=== PATIENT | male | born 1965 | race Hispanic/Latino ===

== ENCOUNTER 2020-07-17 12:21 | Inpatient (IN) | payer BC ==
[2020-07-17] MEDS ORDERED: SODIUM CHLORIDE 0.9% 1000 ML 1,000 ML IV ONE (12:28)
[2020-07-17] MEDS ORDERED: ONDANSETRON 4 MG/2 ML INJ IV ONE (12:28)
[2020-07-17] MEDS ORDERED: SODIUM CHLORIDE 0.9% 1000 ML IV SOLN IV ONE (12:33)
--- NOTE | 2020-07-17 12:33 | Event Note ---
ED Screening Note ED Screening Note: Patient is a 54-year-old male who presents emergency room complaints of nausea vomiting diarrhea and generalized weakness that began 07/12/2020 On 07/10/2020 he had a vascular stent placed in the right leg by Dr. Blankenship He denies any abdominal pain, hematochezia, hematemesis, melena, cough, chest pain, shortness of breath History of diabetes and states that his sugars have been running high at home Allergy to shellfish Patient is tachycardic with low normal blood pressure This initial assessment/diagnostic orders/clinical plan/treatment(s) is/are subject to change based on patients health status, clinical progression and re- assessment by fellow clinical providers in the ED. Further treatment and workup at subsequent clinical providers discretion. Patient/guardian urged not to elope from the ED as their condition may be serious if not clinically assessed and managed. Initial orders include: Labs, urine, EKG, chest x-ray, meds
--- NOTE | 2020-07-17 12:44 | Emergency Department Report ---
ED General Adult HPI - General Chief complaint: Nausea/Vomiting/Diarrhea Stated complaint: VOMITING/DEHYDRATED Time Seen by Provider: 07/17/20 12:28 Source: patient Mode of arrival: Wheelchair Limitations: No Limitations - History of Present Illness Initial comments: Patient is a 54-year-old male who had unknown vascular procedure probably to his right femoral artery on the second of this month, has had 4 to 5 days of nausea vomiting and diarrhea since. Patient denies fever, complains of mild dysuria, denies cough or shortness of breath. Patient denies calf pain or swelling. Patient presents meeting septic criteria, consequently requiring my immediate attention. - Related Data Previous Rx's Medication Instructions Recorded Last Taken Type Insulin NPH/Regular [NovoLIN 70/30] 34 unit SUB-Q QDDIAB #30 ml 05/20/14 08/10/14 Rx Docusate Sodium [Colace] 100 mg PO BID PRN #14 capsule 08/11/14 Unknown Rx Allergies Allergy/AdvReac Type Severity Reaction Status Date / Time shellfish derived Allergy Hives Verified 08/11/14 11:29 ED Review of Systems ROS: Stated complaint: VOMITING/DEHYDRATED Other details as noted in HPI Comment: All other systems reviewed and negative ED Past Medical Hx - Past Medical History Previous Medical History?: Yes Hx Hypertension: No Hx Diabetes: Yes (9 YRS) Hx GERD: Yes - Surgical History Past Surgical History?: Yes Hx Appendectomy: Yes - Social History Smoking Status: Never Smoker Substance Use Type: None - Medications Home Medications: Home Medications Medication Instructions Recorded Confirmed Last Taken Type Insulin NPH/Regular [NovoLIN 70/30] 34 unit SUB-Q QDDIAB #30 ml 05/20/14 08/11/14 08/10/14 Rx Docusate Sodium [Colace] 100 mg PO BID PRN #14 capsule 08/11/14 Unknown Rx ED Physical Exam - General Limitations: No Limitations General appearance: alert, in distress - Head Head exam: Present: atraumatic, normocephalic - Eye Eye exam: Present: normal appearance - ENT ENT exam: Present: mucous membranes moist - Neck Neck exam: Present: normal inspection - Respiratory Respiratory exam: Present: normal lung sounds bilaterally. Absent: respiratory distress - Cardiovascular Cardiovascular Exam: Present: normal rhythm, tachycardia. Absent: systolic murmur, diastolic murmur, rubs, gallop - GI/Abdominal GI/Abdominal exam: Present: soft, tenderness (Mild diffuse) - Rectal Rectal exam: Present: deferred - Extremities Exam Extremities exam: Present: normal inspection - Back Exam Back exam: Present: normal inspection - Neurological Exam Neurological exam: Present: alert, oriented X3 - Psychiatric Psychiatric exam: Present: normal affect, normal mood - Skin Skin exam: Present: warm, dry, intact, normal color. Absent: rash ED Course Vital Signs 07/17/20 07/17/20 07/17/20 12:25 13:14 13:15 Temperature 97.6 F Pulse Rate 109 H 106 H 106 H Respiratory 18 29 H 26 H Rate Blood Pressure Blood Pressure 100/59 [Right] O2 Sat by Pulse 96 93 94 Oximetry 07/17/20 07/17/20 07/17/20 13:31 13:45 14:01 Temperature Pulse Rate 108 H 108 H 107 H Respiratory 23 22 20 Rate Blood Pressure 121/73 121/73 121/73 Blood Pressure [Right] O2 Sat by Pulse 84 90 88 Oximetry 07/17/20 07/17/20 07/17/20 14:19 14:31 14:45 Temperature Pulse Rate 105 H 103 H 100 H Respiratory 20 13 23 Rate Blood Pressure 146/74 Blood Pressure [Right] O2 Sat by Pulse 91 95 94 Oximetry 07/17/20 07/17/20 07/17/20 15:01 15:16 15:31 Temperature Pulse Rate 101 H 109 H 100 H Respiratory 20 20 17 Rate Blood Pressure 146/74 121/73 146/74 Blood Pressure [Right] O2 Sat by Pulse 94 82 L 91 Oximetry 07/17/20 07/17/20 07/17/20 15:45 16:01 16:31 Temperature Pulse Rate 103 H 103 H 99 H Respiratory 24 14 22 Rate Blood Pressure 136/79 136/79 129/82 Blood Pressure [Right] O2 Sat by Pulse 88 93 89 Oximetry 07/17/20 07/17/20 07/17/20 17:01 17:31 18:01 Temperature Pulse Rate 99 H 100 H 99 H Respiratory 12 24 24 Rate Blood Pressure 129/72 139/68 147/78 Blood Pressure [Right] O2 Sat by Pulse 91 93 93 Oximetry 07/17/20 07/17/20 07/17/20 18:31 19:01 19:21 Temperature Pulse Rate 99 H 100 H 101 H Respiratory 25 H 23 23 Rate Blood Pressure 161/85 167/93 170/89 Blood Pressure [Right] O2 Sat by Pulse 94 91 93 Oximetry 07/17/20 07/17/20 07/17/20 19:31 19:40 19:41 Temperature 99.1 F Pulse Rate 101 H 98 H 100 H Respiratory 23 22 24 Rate Blood Pressure 170/89 170/89 Blood Pressure 168/83 [Right] O2 Sat by Pulse 93 96 92 Oximetry 07/17/20 19:51 Temperature Pulse Rate 101 H Respiratory 27 H Rate Blood Pressure 168/83 Blood Pressure [Right] O2 Sat by Pulse 95 Oximetry - Reevaluation(s) Reevaluation #1: 07/17/20 13:03 Patient initially treated with weight-based 30 mg/kg IV NS, Zofran 4 mg IV x1. Reevaluation #2: 07/17/20 16:15 Covering nurse practitioner for Dr. Blankenship of preferred vascular surgery group contacted, case discussed, states patient had right arteriography with runoff followed by aspiration arthrectomy of right superficial femoral artery followed by balloon angioplasty and stent placement. Patient treated with Rocephin 1 g IV x1 for presumed sepsis with possible urinary source pending urinalysis re romina. 07/18/20 06:04 ED Medical Decision Making - Lab Data Result diagrams: 07/17/20 13:05 07/17/20 13:05 Lab Results 07/17/20 07/17/20 07/17/20 Range/Units 12:29 13:05 13:05 WBC 19.1 H (4.5-11.0) K/mm3 RBC 3.90 (3.65-5.03) M/mm3 Hgb 11.5 L (11.8-15.2) gm/dl Hct 33.2 L (35.5-45.6) % MCV 85 (84-94) fl MCH 30 (28-32) pg MCHC 35 H (32-34) % RDW 13.7 (13.2-15.2) % Plt Count 281 (140-440) K/mm3 Add Manual Diff Complete Total Counted 100 Seg Neutrophils % Extended Insurance Clerk Seg Neuts % (Manual) 95.0 H (40.0-70.0) % Lymphocytes % (Manual) 3.0 L (13.4-35.0) % Monocytes % (Manual) 2.0 (0.0-7.3) % Nucleated RBC % Not Reportable Seg Neutrophils # Man 18.1 H (1.8-7.7) K/mm3 Band Neutrophils # 0.0 K/mm3 Lymphocytes # (Manual) 0.6 L (1.2-5.4) K/mm3 Abs React Lymphs (Man) 0.0 K/mm3 Monocytes # (Manual) 0.4 (0.0-0.8) K/mm3 Eosinophils # (Manual) 0.0 (0.0-0.4) K/mm3 Basophils # (Manual) 0.0 (0.0-0.1) K/mm3 Metamyelocytes # 0.0 K/mm3 Myelocytes # 0.0 K/mm3 Promyelocytes # 0.0 K/mm3 Blast Cells # 0.0 K/mm3 WBC Morphology Not Reportable Hypersegmented Neuts Not Reportable Hyposegmented Neuts Not Reportable Hypogranular Neuts Not Reportable Smudge Cells Not Reportable Toxic Granulation Not Reportable Toxic Vacuolation Not Reportable Dohle Bodies Not Reportable Pelger-Huet Anomaly Not Reportable Christa Rods Not Reportable Platelet Estimate Consistent w auto Clumped Platelets Not Reportable Plt Clumps, EDTA Not Reportable Large Platelets Not Reportable Giant Platelets Not Reportable Platelet Satelliting Not Reportable Plt Morphology Comment Not Reportable RBC Morphology Normal Dimorphic RBCs Not Reportable Polychromasia Not Reportable Hypochromasia Not Reportable Poikilocytosis Not Reportable Anisocytosis Not Reportable Microcytosis Not Reportable Macrocytosis Not Reportable Spherocytes Not Reportable Pappenheimer Bodies Not Reportable Sickle Cells Not Reportable Target Cells Not Reportable Tear Drop Cells Not Reportable Ovalocytes Not Reportable Helmet Cells Not Reportable [place] Bodies Not Reportable [place] Rings Not Reportable Dariana Cells Not Reportable Bite Cells Not Reportable Crenated Cell Not Reportable Elliptocytes Not Reportable Acanthocytes (Spur) Not Reportable Rouleaux Not Reportable Hemoglobin C Crystals Not Reportable Schistocytes Not Reportable Malaria parasites Not Reportable Jamil Bodies Not Reportable Hem Pathologist Commnt No PT 15.4 H (12.2-14.9) Sec. INR 1.24 H (0.87-1.13) APTT 35.0 (24.2-36.6) Sec. Sodium (137-145) mmol/L Potassium (3.6-5.0) mmol/L Chloride (98-107) mmol/L Carbon Dioxide (22-30) mmol/L Anion Gap mmol/L BUN (9-20) mg/dL Creatinine (0.8-1.3) mg/dL Estimated GFR ml/min BUN/Creatinine Ratio % Glucose (75-100) mg/dL POC Glucose 228 H (70-105) mg/dL Lactic Acid (0.7-2.0) mmol/L Calcium (8.4-10.2) mg/dL Magnesium (1.7-2.3) mg/dL Total Bilirubin (0.1-1.2) mg/dL AST (5-40) units/L ALT (7-56) units/L Alkaline Phosphatase (35-129) units/L Total Creatine Kinase (55-170) units/L Total Protein (6.3-8.2) g/dL Albumin (3.9-5) g/dL Albumin/Globulin Ratio % 07/17/20 07/17/20 07/17/20 Range/Units 13:05 13:05 16:14 WBC (4.5-11.0) K/mm3 RBC (3.65-5.03) M/mm3 Hgb (11.8-15.2) gm/dl Hct (35.5-45.6) % MCV (84-94) fl MCH (28-32) pg MCHC (32-34) % RDW (13.2-15.2) % Plt Count (140-440) K/mm3 Add Manual Diff Total Counted Seg Neutrophils % Seg Neuts % (Manual) (40.0-70.0) % Lymphocytes % (Manual) (13.4-35.0) % Monocytes % (Manual) (0.0-7.3) % Nucleated RBC % Seg Neutrophils # Man (1.8-7.7) K/mm3 Band Neutrophils # K/mm3 Lymphocytes # (Manual) (1.2-5.4) K/mm3 Abs React Lymphs (Man) K/mm3 Monocytes # (Manual) (0.0-0.8) K/mm3 Eosinophils # (Manual) (0.0-0.4) K/mm3 Basophils # (Manual) (0.0-0.1) K/mm3 Metamyelocytes # K/mm3 Myelocytes # K/mm3 Promyelocytes # K/mm3 Blast Cells # K/mm3 WBC Morphology Hypersegmented Neuts Hyposegmented Neuts Hypogranular Neuts Smudge Cells Toxic Granulation Toxic Vacuolation Dohle Bodies Pelger-Huet Anomaly Christa Rods Platelet Estimate Clumped Platelets Plt Clumps, EDTA Large Platelets Giant Platelets Platelet Satelliting Plt Morphology Comment RBC Morphology Dimorphic RBCs Polychromasia Hypochromasia Poikilocytosis Anisocytosis Microcytosis Macrocytosis Spherocytes Pappenheimer Bodies Sickle Cells Target Cells Tear Drop Cells Ovalocytes Helmet Cells [place] Bodies [place] Rings Dariana Cells Bite Cells Crenated Cell Elliptocytes Acanthocytes (Spur) Rouleaux Hemoglobin C Crystals Schistocytes Malaria parasites Jamil Bodies Hem Pathologist Commnt PT (12.2-14.9) Sec. INR (0.87-1.13) APTT (24.2-36.6) Sec. Sodium 124 L (137-145) mmol/L Potassium 4.9 (3.6-5.0) mmol/L Chloride 85.6 L (98-107) mmol/L Carbon Dioxide 20 L (22-30) mmol/L Anion Gap 23 mmol/L BUN 51 H (9-20) mg/dL Creatinine 1.9 H (0.8-1.3) mg/dL Estimated GFR 37 ml/min BUN/Creatinine Ratio 27 % Glucose 238 H (75-100) mg/dL POC Glucose (70-105) mg/dL Lactic Acid 2.40 H* 1.30 (0.7-2.0) mmol/L Calcium 9.5 (8.4-10.2) mg/dL Magnesium 2.00 (1.7-2.3) mg/dL Total Bilirubin 0.80 (0.1-1.2) mg/dL AST 42 H (5-40) units/L ALT 47 (7-56) units/L Alkaline Phosphatase 118 (35-129) units/L Total Creatine Kinase 131 (55-170) units/L Total Protein 6.9 (6.3-8.2) g/dL Albumin 2.7 L (3.9-5) g/dL Albumin/Globulin Ratio 0.6 % Vital Signs 07/17/20 07/17/20 07/17/20 12:25 13:14 13:15 Temperature 97.6 F Pulse Rate 109 H 106 H 106 H Respiratory 18 29 H 26 H Rate Blood Pressure Blood Pressure 100/59 [Right] O2 Sat by Pulse 96 93 94 Oximetry 07/17/20 07/17/20 07/17/20 13:31 13:45 14:01 Temperature Pulse Rate 108 H 108 H 107 H Respiratory 23 22 20 Rate Blood Pressure 121/73 121/73 121/73 Blood Pressure [Right] O2 Sat by Pulse 84 90 88 Oximetry 07/17/20 07/17/20 07/17/20 14:19 14:31 14:45 Temperature Pulse Rate 105 H 103 H 100 H Respiratory 20 13 23 Rate Blood Pressure 146/74 Blood Pressure [Right] O2 Sat by Pulse 91 95 94 Oximetry 07/17/20 07/17/20 07/17/20 15:01 15:16 15:31 Temperature Pulse Rate 101 H 109 H 100 H Respiratory 20 20 17 Rate Blood Pressure 146/74 121/73 146/74 Blood Pressure [Right] O2 Sat by Pulse 94 82 L 91 Oximetry 07/17/20 07/17/20 07/17/20 15:45 16:01 16:31 Temperature Pulse Rate 103 H 103 H 99 H Respiratory 24 14 22 Rate Blood Pressure 136/79 136/79 129/82 Blood Pressure [Right] O2 Sat by Pulse 88 93 89 Oximetry 07/17/20 07/17/20 07/17/20 17:01 17:31 18:01 Temperature Pulse Rate 99 H 100 H 99 H Respiratory 12 24 24 Rate Blood Pressure 129/72 139/68 147/78 Blood Pressure [Right] O2 Sat by Pulse 91 93 93 Oximetry 07/17/20 07/17/20 07/17/20 18:31 19:01 19:21 Temperature Pulse Rate 99 H 100 H 101 H Respiratory 25 H 23 23 Rate Blood Pressure 161/85 167/93 170/89 Blood Pressure [Right] O2 Sat by Pulse 94 91 93 Oximetry 07/17/20 07/17/20 07/17/20 19:31 19:40 19:41 Temperature 99.1 F Pulse Rate 101 H 98 H 100 H Respiratory 23 22 24 Rate Blood Pressure 170/89 170/89 Blood Pressure 168/83 [Right] O2 Sat by Pulse 93 96 92 Oximetry 07/17/20 19:51 Temperature Pulse Rate 101 H Respiratory 27 H Rate Blood Pressure 168/83 Blood Pressure [Right] O2 Sat by Pulse 95 Oximetry - EKG Data -: EKG Interpreted by Me (Sinus tachycardia 111, no ST-T changes, normal QRS 12:44) - Radiology Data Radiology results: report reviewed Chest x-ray: Negative per radiology [facility] [address] [place] [address] Cat Scan Report Signed Patient: ROSA M LILLY MR#: [id number] : 1965 Acct:[id number] Age/Sex: 54 / M ADM Date: 07/17/20 Loc: ED Attending Dr: Ordering Physician: CARRIE TABOR MD Date of Service: 07/17/20 Procedure(s): CT abdomen pelvis wo con Accession Number(s): [id number] cc: CARRIE TABOR MD CT ABDOMEN AND PELVIS WITHOUT CONTRAST HISTORY: Abdominal pain, nausea, vomiting, diarrhea COMPARISON: None. TECHNIQUE: Axial CT images were obtained through the abdomen and pelvis without IV contrast. Sagittal and coronal reformatted images. All CT scans at this location are performed using CT dose reduction for ALARA by means of automated exposure control. FINDINGS: CT ABDOMEN: Lung Bases: Clear. Liver: No significant abnormality. Biliary: A few tiny gallstones are noted in the fundus of the gallbladder. Spleen: No significant abnormality. Unenlarged. Pancreas: No significant abnormality. Adrenals: No significant abnormality. Kidneys: A few punctate calyceal stones are identified bilaterally. There is mild perinephric stranding. No focal renal lesion or hydronephrosis. No obvious ureteral stones. Lymphatics: No lymphadenopathy. Vasculature: No significant abnormality. Bowel/Peritoneum: There is moderate fecal matter in the distal colon and rectum. No evidence for bowel obstruction or focal bowel wall thickening. No free fluid or free air. The appendix is not confidently identified. CT PELVIS: : No significant abnormality. Osseous Structures: No significant abnormality. Additional Findings: None IMPRESSION: No acute process is identified in the abdomen or pelvis. Cholelithiasis. Punctate bilateral renal stones. No hydronephrosis. Moderate fecal retention in the distal colon and rectum. Signer Name: Eduard Drew Jr, MD Signed: 07/17/2020 3:37 PM Workstation Name: [id number] Transcribed By: TTR Dictated By: EDUARD DREW JR, MD Electronically Authenticated By: EDUARD DREW JR, MD Signed Date/Time: 07/17/20 153 DD/ 32 TD/TT: >Save Report [facility] [address] [place] [address] Cat Scan Report Signed Patient: ROSA M LILLY MR#: [id number] : 1965 Acct:[id number] Age/Sex: 54 / M ADM Date: 07/17/20 Loc: ED Attending Dr: Ordering Physician: CARRIE TABOR MD Date of Service: 07/17/20 Procedure(s): CT abdomen pelvis wo con Accession Number(s): [id number] cc: CARRIE TABOR MD CT ABDOMEN AND PELVIS WITHOUT CONTRAST HISTORY: Abdominal pain, nausea, vomiting, diarrhea COMPARISON: None. TECHNIQUE: Axial CT images were obtained through the abdomen and pelvis without IV contrast. Sagittal and coronal reformatted images. All CT scans at this location are performed using CT dose reduction for ALARA by means of automated exposure control. FINDINGS: CT ABDOMEN: Lung Bases: Clear. Liver: No significant abnormality. Biliary: A few tiny gallstones are noted in the fundus of the gallbladder. Spleen: No significant abnormality. Unenlarged. Pancreas: No significant abnormality. Adrenals: No significant abnormality. Kidneys: A few punctate calyceal stones are identified bilaterally. There is mild perinephric stranding. No focal renal lesion or hydronephrosis. No obvious ureteral stones. Lymphatics: No lymphadenopathy. Vasculature: No significant abnormality. Bowel/Peritoneum: There is moderate fecal matter in the distal colon and rectum. No evidence for bowel obstruction or focal bowel wall thickening. No free fluid or free air. The appendix is not confidently identified. CT PELVIS: : No significant abnormality. Osseous Structures: No significant abnormality. Additional Findings: None IMPRESSION: No acute process is identified in the abdomen or pelvis. Cholelithiasis. Punctate bilateral renal stones. No hydronephrosis. Moderate fecal retention in the distal colon and rectum. Signer Name: Eduard Drew Jr, MD Signed: 07/17/2020 3:37 PM Workstation Name: [id number] Transcribed By: TTR Dictated By: EDUARD DREW JR, MD Electronically Authenticated By: EDUARD DREW JR, MD Signed Date/Time: 07/17/20 153 DD/ 32 TD/TT: Critical Care Time: Yes Critical care time in (mins) excluding proc time.: 35 Critical care attestation.: If time is entered above; I have spent that time in minutes in the direct care of this critically ill patient, excluding procedure time. ED Disposition Clinical Impression: Sepsis, unspecified organism, Nausea vomiting and diarrhea Disposition: OP ADMIT IP TO THIS HOSP Is pt being admited?: Yes Condition: Stable
--- NOTE | 2020-07-17 13:33 | XRay Report ---
CHEST 1 VIEW 07/17/2020 12:26 PM INDICATION / CLINICAL INFORMATION: weakness. Abdominal pain. COMPARISON: 05/04/14 FINDINGS: SUPPORT DEVICES: None. HEART / MEDIASTINUM: No significant abnormality. LUNGS / PLEURA: No significant pulmonary or pleural abnormality. No pneumothorax. ADDITIONAL FINDINGS: No significant additional findings. IMPRESSION: 1. No acute findings. Signer Name: Bel Rangel MD Signed: 07/17/2020 1:29 PM Workstation Name: [id number]
[2020-07-17 13:55] LABS: INR 1.24 (0.87-1.13)
[2020-07-17 13:57] LABS: Albumin 2.7 g/dL (3.9-5); Calcium 9.5 mg/dL (8.4-10.2)
[2020-07-17 13:59] LABS: Hematocrit 33.2 % (35.5-45.6); Hemoglobin 11.5 gm/dl (11.8-15.2); Mean Corpuscular HGB Conc 35 % (32-34); Mean Corpuscular Volume 85 fl (84-94); Platelet Count 281 K/mm3 (140-440); Red Cell Distribution Width 13.7 % (13.2-15.2)
[2020-07-17] MEDS ORDERED: PIPERACIL/TAZOBACTA 4.5/NS 100 4.5 GM/100 ML VIAL IV ONE (15:20)
[2020-07-17 15:29] LABS: Total Cells Counted 100
[2020-07-17 15:30] LABS: Platelet Estimate Consistent w Auto; RBC Morphology Normal
--- NOTE | 2020-07-17 15:41 | Cat Scan Report ---
CT ABDOMEN AND PELVIS WITHOUT CONTRAST HISTORY: Abdominal pain, nausea, vomiting, diarrhea COMPARISON: None. TECHNIQUE: Axial CT images were obtained through the abdomen and pelvis without IV contrast. Sagittal and coronal reformatted images. All CT scans at this location are performed using CT dose reduction for ALARA by means of automated exposure control. FINDINGS: CT ABDOMEN: Lung Bases: Clear. Liver: No significant abnormality. Biliary: A few tiny gallstones are noted in the fundus of the gallbladder. Spleen: No significant abnormality. Unenlarged. Pancreas: No significant abnormality. Adrenals: No significant abnormality. Kidneys: A few punctate calyceal stones are identified bilaterally. There is mild perinephric strandi ng. No focal renal lesion or hydronephrosis. No obvious ureteral stones. Lymphatics: No lymphadenopathy. Vasculature: No significant abnormality. Bowel/Peritoneum: There is moderate fecal matter in the distal colon and rectum. No evidence for birgit l obstruction or focal bowel wall thickening. No free fluid or free air. The appendix is not confiden tly identified. CT PELVIS: : No significant abnormality. Osseous Structures: No significant abnormality. Additional Findings: None IMPRESSION: No acute process is identified in the abdomen or pelvis. Cholelithiasis. Punctate bilateral renal stones. No hydronephrosis. Moderate fecal retention in the distal colon and rectum. Signer Name: Eduard Drew Jr, MD Signed: 07/17/2020 3:37 PM Workstation Name: [id number]
[2020-07-17] MEDS ORDERED: cefTRIAXone/NS 1 GM/50 ML 1 GM/50 ML BAG IV ONE (16:01)
[2020-07-17] MEDS ORDERED: ALBUTEROL 2.5 MG/3 ML NEBU IH PRN (16:24)
[2020-07-17] MEDS ORDERED: ACETAMINOPHEN 325 MG TAB PO PRN ×2 (16:24)
[2020-07-17] MEDS: CEFEPIME/NS 2 GM/100 ML 2 GM/100 ML BAG IV SCH (17:15)
--- NOTE | 2020-07-17 18:09 | History and Physical Report ---
History of Present Illness Date of admission: 07/17/20 16:24 Chief complaint: I feel terrible History of present illness: 54 YO Male with PVD S/P Stent Placement, DM, GERD, Obesity Hypoventilation Syndrome presents to ED for evaluation. Patient reports "I do not feel well". Patient states that he has experienced generalized weakness, nausea, multiple episodes of vomiting, 3 loose stools over the past 5 days with persistently worsening symptoms over the same timeframe. Patient transported to [facility] via private vehicle for further care and evaluation of the aforementioned symptoms. The patient was seen and evaluated in the emergency department. All lab and imaging studies reviewed. Patient found to have sepsis, suspected secondary urinary tract infection, acute kidney injury with acute tubular necrosis, metabolic acidosis, as well as hyponatremia. Patient admitted to medical floor and initiated on sepsis protocol. Patient treated with IV antibiotic therapy and IV fluid resuscitation therapy with mild improvement in symptoms. Patient denies fever, chills, chest pain, palpitations, productive cough, skin rash, recent ill contacts, or known exposure to COVID-19. Prior admission on 05/05/2014 reviewed. All medication listed at time of admission has been reconciled. Past History Past Medical History: diabetes, GERD, PVD Past Surgical History: appendectomy, Other (Vascular stent placement) Social history: . denies: smoking, alcohol abuse, prescription drug abuse Family history: diabetes, hypertension Medications and Allergies Allergies Allergy/AdvReac Type Severity Reaction Status Date / Time shellfish derived Allergy Hives Verified 08/11/14 11:29 Home Medications Medication Instructions Recorded Confirmed Last Taken Type Insulin NPH/Regular [NovoLIN 70/30] 34 unit SUB-Q QDDIAB #30 ml 05/20/14 08/11/14 08/10/14 Rx Docusate Sodium [Colace] 100 mg PO BID PRN #14 capsule 08/11/14 Unknown Rx Active Meds: Active Medications Acetaminophen (Acetaminophen 325 Mg Tab) 650 mg PO Q4H PRN PRN Reason: Pain MILD(1-3)/Fever >100.5/CARIAS Albuterol (Albuterol 2.5 Mg/3 Ml Nebu) 2.5 mg IH Q4HRT PRN PRN Reason: Shortness Of Breath Hydromorphone HCl (Hydromorphone 1 Mg/1 Ml Inj) 0.25 mg IV Q4H PRN PRN Reason: Pain, Moderate (4-6) Cefepime HCl (Cefepime/Ns 2 Gm/100 Ml) 2 gm in 100 mls @ 200 mls/hr IV Q12H [facility]; Protocol Last Admin: 07/17/20 17:15 Dose: 200 mls/hr Documented by: Ondansetron HCl (Ondansetron 4 Mg/2 Ml Inj) 4 mg IV Q8H PRN PRN Reason: Nausea And Vomiting Sodium Chloride (Sodium Chloride 0.9% 10 Ml Flush Syringe) 10 ml IV BID LACHELLE Sodium Chloride (Sodium Chloride 0.9% 10 Ml Flush Syringe) 10 ml IV PRN PRN PRN Reason: LINE FLUSH Review of Systems Constitutional: weakness, malaise, no weight gain, no fever, no chills Ears, nose, mouth and throat: no ear pain, no ear discharge, no tinnitis, no nose pain, no nasal congestion Cardiovascular: no chest pain, no orthopnea, no palpitations, no rapid/irregular heart beat, no edema, no syncope Respiratory: no cough, no cough with sputum Gastrointestinal: nausea, vomiting, diarrhea, constipation, no melena, no loss of appetite, no early satiety, no indigestion Genitourinary Male: no testicular lump, no polyuria, no kidney stones Rectal: no pain, no incontinence, no bleeding Musculoskeletal: no neck stiffness, no neck pain, no shooting arm pain, no low back pain Integumentary: no rash, no pruritis, no redness, no sores, no wounds Neurological: no head injury, no parathesias, no numbness, no seizures, no syncope Psychiatric: no anxiety, no change in sleep habits, no sleep disturbances, no hypersomnia, no change in libido, no suicidal ideation Endocrine: no cold intolerance, no heat intolerance, no excessive thirst, no polydipsia, no nocturia Hematologic/Lymphatic: no easy bruising, no easy bleeding, no lymphadenopathy, no lymphedema Allergic/Immunologic: no urticaria, no allergic rhinitis, no angioedema Exam - Constitutional Vitals: Temp Pulse Resp BP Pulse Ox 97.6 F 103 H 14 136/79 93 07/17/20 12:25 07/17/20 16:01 07/17/20 16:01 07/17/20 16:01 03/08/21 16:01 General appearance: Present: mild distress - EENT Eyes: Present: PERRL ENT: hearing intact, clear oral mucosa - Neck Neck: Present: supple, normal ROM - Respiratory Respiratory effort: normal Respiratory: bilateral: CTA - Cardiovascular Rhythm: other (Tachycardia) Heart Sounds: Present: S1 & S2. Absent: rub, click - Extremities Extremities: pulses symmetrical, No edema Peripheral Pulses: abnormal (Capillary refill greater than 3.5 seconds) - Abdominal General gastrointestinal: Present: soft, non-tender, non-distended, normal bowel sounds Male genitourinary: Present: normal - Integumentary Integumentary: Present: dry, clammy, decreased turgor - Musculoskeletal Musculoskeletal: generalized weakness - Psychiatric Psychiatric: appropriate mood/affect, intact judgment & insight - Neurologic Neurologic: CNII-XII intact, moves all extremities Results - Labs CBC & Chem 7: 07/17/20 13:05 07/17/20 13:05 Labs: Abnormal lab results 07/17/20 07/17/20 07/17/20 Range/Units 12:29 13:05 13:05 WBC 19.1 H (4.5-11.0) K/mm3 Hgb 11.5 L (11.8-15.2) gm/dl Hct 33.2 L (35.5-45.6) % MCHC 35 H (32-34) % Seg Neuts % (Manual) 95.0 H (40.0-70.0) % Lymphocytes % (Manual) 3.0 L (13.4-35.0) % Seg Neutrophils # Man 18.1 H (1.8-7.7) K/mm3 Lymphocytes # (Manual) 0.6 L (1.2-5.4) K/mm3 PT 15.4 H (12.2-14.9) Sec. INR 1.24 H (0.87-1.13) Sodium (137-145) mmol/L Chloride (98-107) mmol/L Carbon Dioxide (22-30) mmol/L BUN (9-20) mg/dL Creatinine (0.8-1.3) mg/dL Glucose (75-100) mg/dL POC Glucose 228 H (70-105) mg/dL Lactic Acid (0.7-2.0) mmol/L AST (5-40) units/L Albumin (3.9-5) g/dL 07/17/20 07/17/20 Range/Units 13:05 13:05 WBC (4.5-11.0) K/mm3 Hgb (11.8-15.2) gm/dl Hct (35.5-45.6) % MCHC (32-34) % Seg Neuts % (Manual) (40.0-70.0) % Lymphocytes % (Manual) (13.4-35.0) % Seg Neutrophils # Man (1.8-7.7) K/mm3 Lymphocytes # (Manual) (1.2-5.4) K/mm3 PT (12.2-14.9) Sec. INR (0.87-1.13) Sodium 124 L (137-145) mmol/L Chloride 85.6 L (98-107) mmol/L Carbon Dioxide 20 L (22-30) mmol/L BUN 51 H (9-20) mg/dL Creatinine 1.9 H (0.8-1.3) mg/dL Glucose 238 H (75-100) mg/dL POC Glucose (70-105) mg/dL Lactic Acid 2.40 H* (0.7-2.0) mmol/L AST 42 H (5-40) units/L Albumin 2.7 L (3.9-5) g/dL Assessment and Plan - Patient Problems (1) Sepsis Current Visit: Yes Status: Acute Plan to address problem: Sepsis protocol: Chest x-ray, CBC, CMP, urinalysis, IV antibiotic therapy, IV fluid resuscitation therapy, blood culture., Serial lactic acid level, monitor fluid balance, maintain mean arterial pressure greater than or equal to 65. (2) UTI (urinary tract infection) Current Visit: Yes Status: Acute Qualifiers: Encounter type: initial encounter Plan to address problem: IV antibiotic therapy, supportive care. Urinalysis. (3) Acute kidney injury (DAQUAN) with acute tubular necrosis (ATN) Current Visit: Yes Status: Acute Plan to address problem: IV fluid resuscitation therapy, monitor urine output every shift, repeat BMP in a.m. to monitor GFR as well as serum creatinine. (4) Metabolic acidosis Current Visit: Yes Status: Acute Plan to address problem: IV fluid resuscitation therapy, treat sepsis, supportive care. Repeat BMP in a.m., serial lactic acid level. (5) Diabetes mellitus Current Visit: Yes Status: Acute Plan to address problem: Consistent carbohydrate diet, sliding scale insulin therapy, Accu-Chek, hypoglycemia protocol, (6) Hyponatremia Current Visit: Yes Status: Acute Plan to address problem: IV fluid resuscitation therapy, BMP, repeat BMP in a.m. (7) Obesity hypoventilation syndrome Current Visit: Yes Status: Acute Plan to address problem: Balanced diet, increase physical activity at discharge, outpatient pulmonary follow-up for sleep study. (8) DVT prophylaxis Current Visit: Yes Status: Acute Plan to address problem: SCD to bilateral lower extremities while in bed,
[2020-07-17] MEDS: INSULIN REGULAR, HUMAN 100 UNITS/1 ML SUB-Q SCH (22:51)
[2020-07-18] MEDS ORDERED: VANCOMYCIN PHARMACY TO DOSE IV SCH (04:00)
[2020-07-18] MEDS ORDERED: VANCOMYCIN 2,000 MG in SODIUM CHLORIDE 0.9% 500 ML 500 ML IV ONE (04:45)
[2020-07-18] MEDS: CEFEPIME/NS 2 GM/100 ML 2 GM/100 ML BAG IV SCH ×2 (04:49→17:35)
[2020-07-18 07:04] LABS: Bilirubin,Urine NEG (Negative); Blood,Urine SM (Negative); Color,Urine Yellow (Yellow); Mucus,Urine FEW /HPF; Urobilinogen,Urine < 2.0 mg/dL (<2.0)
[2020-07-18 07:05] LABS: Protein,Urine >500 mg/dL (Negative)
[2020-07-18] MEDS: INSULIN REGULAR, HUMAN 100 UNITS/1 ML SUB-Q SCH ×4 (09:44→23:21)
--- NOTE | 2020-07-18 10:55 | Progress Note ---
Assessment and Plan Assessment and plan: -- Sepsis/diabetic foot ulcer Current Visit: Yes Status: Acute Plan to address problem: Elevate the limb, vascular study venous Doppler arterial Doppler IV antibiotics, follow cultures, ID consult Wound care consult if needed --Peripheral vascular disease; Current Visit: Yes Status: Acute Plan to address problem: Vascular following Venous and arterial Dopplers of lower extremity IR/vascular following --UTI (urinary tract infection) Current Visit: Yes Status: Acute Plan to address problem: Empiric IV antibiotic therapy, supportive care. Follow urine cultures --Acute kidney injury / acute tubular necrosis (ATN) Current Visit: Yes Status: Acute Plan to address problem: Gentle hydration, monitor renal function, avoid nephrotoxin Nephrology consult if needed, plenty of oral fluids --Acute metabolic acidosis Current Visit: Yes Status: Acute Plan to address problem: IV hydration monitor acidosis --Type II diabetes mellitus Current Visit: Yes Status: Acute Plan to address problem: Accu-Chek sliding scale coverage ADA diet Insulin as needed --Hyponatremia Current Visit: Yes Status: Acute Plan to address problem: Monitor electrolytes --Morbid obesity BMI 39.1 Current Visit: Yes Status: Acute Plan to address problem: Patient needs weight reduction When medically stable, dietary modification Exercise as tolerated and weight reduction -- DVT prophylaxis Current Visit: Yes Status: Acute Plan to address problem: SCD, Lovenox renal dose We will closely monitor the patient and adjust the management as needed Plan of care reviewed with the patient and his nurse History Interval history: I have seen and examined the patient at the bedside this morning Patient's chart and medications reviewed Patient is sleeping easily awakens No new complaints Vital signs noted Hospitalist Physical - Constitutional Vitals: Temp Pulse Resp BP Pulse Ox 98.9 F 105 H 20 124/63 87 07/18/20 04:31 07/18/20 04:31 07/18/20 04:31 07/18/20 04:31 07/18/20 04:31 General appearance: Present: mild distress, well-nourished, obese - EENT Eyes: Present: PERRL, EOM intact - Neck Neck: Present: supple, normal ROM - Respiratory Respiratory effort: normal Respiratory: bilateral: diminished, negative: rales, rhonchi, other - Cardiovascular Rhythm: regular Heart Sounds: Present: S1 & S2 - Extremities Extremities: no ischemia, abnormal (Right lower extremity swelling erythema) Extremity abnormal: edema, erythema - Abdominal General gastrointestinal: soft, non-tender, non-distended, normal bowel sounds - Integumentary Integumentary: Present: clear, warm - Psychiatric Psychiatric: other (Sleeping) - Neurologic Neurologic: moves all extremities, other Results - Labs CBC & Chem 7: 07/17/20 13:05 07/18/20 10:19 Labs: Laboratory Last Values WBC 19.1 K/mm3 (4.5-11.0) H 07/17/20 13:05 RBC 3.90 M/mm3 (3.65-5.03) 07/17/20 13:05 Hgb 11.5 gm/dl (11.8-15.2) L 07/17/20 13:05 Hct 33.2 % (35.5-45.6) L 07/17/20 13:05 MCV 85 fl (84-94) 07/17/20 13:05 MCH 30 pg (28-32) 07/17/20 13:05 MCHC 35 % (32-34) H 07/17/20 13:05 RDW 13.7 % (13.2-15.2) 07/17/20 13:05 Plt Count 281 K/mm3 (140-440) 07/17/20 13:05 Add Manual Diff Complete 07/17/20 13:05 Total Counted 100 07/17/20 13:05 Seg Neutrophils % [place] [employer] 07/17/20 13:05 Seg Neuts % (Manual) 95.0 % (40.0-70.0) H 07/17/20 13:05 Lymphocytes % (Manual) 3.0 % (13.4-35.0) L 07/17/20 13:05 Monocytes % (Manual) 2.0 % (0.0-7.3) 07/17/20 13:05 Nucleated RBC % Not Reportable 07/17/20 13:05 Seg Neutrophils # Man 18.1 K/mm3 (1.8-7.7) H 07/17/20 13:05 Band Neutrophils # 0.0 K/mm3 07/17/20 13:05 Lymphocytes # (Manual) 0.6 K/mm3 (1.2-5.4) L 07/17/20 13:05 Abs React Lymphs (Man) 0.0 K/mm3 07/17/20 13:05 Monocytes # (Manual) 0.4 K/mm3 (0.0-0.8) 07/17/20 13:05 Eosinophils # (Manual) 0.0 K/mm3 (0.0-0.4) 07/17/20 13:05 Basophils # (Manual) 0.0 K/mm3 (0.0-0.1) 07/17/20 13:05 Metamyelocytes # 0.0 K/mm3 07/17/20 13:05 Myelocytes # 0.0 K/mm3 07/17/20 13:05 Promyelocytes # 0.0 K/mm3 07/17/20 13:05 Blast Cells # 0.0 K/mm3 07/17/20 13:05 WBC Morphology Not Reportable 07/17/20 13:05 Hypersegmented Neuts Not Reportable 07/17/20 13:05 Hyposegmented Neuts Not Reportable 07/17/20 13:05 Hypogranular Neuts Not Reportable 07/17/20 13:05 Smudge Cells Not Reportable 07/17/20 13:05 Toxic Granulation Not Reportable 07/17/20 13:05 Toxic Vacuolation Not Reportable 07/17/20 13:05 Dohle Bodies Not Reportable 07/17/20 13:05 Pelger-Huet Anomaly Not Reportable 07/17/20 13:05 Christa Rods Not Reportable 07/17/20 13:05 Platelet Estimate Consistent w auto 07/17/20 13:05 Clumped Platelets Not Reportable 07/17/20 13:05 Plt Clumps, EDTA Not Reportable 07/17/20 13:05 Large Platelets Not Reportable 07/17/20 13:05 Giant Platelets Not Reportable 07/17/20 13:05 Platelet Satelliting Not Reportable 07/17/20 13:05 Plt Morphology Comment Not Reportable 07/17/20 13:05 RBC Morphology Normal 07/17/20 13:05 Dimorphic RBCs Not Reportable 07/17/20 13:05 Polychromasia Not Reportable 07/17/20 13:05 Hypochromasia Not Reportable 07/17/20 13:05 Poikilocytosis Not Reportable 07/17/20 13:05 Anisocytosis Not Reportable 07/17/20 13:05 Microcytosis Not Reportable 07/17/20 13:05 Macrocytosis Not Reportable 07/17/20 13:05 Spherocytes Not Reportable 07/17/20 13:05 Pappenheimer Bodies Not Reportable 07/17/20 13:05 Sickle Cells Not Reportable 07/17/20 13:05 Target Cells Not Reportable 07/17/20 13:05 Tear Drop Cells Not Reportable 07/17/20 13:05 Ovalocytes Not Reportable 07/17/20 13:05 Helmet Cells Not Reportable 07/17/20 13:05 Allen-Gunter Bodies Not Reportable 07/17/20 13:05 [place] Rings Not Reportable 07/17/20 13:05 Dariana Cells Not Reportable 07/17/20 13:05 Bite Cells Not Reportable 07/17/20 13:05 Crenated Cell Not Reportable 07/17/20 13:05 Elliptocytes Not Reportable 07/17/20 13:05 Acanthocytes (Spur) Not Reportable 07/17/20 13:05 Rouleaux Not Reportable 07/17/20 13:05 Hemoglobin C Crystals Not Reportable 07/17/20 13:05 Schistocytes Not Reportable 07/17/20 13:05 Malaria parasites Not Reportable 07/17/20 13:05 Jamil Bodies Not Reportable 07/17/20 13:05 Hem Pathologist Commnt No 07/17/20 13:05 PT 15.4 Sec. (12.2-14.9) H 07/17/20 13:05 INR 1.24 (0.87-1.13) H 07/17/20 13:05 APTT 35.0 Sec. (24.2-36.6) 07/17/20 13:05 Sodium 124 mmol/L (137-145) L 07/17/20 13:05 Potassium 4.9 mmol/L (3.6-5.0) 07/17/20 13:05 Chloride 85.6 mmol/L (98-107) L 07/17/20 13:05 Carbon Dioxide 20 mmol/L (22-30) L 07/17/20 13:05 Anion Gap 23 mmol/L 07/17/20 13:05 BUN 51 mg/dL (9-20) H 07/17/20 13:05 Creatinine 1.9 mg/dL (0.8-1.3) H 07/17/20 13:05 Estimated GFR 37 ml/min 07/17/20 13:05 BUN/Creatinine Ratio 27 % 07/17/20 13:05 Glucose 238 mg/dL (75-100) H 07/17/20 13:05 POC Glucose 190 mg/dL (70-105) H 07/18/20 08:28 Lactic Acid 1.80 mmol/L (0.7-2.0) 07/17/20 23:17 Calcium 9.5 mg/dL (8.4-10.2) 07/17/20 13:05 Magnesium 2.00 mg/dL (1.7-2.3) 07/17/20 13:05 Total Bilirubin 0.80 mg/dL (0.1-1.2) 07/17/20 13:05 AST 42 units/L (5-40) H 07/17/20 13:05 ALT 47 units/L (7-56) 07/17/20 13:05 Alkaline Phosphatase 118 units/L (35-129) 07/17/20 13:05 Total Creatine Kinase 131 units/L (55-170) 07/17/20 13:05 Total Protein 6.9 g/dL (6.3-8.2) 07/17/20 13:05 Albumin 2.7 g/dL (3.9-5) L 07/17/20 13:05 Albumin/Globulin Ratio 0.6 % 07/17/20 13:05 Urine Color Yellow (Yellow) 07/18/20 06:30 Urine Turbidity Hazy (Clear) 07/18/20 06:30 Urine pH 5.0 (5.0-7.0) 07/18/20 06:30 Ur Specific [place] 1.017 (1.003-1.030) 07/18/20 06:30 Urine Protein >500 mg/dL (Negative) 07/18/20 06:30 Urine Glucose (UA) 50 mg/dL (Negative) 07/18/20 06:30 Urine Ketones Neg mg/dL (Negative) 07/18/20 06:30 Urine Blood Sm (Negative) 07/18/20 06:30 Urine Nitrite Neg (Negative) 07/18/20 06:30 Urine Bilirubin Neg (Negative) 07/18/20 06:30 Urine Urobilinogen < 2.0 mg/dL (<2.0) 07/18/20 06:30 Ur Leukocyte Esterase Neg (Negative) 07/18/20 06:30 Urine WBC (Auto) 5.0 /HPF (0.0-6.0) 07/18/20 06:30 Urine RBC (Auto) 12.0 /HPF (0.0-6.0) 07/18/20 06:30 U Epithel Cells (Auto) < 1.0 /HPF (0-13.0) 07/18/20 06:30 Urine Mucus Few /HPF 07/18/20 06:30 Blood Type A POSITIVE 07/17/20 17:12 Antibody Screen Negative 07/17/20 17:12 Microbiology: Microbiology 07/17/20 13:05 Peripheral/Venous Blood Culture - Preliminary 07/17/20 13:05 Peripheral/Venous Blood Culture - Preliminary Campos/IV: Voiding Method Urinal Active Medications - Current Medications Current Medications: Generic Name Dose Route Start Last Admin Trade Name Freq PRN Reason Stop Dose Admin Acetaminophen 650 mg 07/17/20 16:24 Acetaminophen 325 Mg Tab PO Q4H PRN Pain MILD(1-3)/Fever >100.5/CARIAS Albuterol 2.5 mg 07/17/20 16:24 Albuterol 2.5 Mg/3 Ml Nebu IH Q4HRT PRN Shortness Of Breath Hydromorphone HCl 0.25 mg 07/17/20 16:24 Hydromorphone 1 Mg/1 Ml Inj IV Q4H PRN Pain, Moderate (4-6) Cefepime HCl 2 gm in 100 mls @ 200 mls/hr 07/17/20 17:00 07/18/20 04:49 Cefepime/Ns 2 Gm/100 Ml IV 200 mls/hr Q12H LACHELLE Administration Protocol Insulin Human Regular 0 units 07/17/20 22:00 07/18/20 09:44 Insulin Regular, Human 100 Units/1 Ml SUB-Q 1 units ACHS LACHELLE Administration Protocol Ondansetron HCl 4 mg 07/17/20 16:24 Ondansetron 4 Mg/2 Ml Inj IV Q8H PRN Nausea And Vomiting Sodium Chloride 10 ml 07/17/20 22:00 07/18/20 09:44 Sodium Chloride 0.9% 10 Ml Flush Syringe IV 10 ml BID LACHELLE Administration Sodium Chloride 10 ml 07/17/20 16:24 Sodium Chloride 0.9% 10 Ml Flush Syringe IV PRN PRN LINE FLUSH
[2020-07-18 11:10] LABS: Calcium 8.2 mg/dL (8.4-10.2)
--- NOTE | 2020-07-18 16:43 | Vascular Lab Report ---
DUPLEX DOPPLER LOWER EXTREMITY VEINS, BILATERAL INDICATION / CLINICAL INFORMATION: Swelling and pain/evaluate for DVT. TECHNIQUE: Duplex doppler imaging was performed through the veins of both lower extremities using venous daisy brady and other maneuvers. COMPARISON: None available. FINDINGS: RIGHT COMMON FEMORAL VEIN: Negative. RIGHT FEMORAL VEIN: Negative. RIGHT POPLITEAL VEIN: Negative. RIGHT CALF VEINS: Negative. LEFT COMMON FEMORAL VEIN: Negative. LEFT FEMORAL VEIN: Negative. LEFT POPLITEAL VEIN: Negative. LEFT CALF VEINS: Negative. ADDITIONAL FINDINGS: None. IMPRESSION: 1. No sonographic evidence for DVT in either lower extremity. Signer Name: Jarret Mantilla MD Signed: 07/18/2020 4:38 PM Workstation Name: [id number]
--- NOTE | 2020-07-18 17:18 | Vascular Lab Report ---
DUPLEX DOPPLER LOWER EXTREMITY ARTERIAL, BILATERAL INDICATION / CLINICAL INFORMATION: ulceration with PVD. TECHNIQUE: Arterial duplex examination of both lower extremities performed using B-mode, color flow a nd spectral Doppler assessment. FINDINGS: RIGHT: Common Femoral Artery: PSV 117 cm/sec. Triphasic waveform. Proximal SFA: PSV 159 cm/sec. Triphasic waveform. Mid SFA: PSV 202 cm/sec. Biphasic waveform. Distal SFA: PSV 123 cm/sec. Monophasic waveform. Popliteal artery: PSV 108 cm/sec. Monophasic waveform. Posterior tibial artery: PSV 102 cm/sec. Monophasic waveform. Dorsalis Pedis Artery: PSV 24 cm/sec. Monophasic waveform. LEFT: Common Femoral Artery: PSV 129 cm/sec. Triphasic waveform. Proximal SFA: PSV 143 cm/sec. Triphasic waveform. Mid SFA: PSV 108 cm/sec. Triphasic waveform. Distal SFA: PSV 82 cm/sec. Triphasic waveform. Popliteal artery: PSV 77 cm/sec. Biphasic waveform. Posterior tibial artery: PSV 32 cm/sec. Triphasic waveform. Dorsalis Pedis Artery: PSV 30 cm/sec. Biphasic waveform. Right FARZANEH: 0.8 Left FARZANEH: 0.9 IMPRESSION: 1. Bilateral peripheral arterial disease which is greatest at the right lower extremity extending fro m the mid SFA where there is likely approximately 50% stenosis in the region of the mid SFA/distal SF A. Likely no hemodynamically significant stenosis present in the left lower extremity. 2. Normal ABIs. Ankle-Brachial Index (FARZANEH): - Calcified arteries > 1.4 - Normal = 0.9-1.4 - Mild PAD = 0.7-0.89 - Moderate PAD = 0.51-0.69 - Severe PAD < 0.5 Doppler Waveform: - Triphasic is normal. - Biphasic is abnormal if clear transition from triphasic signal along vascular tree. - Monophasic is abnormal. Signer Name: Jarret Mantilla MD Signed: 07/18/2020 5:14 PM Workstation Name: [id number]
--- NOTE | 2020-07-18 18:21 | Consultation ---
History of Present Illness - Reason for Consult Consult date: 07/18/20 History of PVD with Right Foot Ulceration Requesting physician: KEILA HERNANDEZ - History of Present Illness The patient is a 54-year-old male with a history of diabetes and diabetic neuropathy who states he developed a wound in March that he believes began after he stepped on some glass. He presented to [facility] and was admitted to the intensive care unit for 8 days with sepsis and required debridement of his right foot and wound VAC placement. The wound was slow to heal over the next several months so he was referred to Dr. Blankenship for intervention. He initially attempted right lower extremity endovascular intervention in June however that was unsuccessful so he reintervened on July 10. The patient underwent revascularization of his right SFA and popliteal artery and was told that he had thrombus in the artery and required anticoagulation to maintain patency of the vessel. He states that the day after the procedure he began having severe nausea with vomiting as well as uncontrolled diarrhea. He was also having severe right thigh pain. He was able to walk initially however over the past several days he became too weak to walk and began having weakness of his right lower extremity. He has also been having significant swelling of the right lower extremity. He presented to Dr. Blankenship's office and was told to come to the emergency department. He has no additional complaints at this time. Past History Past Medical History: diabetes, GERD, hypertension, PVD Past Surgical History: appendectomy, Other (Vascular stent placement) Social history: . denies: smoking, alcohol abuse, prescription drug abuse Family history: diabetes, hypertension Medications and Allergies Allergies Allergy/AdvReac Type Severity Reaction Status Date / Time shellfish derived Allergy Hives Verified 08/11/14 11:29 Home Medications Medication Instructions Recorded Confirmed Last Taken Type Insulin NPH/Regular [NovoLIN 70/30] 34 unit SUB-Q QDDIAB #30 ml 05/20/14 08/11/14 08/10/14 Rx Docusate Sodium [Colace] 100 mg PO BID PRN #14 capsule 08/11/14 Unknown Rx Active Meds: Active Medications Acetaminophen (Acetaminophen 325 Mg Tab) 650 mg PO Q4H PRN PRN Reason: Pain MILD(1-3)/Fever >100.5/CARIAS Albuterol (Albuterol 2.5 Mg/3 Ml Nebu) 2.5 mg IH Q4HRT PRN PRN Reason: Shortness Of Breath Enoxaparin Sodium (Enoxaparin 40 Mg/0.4 Ml Inj) 40 mg SUB-Q QDAY@1000 LACHELLE Hydromorphone HCl (Hydromorphone 1 Mg/1 Ml Inj) 0.25 mg IV Q4H PRN PRN Reason: Pain, Moderate (4-6) Cefepime HCl (Cefepime/Ns 2 Gm/100 Ml) 2 gm in 100 mls @ 200 mls/hr IV Q12H [facility]; Protocol Last Admin: 07/18/20 17:35 Dose: 200 mls/hr Documented by: Vancomycin HCl 2,000 mg/ (Sodium Chloride) 540 mls @ 250 mls/hr IV Q24H [facility] Insulin Human Regular (Insulin Regular, Human 100 Units/1 Ml) 0 units SUB-Q ACHS [facility]; Protocol Last Admin: 07/18/20 17:31 Dose: 2 units Documented by: Ondansetron HCl (Ondansetron 4 Mg/2 Ml Inj) 4 mg IV Q8H PRN PRN Reason: Nausea And Vomiting Sodium Chloride (Sodium Chloride 0.9% 10 Ml Flush Syringe) 10 ml IV BID [facility] Last Admin: 07/18/20 09:44 Dose: 10 ml Documented by: Sodium Chloride (Sodium Chloride 0.9% 10 Ml Flush Syringe) 10 ml IV PRN PRN PRN Reason: LINE FLUSH Review of Systems All systems: negative Exam - Constitutional Vitals: Temp Pulse Resp BP Pulse Ox 98.9 F 105 H 20 124/63 87 07/18/20 04:31 07/18/20 04:31 07/18/20 04:31 07/18/20 04:31 07/18/20 04:31 General appearance: Present: no acute distress, obese - Respiratory Respiratory effort: normal - Cardiovascular Rhythm: regular - Extremities Extremities: pulses intact (Palpable dorsalis pedis left, palpable posterior tibial right) Extremity abnormal: edema (Right lower extremity), cyanosis (Of the right toes), ulceration (Lateral plantar surface of the right foot) - Abdominal General gastrointestinal: Present: soft, non-distended Male genitourinary: Present: deferred - Rectal Rectal Exam: deferred - Integumentary Integumentary: Present: erythema (Right foot), pale (Left foot) - Musculoskeletal Musculoskeletal: right sided weakness (Right foot weakness. The patient is able to move his toes and ankle however it is weak compared to the left.) Results - Labs CBC & Chem 7: 07/17/20 13:05 07/18/20 10:19 Labs: Abnormal lab results 07/17/20 07/18/20 07/18/20 Range/Units 21:10 08:28 10:19 Sodium 128 L (137-145) mmol/L Chloride 94.3 L (98-107) mmol/L BUN 46 H (9-20) mg/dL Creatinine 1.4 H (0.8-1.3) mg/dL Glucose 266 H (75-100) mg/dL POC Glucose 184 H 190 H (70-105) mg/dL Calcium 8.2 L (8.4-10.2) mg/dL 07/18/20 07/18/20 Range/Units 11:39 16:37 Sodium (137-145) mmol/L Chloride (98-107) mmol/L BUN (9-20) mg/dL Creatinine (0.8-1.3) mg/dL Glucose (75-100) mg/dL POC Glucose 233 H 235 H (70-105) mg/dL Calcium (8.4-10.2) mg/dL - Imaging and Cardiology CT scan - abdomen: image reviewed (Patient with significant amount of fecal material in the sigmoid colon and rectum) Venous US: image reviewed (No evidence of DVT), other (Arterial duplex films reviewed) Assessment and Plan The patient is a 54-year-old male with a history of diabetes and a right foot ulceration that required debridement and VAC placement. He underwent an endovascular procedure of the right SFA popliteal artery to improve his flow to assist with wound healing. He was told that there was thrombus within the artery and he should be on anticoagulation for minimum of 6 months. Given that I will start a heparin drip. His arterial duplex has multiphasic waveforms at the proximal segment with monophasic waveforms in the distal segment and flattened toe waveforms. He does have elevated renal function at this time so I will start him on IV fluids and make him n.p.o. after midnight. If his labs improve I will plan to perform a diagnostic angiogram with possible intervention. The patient has been complaining of uncontrolled diarrhea however there is a significant amount of stool within the sigmoid colon and rectum. Would recommend an enema to assist with relieving his impaction. I discussed the plan with the patient who is expressed understanding and agrees.
[2020-07-18] MEDS ORDERED: HEPARIN 10,000 UNITS/10 ML VIAL IV ONE (19:00)
[2020-07-18 19:52] LABS: Hematocrit 28.5 % (35.5-45.6); Hemoglobin 9.9 gm/dl (11.8-15.2)
[2020-07-18 20:03] LABS: INR 1.15 (0.87-1.13)
[2020-07-18 20:04] LABS: Partial Thromboplastin Time 30.8 Sec. (24.2-36.6)
[2020-07-18] MEDS: HEPARIN/ 0.45% NACL DRIP 25,000 UNIT/500 ML BAG IV SCH (20:59)
[2020-07-18] MEDS: SODIUM CHLORIDE 0.9% 1000 ML 1,000 ML IV SCH (21:05)
[2020-07-19] MEDS ORDERED: HEPARIN 10,000 UNITS/10 ML VIAL IV PRN ×2 (01:00→10:00)
[2020-07-19] MEDS: CEFEPIME/NS 2 GM/100 ML 2 GM/100 ML BAG IV SCH ×2 (04:24→17:26)
[2020-07-19 05:46] LABS: BUN/Creatinine Ratio 32; Blood Urea Nitrogen 38 mg/dL (9-20); Calcium 8.5 mg/dL (8.4-10.2); Hemolysis Index 1
[2020-07-19] MEDS: HYDROmorphone 1 MG/1 ML INJ IV PRN ×3 (05:58→22:09)
[2020-07-19] MEDS ORDERED: VANCOMYCIN 2,000 MG in SODIUM CHLORIDE 0.9% 500 ML 500 ML IV SCH (06:00)
[2020-07-19] MEDS: INSULIN REGULAR, HUMAN 100 UNITS/1 ML SUB-Q SCH ×5 (07:30→22:01)
[2020-07-19] MEDS ORDERED: ENOXAPARIN 40 MG/0.4 ML INJ SUB-Q SCH (10:00)
[2020-07-19] MEDS ORDERED: ENOXAPARIN 30 MG/0.3 ML INJ SUB-Q SCH (10:00)
--- NOTE | 2020-07-19 10:11 | Event Note ---
Date: 07/19/20 Patient with hiccups this morning and feeling bloated. Continues to have liquid bowel movements but no formed bowel movements that he is unable to control. He states he has suffered from constipation for years. Patient's right foot is viable and needs angiogram however this is not emergent. With recent history of uncontrolled stooling and vomiting, will delay procedure until he has adequate workup and possibly bowel regimen to clear distal impaction. May require GI consult and ultimately General Surgery depending on the cause of his chronic constipation.
[2020-07-19] MEDS ORDERED: MAGNESIUM HYDROXIDE (MOM) ORAL LIQD UDC PO NR (12:00)
--- NOTE | 2020-07-19 13:47 | Progress Note ---
Assessment and Plan Assessment and plan: --Constipation; Current Visit: Yes Status: Acute , Plan to address problem: intermittent watery diarrhea CT abdomen shows stool in the colon MOM/enema as needed Supportive care --Staph aureus bacteremia: Current Visit: Yes Status: Acute , Plan to address problem: Patient is already on Vanco and cefepime, follow culture sensitivities and adjust antibiotics as needed -- Sepsis/diabetic foot ulcer Current Visit: Yes Status: Acute , Plan to address problem: Elevate the limb, vascular study venous Doppler arterial Doppler IV antibiotics, follow cultures, ID consult Wound care consult if needed --Peripheral vascular disease; Current Visit: Yes Status: Acute Plan to address problem: Vascular following Venous and arterial Dopplers of lower extremity IR/vascular following --UTI (urinary tract infection) Current Visit: Yes Status: Acute Plan to address problem: Empiric IV antibiotic therapy, supportive care. Follow urine cultures --Acute kidney injury / acute tubular necrosis (ATN) Current Visit: Yes Status: Acute Plan to address problem: Gentle hydration, monitor renal function, avoid nephrotoxin Nephrology consult if needed, plenty of oral fluids --Acute metabolic acidosis Current Visit: Yes Status: Acute Plan to address problem: IV hydration monitor acidosis --Type II diabetes mellitus Current Visit: Yes Status: Acute Plan to address problem: Accu-Chek sliding scale coverage ADA diet Insulin as needed --Hyponatremia Current Visit: Yes Status: Acute Plan to address problem: Monitor electrolytes --Morbid obesity BMI 39.1 Current Visit: Yes Status: Acute Plan to address problem: Patient needs weight reduction When medically stable, dietary modification Exercise as tolerated and weight reduction -- DVT prophylaxis Current Visit: Yes Status: Acute Plan to address problem: SCD, Lovenox renal dose We will closely monitor the patient and adjust the management as needed Plan of care reviewed with the patient and his nurse I discussed with vascular, vascular procedure reschedule patient has chronic constipation And some intermittent diarrhea History Interval history: I have seen and examined the patient Patient's chart and medications reviewed Patient complains of severe constipation And some watery diarrhea Complains of generalized weakness Vital signs reviewed Hospitalist Physical - Constitutional Vitals: Temp Pulse Resp BP Pulse Ox 97.6 F 90 20 148/82 90 07/19/20 11:38 07/19/20 11:38 07/19/20 11:38 07/19/20 11:38 07/19/20 11:38 General appearance: Present: mild distress, well-nourished, obese - EENT Eyes: Present: PERRL, EOM intact - Neck Neck: Present: supple, normal ROM - Respiratory Respiratory effort: normal Respiratory: bilateral: diminished, negative: rales, rhonchi, wheezing - Cardiovascular Rhythm: regular Heart Sounds: Present: S1 & S2 - Extremities Extremity abnormal: edema, erythema (Right lower extremity), other (Peripheral vascular disease) - Abdominal General gastrointestinal: soft, non-tender, non-distended, normal bowel sounds - Integumentary Integumentary: Present: clear, warm - Psychiatric Psychiatric: appropriate mood/affect, cooperative - Neurologic Neurologic: CNII-XII intact, moves all extremities Results - Labs CBC & Chem 7: 07/18/20 19:05 07/19/20 04:40 Labs: Laboratory Last Values WBC 19.1 K/mm3 (4.5-11.0) H 07/17/20 13:05 RBC 3.90 M/mm3 (3.65-5.03) 07/17/20 13:05 Hgb 9.9 gm/dl (11.8-15.2) L 07/18/20 19:05 Hct 28.5 % (35.5-45.6) L 07/18/20 19:05 MCV 85 fl (84-94) 07/17/20 13:05 MCH 30 pg (28-32) 07/17/20 13:05 MCHC 35 % (32-34) H 07/17/20 13:05 RDW 13.7 % (13.2-15.2) 07/17/20 13:05 Plt Count 250 K/mm3 (140-440) 07/18/20 19:05 Add Manual Diff Complete 07/17/20 13:05 Total Counted 100 07/17/20 13:05 Seg Neutrophils % Ch[place] Tender 07/17/20 13:05 Seg Neuts % (Manual) 95.0 % (40.0-70.0) H 07/17/20 13:05 Lymphocytes % (Manual) 3.0 % (13.4-35.0) L 07/17/20 13:05 Monocytes % (Manual) 2.0 % (0.0-7.3) 07/17/20 13:05 Nucleated RBC % Not Reportable 07/17/20 13:05 Seg Neutrophils # Man 18.1 K/mm3 (1.8-7.7) H 07/17/20 13:05 Band Neutrophils # 0.0 K/mm3 07/17/20 13:05 Lymphocytes # (Manual) 0.6 K/mm3 (1.2-5.4) L 07/17/20 13:05 Abs React Lymphs (Man) 0.0 K/mm3 07/17/20 13:05 Monocytes # (Manual) 0.4 K/mm3 (0.0-0.8) 07/17/20 13:05 Eosinophils # (Manual) 0.0 K/mm3 (0.0-0.4) 07/17/20 13:05 Basophils # (Manual) 0.0 K/mm3 (0.0-0.1) 07/17/20 13:05 Metamyelocytes # 0.0 K/mm3 07/17/20 13:05 Myelocytes # 0.0 K/mm3 07/17/20 13:05 Promyelocytes # 0.0 K/mm3 07/17/20 13:05 Blast Cells # 0.0 K/mm3 07/17/20 13:05 WBC Morphology Not Reportable 07/17/20 13:05 Hypersegmented Neuts Not Reportable 07/17/20 13:05 Hyposegmented Neuts Not Reportable 07/17/20 13:05 Hypogranular Neuts Not Reportable 07/17/20 13:05 Smudge Cells Not Reportable 07/17/20 13:05 Toxic Granulation Not Reportable 07/17/20 13:05 Toxic Vacuolation Not Reportable 07/17/20 13:05 Dohle Bodies Not Reportable 07/17/20 13:05 Pelger-Huet Anomaly Not Reportable 07/17/20 13:05 Christa Rods Not Reportable 07/17/20 13:05 Platelet Estimate Consistent w auto 07/17/20 13:05 Clumped Platelets Not Reportable 07/17/20 13:05 Plt Clumps, EDTA Not Reportable 07/17/20 13:05 Large Platelets Not Reportable 07/17/20 13:05 Giant Platelets Not Reportable 07/17/20 13:05 Platelet Satelliting Not Reportable 07/17/20 13:05 Plt Morphology Comment Not Reportable 07/17/20 13:05 RBC Morphology Normal 07/17/20 13:05 Dimorphic RBCs Not Reportable 07/17/20 13:05 Polychromasia Not Reportable 07/17/20 13:05 Hypochromasia Not Reportable 07/17/20 13:05 Poikilocytosis Not Reportable 07/17/20 13:05 Anisocytosis Not Reportable 07/17/20 13:05 Microcytosis Not Reportable 07/17/20 13:05 Macrocytosis Not Reportable 07/17/20 13:05 Spherocytes Not Reportable 07/17/20 13:05 Pappenheimer Bodies Not Reportable 07/17/20 13:05 Sickle Cells Not Reportable 07/17/20 13:05 Target Cells Not Reportable 07/17/20 13:05 Tear Drop Cells Not Reportable 07/17/20 13:05 Ovalocytes Not Reportable 07/17/20 13:05 Helmet Cells Not Reportable 07/17/20 13:05 [place] Bodies Not Reportable 07/17/20 13:05 [place] Rings Not Reportable 07/17/20 13:05 Dariana Cells Not Reportable 07/17/20 13:05 Bite Cells Not Reportable 07/17/20 13:05 Crenated Cell Not Reportable 07/17/20 13:05 Elliptocytes Not Reportable 07/17/20 13:05 Acanthocytes (Spur) Not Reportable 07/17/20 13:05 Rouleaux Not Reportable 07/17/20 13:05 Hemoglobin C Crystals Not Reportable 07/17/20 13:05 Schistocytes Not Reportable 07/17/20 13:05 Malaria parasites Not Reportable 07/17/20 13:05 Jamil Bodies Not Reportable 07/17/20 13:05 Hem Pathologist Commnt No 07/17/20 13:05 PT 14.5 Sec. (12.2-14.9) 07/18/20 19:05 INR 1.15 (0.87-1.13) H 07/18/20 19:05 APTT 30.8 Sec. (24.2-36.6) 07/18/20 19:05 Heparin Anti-Xa Level 0.34 U.I./ml (0.3-0.7) 07/19/20 04:40 Sodium 131 mmol/L (137-145) L 07/19/20 04:40 Potassium 4.3 mmol/L (3.6-5.0) 07/19/20 04:40 Chloride 97.3 mmol/L (98-107) L 07/19/20 04:40 Carbon Dioxide 25 mmol/L (22-30) 07/19/20 04:40 Anion Gap 13 mmol/L 07/19/20 04:40 BUN 38 mg/dL (9-20) H 07/19/20 04:40 Creatinine 1.2 mg/dL (0.8-1.3) 07/19/20 04:40 Estimated GFR > 60 ml/min 07/19/20 04:40 BUN/Creatinine Ratio 32 % 07/19/20 04:40 Glucose 247 mg/dL (75-100) H 07/19/20 04:40 POC Glucose 199 mg/dL (70-105) H 07/19/20 11:22 Lactic Acid 1.80 mmol/L (0.7-2.0) 07/17/20 23:17 Calcium 8.5 mg/dL (8.4-10.2) 07/19/20 04:40 Magnesium 2.00 mg/dL (1.7-2.3) 07/17/20 13:05 Total Bilirubin 0.80 mg/dL (0.1-1.2) 07/17/20 13:05 AST 42 units/L (5-40) H 07/17/20 13:05 ALT 47 units/L (7-56) 07/17/20 13:05 Alkaline Phosphatase 118 units/L (35-129) 07/17/20 13:05 Total Creatine Kinase 131 units/L (55-170) 07/17/20 13:05 Total Protein 6.9 g/dL (6.3-8.2) 07/17/20 13:05 Albumin 2.7 g/dL (3.9-5) L 07/17/20 13:05 Albumin/Globulin Ratio 0.6 % 07/17/20 13:05 Urine Color Yellow (Yellow) 07/18/20 06:30 Urine Turbidity Hazy (Clear) 07/18/20 06:30 Urine pH 5.0 (5.0-7.0) 07/18/20 06:30 Ur Specific Leslie 1.017 (1.003-1.030) 07/18/20 06:30 Urine Protein >500 mg/dL (Negative) 07/18/20 06:30 Urine Glucose (UA) 50 mg/dL (Negative) 07/18/20 06:30 Urine Ketones Neg mg/dL (Negative) 07/18/20 06:30 Urine Blood Sm (Negative) 07/18/20 06:30 Urine Nitrite Neg (Negative) 07/18/20 06:30 Urine Bilirubin Neg (Negative) 07/18/20 06:30 Urine Urobilinogen < 2.0 mg/dL (<2.0) 07/18/20 06:30 Ur Leukocyte Esterase Neg (Negative) 07/18/20 06:30 Urine WBC (Auto) 5.0 /HPF (0.0-6.0) 07/18/20 06:30 Urine RBC (Auto) 12.0 /HPF (0.0-6.0) 07/18/20 06:30 U Epithel Cells (Auto) < 1.0 /HPF (0-13.0) 07/18/20 06:30 Urine Mucus Few /HPF 07/18/20 06:30 Blood Type A POSITIVE 07/17/20 17:12 Antibody Screen Negative 07/17/20 17:12 Microbiology: Microbiology 07/17/20 13:05 Peripheral/Venous Blood Culture - Preliminary Staphylococcus Aureus 07/17/20 13:05 Peripheral/Venous Blood Culture - Preliminary Staphylococcus Aureus Campos/IV: Voiding Method Urinal Active Medications - Current Medications Current Medications: Generic Name Dose Route Start Last Admin Trade Name Freq PRN Reason Stop Dose Admin Acetaminophen 650 mg 07/17/20 16:24 Acetaminophen 325 Mg Tab PO Q4H PRN Pain MILD(1-3)/Fever >100.5/CARIAS Albuterol 2.5 mg 07/17/20 16:24 Albuterol 2.5 Mg/3 Ml Nebu IH Q4HRT PRN Shortness Of Breath Heparin Sodium (Porcine) 5,000 unit 07/19/20 10:00 Heparin 10,000 Units/10 Ml Vial IV Q6H PRN Anti-Xa Assay < 0.1 units/ml Hydromorphone HCl 0.25 mg 07/17/20 16:24 07/19/20 05:58 Hydromorphone 1 Mg/1 Ml Inj IV 0.25 mg Q4H PRN Administration Pain, Moderate (4-6) Cefepime HCl 2 gm in 100 mls @ 200 mls/hr 07/17/20 17:00 07/19/20 04:24 Cefepime/Ns 2 Gm/100 Ml IV 200 mls/hr Q12H LACHELLE Administration Protocol Heparin Sodium/Sodium Chloride 25,000 unit in 500 mls @ 30 mls/hr 07/18/20 19:00 07/19/20 05:00 Heparin/ 0.45% Nacl-25,000 Unit/500 Ml IV 1,500 units/hr TITR LACHELLE 30 mls/hr Titration Protocol 1,500 UNITS/HR Sodium Chloride 1,000 mls @ 75 mls/hr 07/18/20 19:00 07/18/20 21:05 Nacl 0.9% 1000 Ml IV 75 mls/hr DIRECT LACHELLE Administration Vancomycin HCl 1,500 mg/ 530 mls @ 333.333 mls/hr 07/19/20 22:00 Sodium Chloride IV Q12HR LACHELLE Insulin Human Regular 0 units 07/17/20 22:00 07/19/20 12:53 Insulin Regular, Human 100 Units/1 Ml SUB-Q 2 units ACHS LACHELLE Administration Protocol Magnesium Hydroxide 30 ml 07/19/20 12:00 07/19/20 12:53 Magnesium Hydroxide (Mom) Oral Liqd Udc PO 07/19/20 15:00 30 ml ONCE@1200 NR Administration Magnesium Hydroxide 30 ml 07/19/20 18:00 Magnesium Hydroxide (Mom) Oral Liqd Udc PO QDAY PRN Constipation Ondansetron HCl 4 mg 07/17/20 16:24 Ondansetron 4 Mg/2 Ml Inj IV Q8H PRN Nausea And Vomiting Sodium Chloride 10 ml 07/17/20 22:00 07/19/20 09:03 Sodium Chloride 0.9% 10 Ml Flush Syringe IV 10 ml BID LACHELLE Administration Sodium Chloride 10 ml 07/17/20 16:24 Sodium Chloride 0.9% 10 Ml Flush Syringe IV PRN PRN LINE FLUSH
[2020-07-19] MEDS: ONDANSETRON 4 MG/2 ML INJ IV PRN (14:50)
[2020-07-19] MEDS ORDERED: MAGNESIUM HYDROXIDE (MOM) ORAL LIQD UDC PO PRN (18:00)
[2020-07-19] MEDS: VANCOMYCIN 1,500 MG in SODIUM CHLORIDE 0.9% 500 ML 500 ML IV SCH (22:01)
[2020-07-20] MEDS: CEFEPIME/NS 2 GM/100 ML 2 GM/100 ML BAG IV SCH (05:12)
[2020-07-20] MEDS: SODIUM CHLORIDE 0.9% 1000 ML 1,000 ML IV SCH (05:12)
[2020-07-20] MEDS: HYDROmorphone 1 MG/1 ML INJ IV PRN (05:12)
[2020-07-20] MEDS: HEPARIN/ 0.45% NACL DRIP 25,000 UNIT/500 ML BAG IV SCH (05:13)
[2020-07-20 06:20] LABS: Hematocrit 27.9 % (35.5-45.6); Hemoglobin 9.5 gm/dl (11.8-15.2); Mean Corpuscular HGB Conc 34 % (32-34); Mean Corpuscular Volume 86 fl (84-94); Platelet Count 316 K/mm3 (140-440); Red Blood Count 3.22 M/mm3 (3.65-5.03)
[2020-07-20 06:24] LABS: BUN/Creatinine Ratio 28; Blood Urea Nitrogen 28 mg/dL (9-20); Calcium 8.2 mg/dL (8.4-10.2); Hemolysis Index 0
[2020-07-20] MEDS: INSULIN REGULAR, HUMAN 100 UNITS/1 ML SUB-Q SCH ×4 (08:55→23:46)
[2020-07-20] MEDS ORDERED: INSULIN NPH/REGULAR 70/30 INJ SUB-Q ONE (11:00)
[2020-07-20] MEDS: VANCOMYCIN 1,500 MG in SODIUM CHLORIDE 0.9% 500 ML 500 ML IV SCH ×2 (11:03→22:40)
--- NOTE | 2020-07-20 12:37 | Progress Note ---
Assessment and Plan Assessment and plan: --Type II diabetes mellitus/uncontrolled Current Visit: Yes Status: Acute Plan to address problem: Accu-Chek sliding scale coverage ADA diet Add long-acting insulin Novolin 70/30 10 units twice a day 6 units 1 dose this morning --Constipation; Current Visit: Yes Status: Acute , Plan to address problem: intermittent watery diarrhea CT abdomen shows stool in the colon MOM/enema as needed Supportive care --Staph aureus bacteremia: Current Visit: Yes Status: Acute , Plan to address problem: Patient is already on Vanco and cefepime, follow culture sensitivities and adjust antibiotics as needed -- Sepsis/diabetic foot ulcer Current Visit: Yes Status: Acute , Plan to address problem: Elevate the limb, vascular study venous Doppler arterial Doppler IV antibiotics, follow cultures, ID consult Wound care consult if needed --Peripheral vascular disease; Current Visit: Yes Status: Acute Plan to address problem: Vascular following Venous and arterial Dopplers of lower extremity IR/vascular following --UTI (urinary tract infection) Current Visit: Yes Status: Acute Plan to address problem: Empiric IV antibiotic therapy, supportive care. Follow urine cultures --Acute kidney injury / acute tubular necrosis (ATN) Current Visit: Yes Status: Acute Plan to address problem: Gentle hydration, monitor renal function, avoid nephrotoxin Nephrology consult if needed, plenty of oral fluids --Acute metabolic acidosis Current Visit: Yes Status: Acute Plan to address problem: IV hydration monitor acidosis --Hyponatremia Current Visit: Yes Status: Acute Plan to address problem: Monitor electrolytes --Morbid obesity BMI 39.1 Current Visit: Yes Status: Acute Plan to address problem: Patient needs weight reduction When medically stable, dietary modification Exercise as tolerated and weight reduction -- DVT prophylaxis Current Visit: Yes Status: Acute Plan to address problem: SCD, Lovenox renal dose We will closely monitor the patient and adjust the management as needed Plan of care reviewed with the patient and his nurse I discussed with vascular, vascular procedure reschedule patient has chronic constipation And some intermittent diarrhea History Interval history: I have seen and examined the patient at the bedside Patient's chart and medications reviewed Patient has severe sepsis with staph aureus bacteremia Diabetic foot and right lower extremity cellulitis On antibiotics Patient complains of tiredness Afebrile, vital signs noted Hospitalist Physical - Constitutional Vitals: Temp Pulse Resp BP Pulse Ox 98.1 F 89 20 147/67 94 07/20/20 04:19 07/20/20 04:19 07/20/20 04:19 07/20/20 04:19 07/20/20 08:40 General appearance: Present: mild distress, well-nourished, obese - EENT Eyes: Present: PERRL, EOM intact - Neck Neck: Present: supple, normal ROM - Respiratory Respiratory effort: normal Respiratory: bilateral: diminished, negative: rales, rhonchi, wheezing - Cardiovascular Rhythm: regular Heart Sounds: Present: S1 & S2 - Extremities Extremities: abnormal (Right lower extremity cellulitis, erythema, diabetic foot) Extremity abnormal: edema - Abdominal General gastrointestinal: soft, non-tender, non-distended, normal bowel sounds - Integumentary Integumentary: Present: clear, warm - Psychiatric Psychiatric: appropriate mood/affect, cooperative - Neurologic Neurologic: CNII-XII intact, moves all extremities Results - Labs CBC & Chem 7: 07/20/20 05:53 07/20/20 05:53 Labs: Laboratory Last Values WBC 12.1 K/mm3 (4.5-11.0) H 07/20/20 05:53 RBC 3.22 M/mm3 (3.65-5.03) L 07/20/20 05:53 Hgb 9.5 gm/dl (11.8-15.2) L 07/20/20 05:53 Hct 27.9 % (35.5-45.6) L 07/20/20 05:53 MCV 86 fl (84-94) 07/20/20 05:53 MCH 30 pg (28-32) 07/20/20 05:53 MCHC 34 % (32-34) 07/20/20 05:53 RDW 14.0 % (13.2-15.2) 07/20/20 05:53 Plt Count 316 K/mm3 (140-440) 07/20/20 05:53 Add Manual Diff Complete 07/17/20 13:05 Total Counted 100 07/17/20 13:05 Seg Neutrophils % [place] 07/17/20 13:05 Seg Neuts % (Manual) 95.0 % (40.0-70.0) H 07/17/20 13:05 Lymphocytes % (Manual) 3.0 % (13.4-35.0) L 07/17/20 13:05 Monocytes % (Manual) 2.0 % (0.0-7.3) 07/17/20 13:05 Nucleated RBC % Not Reportable 07/17/20 13:05 Seg Neutrophils # Man 18.1 K/mm3 (1.8-7.7) H 07/17/20 13:05 Band Neutrophils # 0.0 K/mm3 07/17/20 13:05 Lymphocytes # (Manual) 0.6 K/mm3 (1.2-5.4) L 07/17/20 13:05 Abs React Lymphs (Man) 0.0 K/mm3 07/17/20 13:05 Monocytes # (Manual) 0.4 K/mm3 (0.0-0.8) 07/17/20 13:05 Eosinophils # (Manual) 0.0 K/mm3 (0.0-0.4) 07/17/20 13:05 Basophils # (Manual) 0.0 K/mm3 (0.0-0.1) 07/17/20 13:05 Metamyelocytes # 0.0 K/mm3 07/17/20 13:05 Myelocytes # 0.0 K/mm3 07/17/20 13:05 Promyelocytes # 0.0 K/mm3 07/17/20 13:05 Blast Cells # 0.0 K/mm3 07/17/20 13:05 WBC Morphology Not Reportable 07/17/20 13:05 Hypersegmented Neuts Not Reportable 07/17/20 13:05 Hyposegmented Neuts Not Reportable 07/17/20 13:05 Hypogranular Neuts Not Reportable 07/17/20 13:05 Smudge Cells Not Reportable 07/17/20 13:05 Toxic Granulation Not Reportable 07/17/20 13:05 Toxic Vacuolation Not Reportable 07/17/20 13:05 Dohle Bodies Not Reportable 07/17/20 13:05 Pelger-Huet Anomaly Not Reportable 07/17/20 13:05 Christa Rods Not Reportable 07/17/20 13:05 Platelet Estimate Consistent w auto 07/17/20 13:05 Clumped Platelets Not Reportable 07/17/20 13:05 Plt Clumps, EDTA Not Reportable 07/17/20 13:05 Large Platelets Not Reportable 07/17/20 13:05 Giant Platelets Not Reportable 07/17/20 13:05 Platelet Satelliting Not Reportable 07/17/20 13:05 Plt Morphology Comment Not Reportable 07/17/20 13:05 RBC Morphology Normal 07/17/20 13:05 Dimorphic RBCs Not Reportable 07/17/20 13:05 Polychromasia Not Reportable 07/17/20 13:05 Hypochromasia Not Reportable 07/17/20 13:05 Poikilocytosis Not Reportable 07/17/20 13:05 Anisocytosis Not Reportable 07/17/20 13:05 Microcytosis Not Reportable 07/17/20 13:05 Macrocytosis Not Reportable 07/17/20 13:05 Spherocytes Not Reportable 07/17/20 13:05 Pappenheimer Bodies Not Reportable 07/17/20 13:05 Sickle Cells Not Reportable 07/17/20 13:05 Target Cells Not Reportable 07/17/20 13:05 Tear Drop Cells Not Reportable 07/17/20 13:05 Ovalocytes Not Reportable 07/17/20 13:05 Helmet Cells Not Reportable 07/17/20 13:05 [place] Bodies Not Reportable 07/17/20 13:05 [place] Rings Not Reportable 07/17/20 13:05 Dariana Cells Not Reportable 07/17/20 13:05 Bite Cells Not Reportable 07/17/20 13:05 Crenated Cell Not Reportable 07/17/20 13:05 Elliptocytes Not Reportable 07/17/20 13:05 Acanthocytes (Spur) Not Reportable 07/17/20 13:05 Rouleaux Not Reportable 07/17/20 13:05 Hemoglobin C Crystals Not Reportable 07/17/20 13:05 Schistocytes Not Reportable 07/17/20 13:05 Malaria parasites Not Reportable 07/17/20 13:05 Jamil Bodies Not Reportable 07/17/20 13:05 Hem Pathologist Commnt No 07/17/20 13:05 PT 14.5 Sec. (12.2-14.9) 07/18/20 19:05 INR 1.15 (0.87-1.13) H 07/18/20 19:05 APTT 30.8 Sec. (24.2-36.6) 07/18/20 19:05 Heparin Anti-Xa Level 0.14 U.I./ml (0.3-0.7) L 07/20/20 05:53 Sodium 130 mmol/L (137-145) L 07/20/20 05:53 Potassium 4.2 mmol/L (3.6-5.0) 07/20/20 05:53 Chloride 98.2 mmol/L (98-107) 07/20/20 05:53 Carbon Dioxide 24 mmol/L (22-30) 07/20/20 05:53 Anion Gap 12 mmol/L 07/20/20 05:53 BUN 28 mg/dL (9-20) H 07/20/20 05:53 Creatinine 1.0 mg/dL (0.8-1.3) 07/20/20 05:53 Estimated GFR > 60 ml/min 07/20/20 05:53 BUN/Creatinine Ratio 28 % 07/20/20 05:53 Glucose 232 mg/dL (75-100) H 07/20/20 05:53 POC Glucose 238 mg/dL (70-105) H 07/20/20 11:41 Lactic Acid 1.80 mmol/L (0.7-2.0) 07/17/20 23:17 Calcium 8.2 mg/dL (8.4-10.2) L 07/20/20 05:53 Magnesium 2.00 mg/dL (1.7-2.3) 07/17/20 13:05 Total Bilirubin 0.80 mg/dL (0.1-1.2) 07/17/20 13:05 AST 42 units/L (5-40) H 07/17/20 13:05 ALT 47 units/L (7-56) 07/17/20 13:05 Alkaline Phosphatase 118 units/L (35-129) 07/17/20 13:05 Total Creatine Kinase 131 units/L (55-170) 07/17/20 13:05 Total Protein 6.9 g/dL (6.3-8.2) 07/17/20 13:05 Albumin 2.7 g/dL (3.9-5) L 07/17/20 13:05 Albumin/Globulin Ratio 0.6 % 07/17/20 13:05 Urine Color Yellow (Yellow) 07/18/20 06:30 Urine Turbidity Hazy (Clear) 07/18/20 06:30 Urine pH 5.0 (5.0-7.0) 07/18/20 06:30 Ur Specific Kulm 1.017 (1.003-1.030) 07/18/20 06:30 Urine Protein >500 mg/dL (Negative) 07/18/20 06:30 Urine Glucose (UA) 50 mg/dL (Negative) 07/18/20 06:30 Urine Ketones Neg mg/dL (Negative) 07/18/20 06:30 Urine Blood Sm (Negative) 07/18/20 06:30 Urine Nitrite Neg (Negative) 07/18/20 06:30 Urine Bilirubin Neg (Negative) 07/18/20 06:30 Urine Urobilinogen < 2.0 mg/dL (<2.0) 07/18/20 06:30 Ur Leukocyte Esterase Neg (Negative) 07/18/20 06:30 Urine WBC (Auto) 5.0 /HPF (0.0-6.0) 07/18/20 06:30 Urine RBC (Auto) 12.0 /HPF (0.0-6.0) 07/18/20 06:30 U Epithel Cells (Auto) < 1.0 /HPF (0-13.0) 07/18/20 06:30 Urine Mucus Few /HPF 07/18/20 06:30 Blood Type A POSITIVE 07/17/20 17:12 Antibody Screen Negative 07/17/20 17:12 Microbiology: Microbiology 07/17/20 13:05 Peripheral/Venous Blood Culture - Preliminary Staphylococcus Aureus 07/17/20 13:05 Peripheral/Venous Blood Culture - Preliminary Staphylococcus Aureus Campos/IV: Voiding Method Urinal Active Medications - Current Medications Current Medications: Generic Name Dose Route Start Last Admin Trade Name Freq PRN Reason Stop Dose Admin Acetaminophen 650 mg 07/17/20 16:24 Acetaminophen 325 Mg Tab PO Q4H PRN Pain MILD(1-3)/Fever >100.5/CARIAS Albuterol 2.5 mg 07/17/20 16:24 Albuterol 2.5 Mg/3 Ml Nebu IH Q4HRT PRN Shortness Of Breath Heparin Sodium (Porcine) 5,000 unit 07/19/20 10:00 Heparin 10,000 Units/10 Ml Vial IV Q6H PRN Anti-Xa Assay < 0.1 units/ml Hydromorphone HCl 0.25 mg 07/17/20 16:24 07/20/20 05:12 Hydromorphone 1 Mg/1 Ml Inj IV 0.25 mg Q4H PRN Administration Pain, Moderate (4-6) Cefepime HCl 2 gm in 100 mls @ 200 mls/hr 07/17/20 17:00 07/20/20 05:12 Cefepime/Ns 2 Gm/100 Ml IV 200 mls/hr Q12H LACHELLE Administration Protocol Heparin Sodium/Sodium Chloride 25,000 unit in 500 mls @ 30 mls/hr 07/18/20 19:00 07/20/20 06:47 Heparin/ 0.45% Nacl-25,000 Unit/500 Ml IV 1,600 units/hr TITR LACHELLE 32 mls/hr Titration Protocol 1,500 UNITS/HR Sodium Chloride 1,000 mls @ 75 mls/hr 07/18/20 19:00 07/20/20 05:12 Nacl 0.9% 1000 Ml IV 75 mls/hr DIRECT LACHELLE Administration Vancomycin HCl 1,500 mg/ 530 mls @ 333.333 mls/hr 07/19/20 22:00 07/20/20 11:03 Sodium Chloride IV 333.333 mls/hr Q12HR LACHELLE Administration Insulin Human Isoph/Insulin Regular 10 unit 07/20/20 17:00 Insulin Nph/Regular 70/30 Inj SUB-Q BIDDIAB LACHELLE Insulin Human Regular 0 units 07/17/20 22:00 07/20/20 08:55 Insulin Regular, Human 100 Units/1 Ml SUB-Q 1 units ACHS LACHELLE Administration Protocol Magnesium Hydroxide 30 ml 07/19/20 18:00 Magnesium Hydroxide (Mom) Oral Liqd Udc PO QDAY PRN Constipation Ondansetron HCl 4 mg 07/17/20 16:24 07/19/20 14:50 Ondansetron 4 Mg/2 Ml Inj IV 4 mg Q8H PRN Administration Nausea And Vomiting Sodium Chloride 10 ml 07/17/20 22:00 07/20/20 11:04 Sodium Chloride 0.9% 10 Ml Flush Syringe IV 10 ml BID LACHELLE Administration Sodium Chloride 10 ml 07/17/20 16:24 07/20/20 05:13 Sodium Chloride 0.9% 10 Ml Flush Syringe IV 10 ml PRN PRN Administration LINE FLUSH
--- NOTE | 2020-07-20 13:32 | Progress Note ---
Assessment and Plan Patient will need revascularization procedure however, he first needs to be disimpacted. If conservative therapy is not successful, would consider consulting surgery or GI. Subjective Date of service: 07/20/20 Principal diagnosis: Right lower extremity arterial disease Interval history: Patient with a history of peripheral vascular disease. Additionally, the patient has significant fecal impaction with fecal incontinence. He is not complaining of any leg issues at time of examination. He feels bloated and full. Objective - Constitutional Vitals: Vital Signs - 12hr 07/20/20 07/20/20 04:19 08:40 Temperature 98.1 F Pulse Rate 89 Respiratory 20 Rate Blood Pressure 147/67 O2 Sat by Pulse 94 94 Oximetry General appearance: Present: no acute distress - EENT Eyes: EOM intact ENT: hearing intact - Neck Neck: supple, normal ROM - Respiratory Respiratory effort: normal - Gastrointestinal General gastrointestinal: Present: deferred Rectal Exam: deferred - Genitourinary Male genitourinary: deferred - Psychiatric Psychiatric: cooperative - Labs CBC & Chem 7: 07/20/20 05:53 07/20/20 05:53 Labs: Abnormal lab results 07/19/20 07/19/20 07/20/20 Range/Units 16:05 21:18 05:53 WBC 12.1 H (4.5-11.0) K/mm3 RBC 3.22 L (3.65-5.03) M/mm3 Hgb 9.5 L (11.8-15.2) gm/dl Hct 27.9 L (35.5-45.6) % Heparin Anti-Xa Level (0.3-0.7) U.I./ml Sodium (137-145) mmol/L BUN (9-20) mg/dL Glucose (75-100) mg/dL POC Glucose 248 H 190 H (70-105) mg/dL Calcium (8.4-10.2) mg/dL 07/20/20 07/20/20 07/20/20 Range/Units 05:53 05:53 07:35 WBC (4.5-11.0) K/mm3 RBC (3.65-5.03) M/mm3 Hgb (11.8-15.2) gm/dl Hct (35.5-45.6) % Heparin Anti-Xa Level 0.14 L (0.3-0.7) U.I./ml Sodium 130 L (137-145) mmol/L BUN 28 H (9-20) mg/dL Glucose 232 H (75-100) mg/dL POC Glucose 196 H (70-105) mg/dL Calcium 8.2 L (8.4-10.2) mg/dL 07/20/20 Range/Units 11:41 WBC (4.5-11.0) K/mm3 RBC (3.65-5.03) M/mm3 Hgb (11.8-15.2) gm/dl Hct (35.5-45.6) % Heparin Anti-Xa Level (0.3-0.7) U.I./ml Sodium (137-145) mmol/L BUN (9-20) mg/dL Glucose (75-100) mg/dL POC Glucose 238 H (70-105) mg/dL Calcium (8.4-10.2) mg/dL Medications & Allergies - Medications Allergies/Adverse Reactions: Allergies shellfish derived Allergy (Verified 08/11/14 11:29) Hives Home Medications: Home Medications Medication Instructions Recorded Confirmed Last Taken Type Insulin NPH/Regular [NovoLIN 70/30] 34 unit SUB-Q QDDIAB #30 ml 05/20/14 08/11/14 08/10/14 Rx Docusate Sodium [Colace] 100 mg PO BID PRN #14 capsule 08/11/14 Unknown Rx Active Medications: Generic Name Dose Route Start Last Admin Trade Name Freq PRN Reason Stop Dose Admin Acetaminophen 650 mg 07/17/20 16:24 Acetaminophen 325 Mg Tab PO Q4H PRN Pain MILD(1-3)/Fever >100.5/CARIAS Albuterol 2.5 mg 07/17/20 16:24 Albuterol 2.5 Mg/3 Ml Nebu IH Q4HRT PRN Shortness Of Breath Heparin Sodium (Porcine) 5,000 unit 07/19/20 10:00 Heparin 10,000 Units/10 Ml Vial IV Q6H PRN Anti-Xa Assay < 0.1 units/ml Hydromorphone HCl 0.25 mg 07/17/20 16:24 07/20/20 05:12 Hydromorphone 1 Mg/1 Ml Inj IV 0.25 mg Q4H PRN Administration Pain, Moderate (4-6) Cefepime HCl 2 gm in 100 mls @ 200 mls/hr 07/17/20 17:00 07/20/20 05:12 Cefepime/Ns 2 Gm/100 Ml IV 200 mls/hr Q12H LACHELLE Administration Protocol Heparin Sodium/Sodium Chloride 25,000 unit in 500 mls @ 30 mls/hr 07/18/20 19:00 07/20/20 06:47 Heparin/ 0.45% Nacl-25,000 Unit/500 Ml IV 1,600 units/hr TITR LACHELLE 32 mls/hr Titration Protocol 1,500 UNITS/HR Sodium Chloride 1,000 mls @ 75 mls/hr 07/18/20 19:00 07/20/20 05:12 Nacl 0.9% 1000 Ml IV 75 mls/hr DIRECT LACHELLE Administration Vancomycin HCl 1,500 mg/ 530 mls @ 333.333 mls/hr 07/19/20 22:00 07/20/20 11:03 Sodium Chloride IV 333.333 mls/hr Q12HR LACHELLE Administration Insulin Human Isoph/Insulin Regular 10 unit 07/20/20 17:00 Insulin Nph/Regular 70/30 Inj SUB-Q BIDDIAB LACHELLE Insulin Human Regular 0 units 07/17/20 22:00 07/20/20 11:30 Insulin Regular, Human 100 Units/1 Ml SUB-Q 3 units ACHS LACHELLE Administration Protocol Magnesium Hydroxide 30 ml 07/19/20 18:00 Magnesium Hydroxide (Mom) Oral Liqd Udc PO QDAY PRN Constipation Ondansetron HCl 4 mg 07/17/20 16:24 07/19/20 14:50 Ondansetron 4 Mg/2 Ml Inj IV 4 mg Q8H PRN Administration Nausea And Vomiting Sodium Chloride 10 ml 07/17/20 22:00 07/20/20 11:04 Sodium Chloride 0.9% 10 Ml Flush Syringe IV 10 ml BID LACHELLE Administration Sodium Chloride 10 ml 07/17/20 16:24 07/20/20 05:13 Sodium Chloride 0.9% 10 Ml Flush Syringe IV 10 ml PRN PRN Administration LINE FLUSH
--- NOTE | 2020-07-20 15:03 | Consultation ---
History of Present Illness - Reason for Consult Consult date: 07/20/20 cellulitis, bacteremia Requesting physician: KEILA HERNANDEZ - History of Present Illness The patient is a 54-year-old male with diabetes, gastroesophageal reflux disease, obesity, peripheral vascular disease, recent revascularization on 07/10/2020, previous diabetic foot ulceration for which he was following up at [facility] wound care clinic came to the emergency room on 07/17/2020 due to feeling of sickness. He was having nausea, vomiting as well as loose stools. He was also having fever. Had low-grade fevers here, labs revealed leukocytosis, blood cultures turn positive for Staph aureus, hence infectious diseases was consulted. Denies any other complaints. He is on Cefepime and Vancomycin. Review of Systems: General: Low-grade fever HEENT: no new visual disturbance Respiratory: No cough, sputum, hemoptysis or shortness of breath Cardiovascular: No chest pain, syncope Gastrointestinal: Positive for nausea, vomiting and diarrhea Genitourinary: No dysuria or hematuria Musculoskeletal: No new or worsening neck pain or back pain Neurologic: No headaches, seizures Hematologic: No easy bruising or bleeding Endocrine: No night sweats or acute weight loss Skin: negative for rash, jaundice Psychiatric: No suicidal or homicidal ideation Past History Past Medical History: diabetes, GERD, hypertension, PVD Past Surgical History: appendectomy, Other (Vascular stent placement) Social history: . denies: smoking, alcohol abuse, prescription drug abuse Family history: diabetes, hypertension Medications and Allergies Allergies Allergy/AdvReac Type Severity Reaction Status Date / Time shellfish derived Allergy Hives Verified 08/11/14 11:29 Home Medications Medication Instructions Recorded Confirmed Last Taken Type Insulin NPH/Regular [NovoLIN 70/30] 34 unit SUB-Q QDDIAB #30 ml 05/20/14 08/11/14 08/10/14 Rx Docusate Sodium [Colace] 100 mg PO BID PRN #14 capsule 08/11/14 Unknown Rx Active Meds: Active Medications Acetaminophen (Acetaminophen 325 Mg Tab) 650 mg PO Q4H PRN PRN Reason: Pain MILD(1-3)/Fever >100.5/CARIAS Albuterol (Albuterol 2.5 Mg/3 Ml Nebu) 2.5 mg IH Q4HRT PRN PRN Reason: Shortness Of Breath Heparin Sodium (Porcine) (Heparin 10,000 Units/10 Ml Vial) 5,000 unit IV Q6H GA N PRN Reason: Anti-Xa Assay < 0.1 units/ml Hydromorphone HCl (Hydromorphone 1 Mg/1 Ml Inj) 0.25 mg IV Q4H PRN PRN Reason: Pain, Moderate (4-6) Last Admin: 07/20/20 05:12 Dose: 0.25 mg Documented by: Heparin Sodium/Sodium Chloride (Heparin/ 0.45% Nacl-25,000 Unit/500 Ml) 25,000 unit in 500 mls @ 30 mls/hr IV TITR LACHELLE; Protocol Last Titration: 07/20/20 06:47 Dose: 1,600 units/hr, 32 mls/hr Documented by: Sodium Chloride (Nacl 0.9% 1000 Ml) 1,000 mls @ 75 mls/hr IV DIRECT LACHELLE Last Admin: 07/20/20 05:12 Dose: 75 mls/hr Documented by: Vancomycin HCl 1,500 mg/ (Sodium Chloride) 530 mls @ 333.333 mls/hr IV Q12HR LACHELLE Last Admin: 07/20/20 11:03 Dose: 333.333 mls/hr Documented by: Insulin Human Isoph/Insulin Regular (Insulin Nph/Regular 70/30 Inj) 10 unit SUB-Q BIDDIAB LACHELLE Insulin Human Regular (Insulin Regular, Human 100 Units/1 Ml) 0 units SUB-Q ACHS LACHELLE; Protocol Last Admin: 07/20/20 11:30 Dose: 3 units Documented by: Magnesium Hydroxide (Magnesium Hydroxide (Mom) Oral Liqd Udc) 30 ml PO QDAY PRN PRN Reason: Constipation Ondansetron HCl (Ondansetron 4 Mg/2 Ml Inj) 4 mg IV Q8H PRN PRN Reason: Nausea And Vomiting Last Admin: 07/19/20 14:50 Dose: 4 mg Documented by: Sodium Chloride (Sodium Chloride 0.9% 10 Ml Flush Syringe) 10 ml IV BID LACHELLE Last Admin: 07/20/20 11:04 Dose: 10 ml Documented by: Sodium Chloride (Sodium Chloride 0.9% 10 Ml Flush Syringe) 10 ml IV PRN PRN PRN Reason: LINE FLUSH Last Admin: 07/20/20 05:13 Dose: 10 ml Documented by: Physical Examination - Physical Exam Narrative exam: Physical Exam: Constitutional: Alert, cooperative. No acute distress Head, Ears, Nose: Normocephalic, atraumatic. External ears, nose normal Eyes: Conjunctivae/corneas clear. No icterus. No ptosis. Neck: Supple, no meningeal signs Cardiovascular: S1, S2 normal. Respiratory: Good air entry, clear to auscultation bilaterally GI: Soft, non-tender; bowel sounds normal. No peritoneal signs Musculoskeletal: Right leg with edema, right foot with swelling, old ulceration that appears to be healed, no drainage Skin: No rash or abscess Hem/Lymphatic: No palpable cervical or supraclavicular nodes. No lymphangitis Psych: Mood ok. Affect normal Neurological: Awake, alert, oriented. No gross abnormality - Constitutional Vitals: Vital Signs Temp Pulse Resp BP Pulse Ox 99.0 F 86 22 165/85 93 07/20/20 11:42 07/20/20 11:42 07/20/20 11:42 07/20/20 11:42 07/20/20 11:42 Temperature -Last 24 Hours Temperature 99.0 F Temperature 98.1 F Temperature 98.0 F Temperature 97.7 F Results - Labs CBC & Chem 7: 07/20/20 05:53 07/20/20 05:53 Labs: Abnormal lab results 07/19/20 07/19/20 07/20/20 Range/Units 16:05 21:18 05:53 WBC 12.1 H (4.5-11.0) K/mm3 RBC 3.22 L (3.65-5.03) M/mm3 Hgb 9.5 L (11.8-15.2) gm/dl Hct 27.9 L (35.5-45.6) % Heparin Anti-Xa Level (0.3-0.7) U.I./ml Sodium (137-145) mmol/L BUN (9-20) mg/dL Glucose (75-100) mg/dL POC Glucose 248 H 190 H (70-105) mg/dL Calcium (8.4-10.2) mg/dL 07/20/20 07/20/20 07/20/20 Range/Units 05:53 05:53 07:35 WBC (4.5-11.0) K/mm3 RBC (3.65-5.03) M/mm3 Hgb (11.8-15.2) gm/dl Hct (35.5-45.6) % Heparin Anti-Xa Level 0.14 L (0.3-0.7) U.I./ml Sodium 130 L (137-145) mmol/L BUN 28 H (9-20) mg/dL Glucose 232 H (75-100) mg/dL POC Glucose 196 H (70-105) mg/dL Calcium 8.2 L (8.4-10.2) mg/dL 07/20/20 Range/Units 11:41 WBC (4.5-11.0) K/mm3 RBC (3.65-5.03) M/mm3 Hgb (11.8-15.2) gm/dl Hct (35.5-45.6) % Heparin Anti-Xa Level (0.3-0.7) U.I./ml Sodium (137-145) mmol/L BUN (9-20) mg/dL Glucose (75-100) mg/dL POC Glucose 238 H (70-105) mg/dL Calcium (8.4-10.2) mg/dL - Imaging and Cardiology Chest x-ray: report reviewed, image reviewed (no pneumonia) Assessment and Plan Cultures: 07/17/2020 blood culture: Staph aureus A/P: 54-year-old male with diabetes, gastroesophageal reflux disease, obesity, peripheral vascular disease, recent revascularization on 07/10/2020, previous diabetic foot ulceration: #Sepsis, secondary to Staph aureus bacteremia #Staph aureus bacteremia: Source is unclear but suspect right foot cellulitis and possibly underlying deeper infection. Recent revascularization in the right lower extremity with stent placement on 07/10/2020, denies any other prosthetic material. #Diabetes mellitus type 2, uncontrolled #Peripheral vascular disease: Recent revascularization with stent placement on 07/10/2020. Vascular following. #DAQUAN: Creatinine improving. Recs: -Cefepime discontinued -IV vancomycin, target trough between 10 to 20 mcg/mL -Transthoracic echocardiogram ordered -Right leg MRI ordered, rule out deep infection including abscess -repeat blood cultures ordered Warren Blankenship MD, FACP [facility] O: [phone] F: [phone]
[2020-07-20] MEDS: INSULIN NPH/REGULAR 70/30 INJ SUB-Q SCH (16:30)
--- NOTE | 2020-07-20 17:57 | Magnetic Resonance Report ---
MRI RIGHT FOOT (MIDFOOT) WITHOUT AND WITH CONTRAST INDICATION / CLINICAL INFORMATION: R foot abscess, sepsis. 54-year-old male TECHNIQUE: Multiplanar, multisequence MR images were obtained. Pre and postcontrast imaging obtained. COMPARISON: None available. FINDINGS: BONES: Moderate, patchy, midfoot osseous edema, greatest at the third and fourth tarsometatarsal join ts. Increased signal at the little toe phalanges likely represents incomplete fat sat. No fracture. N o osseous lesion. JOINTS: Moderate midfoot degenerative arthrosis. No significant subluxation at this time. Mild diffus e midfoot synovitis. Small tibiotalar effusion. SOFT TISSUES: Extensive dorsal foot and lateral ankle edema without focal drainable fluid collection. No definite cutaneous ulceration is visualized. MUSCLES: Mild diffuse edema and enhancement. FLEXOR TENDONS: No significant abnormality. EXTENSOR TENDONS: Mild tibialis anterior anterior tenosynovitis. LIGAMENTS: No significant abnormality. ADDITIONAL FINDINGS: None. IMPRESSION: 1. Extensive dorsal foot and lateral ankle edema without focal drainable fluid collection to suggest abscess. Findings suggestive of cellulitis. 2. Age advanced midfoot degenerative change. Findings could represent neuropathic degeneration, howev er no significant subluxation is present at this time. 3. Mild diffuse edema and enhancement throughout the forefoot musculature suggesting myopathy. 4. Mild tibialis anterior tenosynovitis. Report dictated by: Jarret Mantilla MD Report dictated on: 07/20/2020 4:43 PM I have reviewed the images, agree with this report, and edited this report as needed. Signer Name: Micheal Son MD Signed: 07/20/2020 5:53 PM Workstation Name: [employer]
[2020-07-21] MEDS: SODIUM CHLORIDE 0.9% 1000 ML 1,000 ML IV SCH ×2 (01:00→12:37)
[2020-07-21] MEDS: HEPARIN/ 0.45% NACL DRIP 25,000 UNIT/500 ML BAG IV SCH ×2 (01:02→14:49)
[2020-07-21] MEDS: INSULIN NPH/REGULAR 70/30 INJ SUB-Q SCH ×3 (09:51→21:21)
[2020-07-21] MEDS: INSULIN REGULAR, HUMAN 100 UNITS/1 ML SUB-Q SCH ×4 (09:53→21:56)
[2020-07-21] MEDS: VANCOMYCIN 1,500 MG in SODIUM CHLORIDE 0.9% 500 ML 500 ML IV SCH ×2 (12:37→21:19)
--- NOTE | 2020-07-21 12:49 | Progress Note ---
Assessment and Plan Cultures: 07/17/2020 blood culture: Staph aureus 07/20/2020 blood culture: In process A/P: 54-year-old male with diabetes, gastroesophageal reflux disease, obesity, peripheral vascular disease, recent revascularization on 07/10/2020, previous diabetic foot ulceration: #Sepsis, secondary to Staph aureus bacteremia #Staph aureus bacteremia: Source is unclear but suspect right foot cellulitis. Recent revascularization in the right lower extremity with stent placement on 07/10/2020, denies any other prosthetic material. MRI showed extensive dorsal and lateral ankle edema without evidence of abscess. There is evidence of Charcot foot as well as diffuse edema in the muscle suggesting myopathy versus myositis. TTE did not reveal any valvular vegetations. #Diabetes mellitus type 2, uncontrolled #Peripheral vascular disease: Recent revascularization with stent placement on 07/10/2020. Vascular following. #DAQUAN: renally adjust abx based on creatinine. Recs: -IV vancomycin, target trough between 10 to 20 mcg/mL -f/u repeat blood cultures, once clear, will need 4-6 weeks of abx -if MSSA, can switch to Brandi Blankenship MD, FACP [facility] ([facility] O: [phone] F: [phone] Subjective Date of service: 07/21/20 Principal diagnosis: Right lower extremity arterial disease Interval history: Feels well. No complaints. Objective - Exam Narrative Exam: Physical Exam: Constitutional: Alert, cooperative. No acute distress Head, Ears, Nose: Normocephalic, atraumatic. External ears, nose normal Eyes: Conjunctivae/corneas clear. No icterus. No ptosis. Neck: Supple, no meningeal signs Cardiovascular: S1, S2 normal. Respiratory: Good air entry, clear to auscultation bilaterally GI: Soft, non-tender; bowel sounds normal. No peritoneal signs Musculoskeletal: Right leg with edema, right foot with swelling, old ulceration that appears to be healed, no drainage Skin: No rash or abscess Hem/Lymphatic: No palpable cervical or supraclavicular nodes. No lymphangitis Psych: Mood ok. Affect normal Neurological: Awake, alert, oriented. No gross abnormality - Constitutional Vitals: Vital Signs Temp Pulse Resp BP Pulse Ox 98.7 F 90 20 166/81 93 07/21/20 04:58 03/12/21 04:58 07/21/20 04:58 07/21/20 04:58 07/21/20 10:30 Temperature -Last 24 Hours Temperature 98.7 F Temperature 98.3 F Temperature 98.1 F - Labs CBC & Chem 7: 07/20/20 05:53 07/20/20 05:53 Labs: Abnormal lab results 07/20/20 07/20/20 07/20/20 Range/Units 13:49 17:34 22:01 Heparin Anti-Xa Level 0.18 L (0.3-0.7) U.I./ml POC Glucose 203 H 202 H (70-105) mg/dL 07/21/20 07/21/20 07/21/20 Range/Units 01:32 07:59 10:03 Heparin Anti-Xa Level 0.17 L 0.10 L (0.3-0.7) U.I./ml POC Glucose 229 H (70-105) mg/dL 07/21/20 Range/Units 11:20 Heparin Anti-Xa Level (0.3-0.7) U.I./ml POC Glucose 244 H (70-105) mg/dL
--- NOTE | 2020-07-21 12:52 | Progress Note ---
Assessment and Plan Assessment and plan: --Staph aureus bacteremia: Current Visit: Yes Status: Acute , Plan to address problem: Continue Vanco follow repeat cultures ,ID following -- Sepsis/diabetic foot ulcer Current Visit: Yes Status: Acute , Plan to address problem: Elevate the limb, vascular study venous and arterial Doppler Venous Doppler negative for DVT IV antibiotics, follow cultures, ID following Wound care as needed --Peripheral vascular disease; Current Visit: Yes Status: Acute Plan to address problem: Vascular plans evaluation after patient sepsis is completely treated --Type II diabetes mellitus/uncontrolled Current Visit: Yes Status: Acute Plan to address problem: Accu-Chek sliding scale coverage ADA diet Add long-acting insulin Novolin 70/30 adjust management as needed --Constipation; Current Visit: Yes Status: Acute , Plan to address problem: Resolved, stool softeners as needed --Acute kidney injury / acute tubular necrosis (ATN) Current Visit: Yes Status: Acute Plan to address problem: continue gentle hydration, monitor renal function, avoid nephrotoxin, Resolved , --Acute metabolic acidosis Current Visit: Yes Status: Acute Plan to address problem: IV hydration monitor acidosis --Hyponatremia Current Visit: Yes Status: Acute Plan to address problem: Significant improvement Closely monitor electrolytes --Morbid obesity BMI 39.1 Current Visit: Yes Status: Acute Plan to address problem: Patient needs weight reduction When medically stable, dietary modification Exercise as tolerated and weight reduction -- DVT prophylaxis Current Visit: Yes Status: Acute Plan to address problem: SCD, patient is on heparin drip per vascular We will closely monitor the patient and adjust the management as needed Plan of care reviewed with the patient and his nurse Consults and recommendations noted and appreciated History Interval history: I have seen and examined the patient at the bedside Patient's chart and medications reviewed MRI lower extremity noted No new complaints vital signs reviewed Hospitalist Physical - Constitutional Vitals: Temp Pulse Resp BP Pulse Ox 98.7 F 90 20 166/81 93 07/21/20 04:58 07/21/20 04:58 07/21/20 04:58 07/21/20 04:58 07/21/20 10:30 General appearance: Present: mild distress, well-nourished, obese - EENT Eyes: Present: PERRL, EOM intact - Neck Neck: Present: supple, normal ROM - Respiratory Respiratory effort: normal Respiratory: bilateral: diminished, negative: rales, rhonchi, wheezing - Cardiovascular Rhythm: regular Heart Sounds: Present: S1 & S2 - Extremities Extremities: abnormal (Right lower extremity swelling erythema tenderne ss/cellulitis) Extremity abnormal: edema, erythema, other (Cellulitis) - Abdominal General gastrointestinal: soft, non-tender, non-distended, normal bowel sounds - Integumentary Integumentary: Present: clear, warm - Psychiatric Psychiatric: appropriate mood/affect, cooperative - Neurologic Neurologic: CNII-XII intact, moves all extremities Results - Labs CBC & Chem 7: 07/20/20 05:53 07/20/20 05:53 Labs: Laboratory Last Values WBC 12.1 K/mm3 (4.5-11.0) H 07/20/20 05:53 RBC 3.22 M/mm3 (3.65-5.03) L 07/20/20 05:53 Hgb 9.5 gm/dl (11.8-15.2) L 07/20/20 05:53 Hct 27.9 % (35.5-45.6) L 07/20/20 05:53 MCV 86 fl (84-94) 07/20/20 05:53 MCH 30 pg (28-32) 07/20/20 05:53 MCHC 34 % (32-34) 07/20/20 05:53 RDW 14.0 % (13.2-15.2) 07/20/20 05:53 Plt Count 316 K/mm3 (140-440) 07/20/20 05:53 Add Manual Diff Complete 07/17/20 13:05 Total Counted 100 07/17/20 13:05 Seg Neutrophils % Adjunct English Instructor 07/17/20 13:05 Seg Neuts % (Manual) 95.0 % (40.0-70.0) H 07/17/20 13:05 Lymphocytes % (Manual) 3.0 % (13.4-35.0) L 07/17/20 13:05 Monocytes % (Manual) 2.0 % (0.0-7.3) 07/17/20 13:05 Nucleated RBC % Not Reportable 07/17/20 13:05 Seg Neutrophils # Man 18.1 K/mm3 (1.8-7.7) H 07/17/20 13:05 Band Neutrophils # 0.0 K/mm3 07/17/20 13:05 Lymphocytes # (Manual) 0.6 K/mm3 (1.2-5.4) L 07/17/20 13:05 Abs React Lymphs (Man) 0.0 K/mm3 07/17/20 13:05 Monocytes # (Manual) 0.4 K/mm3 (0.0-0.8) 07/17/20 13:05 Eosinophils # (Manual) 0.0 K/mm3 (0.0-0.4) 07/17/20 13:05 Basophils # (Manual) 0.0 K/mm3 (0.0-0.1) 07/17/20 13:05 Metamyelocytes # 0.0 K/mm3 07/17/20 13:05 Myelocytes # 0.0 K/mm3 07/17/20 13:05 Promyelocytes # 0.0 K/mm3 07/17/20 13:05 Blast Cells # 0.0 K/mm3 07/17/20 13:05 WBC Morphology Not Reportable 07/17/20 13:05 Hypersegmented Neuts Not Reportable 07/17/20 13:05 Hyposegmented Neuts Not Reportable 07/17/20 13:05 Hypogranular Neuts Not Reportable 07/17/20 13:05 Smudge Cells Not Reportable 07/17/20 13:05 Toxic Granulation Not Reportable 07/17/20 13:05 Toxic Vacuolation Not Reportable 07/17/20 13:05 Dohle Bodies Not Reportable 07/17/20 13:05 Pelger-Huet Anomaly Not Reportable 07/17/20 13:05 Christa Rods Not Reportable 07/17/20 13:05 Platelet Estimate Consistent w auto 07/17/20 13:05 Clumped Platelets Not Reportable 07/17/20 13:05 Plt Clumps, EDTA Not Reportable 07/17/20 13:05 Large Platelets Not Reportable 07/17/20 13:05 Giant Platelets Not Reportable 07/17/20 13:05 Platelet Satelliting Not Reportable 07/17/20 13:05 Plt Morphology Comment Not Reportable 07/17/20 13:05 RBC Morphology Normal 07/17/20 13:05 Dimorphic RBCs Not Reportable 07/17/20 13:05 Polychromasia Not Reportable 07/17/20 13:05 Hypochromasia Not Reportable 07/17/20 13:05 Poikilocytosis Not Reportable 07/17/20 13:05 Anisocytosis Not Reportable 07/17/20 13:05 Microcytosis Not Reportable 07/17/20 13:05 Macrocytosis Not Reportable 07/17/20 13:05 Spherocytes Not Reportable 07/17/20 13:05 Pappenheimer Bodies Not Reportable 07/17/20 13:05 Sickle Cells Not Reportable 07/17/20 13:05 Target Cells Not Reportable 07/17/20 13:05 Tear Drop Cells Not Reportable 07/17/20 13:05 Ovalocytes Not Reportable 07/17/20 13:05 Helmet Cells Not Reportable 07/17/20 13:05 [place] Bodies Not Reportable 07/17/20 13:05 [place] Rings Not Reportable 07/17/20 13:05 Dariana Cells Not Reportable 07/17/20 13:05 Bite Cells Not Reportable 07/17/20 13:05 Crenated Cell Not Reportable 07/17/20 13:05 Elliptocytes Not Reportable 07/17/20 13:05 Acanthocytes (Spur) Not Reportable 07/17/20 13:05 Rouleaux Not Reportable 07/17/20 13:05 Hemoglobin C Crystals Not Reportable 07/17/20 13:05 Schistocytes Not Reportable 07/17/20 13:05 Malaria parasites Not Reportable 07/17/20 13:05 Jamil Bodies Not Reportable 07/17/20 13:05 Hem Pathologist Commnt No 07/17/20 13:05 PT 14.5 Sec. (12.2-14.9) 07/18/20 19:05 INR 1.15 (0.87-1.13) H 07/18/20 19:05 APTT 30.8 Sec. (24.2-36.6) 07/18/20 19:05 Heparin Anti-Xa Level 0.10 U.I./ml (0.3-0.7) L 07/21/20 10:03 Sodium 130 mmol/L (137-145) L 07/20/20 05:53 Potassium 4.2 mmol/L (3.6-5.0) 07/20/20 05:53 Chloride 98.2 mmol/L (98-107) 07/20/20 05:53 Carbon Dioxide 24 mmol/L (22-30) 07/20/20 05:53 Anion Gap 12 mmol/L 07/20/20 05:53 BUN 28 mg/dL (9-20) H 07/20/20 05:53 Creatinine 1.0 mg/dL (0.8-1.3) 07/20/20 05:53 Estimated GFR > 60 ml/min 07/20/20 05:53 BUN/Creatinine Ratio 28 % 07/20/20 05:53 Glucose 232 mg/dL (75-100) H 07/20/20 05:53 POC Glucose 244 mg/dL (70-105) H 07/21/20 11:20 Lactic Acid 1.80 mmol/L (0.7-2.0) 07/17/20 23:17 Calcium 8.2 mg/dL (8.4-10.2) L 07/20/20 05:53 Magnesium 2.00 mg/dL (1.7-2.3) 07/17/20 13:05 Total Bilirubin 0.80 mg/dL (0.1-1.2) 07/17/20 13:05 AST 42 units/L (5-40) H 07/17/20 13:05 ALT 47 units/L (7-56) 07/17/20 13:05 Alkaline Phosphatase 118 units/L (35-129) 07/17/20 13:05 Total Creatine Kinase 131 units/L (55-170) 07/17/20 13:05 Total Protein 6.9 g/dL (6.3-8.2) 07/17/20 13:05 Albumin 2.7 g/dL (3.9-5) L 07/17/20 13:05 Albumin/Globulin Ratio 0.6 % 07/17/20 13:05 Urine Color Yellow (Yellow) 07/18/20 06:30 Urine Turbidity Hazy (Clear) 07/18/20 06:30 Urine pH 5.0 (5.0-7.0) 07/18/20 06:30 Ur Specific [place] 1.017 (1.003-1.030) 07/18/20 06:30 Urine Protein >500 mg/dL (Negative) 07/18/20 06:30 Urine Glucose (UA) 50 mg/dL (Negative) 07/18/20 06:30 Urine Ketones Neg mg/dL (Negative) 07/18/20 06:30 Urine Blood Sm (Negative) 07/18/20 06:30 Urine Nitrite Neg (Negative) 07/18/20 06:30 Urine Bilirubin Neg (Negative) 07/18/20 06:30 Urine Urobilinogen < 2.0 mg/dL (<2.0) 07/18/20 06:30 Ur Leukocyte Esterase Neg (Negative) 07/18/20 06:30 Urine WBC (Auto) 5.0 /HPF (0.0-6.0) 07/18/20 06:30 Urine RBC (Auto) 12.0 /HPF (0.0-6.0) 07/18/20 06:30 U Epithel Cells (Auto) < 1.0 /HPF (0-13.0) 07/18/20 06:30 Urine Mucus Few /HPF 07/18/20 06:30 Vancomycin Trough 18.8 ug/mL (5.0-20.0) 07/21/20 10:03 Blood Type A POSITIVE 07/17/20 17:12 Antibody Screen Negative 07/17/20 17:12 Microbiology: Microbiology 07/20/20 19:30 Peripheral/Venous Blood Culture - Preliminary Culture in Progress 07/20/20 19:30 Peripheral/Venous Blood Culture - Preliminary Culture in Progress Campos/IV: Voiding Method Urinal Active Medications - Current Medications Current Medications: Generic Name Dose Route Start Last Admin Trade Name Freq PRN Reason Stop Dose Admin Acetaminophen 650 mg 07/17/20 16:24 Acetaminophen 325 Mg Tab PO Q4H PRN Pain MILD(1-3)/Fever >100.5/CARIAS Albuterol 2.5 mg 07/17/20 16:24 Albuterol 2.5 Mg/3 Ml Nebu IH Q4HRT PRN Shortness Of Breath Heparin Sodium (Porcine) 5,000 unit 07/19/20 10:00 Heparin 10,000 Units/10 Ml Vial IV Q6H PRN Anti-Xa Assay < 0.1 units/ml Hydromorphone HCl 0.25 mg 07/17/20 16:24 07/20/20 05:12 Hydromorphone 1 Mg/1 Ml Inj IV 0.25 mg Q4H PRN Administration Pain, Moderate (4-6) Heparin Sodium/Sodium Chloride 25,000 unit in 500 mls @ 30 mls/hr 07/18/20 19:00 07/21/20 11:53 Heparin/ 0.45% Nacl-25,000 Unit/500 Ml IV 2,050 units/hr TITR LACHELLE 41 mls/hr Titration Protocol 1,500 UNITS/HR Sodium Chloride 1,000 mls @ 75 mls/hr 07/18/20 19:00 07/21/20 12:37 Nacl 0.9% 1000 Ml IV 75 mls/hr DIRECT LACHELLE Administration Vancomycin HCl 1,500 mg/ 530 mls @ 333.333 mls/hr 07/19/20 22:00 07/21/20 12:37 Sodium Chloride IV 333.333 mls/hr Q12HR LACHELLE Administration Insulin Human Isoph/Insulin Regular 10 unit 07/20/20 17:00 07/21/20 09:51 Insulin Nph/Regular 70/30 Inj SUB-Q 10 unit BIDDIAB LACHELLE Administration Insulin Human Regular 0 units 07/17/20 22:00 07/21/20 12:48 Insulin Regular, Human 100 Units/1 Ml SUB-Q 2 units ACHS LACHELLE Administration Protocol Magnesium Hydroxide 30 ml 07/19/20 18:00 Magnesium Hydroxide (Mom) Oral Liqd Udc PO QDAY PRN Constipation Ondansetron HCl 4 mg 07/17/20 16:24 07/19/20 14:50 Ondansetron 4 Mg/2 Ml Inj IV 4 mg Q8H PRN Administration Nausea And Vomiting Sodium Chloride 10 ml 07/17/20 22:00 07/21/20 09:57 Sodium Chloride 0.9% 10 Ml Flush Syringe IV Not Given BID LACHELLE Sodium Chloride 10 ml 07/17/20 16:24 07/20/20 05:13 Sodium Chloride 0.9% 10 Ml Flush Syringe IV 10 ml PRN PRN Administration LINE FLUSH
--- NOTE | 2020-07-21 17:28 | Event Note ---
Date: 07/21/20 Patient with Staph Aureus Bactermia. Will delay arteriogram until patient is adequately treated.
[2020-07-22] MEDS: HEPARIN/ 0.45% NACL DRIP 25,000 UNIT/500 ML BAG IV SCH ×2 (02:52→13:42)
[2020-07-22] MEDS: SODIUM CHLORIDE 0.9% 1000 ML 1,000 ML IV SCH ×2 (02:54→21:49)
[2020-07-22 03:23] LABS: Hematocrit 28.8 % (35.5-45.6); Hemoglobin 9.8 gm/dl (11.8-15.2)
[2020-07-22] MEDS ORDERED: hydrALAZINE 20 MG/1 ML INJ IV ONE (06:37)
--- NOTE | 2020-07-22 08:12 | Progress Note ---
Assessment and Plan Assessment and plan: --Staph aureus bacteremia: Current Visit: Yes Status: Acute , Plan to address problem: Continue Vanco follow repeat cultures ,ID following -- Sepsis/diabetic foot ulcer Current Visit: Yes Status: Acute , Plan to address problem: Elevate the limb, vascular study venous and arterial Doppler Venous Doppler negative for DVT IV antibiotics, follow cultures, ID following Wound care as needed --Peripheral vascular disease; Current Visit: Yes Status: Acute Plan to address problem: Vascular plans evaluation after patient sepsis is completely treated --Type II diabetes mellitus/uncontrolled Current Visit: Yes Status: Acute Plan to address problem: Accu-Chek sliding scale coverage ADA diet Add long-acting insulin Novolin 70/30 adjust management as needed --Constipation; Current Visit: Yes Status: Acute , Plan to address problem: Resolved, stool softeners as needed --Acute kidney injury / acute tubular necrosis (ATN) Current Visit: Yes Status: Acute Plan to address problem: continue gentle hydration, monitor renal function, avoid nephrotoxin, Resolved , --Acute metabolic acidosis Current Visit: Yes Status: Acute Plan to address problem: IV hydration monitor acidosis --Hyponatremia Current Visit: Yes Status: Acute Plan to address problem: Significant improvement Closely monitor electrolytes --Morbid obesity BMI 39.1 Current Visit: Yes Status: Acute Plan to address problem: Patient needs weight reduction When medically stable, dietary modification Exercise as tolerated and weight reduction -- DVT prophylaxis Current Visit: Yes Status: Acute Plan to address problem: SCD, patient is on heparin drip per vascular We will closely monitor the patient and adjust the management as needed Plan of care reviewed with the patient and his nurse Consults and recommendations noted and appreciated 07/21/2020; patient with MRSA bacteremia, on IV antibiotics ID following, peripheral vascular disease, vascular following 07/22/2020; patient's blood sugars are uncontrolled, will increase 7030 dose Hemoglobin A1c 12.5, will advise diabetic education, diabetic diet education History Interval history: I have seen and examined the patient at the bedside this morning Patient's chart and medications reviewed Patient is septic, staph bacteremia, diabetic foot , cellulitis On IV antibiotics, Vital signs reviewed Patient feels better anxious to go home Hospitalist Physical - Constitutional Vitals: Temp Pulse Resp BP Pulse Ox 98.3 F 91 H 20 182/93 94 07/22/20 05:30 07/22/20 06:42 07/22/20 05:30 07/22/20 06:42 07/22/20 05:30 General appearance: Present: mild distress, well-nourished, obese - EENT Eyes: Present: PERRL, EOM intact - Neck Neck: Present: supple, normal ROM - Respiratory Respiratory effort: normal Respiratory: bilateral: diminished, negative: rales, rhonchi, wheezing - Cardiovascular Rhythm: regular Heart Sounds: Present: S1 & S2 - Extremities Extremities: no ischemia, No edema, abnormal (Cellulitis swelling erythema right lower extremity) - Abdominal General gastrointestinal: soft, non-tender, non-distended, normal bowel sounds - Integumentary Integumentary: Present: clear, warm - Psychiatric Psychiatric: appropriate mood/affect, cooperative - Neurologic Neurologic: CNII-XII intact, moves all extremities Results - Labs CBC & Chem 7: 07/22/20 02:40 07/20/20 05:53 Labs: Laboratory Last Values WBC 12.1 K/mm3 (4.5-11.0) H 07/20/20 05:53 RBC 3.22 M/mm3 (3.65-5.03) L 07/20/20 05:53 Hgb 9.8 gm/dl (11.8-15.2) L 07/22/20 02:40 Hct 28.8 % (35.5-45.6) L 07/22/20 02:40 MCV 86 fl (84-94) 07/20/20 05:53 MCH 30 pg (28-32) 07/20/20 05:53 MCHC 34 % (32-34) 07/20/20 05:53 RDW 14.0 % (13.2-15.2) 07/20/20 05:53 Plt Count 404 K/mm3 (140-440) 07/22/20 02:40 Add Manual Diff Complete 07/17/20 13:05 Total Counted 100 07/17/20 13:05 Seg 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 % [employer]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 07/17/20 13:05 Seg Neuts % (Manual) 95.0 % (40.0-70.0) H 07/17/20 13:05 Lymphocytes % (Manual) 3.0 % (13.4-35.0) L 07/17/20 13:05 Monocytes % (Manual) 2.0 % (0.0-7.3) 07/17/20 13:05 Nucleated RBC % Not Reportable 07/17/20 13:05 Seg Neutrophils # Man 18.1 K/mm3 (1.8-7.7) H 07/17/20 13:05 Band Neutrophils # 0.0 K/mm3 07/17/20 13:05 Lymphocytes # (Manual) 0.6 K/mm3 (1.2-5.4) L 07/17/20 13:05 Abs React Lymphs (Man) 0.0 K/mm3 07/17/20 13:05 Monocytes # (Manual) 0.4 K/mm3 (0.0-0.8) 07/17/20 13:05 Eosinophils # (Manual) 0.0 K/mm3 (0.0-0.4) 07/17/20 13:05 Basophils # (Manual) 0.0 K/mm3 (0.0-0.1) 07/17/20 13:05 Metamyelocytes # 0.0 K/mm3 07/17/20 13:05 Myelocytes # 0.0 K/mm3 07/17/20 13:05 Promyelocytes # 0.0 K/mm3 07/17/20 13:05 Blast Cells # 0.0 K/mm3 07/17/20 13:05 WBC Morphology Not Reportable 07/17/20 13:05 Hypersegmented Neuts Not Reportable 07/17/20 13:05 Hyposegmented Neuts Not Reportable 07/17/20 13:05 Hypogranular Neuts Not Reportable 07/17/20 13:05 Smudge Cells Not Reportable 07/17/20 13:05 Toxic Granulation Not Reportable 07/17/20 13:05 Toxic Vacuolation Not Reportable 07/17/20 13:05 Dohle Bodies Not Reportable 07/17/20 13:05 Pelger-Huet Anomaly Not Reportable 07/17/20 13:05 Christa Rods Not Reportable 07/17/20 13:05 Platelet Estimate Consistent w auto 07/17/20 13:05 Clumped Platelets Not Reportable 07/17/20 13:05 Plt Clumps, EDTA Not Reportable 07/17/20 13:05 Large Platelets Not Reportable 07/17/20 13:05 Giant Platelets Not Reportable 07/17/20 13:05 Platelet Satelliting Not Reportable 07/17/20 13:05 Plt Morphology Comment Not Reportable 07/17/20 13:05 RBC Morphology Normal 07/17/20 13:05 Dimorphic RBCs Not Reportable 07/17/20 13:05 Polychromasia Not Reportable 07/17/20 13:05 Hypochromasia Not Reportable 07/17/20 13:05 Poikilocytosis Not Reportable 07/17/20 13:05 Anisocytosis Not Reportable 07/17/20 13:05 Microcytosis Not Reportable 07/17/20 13:05 Macrocytosis Not Reportable 07/17/20 13:05 Spherocytes Not Reportable 07/17/20 13:05 Pappenheimer Bodies Not Reportable 07/17/20 13:05 Sickle Cells Not Reportable 07/17/20 13:05 Target Cells Not Reportable 07/17/20 13:05 Tear Drop Cells Not Reportable 07/17/20 13:05 Ovalocytes Not Reportable 07/17/20 13:05 Helmet Cells Not Reportable 07/17/20 13:05 Allen-Millbra[place] Bodies Not Reportable 07/17/20 13:05 [place] Rings Not Reportable 07/17/20 13:05 Dariana Cells Not Reportable 07/17/20 13:05 Bite Cells Not Reportable 07/17/20 13:05 Crenated Cell Not Reportable 07/17/20 13:05 Elliptocytes Not Reportable 07/17/20 13:05 Acanthocytes (Spur) Not Reportable 07/17/20 13:05 Rouleaux Not Reportable 07/17/20 13:05 Hemoglobin C Crystals Not Reportable 07/17/20 13:05 Schistocytes Not Reportable 07/17/20 13:05 Malaria parasites Not Reportable 07/17/20 13:05 Jamil Bodies Not Reportable 07/17/20 13:05 Hem Pathologist Commnt No 07/17/20 13:05 PT 14.5 Sec. (12.2-14.9) 07/18/20 19:05 INR 1.15 (0.87-1.13) H 07/18/20 19:05 APTT 30.8 Sec. (24.2-36.6) 07/18/20 19:05 Heparin Anti-Xa Level 0.20 U.I./ml (0.3-0.7) L 07/22/20 01:18 Sodium 130 mmol/L (137-145) L 07/20/20 05:53 Potassium 4.2 mmol/L (3.6-5.0) 07/20/20 05:53 Chloride 98.2 mmol/L (98-107) 07/20/20 05:53 Carbon Dioxide 24 mmol/L (22-30) 07/20/20 05:53 Anion Gap 12 mmol/L 07/20/20 05:53 BUN 28 mg/dL (9-20) H 07/20/20 05:53 Creatinine 1.0 mg/dL (0.8-1.3) 07/20/20 05:53 Estimated GFR > 60 ml/min 07/20/20 05:53 BUN/Creatinine Ratio 28 % 07/20/20 05:53 Glucose 232 mg/dL (75-100) H 07/20/20 05:53 POC Glucose 261 mg/dL (70-105) H 07/21/20 21:11 Lactic Acid 1.80 mmol/L (0.7-2.0) 07/17/20 23:17 Calcium 8.2 mg/dL (8.4-10.2) L 07/20/20 05:53 Magnesium 2.00 mg/dL (1.7-2.3) 07/17/20 13:05 Total Bilirubin 0.80 mg/dL (0.1-1.2) 07/17/20 13:05 AST 42 units/L (5-40) H 07/17/20 13:05 ALT 47 units/L (7-56) 07/17/20 13:05 Alkaline Phosphatase 118 units/L (35-129) 07/17/20 13:05 Total Creatine Kinase 131 units/L (55-170) 07/17/20 13:05 Total Protein 6.9 g/dL (6.3-8.2) 07/17/20 13:05 Albumin 2.7 g/dL (3.9-5) L 07/17/20 13:05 Albumin/Globulin Ratio 0.6 % 07/17/20 13:05 Urine Color Yellow (Yellow) 07/18/20 06:30 Urine Turbidity Hazy (Clear) 07/18/20 06:30 Urine pH 5.0 (5.0-7.0) 07/18/20 06:30 Ur Specific Upperco 1.017 (1.003-1.030) 07/18/20 06:30 Urine Protein >500 mg/dL (Negative) 07/18/20 06:30 Urine Glucose (UA) 50 mg/dL (Negative) 07/18/20 06:30 Urine Ketones Neg mg/dL (Negative) 07/18/20 06:30 Urine Blood Sm (Negative) 07/18/20 06:30 Urine Nitrite Neg (Negative) 07/18/20 06:30 Urine Bilirubin Neg (Negative) 07/18/20 06:30 Urine Urobilinogen < 2.0 mg/dL (<2.0) 07/18/20 06:30 Ur Leukocyte Esterase Neg (Negative) 07/18/20 06:30 Urine WBC (Auto) 5.0 /HPF (0.0-6.0) 07/18/20 06:30 Urine RBC (Auto) 12.0 /HPF (0.0-6.0) 07/18/20 06:30 U Epithel Cells (Auto) < 1.0 /HPF (0-13.0) 07/18/20 06:30 Urine Mucus Few /HPF 07/18/20 06:30 Vancomycin Trough 18.8 ug/mL (5.0-20.0) 07/21/20 10:03 Blood Type A POSITIVE 07/17/20 17:12 Antibody Screen Negative 07/17/20 17:12 Microbiology: Microbiology 07/20/20 19:30 Peripheral/Venous Blood Culture - Preliminary NO GROWTH AFTER 24 HOURS 07/20/20 19:30 Peripheral/Venous Blood Culture - Preliminary NO GROWTH AFTER 24 HOURS 07/17/20 13:05 Peripheral/Venous Blood Culture - Preliminary Staphylococcus Aureus Campos/IV: Voiding Method Urinal Active Medications - Current Medications Current Medications: Generic Name Dose Route Start Last Admin Trade Name Freq PRN Reason Stop Dose Admin Acetaminophen 650 mg 07/17/20 16:24 Acetaminophen 325 Mg Tab PO Q4H PRN Pain MILD(1-3)/Fever >100.5/CARIAS Albuterol 2.5 mg 07/17/20 16:24 Albuterol 2.5 Mg/3 Ml Nebu IH Q4HRT PRN Shortness Of Breath Heparin Sodium (Porcine) 5,000 unit 07/19/20 10:00 Heparin 10,000 Units/10 Ml Vial IV Q6H PRN Anti-Xa Assay < 0.1 units/ml Hydrochlorothiazide 12.5 mg 07/22/20 10:00 Hydrochlorothiazide 12.5 Mg Cap PO QDAY LACHELLE Hydromorphone HCl 0.25 mg 07/17/20 16:24 07/20/20 05:12 Hydromorphone 1 Mg/1 Ml Inj IV 0.25 mg Q4H PRN Administration Pain, Moderate (4-6) Heparin Sodium/Sodium Chloride 25,000 unit in 500 mls @ 30 mls/hr 07/18/20 19:00 07/22/20 02:52 Heparin/ 0.45% Nacl-25,000 Unit/500 Ml IV 2,250 units/hr TITR LACHELLE 45 mls/hr Administration Protocol 1,500 UNITS/HR Sodium Chloride 1,000 mls @ 75 mls/hr 07/18/20 19:00 07/22/20 02:54 Nacl 0.9% 1000 Ml IV 75 mls/hr DIRECT LACHELLE Administration Vancomycin HCl 1,500 mg/ 530 mls @ 333.333 mls/hr 07/19/20 22:00 07/21/20 21:19 Sodium Chloride IV 333.333 mls/hr Q12HR LACHELLE Administration Insulin Human Isoph/Insulin Regular 18 unit 07/21/20 20:00 07/21/20 21:20 Insulin Nph/Regular 70/30 Inj SUB-Q 18 unit BIDDIAB LACHELLE Administration Insulin Human Regular 0 units 07/17/20 22:00 07/21/20 21:56 Insulin Regular, Human 100 Units/1 Ml SUB-Q 3 units ACHS LACHELLE Administration Protocol Magnesium Hydroxide 30 ml 07/19/20 18:00 Magnesium Hydroxide (Mom) Oral Liqd Udc PO QDAY PRN Constipation Ondansetron HCl 4 mg 07/17/20 16:24 07/19/20 14:50 Ondansetron 4 Mg/2 Ml Inj IV 4 mg Q8H PRN Administration Nausea And Vomiting Sodium Chloride 10 ml 07/17/20 22:00 07/21/20 21:19 Sodium Chloride 0.9% 10 Ml Flush Syringe IV 10 ml BID LACHELLE Administration Sodium Chloride 10 ml 07/17/20 16:24 07/20/20 05:13 Sodium Chloride 0.9% 10 Ml Flush Syringe IV 10 ml PRN PRN Administration LINE FLUSH
[2020-07-22] MEDS: INSULIN REGULAR, HUMAN 100 UNITS/1 ML SUB-Q SCH ×4 (09:18→21:47)
[2020-07-22] MEDS: INSULIN NPH/REGULAR 70/30 INJ SUB-Q SCH ×2 (09:19→18:22)
[2020-07-22] MEDS: hydroCHLOROthiazide 12.5 MG CAP PO SCH (09:25)
[2020-07-22] MEDS: VANCOMYCIN 1,500 MG in SODIUM CHLORIDE 0.9% 500 ML 500 ML IV SCH (09:46)
--- NOTE | 2020-07-22 12:31 | Progress Note ---
Assessment and Plan Cultures: 07/17/2020 blood culture: MSSA 07/20/2020 blood culture: no growth in 24 hrs A/P: 54-year-old male with diabetes, gastroesophageal reflux disease, obesity, peripheral vascular disease, recent revascularization on 07/10/2020, previous diabetic foot ulceration: #Sepsis, secondary to Staph aureus (MSSA) bacteremia #Staph aureus bacteremia: Source is unclear but suspect right foot cellulitis. Recent revascularization in the right lower extremity with stent placement on 07/10/2020, denies any other prosthetic material. MRI showed extensive dorsal and lateral ankle edema without evidence of abscess. There is evidence of Charcot foot as well as diffuse edema in the muscle suggesting myopathy versus myositis. TTE did not reveal any valvular vegetations. #Diabetes mellitus type 2, uncontrolled #Peripheral vascular disease: Recent revascularization with stent placement on 07/10/2020. Vascular following. #DAQUAN: renally adjust abx based on creatinine. Improved. Recs: -Vancomycin stopped -since MSSA, switched to Ancef IV 2 gm q6 hrs (high dose due to obesity) -f/u repeat blood cultures, once negative at 48 hours, can get a PICC line and will need 4-6 weeks of abx depending on whether bacteremia is difficult to clear Warren Blankenship MD, FACP [facility] ([facility] O: [phone] F: [phone] Subjective Date of service: 07/22/20 Principal diagnosis: Right lower extremity arterial disease Interval history: Feels well. No complaints. Tolerating abx. No nausea, vomiting or diarrhea. No pain in leg. Objective - Exam Narrative Exam: Physical Exam: Constitutional: Alert, cooperative. No acute distress Head, Ears, Nose: Normocephalic, atraumatic. External ears, nose normal Eyes: Conjunctivae/corneas clear. No icterus. No ptosis. Neck: Supple, no meningeal signs Cardiovascular: S1, S2 normal. Respiratory: Good air entry, clear to auscultation bilaterally GI: Soft, non-tender; bowel sounds normal. No peritoneal signs Musculoskeletal: Right leg with edema, right foot with swelling, old ulceration that appears to be healed, no drainage Skin: No rash or abscess Hem/Lymphatic: No palpable cervical or supraclavicular nodes. No lymphangitis Psych: Mood ok. Affect normal Neurological: Awake, alert, oriented. No gross abnormality - Constitutional Vitals: Vital Signs Temp Pulse Resp BP Pulse Ox 98.4 F 92 H 20 159/70 96 07/22/20 09:24 07/22/20 09:24 07/22/20 09:24 07/22/20 09:24 07/22/20 09:24 Temperature -Last 24 Hours Temperature 98.4 F Temperature 98.3 F Temperature 98.0 F - Labs CBC & Chem 7: 07/22/20 02:40 07/20/20 05:53 Labs: Abnormal lab results 07/21/20 07/21/20 07/21/20 Range/Units 16:28 18:20 21:11 Hgb (11.8-15.2) gm/dl Hct (35.5-45.6) % Heparin Anti-Xa Level 0.19 L (0.3-0.7) U.I./ml POC Glucose 245 H 261 H (70-105) mg/dL 07/22/20 07/22/20 07/22/20 Range/Units 01:18 02:40 07:30 Hgb 9.8 L (11.8-15.2) gm/dl Hct 28.8 L (35.5-45.6) % Heparin Anti-Xa Level 0.20 L (0.3-0.7) U.I./ml POC Glucose 233 H (70-105) mg/dL 07/22/20 07/22/20 Range/Units 08:35 11:58 Hgb (11.8-15.2) gm/dl Hct (35.5-45.6) % Heparin Anti-Xa Level 0.26 L (0.3-0.7) U.I./ml POC Glucose 246 H (70-105) mg/dL
[2020-07-22] MEDS: hydrALAZINE 25 MG TAB PO SCH ×2 (14:06→21:48)
--- NOTE | 2020-07-22 14:20 | Progress Note ---
Assessment and Plan 54-year-old male with multiple medical issues including right lower extremity peripheral vascular disease complicated by weakness, pain, and other complaints which occurred after his revascularization procedure. Unclear if distal embolization occurred. Will ultimately need angiogram and further evaluation/revascularization. GI status improved after large bowel movement. No longer having persistent diarrhea. At this time, patient is having persistent bacteremia from unclear origin/source. Very poor dentition noted. ID following. Once medically cleared, can evaluate patient for revascularization. Subjective Date of service: 07/22/20 Principal diagnosis: Right lower extremity arterial disease Interval history: Palpable left dorsalis pedis pulse. Nonpalpable right pedal pulses, possibly secondary to edema. Both feet are warm. Reviewed MRI, no fluid collections or osteomyelitis of the right foot. Patient has very poor dental hygiene with lots of eroded teeth in his mouth. Objective - Constitutional Vitals: Vital Signs - 12hr 07/22/20 07/22/20 07/22/20 05:30 06:42 09:24 Temperature 98.3 F 98.4 F Pulse Rate 91 H 91 H 92 H Respiratory 20 20 Rate Blood Pressure 182/93 182/93 159/70 O2 Sat by Pulse 94 96 Oximetry 07/22/20 14:06 Temperature Pulse Rate Respiratory Rate Blood Pressure 147/75 O2 Sat by Pulse Oximetry General appearance: Present: no acute distress - EENT ENT: poor dentition (Multiple missing teeth and eroded teeth in his mouth.) - Respiratory Respiratory effort: normal Extremities: normal temperature, normal color, abnormal (see subjective) - Psychiatric Psychiatric: appropriate mood/affect, cooperative - Labs CBC & Chem 7: 07/22/20 02:40 07/20/20 05:53 Labs: Abnormal lab results 07/21/20 07/21/20 07/21/20 Range/Units 16:28 18:20 21:11 Hgb (11.8-15.2) gm/dl Hct (35.5-45.6) % Heparin Anti-Xa Level 0.19 L (0.3-0.7) U.I./ml POC Glucose 245 H 261 H (70-105) mg/dL 07/22/20 07/22/20 07/22/20 Range/Units 01:18 02:40 07:30 Hgb 9.8 L (11.8-15.2) gm/dl Hct 28.8 L (35.5-45.6) % Heparin Anti-Xa Level 0.20 L (0.3-0.7) U.I./ml POC Glucose 233 H (70-105) mg/dL 07/22/20 07/22/20 Range/Units 08:35 11:58 Hgb (11.8-15.2) gm/dl Hct (35.5-45.6) % Heparin Anti-Xa Level 0.26 L (0.3-0.7) U.I./ml POC Glucose 246 H (70-105) mg/dL Medications & Allergies - Medications Allergies/Adverse Reactions: Allergies shellfish derived Allergy (Verified 08/11/14 11:29) Hives Home Medications: Home Medications Medication Instructions Recorded Confirmed Last Taken Type Insulin NPH/Regular [NovoLIN ] 34 unit SUB-Q QDDIAB #30 ml 05/20/14 0 08/11/14 08/10/14 Rx Docusate Sodium [Colace] 100 mg PO BID PRN #14 capsule 08/11/14 Unknown Rx Active Medications: Generic Name Dose Route Start Last Admin Trade Name Freq PRN Reason Stop Dose Admin Acetaminophen 650 mg 07/17/20 16:24 Acetaminophen 325 Mg Tab PO Q4H PRN Pain MILD(1-3)/Fever >100.5/CARIAS Albuterol 2.5 mg 07/17/20 16:24 Albuterol 2.5 Mg/3 Ml Nebu IH Q4HRT PRN Shortness Of Breath Heparin Sodium (Porcine) 5,000 unit 07/19/20 10:00 Heparin 10,000 Units/10 Ml Vial IV Q6H PRN Anti-Xa Assay < 0.1 units/ml Hydralazine HCl 50 mg 07/22/20 14:00 07/22/20 14:06 Hydralazine 25 Mg Tab PO 50 mg Q8HR LACHELLE Administration Hydralazine HCl 10 mg 07/22/20 08:10 Hydralazine 20 Mg/1 Ml Inj IV Q4HR PRN Hypertension Hydrochlorothiazide 12.5 mg 07/22/20 10:00 07/22/20 09:25 Hydrochlorothiazide 12.5 Mg Cap PO 12.5 mg QDAY LACHELLE Administration Hydromorphone HCl 0.25 mg 07/17/20 16:24 07/20/20 05:12 Hydromorphone 1 Mg/1 Ml Inj IV 0.25 mg Q4H PRN Administration Pain, Moderate (4-6) Heparin Sodium/Sodium Chloride 25,000 unit in 500 mls @ 30 mls/hr 07/18/20 19:00 07/22/20 13:42 Heparin/ 0.45% Nacl-25,000 Unit/500 Ml IV 2,250 units/hr TITR LACHELLE 45 mls/hr Administration Protocol 1,500 UNITS/HR Sodium Chloride 1,000 mls @ 75 mls/hr 07/18/20 19:00 07/22/20 02:54 Nacl 0.9% 1000 Ml IV 75 mls/hr DIRECT LACHELLE Administration Cefazolin Sodium 2 gm/ Sodium 100 mls @ 200 mls/hr 07/22/20 12:30 07/22/20 13:56 Chloride IV 200 mls/hr Q6H LACHELLE Administration Protocol Insulin Human Isoph/Insulin Regular 18 unit 07/21/20 20:00 07/22/20 09:19 Insulin Nph/Regular 70/30 Inj SUB-Q 18 unit BIDDIAB LACHELLE Administration Insulin Human Regular 0 units 07/17/20 22:00 07/22/20 13:41 Insulin Regular, Human 100 Units/1 Ml SUB-Q 2 units ACHS LACHELLE Administration Protocol Magnesium Hydroxide 30 ml 07/19/20 18:00 Magnesium Hydroxide (Mom) Oral Liqd Udc PO QDAY PRN Constipation Ondansetron HCl 4 mg 07/17/20 16:24 07/19/20 14:50 Ondansetron 4 Mg/2 Ml Inj IV 4 mg Q8H PRN Administration Nausea And Vomiting Sodium Chloride 10 ml 07/17/20 22:00 07/22/20 09:49 Sodium Chloride 0.9% 10 Ml Flush Syringe IV Not Given BID LACHELLE Sodium Chloride 10 ml 07/17/20 16:24 07/20/20 05:13 Sodium Chloride 0.9% 10 Ml Flush Syringe IV 10 ml PRN PRN Administration LINE FLUSH
[2020-07-23] MEDS: HEPARIN/ 0.45% NACL DRIP 25,000 UNIT/500 ML BAG IV SCH ×3 (00:20→23:10)
[2020-07-23] MEDS: hydrALAZINE 25 MG TAB PO SCH ×3 (06:03→21:52)
[2020-07-23 06:13] LABS: BUN/Creatinine Ratio 11; Blood Urea Nitrogen 10 mg/dL (9-20); Calcium 8.3 mg/dL (8.4-10.2); Hemolysis Index 0
[2020-07-23] MEDS: INSULIN REGULAR, HUMAN 100 UNITS/1 ML SUB-Q SCH ×4 (09:20→21:51)
[2020-07-23] MEDS: INSULIN NPH/REGULAR 70/30 INJ SUB-Q SCH ×2 (09:20→18:08)
[2020-07-23] MEDS: hydroCHLOROthiazide 12.5 MG CAP PO SCH (09:25)
--- NOTE | 2020-07-23 12:56 | Progress Note ---
Assessment and Plan Assessment and plan: --Staph aureus bacteremia: Current Visit: Yes Status: Acute , Plan to address problem: Continue Vanco follow repeat cultures ,ID following -- Sepsis/diabetic foot ulcer Current Visit: Yes Status: Acute , Plan to address problem: Elevate the limb, vascular study venous and arterial Doppler Venous Doppler negative for DVT IV antibiotics, follow cultures, ID following Wound care as needed --Peripheral vascular disease; Current Visit: Yes Status: Acute Plan to address problem: Vascular plans evaluation after patient sepsis is completely treated --Type II diabetes mellitus/uncontrolled Current Visit: Yes Status: Acute Plan to address problem: Accu-Chek sliding scale coverage ADA diet Add long-acting insulin Novolin 70/30 adjust management as needed --Constipation; Current Visit: Yes Status: Acute , Plan to address problem: Resolved, stool softeners as needed --Acute kidney injury / acute tubular necrosis (ATN) Current Visit: Yes Status: Acute Plan to address problem: continue gentle hydration, monitor renal function, avoid nephrotoxin, Resolved , --Acute metabolic acidosis Current Visit: Yes Status: Acute Plan to address problem: IV hydration monitor acidosis --Hyponatremia Current Visit: Yes Status: Acute Plan to address problem: Significant improvement Closely monitor electrolytes --Morbid obesity BMI 39.1 Current Visit: Yes Status: Acute Plan to address problem: Patient needs weight reduction When medically stable, dietary modification Exercise as tolerated and weight reduction -- DVT prophylaxis Current Visit: Yes Status: Acute Plan to address problem: SCD, patient is on heparin drip per vascular We will closely monitor the patient and adjust the management as needed Plan of care reviewed with the patient and his nurse Consults and recommendations noted and appreciated 07/21/2020; patient with MSSA bacteremia, on IV antibiotics ID following, peripheral vascular disease, vascular following 07/22/2020; patient's blood sugars are uncontrolled, will increase 7030 dose Hemoglobin A1c 12.5, will advise diabetic education, diabetic diet education 07/23/2020 patient is receiving antibiotics, vascular plan to do the work-up Once he is more stable, blood sugars moderate control increase 70/30 insulin to 22 units twice a day History Interval history: I have seen and examined the patient at the bedside Patient's chart and medications reviewed Patient feels better no new complaints Anxious to go home Vital signs noted Hospitalist Physical - Constitutional Vitals: Temp Pulse Resp BP Pulse Ox 97.6 F 88 20 154/75 92 07/23/20 09:24 07/23/20 09:24 07/23/20 09:24 07/23/20 09:24 07/23/20 09:24 General appearance: Present: mild distress, well-nourished, obese - EENT Eyes: Present: PERRL, EOM intact - Neck Neck: Present: supple, normal ROM - Respiratory Respiratory effort: normal Respiratory: bilateral: diminished, negative: rales, rhonchi, wheezing - Cardiovascular Rhythm: regular Heart Sounds: Present: S1 & S2 - Extremities Extremities: no ischemia, abnormal (Right lower extremity edema erythema slightly improved) Extremity abnormal: edema - Abdominal General gastrointestinal: soft, non-tender, non-distended, normal bowel sounds - Integumentary Integumentary: Present: clear, warm - Psychiatric Psychiatric: appropriate mood/affect, cooperative - Neurologic Neurologic: CNII-XII intact, moves all extremities Results - Labs CBC & Chem 7: 07/22/20 02:40 07/23/20 05:32 Labs: Laboratory Last Values WBC 12.1 K/mm3 (4.5-11.0) H 07/20/20 05:53 RBC 3.22 M/mm3 (3.65-5.03) L 07/20/20 05:53 Hgb 9.8 gm/dl (11.8-15.2) L 07/22/20 02:40 Hct 28.8 % (35.5-45.6) L 07/22/20 02:40 MCV 86 fl (84-94) 07/20/20 05:53 MCH 30 pg (28-32) 07/20/20 05:53 MCHC 34 % (32-34) 07/20/20 05:53 RDW 14.0 % (13.2-15.2) 07/20/20 05:53 Plt Count 404 K/mm3 (140-440) 07/22/20 02:40 Add Manual Diff Complete 07/17/20 13:05 Total Counted 100 07/17/20 13:05 Seg Neutrophils % Education Reviewer 07/17/20 13:05 Seg Neuts % (Manual) 95.0 % (40.0-70.0) H 07/17/20 13:05 Lymphocytes % (Manual) 3.0 % (13.4-35.0) L 07/17/20 13:05 Monocytes % (Manual) 2.0 % (0.0-7.3) 07/17/20 13:05 Nucleated RBC % Not Reportable 07/17/20 13:05 Seg Neutrophils # Man 18.1 K/mm3 (1.8-7.7) H 07/17/20 13:05 Band Neutrophils # 0.0 K/mm3 07/17/20 13:05 Lymphocytes # (Manual) 0.6 K/mm3 (1.2-5.4) L 07/17/20 13:05 Abs React Lymphs (Man) 0.0 K/mm3 07/17/20 13:05 Monocytes # (Manual) 0.4 K/mm3 (0.0-0.8) 07/17/20 13:05 Eosinophils # (Manual) 0.0 K/mm3 (0.0-0.4) 07/17/20 13:05 Basophils # (Manual) 0.0 K/mm3 (0.0-0.1) 07/17/20 13:05 Metamyelocytes # 0.0 K/mm3 07/17/20 13:05 Myelocytes # 0.0 K/mm3 07/17/20 13:05 Promyelocytes # 0.0 K/mm3 07/17/20 13:05 Blast Cells # 0.0 K/mm3 07/17/20 13:05 WBC Morphology Not Reportable 07/17/20 13:05 Hypersegmented Neuts Not Reportable 07/17/20 13:05 Hyposegmented Neuts Not Reportable 07/17/20 13:05 Hypogranular Neuts Not Reportable 07/17/20 13:05 Smudge Cells Not Reportable 07/17/20 13:05 Toxic Granulation Not Reportable 07/17/20 13:05 Toxic Vacuolation Not Reportable 07/17/20 13:05 Dohle Bodies Not Reportable 07/17/20 13:05 Pelger-Huet Anomaly Not Reportable 07/17/20 13:05 Christa Rods Not Reportable 07/17/20 13:05 Platelet Estimate Consistent w auto 07/17/20 13:05 Clumped Platelets Not Reportable 07/17/20 13:05 Plt Clumps, EDTA Not Reportable 07/17/20 13:05 Large Platelets Not Reportable 07/17/20 13:05 Giant Platelets Not Reportable 07/17/20 13:05 Platelet Satelliting Not Reportable 07/17/20 13:05 Plt Morphology Comment Not Reportable 07/17/20 13:05 RBC Morphology Normal 07/17/20 13:05 Dimorphic RBCs Not Reportable 07/17/20 13:05 Polychromasia Not Reportable 07/17/20 13:05 Hypochromasia Not Reportable 07/17/20 13:05 Poikilocytosis Not Reportable 07/17/20 13:05 Anisocytosis Not Reportable 07/17/20 13:05 Microcytosis Not Reportable 07/17/20 13:05 Macrocytosis Not Reportable 07/17/20 13:05 Spherocytes Not Reportable 07/17/20 13:05 Pappenheimer Bodies Not Reportable 07/17/20 13:05 Sickle Cells Not Reportable 07/17/20 13:05 Target Cells Not Reportable 07/17/20 13:05 Tear Drop Cells Not Reportable 07/17/20 13:05 Ovalocytes Not Reportable 07/17/20 13:05 Helmet Cells Not Reportable 07/17/20 13:05 [place] Bodies Not Reportable 07/17/20 13:05 [place] Rings Not Reportable 07/17/20 13:05 Dariana Cells Not Reportable 07/17/20 13:05 Bite Cells Not Reportable 07/17/20 13:05 Crenated Cell Not Reportable 07/17/20 13:05 Elliptocytes Not Reportable 07/17/20 13:05 Acanthocytes (Spur) Not Reportable 07/17/20 13:05 Rouleaux Not Reportable 07/17/20 13:05 Hemoglobin C Crystals Not Reportable 07/17/20 13:05 Schistocytes Not Reportable 07/17/20 13:05 Malaria parasites Not Reportable 07/17/20 13:05 Jamil Bodies Not Reportable 07/17/20 13:05 Hem Pathologist Commnt No 07/17/20 13:05 PT 14.5 Sec. (12.2-14.9) 07/18/20 19:05 INR 1.15 (0.87-1.13) H 07/18/20 19:05 APTT 30.8 Sec. (24.2-36.6) 07/18/20 19:05 Heparin Anti-Xa Level 0.41 U.I./ml (0.3-0.7) 07/23/20 05:32 Sodium 135 mmol/L (137-145) L 07/23/20 05:32 Potassium 3.4 mmol/L (3.6-5.0) L 07/23/20 05:32 Chloride 101.3 mmol/L (98-107) 07/23/20 05:32 Carbon Dioxide 27 mmol/L (22-30) 07/23/20 05:32 Anion Gap 10 mmol/L 07/23/20 05:32 BUN 10 mg/dL (9-20) 07/23/20 05:32 Creatinine 0.9 mg/dL (0.8-1.3) 07/23/20 05:32 Estimated GFR > 60 ml/min 07/23/20 05:32 BUN/Creatinine Ratio 11 % 07/23/20 05:32 Glucose 205 mg/dL (75-100) H 07/23/20 05:32 POC Glucose 218 mg/dL (70-105) H 07/23/20 11:17 Lactic Acid 1.80 mmol/L (0.7-2.0) 07/17/20 23:17 Calcium 8.3 mg/dL (8.4-10.2) L 07/23/20 05:32 Magnesium 2.00 mg/dL (1.7-2.3) 07/17/20 13:05 Total Bilirubin 0.80 mg/dL (0.1-1.2) 07/17/20 13:05 AST 42 units/L (5-40) H 07/17/20 13:05 ALT 47 units/L (7-56) 07/17/20 13:05 Alkaline Phosphatase 118 units/L (35-129) 07/17/20 13:05 Total Creatine Kinase 131 units/L (55-170) 07/17/20 13:05 Total Protein 6.9 g/dL (6.3-8.2) 07/17/20 13:05 Albumin 2.7 g/dL (3.9-5) L 07/17/20 13:05 Albumin/Globulin Ratio 0.6 % 07/17/20 13:05 Urine Color Yellow (Yellow) 07/18/20 06:30 Urine Turbidity Hazy (Clear) 07/18/20 06:30 Urine pH 5.0 (5.0-7.0) 07/18/20 06:30 Ur Specific [place] 1.017 (1.003-1.030) 07/18/20 06:30 Urine Protein >500 mg/dL (Negative) 07/18/20 06:30 Urine Glucose (UA) 50 mg/dL (Negative) 07/18/20 06:30 Urine Ketones Neg mg/dL (Negative) 07/18/20 06:30 Urine Blood Sm (Negative) 07/18/20 06:30 Urine Nitrite Neg (Negative) 07/18/20 06:30 Urine Bilirubin Neg (Negative) 07/18/20 06:30 Urine Urobilinogen < 2.0 mg/dL (<2.0) 07/18/20 06:30 Ur Leukocyte Esterase Neg (Negative) 07/18/20 06:30 Urine WBC (Auto) 5.0 /HPF (0.0-6.0) 07/18/20 06:30 Urine RBC (Auto) 12.0 /HPF (0.0-6.0) 07/18/20 06:30 U Epithel Cells (Auto) < 1.0 /HPF (0-13.0) 07/18/20 06:30 Urine Mucus Few /HPF 07/18/20 06:30 Vancomycin Trough 18.8 ug/mL (5.0-20.0) 07/21/20 10:03 Blood Type A POSITIVE 07/17/20 17:12 Antibody Screen Negative 07/17/20 17:12 Microbiology: Microbiology 07/20/20 19:30 Peripheral/Venous Blood Culture - Preliminary Staphylococcus Aureus 07/20/20 19:30 Peripheral/Venous Blood Culture - Preliminary Staphylococcus Aureus 07/17/20 13:05 Peripheral/Venous Blood Culture - Final Staphylococcus Aureus 07/17/20 13:05 Peripheral/Venous Blood Culture - Final Staphylococcus Aureus Campos/IV: Voiding Method Urinal Active Medications - Current Medications Current Medications: Generic Name Dose Route Start Last Admin Trade Name Freq PRN Reason Stop Dose Admin Acetaminophen 650 mg 07/17/20 16:24 Acetaminophen 325 Mg Tab PO Q4H PRN Pain MILD(1-3)/Fever >100.5/CARIAS Albuterol 2.5 mg 07/17/20 16:24 Albuterol 2.5 Mg/3 Ml Nebu IH Q4HRT PRN Shortness Of Breath Heparin Sodium (Porcine) 5,000 unit 07/19/20 10:00 Heparin 10,000 Units/10 Ml Vial IV Q6H PRN Anti-Xa Assay < 0.1 units/ml Hydralazine HCl 50 mg 07/22/20 14:00 07/23/20 06:03 Hydralazine 25 Mg Tab PO 50 mg Q8HR LACHELLE Administration Hydralazine HCl 10 mg 07/22/20 08:10 Hydralazine 20 Mg/1 Ml Inj IV Q4HR PRN Hypertension Hydrochlorothiazide 12.5 mg 07/22/20 10:00 07/23/20 09:25 Hydrochlorothiazide 12.5 Mg Cap PO 12.5 mg QDAY LACHELLE Administration Hydromorphone HCl 0.25 mg 07/17/20 16:24 07/20/20 05:12 Hydromorphone 1 Mg/1 Ml Inj IV 0.25 mg Q4H PRN Administration Pain, Moderate (4-6) Heparin Sodium/Sodium Chloride 25,000 unit in 500 mls @ 30 mls/hr 07/18/20 19:00 07/23/20 11:42 Heparin/ 0.45% Nacl-25,000 Unit/500 Ml IV 2,400 units/hr TITR LACHELLE 48 mls/hr Administration Protocol 1,500 UNITS/HR Sodium Chloride 1,000 mls @ 75 mls/hr 07/18/20 19:00 07/22/20 21:49 Nacl 0.9% 1000 Ml IV 75 mls/hr DIRECT LACHELLE Administration Cefazolin Sodium 2 gm/ Sodium 100 mls @ 200 mls/hr 07/22/20 12:30 07/23/20 11:44 Chloride IV 200 mls/hr Q6H LACHELLE Administration Protocol Insulin Human Isoph/Insulin Regular 18 unit 07/21/20 20:00 07/23/20 09:20 Insulin Nph/Regular 70/30 Inj SUB-Q 18 unit BIDDIAB LACHELLE Administration Insulin Human Regular 0 units 07/17/20 22:00 07/23/20 09:20 Insulin Regular, Human 100 Units/1 Ml SUB-Q 1 units ACHS LACHELLE Administration Protocol Magnesium Hydroxide 30 ml 07/19/20 18:00 Magnesium Hydroxide (Mom) Oral Liqd Udc PO QDAY PRN Constipation Ondansetron HCl 4 mg 07/17/20 16:24 07/19/20 14:50 Ondansetron 4 Mg/2 Ml Inj IV 4 mg Q8H PRN Administration Nausea And Vomiting Sodium Chloride 10 ml 07/17/20 22:00 07/23/20 09:25 Sodium Chloride 0.9% 10 Ml Flush Syringe IV Not Given BID LACHELLE Sodium Chloride 10 ml 07/17/20 16:24 07/20/20 05:13 Sodium Chloride 0.9% 10 Ml Flush Syringe IV 10 ml PRN PRN Administration LINE FLUSH
[2020-07-23] MEDS ORDERED: POTASSIUM CHLORIDE ER 10 MEQ TAB PO NR (13:00)
[2020-07-24] MEDS: hydrALAZINE 25 MG TAB PO SCH ×3 (06:17→22:52)
[2020-07-24] MEDS: INSULIN NPH/REGULAR 70/30 INJ SUB-Q SCH ×3 (09:29→18:52)
[2020-07-24] MEDS: INSULIN REGULAR, HUMAN 100 UNITS/1 ML SUB-Q SCH ×4 (09:29→22:56)
[2020-07-24] MEDS: hydroCHLOROthiazide 12.5 MG CAP PO SCH (09:29)
[2020-07-24] MEDS: HEPARIN/ 0.45% NACL DRIP 25,000 UNIT/500 ML BAG IV SCH ×2 (09:40→21:11)
[2020-07-24 09:51] LABS: Basophils # (Auto) 0.1 K/mm3 (0.0-0.1); Basophils % (Auto) 0.9 % (0.0-1.8); Eosinophils # (Auto) 0.1 K/mm3 (0.0-0.4); Eosinophils % (Auto) 1.1 % (0.0-4.3); Hematocrit 27.6 % (35.5-45.6); Hemoglobin 9.5 gm/dl (11.8-15.2); Lymphocytes # (Auto) 0.9 K/mm3 (1.2-5.4); Lymphocytes % (Auto) 7.5 % (13.4-35.0); Mean Corpuscular HGB Conc 34 % (32-34); Mean Corpuscular Volume 85 fl (84-94); Monocytes # (Auto) 0.5 K/mm3 (0.0-0.8); Monocytes % (Auto) 4.3 % (0.0-7.3); Platelet Count 397 K/mm3 (140-440); Red Blood Count 3.25 M/mm3 (3.65-5.03)
[2020-07-24 10:10] LABS: BUN/Creatinine Ratio 10; Blood Urea Nitrogen 8 mg/dL (9-20); Calcium 8.3 mg/dL (8.4-10.2); Hemolysis Index 0
--- NOTE | 2020-07-24 13:30 | Progress Note ---
Assessment and Plan Cultures: 07/17/2020 blood culture: MSSA 07/20/2020 blood culture: MSSA A/P: 54-year-old male with diabetes, gastroesophageal reflux disease, obesity, peripheral vascular disease, recent revascularization on 07/10/2020, previous diabetic foot ulceration: #Sepsis, secondary to Staph aureus (MSSA) bacteremia #Staph aureus bacteremia: Source is unclear but suspect right foot cellulitis. Recent revascularization in the right lower extremity with stent placement on 07/10/2020, denies any other prosthetic material. MRI showed extensive dorsal and lateral ankle edema without evidence of abscess. There is evidence of Charcot foot as well as diffuse edema in the muscle suggesting myopathy versus myositis. TTE did not reveal any valvular vegetations. #Diabetes mellitus type 2, uncontrolled #Peripheral vascular disease: Recent revascularization with stent placement on 07/10/2020. Vascular following. #DAQUAN: renally adjust abx based on creatinine. Improved. Recs: -since MSSA, switched to Ancef IV 2 gm q6 hrs (high dose due to obesity) -f/u repeat blood cultures, once negative at 48 hours, can get a PICC line and will need 4-6 weeks of abx depending on whether bacteremia is difficult to clear -Most recent cultures positive, will obtain repeat. Colette Block MD [facility] O: [phone] F: [phone] Subjective Date of service: 07/24/20 Principal diagnosis: Right lower extremity arterial disease Interval history: Afebrile, white count elevated at 19.7. This is increased from previous. Cultures remain negative so far. Afebrile, white count 11.7. This is improved from previous. Cultures remain positive with MSSA. Objective - Exam Narrative Exam: Physical Exam: Constitutional: Alert, cooperative. No acute distress Head, Ears, Nose: Normocephalic, atraumatic. External ears, nose normal Eyes: Conjunctivae/corneas clear. No icterus. No ptosis. Neck: Supple, no meningeal signs Cardiovascular: S1, S2 normal. Respiratory: Good air entry, clear to auscultation bilaterally GI: Soft, non-tender; bowel sounds normal. No peritoneal signs Musculoskeletal: Right leg with edema, right foot with swelling, old ulceration that appears to be healed, no drainage Skin: No rash or abscess Hem/Lymphatic: No palpable cervical or supraclavicular nodes. No lymphangitis Psych: Mood ok. Affect normal Neurological: Awake, alert, oriented. No gross abnormality - Constitutional Vitals: Vital Signs Temp Pulse Resp BP Pulse Ox 97.9 F 88 17 159/85 93 07/24/20 11:36 07/24/20 11:36 07/24/20 11:36 07/24/20 11:36 07/24/20 11:36 Temperature -Last 24 Hours Temperature 97.9 F Temperature 98.8 F Temperature 98.7 F Temperature 97.9 F - Labs CBC & Chem 7: 07/24/20 09:26 07/24/20 09:26 Labs: Abnormal lab results 07/23/20 07/23/20 07/24/20 Range/Units 16:34 21:50 07:44 WBC (4.5-11.0) K/mm3 RBC (3.65-5.03) M/mm3 Hgb (11.8-15.2) gm/dl Hct (35.5-45.6) % Lymph % (Auto) (13.4-35.0) % Lymph # (Auto) (1.2-5.4) K/mm3 Seg Neutrophils % (40.0-70.0) % Seg Neutrophils # (1.8-7.7) K/mm3 Sodium (137-145) mmol/L BUN (9-20) mg/dL Glucose (75-100) mg/dL POC Glucose 186 H 185 H 175 H (70-105) mg/dL Calcium (8.4-10.2) mg/dL Magnesium (1.7-2.3) mg/dL 07/24/20 07/24/20 07/24/20 Range/Units 09:26 09:26 11:36 WBC 11.7 H (4.5-11.0) K/mm3 RBC 3.25 L (3.65-5.03) M/mm3 Hgb 9.5 L (11.8-15.2) gm/dl Hct 27.6 L (35.5-45.6) % Lymph % (Auto) 7.5 L (13.4-35.0) % Lymph # (Auto) 0.9 L (1.2-5.4) K/mm3 Seg Neutrophils % 86.2 H (40.0-70.0) % Seg Neutrophils # 10.1 H (1.8-7.7) K/mm3 Sodium 133 L (137-145) mmol/L BUN 8 L (9-20) mg/dL Glucose 263 H (75-100) mg/dL POC Glucose 224 H (70-105) mg/dL Calcium 8.3 L (8.4-10.2) mg/dL Magnesium 1.60 L (1.7-2.3) mg/dL
--- NOTE | 2020-07-24 18:30 | Progress Note ---
Assessment and Plan Assessment and plan: -- Sepsis/diabetic foot ulcer Current Visit: Yes Status: Acute , Plan to address problem: Elevate the limb, vascular study venous and arterial Doppler Venous Doppler negative for DVT IV antibiotics, follow cultures, ID following Wound care as needed --Peripheral vascular disease; Current Visit: Yes Status: Acute Plan to address problem: Vascular plans evaluation after patient sepsis is completely treated --Staph aureus bacteremia: Current Visit: Yes Status: Acute , Plan to address problem: Continue Vanco follow repeat cultures ,ID following --Type II diabetes mellitus/uncontrolled Current Visit: Yes Status: Acute Plan to address problem: Accu-Chek sliding scale coverage ADA diet Add long-acting insulin Novolin 70/30 adjust management as needed --Constipation; Current Visit: Yes Status: Acute , Plan to address problem: Resolved, stool softeners as needed --Acute kidney injury / acute tubular necrosis (ATN) Current Visit: Yes Status: Acute Plan to address problem: continue gentle hydration, monitor renal function, avoid nephrotoxin, Resolved , --Acute metabolic acidosis Current Visit: Yes Status: Acute Plan to address problem: IV hydration monitor acidosis --Hyponatremia Current Visit: Yes Status: Acute Plan to address problem: Significant improvement Closely monitor electrolytes --Morbid obesity BMI 39.1 Current Visit: Yes Status: Acute Plan to address problem: Patient needs weight reduction When medically stable, dietary modification Exercise as tolerated and weight reduction -- DVT prophylaxis Current Visit: Yes Status: Acute Plan to address problem: SCD, patient is on heparin drip per vascular We will closely monitor the patient and adjust the management as needed Plan of care reviewed with the patient and his nurse Consults and recommendations noted and appreciated 07/21/2020; patient with MSSA bacteremia, on IV antibiotics ID following, peripheral vascular disease, vascular following 07/22/2020; patient's blood sugars are uncontrolled, will increase 7030 dose Hemoglobin A1c 12.5, will advise diabetic education, diabetic diet education 07/23/2020 patient is receiving antibiotics, vascular plan to do the work-up Once he is more stable, blood sugars moderate control increase 70/30 insulin to 22 units twice a day 07/24/2020; patient feels slightly better History Interval history: I have seen and examined the patient at the bedside Patient's chart and medications reviewed Patient feels better no new complaints Anxious to go home Vital signs noted Hospitalist Physical - Constitutional Vitals: Temp Pulse Resp BP Pulse Ox 98.0 F 94 H 18 162/89 100 07/24/20 16:34 07/24/20 16:34 07/24/20 16:34 07/24/20 16:34 07/24/20 16:34 General appearance: Present: mild distress, well-nourished, obese - EENT Eyes: Present: PERRL, EOM intact - Neck Neck: Present: supple, normal ROM - Respiratory Respiratory effort: normal Respiratory: bilateral: diminished, negative: rales, rhonchi, wheezing - Cardiovascular Rhythm: regular Heart Sounds: Present: S1 & S2 - Extremities Extremities: abnormal (Right lower extremity cellulitis and erythema slightly improved) Extremity abnormal: edema - Abdominal General gastrointestinal: soft, non-tender, non-distended, normal bowel sounds - Integumentary Integumentary: Present: clear, warm - Psychiatric Psychiatric: appropriate mood/affect, cooperative - Neurologic Neurologic: CNII-XII intact, focal deficits Results - Labs CBC & Chem 7: 07/24/20 09:26 07/24/20 09:26 Labs: Laboratory Last Values WBC 11.7 K/mm3 (4.5-11.0) H 07/24/20 09:26 RBC 3.25 M/mm3 (3.65-5.03) L 07/24/20 09:26 Hgb 9.5 gm/dl (11.8-15.2) L 07/24/20 09:26 Hct 27.6 % (35.5-45.6) L 07/24/20 09:26 MCV 85 fl (84-94) 07/24/20 09:26 MCH 29 pg (28-32) 07/24/20 09:26 MCHC 34 % (32-34) 07/24/20 09:26 RDW 14.0 % (13.2-15.2) 07/24/20 09:26 Plt Count 397 K/mm3 (140-440) 07/24/20 09:26 Lymph % (Auto) 7.5 % (13.4-35.0) L 07/24/20 09:26 [place] % (Auto) 4.3 % (0.0-7.3) 07/24/20 09:26 Eos % (Auto) 1.1 % (0.0-4.3) 07/24/20 09:26 Baso % (Auto) 0.9 % (0.0-1.8) 07/24/20 09: Lymph # (Auto) 0.9 K/mm3 (1.2-5.4) L 07/24/20 09:26 [place] # (Auto) 0.5 K/mm3 (0.0-0.8) 07/24/20 09: Eos # (Auto) 0.1 K/mm3 (0.0-0.4) 07/24/20 09: Baso # (Auto) 0.1 K/mm3 (0.0-0.1) 07/24/20 09:26 Add Manual Diff Complete 07/17/20 13:05 Total Counted 100 07/17/20 13:05 Seg Neutrophils % 86.2 % (40.0-70.0) H 07/24/20 09: Seg Neuts % (Manual) 95.0 % (40.0-70.0) H 07/17/20 13:05 Lymphocytes % (Manual) 3.0 % (13.4-35.0) L 07/17/20 13:05 Monocytes % (Manual) 2.0 % (0.0-7.3) 07/17/20 13:05 Nucleated RBC % Not Reportable 07/17/20 13:05 Seg Neutrophils # 10.1 K/mm3 (1.8-7.7) H 07/24/20 09:26 Seg Neutrophils # Man 18.1 K/mm3 (1.8-7.7) H 07/17/20 13:05 Band Neutrophils # 0.0 K/mm3 07/17/20 13:05 Lymphocytes # (Manual) 0.6 K/mm3 (1.2-5.4) L 07/17/20 13:05 Abs React Lymphs (Man) 0.0 K/mm3 07/17/20 13:05 Monocytes # (Manual) 0.4 K/mm3 (0.0-0.8) 07/17/20 13:05 Eosinophils # (Manual) 0.0 K/mm3 (0.0-0.4) 07/17/20 13:05 Basophils # (Manual) 0.0 K/mm3 (0.0-0.1) 07/17/20 13:05 Metamyelocytes # 0.0 K/mm3 07/17/20 13:05 Myelocytes # 0.0 K/mm3 07/17/20 13:05 Promyelocytes # 0.0 K/mm3 07/17/20 13:05 Blast Cells # 0.0 K/mm3 07/17/20 13:05 WBC Morphology Not Reportable 07/17/20 13:05 Hypersegmented Neuts Not Reportable 07/17/20 13:05 Hyposegmented Neuts Not Reportable 07/17/20 13:05 Hypogranular Neuts Not Reportable 07/17/20 13:05 Smudge Cells Not Reportable 07/17/20 13:05 Toxic Granulation Not Reportable 07/17/20 13:05 Toxic Vacuolation Not Reportable 07/17/20 13:05 Dohle Bodies Not Reportable 07/17/20 13:05 Pelger-Huet Anomaly Not Reportable 07/17/20 13:05 Christa Rods Not Reportable 07/17/20 13:05 Platelet Estimate Consistent w auto 07/17/20 13:05 Clumped Platelets Not Reportable 07/17/20 13:05 Plt Clumps, EDTA Not Reportable 07/17/20 13:05 Large Platelets Not Reportable 07/17/20 13:05 Giant Platelets Not Reportable 07/17/20 13:05 Platelet Satelliting Not Reportable 07/17/20 13:05 Plt Morphology Comment Not Reportable 07/17/20 13:05 RBC Morphology Normal 07/17/20 13:05 Dimorphic RBCs Not Reportable 07/17/20 13:05 Polychromasia Not Reportable 07/17/20 13:05 Hypochromasia Not Reportable 07/17/20 13:05 Poikilocytosis Not Reportable 07/17/20 13:05 Anisocytosis Not Reportable 07/17/20 13:05 Microcytosis Not Reportable 07/17/20 13:05 Macrocytosis Not Reportable 07/17/20 13:05 Spherocytes Not Reportable 07/17/20 13:05 Pappenheimer Bodies Not Reportable 07/17/20 13:05 Sickle Cells Not Reportable 07/17/20 13:05 Target Cells Not Reportable 07/17/20 13:05 Tear Drop Cells Not Reportable 07/17/20 13:05 Ovalocytes Not Reportable 07/17/20 13:05 Helmet Cells Not Reportable 07/17/20 13:05 [place] Bodies Not Reportable 07/17/20 13:05 [place] Rings Not Reportable 07/17/20 13:05 Dariana Cells Not Reportable 07/17/20 13:05 Bite Cells Not Reportable 07/17/20 13:05 Crenated Cell Not Reportable 07/17/20 13:05 Elliptocytes Not Reportable 07/17/20 13:05 Acanthocytes (Spur) Not Reportable 07/17/20 13:05 Rouleaux Not Reportable 07/17/20 13:05 Hemoglobin C Crystals Not Reportable 07/17/20 13:05 Schistocytes Not Reportable 07/17/20 13:05 Malaria parasites Not Reportable 07/17/20 13:05 Jamil Bodies Not Reportable 07/17/20 13:05 Hem Pathologist Commnt No 07/17/20 13:05 PT 14.5 Sec. (12.2-14.9) 07/18/20 19:05 INR 1.15 (0.87-1.13) H 07/18/20 19:05 APTT 30.8 Sec. (24.2-36.6) 07/18/20 19:05 Heparin Anti-Xa Level 0.38 U.I./ml (0.3-0.7) 07/24/20 09:26 Sodium 133 mmol/L (137-145) L 07/24/20 09:26 Potassium 3.8 mmol/L (3.6-5.0) 07/24/20 09:26 Chloride 99.1 mmol/L (98-107) 07/24/20 09:26 Carbon Dioxide 28 mmol/L (22-30) 07/24/20 09:26 Anion Gap 10 mmol/L 07/24/20 09:26 BUN 8 mg/dL (9-20) L 07/24/20 09:26 Creatinine 0.8 mg/dL (0.8-1.3) 07/24/20 09:26 Estimated GFR > 60 ml/min 07/24/20 09:26 BUN/Creatinine Ratio 10 % 07/24/20 09:26 Glucose 263 mg/dL (75-100) H 07/24/20 09:26 POC Glucose 214 mg/dL (70-105) H 07/24/20 15:35 Lactic Acid 1.80 mmol/L (0.7-2.0) 07/17/20 23:17 Calcium 8.3 mg/dL (8.4-10.2) L 07/24/20 09:26 Magnesium 1.60 mg/dL (1.7-2.3) L 07/24/20 09:26 Total Bilirubin 0.80 mg/dL (0.1-1.2) 07/17/20 13:05 AST 42 units/L (5-40) H 07/17/20 13:05 ALT 47 units/L (7-56) 07/17/20 13:05 Alkaline Phosphatase 118 units/L (35-129) 07/17/20 13:05 Total Creatine Kinase 131 units/L (55-170) 07/17/20 13:05 Total Protein 6.9 g/dL (6.3-8.2) 07/17/20 13:05 Albumin 2.7 g/dL (3.9-5) L 07/17/20 13:05 Albumin/Globulin Ratio 0.6 % 07/17/20 13:05 Urine Color Yellow (Yellow) 07/18/20 06:30 Urine Turbidity Hazy (Clear) 07/18/20 06:30 Urine pH 5.0 (5.0-7.0) 07/18/20 06:30 Ur Specific [place] 1.017 (1.003-1.030) 07/18/20 06:30 Urine Protein >500 mg/dL (Negative) 07/18/20 06:30 Urine Glucose (UA) 50 mg/dL (Negative) 07/18/20 06:30 Urine Ketones Neg mg/dL (Negative) 07/18/20 06:30 Urine Blood Sm (Negative) 07/18/20 06:30 Urine Nitrite Neg (Negative) 07/18/20 06:30 Urine Bilirubin Neg (Negative) 07/18/20 06:30 Urine Urobilinogen < 2.0 mg/dL (<2.0) 07/18/20 06:30 Ur Leukocyte Esterase Neg (Negative) 07/18/20 06:30 Urine WBC (Auto) 5.0 /HPF (0.0-6.0) 07/18/20 06:30 Urine RBC (Auto) 12.0 /HPF (0.0-6.0) 07/18/20 06:30 U Epithel Cells (Auto) < 1.0 /HPF (0-13.0) 07/18/20 06:30 Urine Mucus Few /HPF 07/18/20 06:30 Vancomycin Trough 18.8 ug/mL (5.0-20.0) 07/21/20 10:03 Blood Type A POSITIVE 07/17/20 17:12 Antibody Screen Negative 07/17/20 17:12 Microbiology: Microbiology 07/24/20 14:10 Peripheral/Venous Blood Culture - Preliminary Culture in Progress 07/24/20 14:10 Peripheral/Venous Blood Culture - Preliminary Culture in Progress Campos/IV: Voiding Method Urinal Active Medications - Current Medications Current Medications: Generic Name Dose Route Start Last Admin Trade Name Freq PRN Reason Stop Dose Admin Acetaminophen 650 mg 07/17/20 16:24 Acetaminophen 325 Mg Tab PO Q4H PRN Pain MILD(1-3)/Fever >100.5/CARIAS Albuterol 2.5 mg 07/17/20 16:24 Albuterol 2.5 Mg/3 Ml Nebu IH Q4HRT PRN Shortness Of Breath Heparin Sodium (Porcine) 5,000 unit 07/19/20 10:00 Heparin 10,000 Units/10 Ml Vial IV Q6H PRN Anti-Xa Assay < 0.1 units/ml Hydralazine HCl 50 mg 07/22/20 14:00 07/24/20 13:16 Hydralazine 25 Mg Tab PO 50 mg Q8HR LACHELLE Administration Hydralazine HCl 10 mg 07/22/20 08:10 Hydralazine 20 Mg/1 Ml Inj IV Q4HR PRN Hypertension Hydrochlorothiazide 12.5 mg 07/22/20 10:00 07/24/20 09:29 Hydrochlorothiazide 12.5 Mg Cap PO 12.5 mg QDAY LACHELLE Administration Hydromorphone HCl 0.25 mg 07/17/20 16:24 07/20/20 05:12 Hydromorphone 1 Mg/1 Ml Inj IV 0.25 mg Q4H PRN Administration Pain, Moderate (4-6) Heparin Sodium/Sodium Chloride 25,000 unit in 500 mls @ 30 mls/hr 07/18/20 19:00 07/24/20 10:52 Heparin/ 0.45% Nacl-25,000 Unit/500 Ml IV 2,400 units/hr TITR LACHELLE 48 mls/hr Titration Protocol 1,500 UNITS/HR Cefazolin Sodium 2 gm/ Sodium 100 mls @ 200 mls/hr 07/22/20 12:30 07/24/20 17:34 Chloride IV 200 mls/hr Q6H LACHELLE Administration Protocol Insulin Human Isoph/Insulin Regular 22 unit 07/23/20 14:10 07/24/20 17:34 Insulin Nph/Regular 70/30 Inj SUB-Q 22 unit BIDDIAB LACHELLE Administration Insulin Human Regular 0 units 07/17/20 22:00 07/24/20 17:34 Insulin Regular, Human 100 Units/1 Ml SUB-Q 2 units ACHS LACHELLE Administration Protocol Magnesium Hydroxide 30 ml 07/19/20 18:00 Magnesium Hydroxide (Mom) Oral Liqd Udc PO QDAY PRN Constipation Ondansetron HCl 4 mg 07/17/20 16:24 07/19/20 14:50 Ondansetron 4 Mg/2 Ml Inj IV 4 mg Q8H PRN Administration Nausea And Vomiting Sodium Chloride 10 ml 07/17/20 22:00 07/24/20 09:28 Sodium Chloride 0.9% 10 Ml Flush Syringe IV 10 ml BID LACHELLE Administration Sodium Chloride 10 ml 07/17/20 16:24 07/20/20 05:13 Sodium Chloride 0.9% 10 Ml Flush Syringe IV 10 ml PRN PRN Administration LINE FLUSH Nutrition/Malnutrition Assess - Dietary Evaluation Nutrition/Malnutrition Findings: Nutrition Notes Start: 07/24/20 15:35 Freq: Status: Active Protocol: Document 07/24/20 15:35 CW (Rec: 07/24/20 15:44 CW [email or web address]) Nutrition Notes Need for Assessment generated from: LOS Initial or Follow up Assessment Current Diagnosis Acute Kidney Injury,Diabetes Other Pertinent Diagnosis Metabolic Acidosis, UTI Current Diet Consistent Carbohydrate Diet Labs/Tests Na 133 BG 263 Pertinent Medications Humulin Height 5 ft 11 in Weight 128.5 kg [place] Body Weight (kg) 78.18 BMI 39.4 Intake Prior to Admission Excellent Weight change and time frame weight cahnge noted Weight Status Obese Subjective/Other Information Screen for LOS. Pt has maintained a good appetite. Pt denies N/V/D/C. Abdoulaye score of 20. No nutritional concerns at this time. Percent of energy/protein needs met: 99%/98% Burn Absent Trauma Absent GI Symptoms None Food Allergy Yes Current % PO Good (75-100%) Minimum of two criteria No Fluid Accumulation Mild (non-severe) #1 Nutrition Diagnosis No nutrition diagnosis at this time Is patient on ventilator? No Is Patient Ambulatory and/or Out of Bed Yes REE-([place]-ambulatory/OOB) [ 2784.769 [id number]] Kcal/Kg value to use for calculation 16 Approximate Energy Requirements Using 2055 kcal/Kg Calculation Used for Recommendations Kcal/kg Additional Notes protien needs 82 - 103g(0.8 - 1 g/kgAdjBW 103.34) fluid needs: 1 ml/kcal Nutrition Intervention Change Diet Order: Continue Consistent Carbohydrate diet Anticipated Discharge Needs: Consistent Carbohydrate Diet Revisit per MD consult or patient Sign Off request: Additional Comments S/O for good PO intakes
[2020-07-24] MEDS: hydrALAZINE 20 MG/1 ML INJ IV PRN (23:54)
[2020-07-25] MEDS: hydrALAZINE 20 MG/1 ML INJ IV PRN (05:32)
[2020-07-25] MEDS: hydrALAZINE 25 MG TAB PO SCH ×3 (06:26→21:43)
[2020-07-25] MEDS: HEPARIN/ 0.45% NACL DRIP 25,000 UNIT/500 ML BAG IV SCH ×2 (08:39→17:35)
[2020-07-25] MEDS: INSULIN NPH/REGULAR 70/30 INJ SUB-Q SCH ×2 (09:18→17:33)
[2020-07-25] MEDS: INSULIN REGULAR, HUMAN 100 UNITS/1 ML SUB-Q SCH ×4 (09:18→21:48)
[2020-07-25] MEDS: hydroCHLOROthiazide 12.5 MG CAP PO SCH (09:20)
--- NOTE | 2020-07-25 10:05 | Progress Note ---
Assessment and Plan Assessment and plan: -- Sepsis/diabetic foot ulcer Current Visit: Yes Status: Acute , Plan to address problem: Elevate the limb, IV antibiotic cefazolin ID following , considering long-term antibiotics Follow repeat cultures --Peripheral vascular disease; Current Visit: Yes Status: Acute Plan to address problem: Vascular plans evaluation after patient sepsis is controlled --MSSA sepsis Current Visit: Yes Status: Acute , Plan to address problem: On cefazolin, ID considering long-term antibiotics If repeat cultures are negative 48 hours, will get PICC line And 4 to 6 weeks, antibiotics per ID --Type II diabetes mellitus/uncontrolled Current Visit: Yes Status: Acute Plan to address problem: Accu-Chek sliding scale coverage ADA diet Add long-acting insulin Novolin 70/30 adjust management as needed --Constipation; Current Visit: Yes Status: Acute , Plan to address problem: Resolved, stool softeners as needed --Acute kidney injury / acute tubular necrosis (ATN) Current Visit: Yes Status: Acute Plan to address problem: continue gentle hydration, monitor renal function, avoid nephrotoxin, Resolved , --Acute metabolic acidosis Current Visit: Yes Status: Acute Plan to address problem: IV hydration monitor acidosis --Hyponatremia Current Visit: Yes Status: Acute Plan to address problem: Significant improvement Closely monitor electrolytes --Morbid obesity BMI 39.1 Current Visit: Yes Status: Acute Plan to address problem: Patient needs weight reduction When medically stable, dietary modification Exercise as tolerated and weight reduction -- DVT prophylaxis Current Visit: Yes Status: Acute Plan to address problem: SCD, patient is on heparin drip per vascular We will closely monitor the patient and adjust the management as needed Plan of care reviewed with the patient and his nurse Consults and recommendations noted and appreciated 07/21/2020; patient with MSSA bacteremia, on IV antibiotics ID following, peripheral vascular disease, vascular following 07/22/2020; patient's blood sugars are uncontrolled, will increase 7030 dose Hemoglobin A1c 12.5, will advise diabetic education, diabetic diet education 07/23/2020 patient is receiving antibiotics, vascular plan to do the work-up Once he is more stable, blood sugars moderate control increase 70/30 insulin to 22 units twice a day 07/24/2020; patient feels slightly better 07/25/2020; MSSA sepsis on cefazolin, follow repeat cultures if negative 48 hours ID considering long-term antibiotics 4 to 6 weeks History Interval history: I have seen and examined the patient at the bedside this morning Patient's chart and medications reviewed Patient has no new complaints Anxious to go home Vital signs Hospitalist Physical - Constitutional Vitals: Temp Pulse Resp BP Pulse Ox 97.9 F 99 H 20 136/70 93 07/25/20 09:11 07/25/20 09:11 07/25/20 09:11 07/25/20 09:11 07/25/20 09:11 General appearance: Present: no acute distress, well-nourished, obese - EENT Eyes: Present: PERRL, EOM intact - Neck Neck: Present: supple, normal ROM - Respiratory Respiratory effort: normal Respiratory: bilateral: diminished, negative: rales, rhonchi, wheezing - Cardiovascular Rhythm: regular Heart Sounds: Present: S1 & S2 - Extremities Extremities: no ischemia, abnormal (Right lower extremity swelling erythema slightly improved) Extremity abnormal: edema - Abdominal General gastrointestinal: soft, non-tender, non-distended, normal bowel sounds - Integumentary Integumentary: Present: clear, warm - Psychiatric Psychiatric: appropriate mood/affect, cooperative - Neurologic Neurologic: moves all extremities Results - Labs CBC & Chem 7: 07/24/20 09:26 07/24/20 09:26 Labs: Laboratory Last Values WBC 11.7 K/mm3 (4.5-11.0) H 07/24/20 09:26 RBC 3.25 M/mm3 (3.65-5.03) L 07/24/20 09:26 Hgb 9.5 gm/dl (11.8-15.2) L 07/24/20 09:26 Hct 27.6 % (35.5-45.6) L 07/24/20 09:26 MCV 85 fl (84-94) 07/24/20 09:26 MCH 29 pg (28-32) 07/24/20 09:26 MCHC 34 % (32-34) 07/24/20 09:26 RDW 14.0 % (13.2-15.2) 07/24/20 09:26 Plt Count 397 K/mm3 (140-440) 07/24/20 09:26 Lymph % (Auto) 7.5 % (13.4-35.0) L 07/24/20 09:26 [place] % (Auto) 4.3 % (0.0-7.3) 07/24/20 09: Eos % (Auto) 1.1 % (0.0-4.3) 07/24/20 09: Baso % (Auto) 0.9 % (0.0-1.8) 07/24/20 09: Lymph # (Auto) 0.9 K/mm3 (1.2-5.4) L 07/24/20 09: [place] # (Auto) 0.5 K/mm3 (0.0-0.8) 07/24/20 09: Eos # (Auto) 0.1 K/mm3 (0.0-0.4) 07/24/20 09: Baso # (Auto) 0.1 K/mm3 (0.0-0.1) 07/24/20 09: Add Manual Diff Complete 07/17/20 13:05 Total Counted 100 07/17/20 13:05 Seg Neutrophils % 86.2 % (40.0-70.0) H 07/24/20 09: Seg Neuts % (Manual) 95.0 % (40.0-70.0) H 07/17/20 13:05 Lymphocytes % (Manual) 3.0 % (13.4-35.0) L 07/17/20 13:05 Monocytes % (Manual) 2.0 % (0.0-7.3) 07/17/20 13:05 Nucleated RBC % Not Reportable 07/17/20 13:05 Seg Neutrophils # 10.1 K/mm3 (1.8-7.7) H 07/24/20 09:26 Seg Neutrophils # Man 18.1 K/mm3 (1.8-7.7) H 07/17/20 13:05 Band Neutrophils # 0.0 K/mm3 07/17/20 13:05 Lymphocytes # (Manual) 0.6 K/mm3 (1.2-5.4) L 07/17/20 13:05 Abs React Lymphs (Man) 0.0 K/mm3 07/17/20 13:05 Monocytes # (Manual) 0.4 K/mm3 (0.0-0.8) 07/17/20 13:05 Eosinophils # (Manual) 0.0 K/mm3 (0.0-0.4) 07/17/20 13:05 Basophils # (Manual) 0.0 K/mm3 (0.0-0.1) 07/17/20 13:05 Metamyelocytes # 0.0 K/mm3 07/17/20 13:05 Myelocytes # 0.0 K/mm3 07/17/20 13:05 Promyelocytes # 0.0 K/mm3 07/17/20 13:05 Blast Cells # 0.0 K/mm3 07/17/20 13:05 WBC Morphology Not Reportable 07/17/20 13:05 Hypersegmented Neuts Not Reportable 07/17/20 13:05 Hyposegmented Neuts Not Reportable 07/17/20 13:05 Hypogranular Neuts Not Reportable 07/17/20 13:05 Smudge Cells Not Reportable 07/17/20 13:05 Toxic Granulation Not Reportable 07/17/20 13:05 Toxic Vacuolation Not Reportable 07/17/20 13:05 Dohle Bodies Not Reportable 07/17/20 13:05 Pelger-Huet Anomaly Not Reportable 07/17/20 13:05 Christa Rods Not Reportable 07/17/20 13:05 Platelet Estimate Consistent w auto 07/17/20 13:05 Clumped Platelets Not Reportable 07/17/20 13:05 Plt Clumps, EDTA Not Reportable 07/17/20 13:05 Large Platelets Not Reportable 07/17/20 13:05 Giant Platelets Not Reportable 07/17/20 13:05 Platelet Satelliting Not Reportable 07/17/20 13:05 Plt Morphology Comment Not Reportable 07/17/20 13:05 RBC Morphology Normal 07/17/20 13:05 Dimorphic RBCs Not Reportable 07/17/20 13:05 Polychromasia Not Reportable 07/17/20 13:05 Hypochromasia Not Reportable 07/17/20 13:05 Poikilocytosis Not Reportable 07/17/20 13:05 Anisocytosis Not Reportable 07/17/20 13:05 Microcytosis Not Reportable 07/17/20 13:05 Macrocytosis Not Reportable 07/17/20 13:05 Spherocytes Not Reportable 07/17/20 13:05 Pappenheimer Bodies Not Reportable 07/17/20 13:05 Sickle Cells Not Reportable 07/17/20 13:05 Target Cells Not Reportable 07/17/20 13:05 Tear Drop Cells Not Reportable 07/17/20 13:05 Ovalocytes Not Reportable 07/17/20 13:05 Helmet Cells Not Reportable 07/17/20 13:05 Allen-Hornitos Bodies Not Reportable 07/17/20 13:05 Powers Rings Not Reportable 07/17/20 13:05 Dariana Cells Not Reportable 07/17/20 13:05 Bite Cells Not Reportable 07/17/20 13:05 Crenated Cell Not Reportable 07/17/20 13:05 Elliptocytes Not Reportable 07/17/20 13:05 Acanthocytes (Spur) Not Reportable 07/17/20 13:05 Rouleaux Not Reportable 07/17/20 13:05 Hemoglobin C Crystals Not Reportable 07/17/20 13:05 Schistocytes Not Reportable 07/17/20 13:05 Malaria parasites Not Reportable 07/17/20 13:05 Jamil Bodies Not Reportable 07/17/20 13:05 Hem Pathologist Commnt No 07/17/20 13:05 PT 14.5 Sec. (12.2-14.9) 07/18/20 19:05 INR 1.15 (0.87-1.13) H 07/18/20 19:05 APTT 30.8 Sec. (24.2-36.6) 07/18/20 19:05 Heparin Anti-Xa Level 0.38 U.I./ml (0.3-0.7) 07/24/20 09:26 Sodium 133 mmol/L (137-145) L 07/24/20 09:26 Potassium 3.8 mmol/L (3.6-5.0) 07/24/20 09:26 Chloride 99.1 mmol/L (98-107) 07/24/20 09:26 Carbon Dioxide 28 mmol/L (22-30) 07/24/20 09:26 Anion Gap 10 mmol/L 07/24/20 09:26 BUN 8 mg/dL (9-20) L 07/24/20 09:26 Creatinine 0.8 mg/dL (0.8-1.3) 07/24/20 09:26 Estimated GFR > 60 ml/min 07/24/20 09:26 BUN/Creatinine Ratio 10 % 07/24/20 09:26 Glucose 263 mg/dL (75-100) H 07/24/20 09:26 POC Glucose 191 mg/dL (70-105) H 07/24/20 21:37 Lactic Acid 1.80 mmol/L (0.7-2.0) 07/17/20 23:17 Calcium 8.3 mg/dL (8.4-10.2) L 07/24/20 09:26 Magnesium 1.60 mg/dL (1.7-2.3) L 07/24/20 09:26 Total Bilirubin 0.80 mg/dL (0.1-1.2) 07/17/20 13:05 AST 42 units/L (5-40) H 07/17/20 13:05 ALT 47 units/L (7-56) 07/17/20 13:05 Alkaline Phosphatase 118 units/L (35-129) 07/17/20 13:05 Total Creatine Kinase 131 units/L (55-170) 07/17/20 13:05 Total Protein 6.9 g/dL (6.3-8.2) 07/17/20 13:05 Albumin 2.7 g/dL (3.9-5) L 07/17/20 13:05 Albumin/Globulin Ratio 0.6 % 07/17/20 13:05 Urine Color Yellow (Yellow) 07/18/20 06:30 Urine Turbidity Hazy (Clear) 07/18/20 06:30 Urine pH 5.0 (5.0-7.0) 07/18/20 06:30 Ur Specific Fabens 1.017 (1.003-1.030) 07/18/20 06:30 Urine Protein >500 mg/dL (Negative) 07/18/20 06:30 Urine Glucose (UA) 50 mg/dL (Negative) 07/18/20 06:30 Urine Ketones Neg mg/dL (Negative) 07/18/20 06:30 Urine Blood Sm (Negative) 07/18/20 06:30 Urine Nitrite Neg (Negative) 07/18/20 06:30 Urine Bilirubin Neg (Negative) 07/18/20 06:30 Urine Urobilinogen < 2.0 mg/dL (<2.0) 07/18/20 06:30 Ur Leukocyte Esterase Neg (Negative) 07/18/20 06:30 Urine WBC (Auto) 5.0 /HPF (0.0-6.0) 07/18/20 06:30 Urine RBC (Auto) 12.0 /HPF (0.0-6.0) 07/18/20 06:30 U Epithel Cells (Auto) < 1.0 /HPF (0-13.0) 07/18/20 06:30 Urine Mucus Few /HPF 07/18/20 06:30 Vancomycin Trough 18.8 ug/mL (5.0-20.0) 07/21/20 10:03 Blood Type A POSITIVE 07/17/20 17:12 Antibody Screen Negative 07/17/20 17:12 Microbiology: Microbiology 07/24/20 14:10 Peripheral/Venous Blood Culture - Preliminary Culture in Progress 07/24/20 14:10 Peripheral/Venous Blood Culture - Preliminary Culture in Progress Campos/IV: Voiding Method Urinal Active Medications - Current Medications Current Medications: Generic Name Dose Route Start Last Admin Trade Name Freq PRN Reason Stop Dose Admin Acetaminophen 650 mg 07/17/20 16:24 Acetaminophen 325 Mg Tab PO Q4H PRN Pain MILD(1-3)/Fever >100.5/CARIAS Albuterol 2.5 mg 07/17/20 16:24 Albuterol 2.5 Mg/3 Ml Nebu IH Q4HRT PRN Shortness Of Breath Heparin Sodium (Porcine) 5,000 unit 07/19/20 10:00 Heparin 10,000 Units/10 Ml Vial IV Q6H PRN Anti-Xa Assay < 0.1 units/ml Hydralazine HCl 50 mg 07/22/20 14:00 07/25/20 06:26 Hydralazine 25 Mg Tab PO 50 mg Q8HR LACHELLE Administration Hydralazine HCl 10 mg 07/22/20 08:10 07/25/20 05:32 Hydralazine 20 Mg/1 Ml Inj IV 10 mg Q4HR PRN Administration Hypertension Hydrochlorothiazide 12.5 mg 07/22/20 10:00 07/25/20 09:20 Hydrochlorothiazide 12.5 Mg Cap PO 12.5 mg QDAY LACHELLE Administration Hydromorphone HCl 0.25 mg 07/17/20 16:24 07/20/20 05:12 Hydromorphone 1 Mg/1 Ml Inj IV 0.25 mg Q4H PRN Administration Pain, Moderate (4-6) Heparin Sodium/Sodium Chloride 25,000 unit in 500 mls @ 30 mls/hr 07/18/20 19:00 07/25/20 08:39 Heparin/ 0.45% Nacl-25,000 Unit/500 Ml IV 2,400 units/hr TITR LACHELLE 48 mls/hr Administration Protocol 1,500 UNITS/HR Cefazolin Sodium 2 gm/ Sodium 100 mls @ 200 mls/hr 07/22/20 12:30 07/25/20 05:33 Chloride IV 200 mls/hr Q6H LACHELLE Administration Protocol Insulin Human Isoph/Insulin Regular 28 unit 07/24/20 19:00 07/25/20 09:18 Insulin Nph/Regular 70/30 Inj SUB-Q 28 unit BIDDIAB LACHELLE Administration Insulin Human Regular 0 units 07/17/20 22:00 07/25/20 09:18 Insulin Regular, Human 100 Units/1 Ml SUB-Q 2 units ACHS LACHELLE Administration Protocol Magnesium Hydroxide 30 ml 07/19/20 18:00 Magnesium Hydroxide (Mom) Oral Liqd Udc PO QDAY PRN Constipation Ondansetron HCl 4 mg 07/17/20 16:24 07/19/20 14:50 Ondansetron 4 Mg/2 Ml Inj IV 4 mg Q8H PRN Administration Nausea And Vomiting Sodium Chloride 10 ml 07/17/20 22:00 07/25/20 09:20 Sodium Chloride 0.9% 10 Ml Flush Syringe IV 10 ml BID LACHELLE Administration Sodium Chloride 10 ml 07/17/20 16:24 07/20/20 05:13 Sodium Chloride 0.9% 10 Ml Flush Syringe IV 10 ml PRN PRN Administration LINE FLUSH Nutrition/Malnutrition Assess - Dietary Evaluation Nutrition/Malnutrition Findings: Nutrition Notes Start: 07/24/20 15:35 Freq: Status: Active Protocol: Document 07/24/20 15:35 CW (Rec: 07/24/20 15:44 CW [email or web address]) Nutrition Notes Need for Assessment generated from: LOS Initial or Follow up Assessment Current Diagnosis Acute Kidney Injury,Diabetes Other Pertinent Diagnosis Metabolic Acidosis, UTI Current Diet Consistent Carbohydrate Diet Labs/Tests Na 133 BG 263 Pertinent Medications Humulin Height 5 ft 11 in Weight 128.5 kg [place] Body Weight (kg) 78.18 BMI 39.4 Intake Prior to Admission Excellent Weight change and time frame weight cahnge noted Weight Status Obese Subjective/Other Information Screen for LOS. Pt has maintained a good appetite. Pt denies N/V/D/C. Abdoulaye score of 20. No nutritional concerns at this time. Percent of energy/protein needs met: 99%/98% Burn Absent Trauma Absent GI Symptoms None Food Allergy Yes Current % PO Good (75-100%) Minimum of two criteria No Fluid Accumulation Mild (non-severe) #1 Nutrition Diagnosis No nutrition diagnosis at this time Is patient on ventilator? No Is Patient Ambulatory and/or Out of Bed Yes REE-([place]-St. Jeor-ambulatory/OOB) [ 2784.769 [id number]] Kcal/Kg value to use for calculation 16 Approximate Energy Requirements Using 2055 kcal/Kg Calculation Used for Recommendations Kcal/kg Additional Notes protien needs 82 - 103g(0.8 - 1 g/kgAdjBW 103.34) fluid needs: 1 ml/kcal Nutrition Intervention Change Diet Order: Continue Consistent Carbohydrate diet Anticipated Discharge Needs: Consistent Carbohydrate Diet Revisit per MD consult or patient Sign Off request: Additional Comments S/O for good PO intakes
--- NOTE | 2020-07-25 12:33 | Progress Note ---
Assessment and Plan Cultures: 07/17/2020 blood culture: MSSA 07/20/2020 blood culture: MSSA 07/24/2020 blood culture: MSSA A/P: 54-year-old male with diabetes, gastroesophageal reflux disease, obesity, peripheral vascular disease, recent revascularization on 07/10/2020, previous diabetic foot ulceration: #Sepsis, secondary to Staph aureus (MSSA) bacteremia #Staph aureus bacteremia: Source is unclear but suspect right foot cellulitis. Recent revascularization in the right lower extremity with stent placement on 07/10/2020, denies any other prosthetic material. MRI showed extensive dorsal and lateral ankle edema without evidence of abscess. There is evidence of Charcot foot as well as diffuse edema in the muscle suggesting myopathy versus myositis. TTE did not reveal any valvular vegetations. #Diabetes mellitus type 2, uncontrolled #Peripheral vascular disease: Recent revascularization with stent placement on 07/10/2020. Vascular following. #DAQUAN: renally adjust abx based on creatinine. Improved. Recs: -since MSSA, switched to Ancef IV 2 gm q6 hrs (high dose due to obesity) -f/u repeat blood cultures, once negative at 48 hours, can get a PICC line and will need 4-6 weeks of abx depending on whether bacteremia is difficult to clear -Most recent cultures positive, will obtain repeat. Colette Block MD [facility] ([facility]) O: [phone] F: [phone] Subjective Date of service: 07/25/20 Principal diagnosis: Right lower extremity arterial disease Interval history: Afebrile, not acute issues. Objective - Exam Narrative Exam: Physical Exam: Constitutional: Alert, cooperative. No acute distress Head, Ears, Nose: Normocephalic, atraumatic. External ears, nose normal Eyes: Conjunctivae/corneas clear. No icterus. No ptosis. Neck: Supple, no meningeal signs Cardiovascular: S1, S2 normal. Respiratory: Good air entry, clear to auscultation bilaterally GI: Soft, non-tender; bowel sounds normal. No peritoneal signs Musculoskeletal: Right leg with edema, right foot with swelling, old ulceration that appears to be healed, no drainage Skin: No rash or abscess Hem/Lymphatic: No palpable cervical or supraclavicular nodes. No lymphangitis Psych: Mood ok. Affect normal Neurological: Awake, alert, oriented. No gross abnormality - Constitutional Vitals: Vital Signs Temp Pulse Resp BP Pulse Ox 97.9 F 99 H 20 136/70 93 07/25/20 09:11 07/25/20 09:11 07/25/20 09:11 07/25/20 09:11 07/25/20 09:11 Temperature -Last 24 Hours Temperature 97.9 F Temperature 97.9 F Temperature 98.6 F Temperature 99.3 F Temperature 98.0 F - Labs CBC & Chem 7: 07/24/20 09:26 07/24/20 09:26 Labs: Abnormal lab results 07/24/20 07/24/20 Range/Units 15:35 21:37 POC Glucose 214 H 191 H (70-105) mg/dL
[2020-07-25] MEDS: HYDROmorphone 1 MG/1 ML INJ IV PRN (18:09)
[2020-07-26] MEDS: HEPARIN/ 0.45% NACL DRIP 25,000 UNIT/500 ML BAG IV SCH ×3 (04:06→23:49)
[2020-07-26] MEDS: hydrALAZINE 25 MG TAB PO SCH ×3 (06:04→21:25)
[2020-07-26] MEDS: INSULIN REGULAR, HUMAN 100 UNITS/1 ML SUB-Q SCH ×4 (07:30→22:46)
[2020-07-26] MEDS: INSULIN NPH/REGULAR 70/30 INJ SUB-Q SCH ×2 (08:00→17:00)
[2020-07-26 08:04] LABS: Basophils # (Auto) 0.1 K/mm3 (0.0-0.1); Basophils % (Auto) 0.8 % (0.0-1.8); Eosinophils # (Auto) 0.1 K/mm3 (0.0-0.4); Eosinophils % (Auto) 0.8 % (0.0-4.3); Hematocrit 28.9 % (35.5-45.6); Hemoglobin 9.9 gm/dl (11.8-15.2); Lymphocytes % (Auto) 8.6 % (13.4-35.0); Mean Corpuscular HGB Conc 34 % (32-34); Mean Corpuscular Volume 85 fl (84-94); Monocytes # (Auto) 0.5 K/mm3 (0.0-0.8); Monocytes % (Auto) 3.9 % (0.0-7.3); Platelet Count 383 K/mm3 (140-440); Red Blood Count 3.38 M/mm3 (3.65-5.03); Red Cell Distribution Width 14.6 % (13.2-15.2)
[2020-07-26 08:21] LABS: BUN/Creatinine Ratio 11; Blood Urea Nitrogen 9 mg/dL (9-20); Calcium 8.7 mg/dL (8.4-10.2); Hemolysis Index 0
[2020-07-26] MEDS: hydroCHLOROthiazide 12.5 MG CAP PO SCH (09:51)
--- NOTE | 2020-07-26 10:58 | Progress Note ---
Assessment and Plan Assessment and plan: -- Sepsis/diabetic foot ulcer Current Visit: Yes Status: Acute , Plan to address problem: Elevate the limb, IV antibiotic cefazolin ID following , considering long-term antibiotics Follow repeat cultures --Peripheral vascular disease; Current Visit: Yes Status: Acute Plan to address problem: Vascular plans evaluation after patient sepsis is controlled --MSSA sepsis Current Visit: Yes Status: Acute , Plan to address problem: On cefazolin, ID considering long-term antibiotics If repeat cultures are negative 48 hours, will get PICC line And 4 to 6 weeks, antibiotics per ID --Type II diabetes mellitus/uncontrolled Current Visit: Yes Status: Acute Plan to address problem: Accu-Chek sliding scale coverage ADA diet Add long-acting insulin Novolin 70/30 adjust management as needed --Constipation; Current Visit: Yes Status: Acute , Plan to address problem: Resolved, stool softeners as needed --Acute kidney injury / acute tubular necrosis (ATN) Current Visit: Yes Status: Acute Plan to address problem: continue gentle hydration, monitor renal function, avoid nephrotoxin, Resolved , --Acute metabolic acidosis Current Visit: Yes Status: Acute Plan to address problem: IV hydration monitor acidosis --Hyponatremia Current Visit: Yes Status: Acute Plan to address problem: Significant improvement Closely monitor electrolytes --Morbid obesity BMI 39.1 Current Visit: Yes Status: Acute Plan to address problem: Patient needs weight reduction When medically stable, dietary modification Exercise as tolerated and weight reduction -- DVT prophylaxis Current Visit: Yes Status: Acute Plan to address problem: SCD, patient is on heparin drip per vascular We will closely monitor the patient and adjust the management as needed Plan of care reviewed with the patient and his nurse Consults and recommendations noted and appreciated 07/21/2020; patient with MSSA bacteremia, on IV antibiotics ID following, peripheral vascular disease, vascular following 07/22/2020; patient's blood sugars are uncontrolled, will increase 7030 dose Hemoglobin A1c 12.5, will advise diabetic education, diabetic diet education 07/23/2020 patient is receiving antibiotics, vascular plan to do the work-up Once he is more stable, blood sugars moderate control increase 70/30 insulin to 22 units twice a day 07/24/2020; patient feels slightly better 07/25/2020; MSSA sepsis on cefazolin, follow repeat cultures if negative 48 hours ID considering long-term antibiotics 4 to 6 weeks 07/26/2020; cultures negative to date, if negative he will this evening Patient may have long-term antibiotics 4 to 6 weeks, will get PICC line Case management will assist History Interval history: I have seen and examined the patient at the bedside Patient's chart and medications reviewed Patient feels better, anxious to go home Vital signs noted Hospitalist Physical - Constitutional Vitals: Temp Pulse Resp BP Pulse Ox 99.4 F 90 20 181/89 92 07/26/20 05:21 07/26/20 05:21 07/26/20 05:21 07/26/20 06:04 07/26/20 05:21 General appearance: Present: no acute distress, well-nourished, obese - EENT Eyes: Present: PERRL, EOM intact - Neck Neck: Present: supple, normal ROM - Respiratory Respiratory effort: normal Respiratory: bilateral: diminished, negative: rales, rhonchi, wheezing - Cardiovascular Rhythm: regular Heart Sounds: Present: S1 & S2 - Extremities Extremities: no ischemia, No edema Extremity abnormal: erythema - Abdominal General gastrointestinal: soft, non-tender, non-distended, normal bowel sounds - Integumentary Integumentary: Present: clear, warm - Psychiatric Psychiatric: appropriate mood/affect, cooperative - Neurologic Neurologic: CNII-XII intact, moves all extremities Results - Labs CBC & Chem 7: 07/26/20 07:30 07/26/20 07:30 Labs: Laboratory Last Values WBC 11.7 K/mm3 (4.5-11.0) H 07/26/20 07:30 RBC 3.38 M/mm3 (3.65-5.03) L 07/26/20 07:30 Hgb 9.9 gm/dl (11.8-15.2) L 07/26/20 07:30 Hct 28.9 % (35.5-45.6) L 07/26/20 07:30 MCV 85 fl (84-94) 07/26/20 07:30 MCH 29 pg (28-32) 07/26/20 07:30 MCHC 34 % (32-34) 07/26/20 07:30 RDW 14.6 % (13.2-15.2) 07/26/20 07:30 Plt Count 383 K/mm3 (140-440) 07/26/20 07:30 Lymph % (Auto) 8.6 % (13.4-35.0) L 07/26/20 07:30 [place] % (Auto) 3.9 % (0.0-7.3) 07/26/20 07:30 Eos % (Auto) 0.8 % (0.0-4.3) 07/26/20 07:30 Baso % (Auto) 0.8 % (0.0-1.8) 07/26/20 07:30 Lymph # (Auto) 1.0 K/mm3 (1.2-5.4) L 07/26/20 07:30 [place] # (Auto) 0.5 K/mm3 (0.0-0.8) 07/26/20 07:30 Eos # (Auto) 0.1 K/mm3 (0.0-0.4) 07/26/20 07:30 Baso # (Auto) 0.1 K/mm3 (0.0-0.1) 07/26/20 07:30 Add Manual Diff Complete 07/17/20 13:05 Total Counted 100 07/17/20 13:05 Seg Neutrophils % 85.9 % (40.0-70.0) H 07/26/20 07:30 Seg Neuts % (Manual) 95.0 % (40.0-70.0) H 07/17/20 13:05 Lymphocytes % (Manual) 3.0 % (13.4-35.0) L 07/17/20 13:05 Monocytes % (Manual) 2.0 % (0.0-7.3) 07/17/20 13:05 Nucleated RBC % Not Reportable 07/17/20 13:05 Seg Neutrophils # 10.1 K/mm3 (1.8-7.7) H 07/26/20 07:30 Seg Neutrophils # Man 18.1 K/mm3 (1.8-7.7) H 07/17/20 13:05 Band Neutrophils # 0.0 K/mm3 07/17/20 13:05 Lymphocytes # (Manual) 0.6 K/mm3 (1.2-5.4) L 07/17/20 13:05 Abs React Lymphs (Man) 0.0 K/mm3 07/17/20 13:05 Monocytes # (Manual) 0.4 K/mm3 (0.0-0.8) 07/17/20 13:05 Eosinophils # (Manual) 0.0 K/mm3 (0.0-0.4) 07/17/20 13:05 Basophils # (Manual) 0.0 K/mm3 (0.0-0.1) 07/17/20 13:05 Metamyelocytes # 0.0 K/mm3 07/17/20 13:05 Myelocytes # 0.0 K/mm3 07/17/20 13:05 Promyelocytes # 0.0 K/mm3 07/17/20 13:05 Blast Cells # 0.0 K/mm3 07/17/20 13:05 WBC Morphology Not Reportable 07/17/20 13:05 Hypersegmented Neuts Not Reportable 07/17/20 13:05 Hyposegmented Neuts Not Reportable 07/17/20 13:05 Hypogranular Neuts Not Reportable 07/17/20 13:05 Smudge Cells Not Reportable 07/17/20 13:05 Toxic Granulation Not Reportable 07/17/20 13:05 Toxic Vacuolation Not Reportable 07/17/20 13:05 Dohle Bodies Not Reportable 07/17/20 13:05 Pelger-Huet Anomaly Not Reportable 07/17/20 13:05 Christa Rods Not Reportable 07/17/20 13:05 Platelet Estimate Consistent w auto 07/17/20 13:05 Clumped Platelets Not Reportable 07/17/20 13:05 Plt Clumps, EDTA Not Reportable 07/17/20 13:05 Large Platelets Not Reportable 07/17/20 13:05 Giant Platelets Not Reportable 07/17/20 13:05 Platelet Satelliting Not Reportable 07/17/20 13:05 Plt Morphology Comment Not Reportable 07/17/20 13:05 RBC Morphology Normal 07/17/20 13:05 Dimorphic RBCs Not Reportable 07/17/20 13:05 Polychromasia Not Reportable 07/17/20 13:05 Hypochromasia Not Reportable 07/17/20 13:05 Poikilocytosis Not Reportable 07/17/20 13:05 Anisocytosis Not Reportable 07/17/20 13:05 Microcytosis Not Reportable 07/17/20 13:05 Macrocytosis Not Reportable 07/17/20 13:05 Spherocytes Not Reportable 07/17/20 13:05 Pappenheimer Bodies Not Reportable 07/17/20 13:05 Sickle Cells Not Reportable 07/17/20 13:05 Target Cells Not Reportable 07/17/20 13:05 Tear Drop Cells Not Reportable 07/17/20 13:05 Ovalocytes Not Reportable 07/17/20 13:05 Helmet Cells Not Reportable 07/17/20 13:05 [place] Bodies Not Reportable 07/17/20 13:05 Vader Rings Not Reportable 07/17/20 13:05 [place] Cells Not Reportable 07/17/20 13:05 Bite Cells Not Reportable 07/17/20 13:05 Crenated Cell Not Reportable 07/17/20 13:05 Elliptocytes Not Reportable 07/17/20 13:05 Acanthocytes (Spur) Not Reportable 07/17/20 13:05 Rouleaux Not Reportable 07/17/20 13:05 Hemoglobin C Crystals Not Reportable 07/17/20 13:05 Schistocytes Not Reportable 07/17/20 13:05 Malaria parasites Not Reportable 07/17/20 13:05 Jamil Bodies Not Reportable 07/17/20 13:05 Hem Pathologist Commnt No 07/17/20 13:05 PT 14.5 Sec. (12.2-14.9) 07/18/20 19:05 INR 1.15 (0.87-1.13) H 07/18/20 19:05 APTT 30.8 Sec. (24.2-36.6) 07/18/20 19:05 Heparin Anti-Xa Level 0.38 U.I./ml (0.3-0.7) 07/25/20 11:12 Sodium 135 mmol/L (137-145) L 07/26/20 07:30 Potassium 3.7 mmol/L (3.6-5.0) 07/26/20 07:30 Chloride 97.4 mmol/L (98-107) L 07/26/20 07:30 Carbon Dioxide 29 mmol/L (22-30) 07/26/20 07:30 Anion Gap 12 mmol/L 07/26/20 07:30 BUN 9 mg/dL (9-20) 07/26/20 07:30 Creatinine 0.8 mg/dL (0.8-1.3) 07/26/20 07:30 Estimated GFR > 60 ml/min 07/26/20 07:30 BUN/Creatinine Ratio 11 % 07/26/20 07:30 Glucose 181 mg/dL (75-100) H 07/26/20 07:30 POC Glucose 166 mg/dL (70-105) H 07/26/20 08:20 Lactic Acid 1.80 mmol/L (0.7-2.0) 07/17/20 23:17 Calcium 8.7 mg/dL (8.4-10.2) 07/26/20 07:30 Magnesium 1.60 mg/dL (1.7-2.3) L 07/24/20 09:26 Total Bilirubin 0.80 mg/dL (0.1-1.2) 07/17/20 13:05 AST 42 units/L (5-40) H 07/17/20 13:05 ALT 47 units/L (7-56) 07/17/20 13:05 Alkaline Phosphatase 118 units/L (35-129) 07/17/20 13:05 Total Creatine Kinase 131 units/L (55-170) 07/17/20 13:05 Total Protein 6.9 g/dL (6.3-8.2) 07/17/20 13:05 Albumin 2.7 g/dL (3.9-5) L 07/17/20 13:05 Albumin/Globulin Ratio 0.6 % 07/17/20 13:05 Urine Color Yellow (Yellow) 07/18/20 06:30 Urine Turbidity Hazy (Clear) 07/18/20 06:30 Urine pH 5.0 (5.0-7.0) 07/18/20 06:30 Ur Specific [place] 1.017 (1.003-1.030) 07/18/20 06:30 Urine Protein >500 mg/dL (Negative) 07/18/20 06:30 Urine Glucose (UA) 50 mg/dL (Negative) 07/18/20 06:30 Urine Ketones Neg mg/dL (Negative) 07/18/20 06:30 Urine Blood Sm (Negative) 07/18/20 06:30 Urine Nitrite Neg (Negative) 07/18/20 06:30 Urine Bilirubin Neg (Negative) 07/18/20 06:30 Urine Urobilinogen < 2.0 mg/dL (<2.0) 07/18/20 06:30 Ur Leukocyte Esterase Neg (Negative) 07/18/20 06:30 Urine WBC (Auto) 5.0 /HPF (0.0-6.0) 07/18/20 06:30 Urine RBC (Auto) 12.0 /HPF (0.0-6.0) 07/18/20 06:30 U Epithel Cells (Auto) < 1.0 /HPF (0-13.0) 07/18/20 06:30 Urine Mucus Few /HPF 07/18/20 06:30 Vancomycin Trough 18.8 ug/mL (5.0-20.0) 07/21/20 10:03 Blood Type A POSITIVE 07/17/20 17:12 Antibody Screen Negative 07/17/20 17:12 Microbiology: Microbiology 07/24/20 14:10 Peripheral/Venous Blood Culture - Preliminary NO GROWTH AFTER 24 HOURS 07/24/20 14:10 Peripheral/Venous Blood Culture - Preliminary NO GROWTH AFTER 24 HOURS Campos/IV: Voiding Method Urinal Active Medications - Current Medications Current Medications: Generic Name Dose Route Start Last Admin Trade Name Freq PRN Reason Stop Dose Admin Acetaminophen 650 mg 07/17/20 16:24 Acetaminophen 325 Mg Tab PO Q4H PRN Pain MILD(1-3)/Fever >100.5/CARIAS Albuterol 2.5 mg 07/17/20 16:24 Albuterol 2.5 Mg/3 Ml Nebu IH Q4HRT PRN Shortness Of Breath Heparin Sodium (Porcine) 5,000 unit 07/19/20 10:00 Heparin 10,000 Units/10 Ml Vial IV Q6H PRN Anti-Xa Assay < 0.1 units/ml Hydralazine HCl 50 mg 07/22/20 14:00 07/26/20 06:04 Hydralazine 25 Mg Tab PO 50 mg Q8HR LACHELLE Administration Hydralazine HCl 10 mg 07/22/20 08:10 07/25/20 05:32 Hydralazine 20 Mg/1 Ml Inj IV 10 mg Q4HR PRN Administration Hypertension Hydrochlorothiazide 12.5 mg 07/22/20 10:00 07/26/20 09:51 Hydrochlorothiazide 12.5 Mg Cap PO 12.5 mg QDAY LACHELLE Administration Hydromorphone HCl 0.25 mg 07/17/20 16:24 07/25/20 18:09 Hydromorphone 1 Mg/1 Ml Inj IV 0.25 mg Q4H PRN Administration Pain, Moderate (4-6) Heparin Sodium/Sodium Chloride 25,000 unit in 500 mls @ 30 mls/hr 07/18/20 19:00 07/26/20 04:06 Heparin/ 0.45% Nacl-25,000 Unit/500 Ml IV 2,400 units/hr TITR LACHELLE 48 mls/hr Administration Protocol 1,500 UNITS/HR Cefazolin Sodium 2 gm/ Sodium 100 mls @ 200 mls/hr 07/22/20 12:30 07/26/20 06:03 Chloride IV 200 mls/hr Q6H LACHELLE Administration Protocol Insulin Human Isoph/Insulin Regular 28 unit 07/24/20 19:00 07/26/20 08:00 Insulin Nph/Regular 70/30 Inj SUB-Q 28 unit BIDDIAB LACHELLE Administration Insulin Human Regular 0 units 07/17/20 22:00 07/26/20 07:30 Insulin Regular, Human 100 Units/1 Ml SUB-Q Not Given ACHS [facility] Protocol Magnesium Hydroxide 30 ml 07/19/20 18:00 Magnesium Hydroxide (Mom) Oral Liqd Udc PO QDAY PRN Constipation Ondansetron HCl 4 mg 07/17/20 16:24 07/19/20 14:50 Ondansetron 4 Mg/2 Ml Inj IV 4 mg Q8H PRN Administration Nausea And Vomiting Sodium Chloride 10 ml 07/17/20 22:00 07/26/20 09:51 Sodium Chloride 0.9% 10 Ml Flush Syringe IV 10 ml BID LACHELLE Administration Sodium Chloride 10 ml 07/17/20 16:24 07/20/20 05:13 Sodium Chloride 0.9% 10 Ml Flush Syringe IV 10 ml PRN PRN Administration LINE FLUSH Nutrition/Malnutrition Assess - Dietary Evaluation Nutrition/Malnutrition Findings: Nutrition Notes Start: 07/24/20 15:35 Freq: Status: Active Protocol: Document 07/24/20 15:35 CW (Rec: 07/24/20 15:44 CW [id number]) Nutrition Notes Need for Assessment generated from: LOS Initial or Follow up Assessment Current Diagnosis Acute Kidney Injury,Diabetes Other Pertinent Diagnosis Metabolic Acidosis, UTI Current Diet Consistent Carbohydrate Diet Labs/Tests Na 133 BG 263 Pertinent Medications Humulin Height 5 ft 11 in Weight 128.5 kg [place] Body Weight (kg) 78.18 BMI 39.4 Intake Prior to Admission Excellent Weight change and time frame weight cahnge noted Weight Status Obese Subjective/Other Information Screen for LOS. Pt has maintained a good appetite. Pt denies N/V/D/C. Abdoulaye score of 20. No nutritional concerns at this time. Percent of energy/protein needs met: 99%/98% Burn Absent Trauma Absent GI Symptoms None Food Allergy Yes Current % PO Good (75-100%) Minimum of two criteria No Fluid Accumulation Mild (non-severe) #1 Nutrition Diagnosis No nutrition diagnosis at this time Is patient on ventilator? No Is Patient Ambulatory and/or Out of Bed Yes REE-([facility]-ambulatory/OOB) [ 2784.769 [id number]] Kcal/Kg value to use for calculation 16 Approximate Energy Requirements Using 2055 kcal/Kg Calculation Used for Recommendations Kcal/kg Additional Notes protien needs 82 - 103g(0.8 - 1 g/kgAdjBW 103.34) fluid needs: 1 ml/kcal Nutrition Intervention Change Diet Order: Continue Consistent Carbohydrate diet Anticipated Discharge Needs: Consistent Carbohydrate Diet Revisit per MD consult or patient Sign Off request: Additional Comments S/O for good PO intakes
--- NOTE | 2020-07-26 13:37 | Progress Note ---
Assessment and Plan Cultures: 07/17/2020 blood culture: MSSA 07/20/2020 blood culture: MSSA 07/24/2020 blood culture: No growth so far. A/P: 54-year-old male with diabetes, gastroesophageal reflux disease, obesity, greer pheral vascular disease, recent revascularization on 07/10/2020, previous diabetic foot ulceration: #Sepsis, secondary to Staph aureus (MSSA) bacteremia #Staph aureus bacteremia: Source is unclear but suspect right foot cellulitis. Recent revascularization in the right lower extremity with stent placement on 07/10/2020, denies any other prosthetic material. MRI showed extensive dorsal and lateral ankle edema without evidence of abscess. There is evidence of Charcot foot as well as diffuse edema in the muscle suggesting myopathy versus myositis. TTE did not reveal any valvular vegetations. #Diabetes mellitus type 2, uncontrolled #Peripheral vascular disease: Recent revascularization with stent placement on 07/10/2020. Vascular following. #DAQUAN: renally adjust abx based on creatinine. Improved. Recs: -since MSSA, switched to Ancef IV 2 gm q6 hrs (high dose due to obesity) -f/u repeat blood cultures, once negative at 48 hours, can get a PICC line and will need 4-6 weeks of abx depending on whether bacteremia is difficult to clear -Follow up repeat cultures, negative thus far. Colette Block MD [facility] O: [phone] F: [phone] Subjective Date of service: 07/26/20 Principal diagnosis: Right lower extremity arterial disease Interval history: Afebrile, white count stable. Cultures negative at 24 hours now. Objective - Exam Narrative Exam: Physical Exam: Constitutional: Alert, cooperative. No acute distress Head, Ears, Nose: Normocephalic, atraumatic. External ears, nose normal Eyes: Conjunctivae/corneas clear. No icterus. No ptosis. Neck: Supple, no meningeal signs Cardiovascular: S1, S2 normal. Respiratory: Good air entry, clear to auscultation bilaterally GI: Soft, non-tender; bowel sounds normal. No peritoneal signs Musculoskeletal: Right leg with edema, right foot with swelling, old ulceration that appears to be healed, no drainage Skin: No rash or abscess Hem/Lymphatic: No palpable cervical or supraclavicular nodes. No lymphangitis Psych: Mood ok. Affect normal Neurological: Awake, alert, oriented. No gross abnormality - Constitutional Vitals: Vital Signs Temp Pulse Resp BP Pulse Ox 99.4 F 90 20 181/89 92 07/26/20 05:21 07/26/20 05:21 07/26/20 05:21 07/26/20 06:04 07/26/20 05:21 Temperature -Last 24 Hours Temperature 99.4 F Temperature 99.0 F Temperature 98.4 F Temperature 98.7 F - Labs CBC & Chem 7: 07/26/20 07:30 07/26/20 07:30 Labs: Abnormal lab results 07/25/20 07/25/20 07/26/20 Range/Units 16:23 21:43 07:30 WBC 11.7 H (4.5-11.0) K/mm3 RBC 3.38 L (3.65-5.03) M/mm3 Hgb 9.9 L (11.8-15.2) gm/dl Hct 28.9 L (35.5-45.6) % Lymph % (Auto) 8.6 L (13.4-35.0) % Lymph # (Auto) 1.0 L (1.2-5.4) K/mm3 Seg Neutrophils % 85.9 H (40.0-70.0) % Seg Neutrophils # 10.1 H (1.8-7.7) K/mm3 Heparin Anti-Xa Level (0.3-0.7) U.I./ml Sodium (137-145) mmol/L Chloride (98-107) mmol/L Glucose (75-100) mg/dL POC Glucose 186 H 179 H (70-105) mg/dL 07/26/20 07/26/20 07/26/20 Range/Units 07:30 08:20 12:09 WBC (4.5-11.0) K/mm3 RBC (3.65-5.03) M/mm3 Hgb (11.8-15.2) gm/dl Hct (35.5-45.6) % Lymph % (Auto) (13.4-35.0) % Lymph # (Auto) (1.2-5.4) K/mm3 Seg Neutrophils % (40.0-70.0) % Seg Neutrophils # (1.8-7.7) K/mm3 Heparin Anti-Xa Level 0.29 L (0.3-0.7) U.I./ml Sodium 135 L (137-145) mmol/L Chloride 97.4 L (98-107) mmol/L Glucose 181 H (75-100) mg/dL POC Glucose 166 H (70-105) mg/dL 07/26/20 Range/Units 12:28 WBC (4.5-11.0) K/mm3 RBC (3.65-5.03) M/mm3 Hgb (11.8-15.2) gm/dl Hct (35.5-45.6) % Lymph % (Auto) (13.4-35.0) % Lymph # (Auto) (1.2-5.4) K/mm3 Seg Neutrophils % (40.0-70.0) % Seg Neutrophils # (1.8-7.7) K/mm3 Heparin Anti-Xa Level (0.3-0.7) U.I./ml Sodium (137-145) mmol/L Chloride (98-107) mmol/L Glucose (75-100) mg/dL POC Glucose 175 H (70-105) mg/dL
[2020-07-26] MEDS: HYDROmorphone 1 MG/1 ML INJ IV PRN (23:39)
[2020-07-27] MEDS: hydrALAZINE 25 MG TAB PO SCH ×3 (06:35→21:52)
[2020-07-27] MEDS: INSULIN REGULAR, HUMAN 100 UNITS/1 ML SUB-Q SCH ×4 (07:30→21:53)
[2020-07-27] MEDS: INSULIN NPH/REGULAR 70/30 INJ SUB-Q SCH ×2 (08:00→17:00)
[2020-07-27] MEDS: HEPARIN/ 0.45% NACL DRIP 25,000 UNIT/500 ML BAG IV SCH ×2 (08:46→18:31)
[2020-07-27] MEDS: hydroCHLOROthiazide 12.5 MG CAP PO SCH (10:15)
--- NOTE | 2020-07-27 11:47 | Progress Note ---
Assessment and Plan Cultures: 07/17/2020 blood culture: MSSA 07/20/2020 blood culture: MSSA 07/24/2020 blood culture: No growth so far. A/P: 54-year-old male with diabetes, gastroesophageal reflux disease, obesity, greer pheral vascular disease, recent revascularization on 07/10/2020, previous diabetic foot ulceration: #Sepsis, secondary to Staph aureus (MSSA) bacteremia #Staph aureus bacteremia: Source is unclear but suspect right foot cellulitis. Recent revascularization in the right lower extremity with stent placement on 07/10/2020, denies any other prosthetic material. MRI showed extensive dorsal and lateral ankle edema without evidence of abscess. There is evidence of Charcot foot as well as diffuse edema in the muscle suggesting myopathy versus myositis. TTE did not reveal any valvular vegetations. #Diabetes mellitus type 2, uncontrolled #Peripheral vascular disease: Recent revascularization with stent placement on 07/10/2020. Vascular following. #DAQUAN: renally adjust abx based on creatinine. Improved. Recs: -since MSSA, switched to Ancef IV 2 gm q6 hrs (high dose due to obesity) -Ordered PICC line -Antibiotics improved, okay for discharge after PICC line in place. Colette Block MD [facility] O: [phone] F: [phone] Subjective Date of service: 07/27/20 Principal diagnosis: Right lower extremity arterial disease Interval history: Afebrile, no acute changes. Blood cultures remain negative. Antibiotics approved. Objective - Exam Narrative Exam: Physical Exam: Constitutional: Alert, cooperative. No acute distress Head, Ears, Nose: Normocephalic, atraumatic. External ears, nose normal Eyes: Conjunctivae/corneas clear. No icterus. No ptosis. Neck: Supple, no meningeal signs Cardiovascular: S1, S2 normal. Respiratory: Good air entry, clear to auscultation bilaterally GI: Soft, non-tender; bowel sounds normal. No peritoneal signs Musculoskeletal: Right leg with edema, right foot with swelling, old ulceration that appears to be healed, no drainage Skin: No rash or abscess Hem/Lymphatic: No palpable cervical or supraclavicular nodes. No lymphangitis Psych: Mood ok. Affect normal Neurological: Awake, alert, oriented. No gross abnormality - Constitutional Vitals: Vital Signs Temp Pulse Resp BP Pulse Ox 98.2 F 95 H 20 189/92 90 07/27/20 06:38 07/27/20 06:38 07/26/20 05:21 07/27/20 06:38 07/27/20 06:38 Temperature -Last 24 Hours Temperature 98.2 F Temperature 98.4 F - Labs CBC & Chem 7: 07/26/20 07:30 07/26/20 07:30 Labs: Abnormal lab results 07/26/20 07/26/20 07/26/20 Range/Units 12:09 12:28 17:49 Heparin Anti-Xa Level 0.29 L (0.3-0.7) U.I./ml POC Glucose 175 H 198 H (70-105) mg/dL 07/26/20 07/26/20 07/27/20 Range/Units 18:23 22:02 07:46 Heparin Anti-Xa Level 0.19 L (0.3-0.7) U.I./ml POC Glucose 159 H 150 H (70-105) mg/dL
--- NOTE | 2020-07-27 14:59 | Progress Note ---
Assessment and Plan Assessment and plan: -- Sepsis/diabetic foot ulcer Current Visit: Yes Status: Acute , Plan to address problem: Elevate the limb, IV antibiotic cefazolin Repeat blood cultures negative more than 48 hours ID recommend PICC placement and long-term antibiotics However patient is on heparin drip for PVD per vascular PICC line cannot be placed --Peripheral vascular disease; Current Visit: Yes Status: Acute Plan to address problem: Vascular plans evaluation after patient sepsis is controlled I discussed with vascular, they have re-evaluated the patient Planning revascularization tomorrow, and will discontinue heparin drip Patient may have PICC after patient is off heparin --MSSA sepsis Current Visit: Yes Status: Acute , Plan to address problem: On cefazolin, ID considering long-term antibiotics 4 to 6 weeks, antibiotics per ID, PICC placement after Revascularization procedure by vascular --Type II diabetes mellitus/uncontrolled Current Visit: Yes Status: Acute Plan to address problem: Accu-Chek sliding scale coverage ADA diet Add long-acting insulin Novolin 70/30 adjust management as needed --Constipation; Current Visit: Yes Status: Acute , Plan to address problem: Resolved, stool softeners as needed --Acute kidney injury / acute tubular necrosis (ATN) Current Visit: Yes Status: Acute Plan to address problem: continue gentle hydration, monitor renal function, avoid nephrotoxin, Resolved , --Acute metabolic acidosis Current Visit: Yes Status: Acute Plan to address problem: IV hydration monitor acidosis --Hyponatremia Current Visit: Yes Status: Acute Plan to address problem: Significant improvement Closely monitor electrolytes --Morbid obesity BMI 39.1 Current Visit: Yes Status: Acute Plan to address problem: Patient needs weight reduction When medically stable, dietary modification Exercise as tolerated and weight reduction -- DVT prophylaxis Current Visit: Yes Status: Acute Plan to address problem: SCD, patient is on heparin drip per vascular We will closely monitor the patient and adjust the management as needed Plan of care reviewed with the patient and his nurse Consults and recommendations noted and appreciated 07/21/2020; patient with MSSA bacteremia, on IV antibiotics ID following, peripheral vascular disease, vascular following 07/22/2020; patient's blood sugars are uncontrolled, will increase 7030 dose Hemoglobin A1c 12.5, will advise diabetic education, diabetic diet education 07/23/2020 patient is receiving antibiotics, vascular plan to do the work-up Once he is more stable, blood sugars moderate control increase 70/30 insulin to 22 units twice a day 07/24/2020; patient feels slightly better 07/25/2020; MSSA sepsis on cefazolin, follow repeat cultures if negative 48 hours ID considering long-term antibiotics 4 to 6 weeks 07/26/2020; cultures negative to date, if negative he will this evening Patient may have long-term antibiotics 4 to 6 weeks, will get PICC line Case management will assist 07/27/2020; vascular scheduled for revascularization tomorrow, patient is on heparin drip Post revascularization, heparin will be discontinued, patient will get PICC placement disposition per vascular and ID Brief history; 54-year-old morbidly obese male patient was admitted with diabetic foot right lower extremity cellulitis on antibiotics, evaluated by vascular Noted to have peripheral vascular disease, started on heparin drip, patient was receiving empiric antibiotics, ID evaluated, has persistent MSSA Bacteremia, repeat cultures negative more than 48 hours, ID recommend long-term antibiotics and PICC placement, however vascular is Planning right lower extremity revascularization procedure tomorrow, PICC line will be placed after heparin drip is discontinued by vascular. Disposition per vascular and ID, DC with home health History Interval history: I seen and examined the patient at the bedside Patient's chart and medications reviewed Repeat blood cultures negative more than 48 hours ID recommend PICC placement, and long-term antibiotics Patient is on heparin drip per vascular for his PVD Patient is anxious to go home And is concerned about the right lower extremity Hospitalist Physical - Constitutional Vitals: Temp Pulse Resp BP Pulse Ox 98.7 F 96 H 18 149/82 94 07/27/20 11:32 07/27/20 11:32 07/27/20 11:32 07/27/20 11:32 07/27/20 11:32 General appearance: Present: no acute distress, well-nourished, obese - EENT Eyes: Present: PERRL, EOM intact - Neck Neck: Present: supple, normal ROM - Respiratory Respiratory effort: normal Respiratory: bilateral: diminished, negative: rales, rhonchi, wheezing - Cardiovascular Rhythm: regular Heart Sounds: Present: S1 & S2 - Extremities Extremities: no ischemia, No edema - Abdominal General gastrointestinal: soft, non-tender, non-distended, normal bowel sounds - Integumentary Integumentary: Present: clear, warm - Psychiatric Psychiatric: appropriate mood/affect, cooperative - Neurologic Neurologic: moves all extremities Results - Labs CBC & Chem 7: 07/26/20 07:30 07/26/20 07:30 Labs: Laboratory Last Values WBC 11.7 K/mm3 (4.5-11.0) H 07/26/20 07:30 RBC 3.38 M/mm3 (3.65-5.03) L 07/26/20 07:30 Hgb 9.9 gm/dl (11.8-15.2) L 07/26/20 07:30 Hct 28.9 % (35.5-45.6) L 07/26/20 07:30 MCV 85 fl (84-94) 07/26/20 07:30 MCH 29 pg (28-32) 07/26/20 07:30 MCHC 34 % (32-34) 07/26/20 07:30 RDW 14.6 % (13.2-15.2) 07/26/20 07:30 Plt Count 383 K/mm3 (140-440) 07/26/20 07:30 Lymph % (Auto) 8.6 % (13.4-35.0) L 07/26/20 07:30 [place] % (Auto) 3.9 % (0.0-7.3) 07/26/20 07:30 Eos % (Auto) 0.8 % (0.0-4.3) 07/26/20 07:30 Baso % (Auto) 0.8 % (0.0-1.8) 07/26/20 07:30 Lymph # (Auto) 1.0 K/mm3 (1.2-5.4) L 07/26/20 07:30 [place] # (Auto) 0.5 K/mm3 (0.0-0.8) 07/26/20 07:30 Eos # (Auto) 0.1 K/mm3 (0.0-0.4) 07/26/20 07:30 Baso # (Auto) 0.1 K/mm3 (0.0-0.1) 07/26/20 07:30 Add Manual Diff Complete 07/17/20 13:05 Total Counted 100 07/17/20 13:05 Seg Neutrophils % 85.9 % (40.0-70.0) H 07/26/20 07:30 Seg Neuts % (Manual) 95.0 % (40.0-70.0) H 07/17/20 13:05 Lymphocytes % (Manual) 3.0 % (13.4-35.0) L 07/17/20 13:05 Monocytes % (Manual) 2.0 % (0.0-7.3) 07/17/20 13:05 Nucleated RBC % Not Reportable 07/17/20 13:05 Seg Neutrophils # 10.1 K/mm3 (1.8-7.7) H 07/26/20 07:30 Seg Neutrophils # Man 18.1 K/mm3 (1.8-7.7) H 07/17/20 13:05 Band Neutrophils # 0.0 K/mm3 07/17/20 13:05 Lymphocytes # (Manual) 0.6 K/mm3 (1.2-5.4) L 07/17/20 13:05 Abs React Lymphs (Man) 0.0 K/mm3 07/17/20 13:05 Monocytes # (Manual) 0.4 K/mm3 (0.0-0.8) 07/17/20 13:05 Eosinophils # (Manual) 0.0 K/mm3 (0.0-0.4) 07/17/20 13:05 Basophils # (Manual) 0.0 K/mm3 (0.0-0.1) 07/17/20 13:05 Metamyelocytes # 0.0 K/mm3 07/17/20 13:05 Myelocytes # 0.0 K/mm3 07/17/20 13:05 Promyelocytes # 0.0 K/mm3 07/17/20 13:05 Blast Cells # 0.0 K/mm3 07/17/20 13:05 WBC Morphology Not Reportable 07/17/20 13:05 Hypersegmented Neuts Not Reportable 07/17/20 13:05 Hyposegmented Neuts Not Reportable 07/17/20 13:05 Hypogranular Neuts Not Reportable 07/17/20 13:05 Smudge Cells Not Reportable 07/17/20 13:05 Toxic Granulation Not Reportable 07/17/20 13:05 Toxic Vacuolation Not Reportable 07/17/20 13:05 Dohle Bodies Not Reportable 07/17/20 13:05 Pelger-Huet Anomaly Not Reportable 07/17/20 13:05 Christa Rods Not Reportable 07/17/20 13:05 Platelet Estimate Consistent w auto 07/17/20 13:05 Clumped Platelets Not Reportable 07/17/20 13:05 Plt Clumps, EDTA Not Reportable 07/17/20 13:05 Large Platelets Not Reportable 07/17/20 13:05 Giant Platelets Not Reportable 07/17/20 13:05 Platelet Satelliting Not Reportable 07/17/20 13:05 Plt Morphology Comment Not Reportable 07/17/20 13:05 RBC Morphology Normal 07/17/20 13:05 Dimorphic RBCs Not Reportable 07/17/20 13:05 Polychromasia Not Reportable 07/17/20 13:05 Hypochromasia Not Reportable 07/17/20 13:05 Poikilocytosis Not Reportable 07/17/20 13:05 Anisocytosis Not Reportable 07/17/20 13:05 Microcytosis Not Reportable 07/17/20 13:05 Macrocytosis Not Reportable 07/17/20 13:05 Spherocytes Not Reportable 07/17/20 13:05 Pappenheimer Bodies Not Reportable 07/17/20 13:05 Sickle Cells Not Reportable 07/17/20 13:05 Target Cells Not Reportable 07/17/20 13:05 Tear Drop Cells Not Reportable 07/17/20 13:05 Ovalocytes Not Reportable 07/17/20 13:05 Helmet Cells Not Reportable 07/17/20 13:05 Allen-Tilden Bodies Not Reportable 07/17/20 13:05 [place] Rings Not Reportable 07/17/20 13:05 Dariana Cells Not Reportable 07/17/20 13:05 Bite Cells Not Reportable 07/17/20 13:05 Crenated Cell Not Reportable 07/17/20 13:05 Elliptocytes Not Reportable 07/17/20 13:05 Acanthocytes (Spur) Not Reportable 07/17/20 13:05 Rouleaux Not Reportable 07/17/20 13:05 Hemoglobin C Crystals Not Reportable 07/17/20 13:05 Schistocytes Not Reportable 07/17/20 13:05 Malaria parasites Not Reportable 07/17/20 13:05 Jamil Bodies Not Reportable 07/17/20 13:05 Hem Pathologist Commnt No 07/17/20 13:05 PT 14.5 Sec. (12.2-14.9) 07/18/20 19:05 INR 1.15 (0.87-1.13) H 07/18/20 19:05 APTT 30.8 Sec. (24.2-36.6) 07/18/20 19:05 Heparin Anti-Xa Level 0.36 U.I./ml (0.3-0.7) 07/27/20 05:04 Sodium 135 mmol/L (137-145) L 07/26/20 07:30 Potassium 3.7 mmol/L (3.6-5.0) 07/26/20 07:30 Chloride 97.4 mmol/L (98-107) L 07/26/20 07:30 Carbon Dioxide 29 mmol/L (22-30) 07/26/20 07:30 Anion Gap 12 mmol/L 07/26/20 07:30 BUN 9 mg/dL (9-20) 07/26/20 07:30 Creatinine 0.8 mg/dL (0.8-1.3) 07/26/20 07:30 Estimated GFR > 60 ml/min 07/26/20 07:30 BUN/Creatinine Ratio 11 % 07/26/20 07:30 Glucose 181 mg/dL (75-100) H 07/26/20 07:30 POC Glucose 150 mg/dL (70-105) H 07/27/20 07:46 Lactic Acid 1.80 mmol/L (0.7-2.0) 07/17/20 23:17 Calcium 8.7 mg/dL (8.4-10.2) 07/26/20 07:30 Magnesium 1.60 mg/dL (1.7-2.3) L 07/24/20 09:26 Total Bilirubin 0.80 mg/dL (0.1-1.2) 07/17/20 13:05 AST 42 units/L (5-40) H 07/17/20 13:05 ALT 47 units/L (7-56) 07/17/20 13:05 Alkaline Phosphatase 118 units/L (35-129) 07/17/20 13:05 Total Creatine Kinase 131 units/L (55-170) 07/17/20 13:05 Total Protein 6.9 g/dL (6.3-8.2) 07/17/20 13:05 Albumin 2.7 g/dL (3.9-5) L 07/17/20 13:05 Albumin/Globulin Ratio 0.6 % 07/17/20 13:05 Urine Color Yellow (Yellow) 07/18/20 06:30 Urine Turbidity Hazy (Clear) 07/18/20 06:30 Urine pH 5.0 (5.0-7.0) 07/18/20 06:30 Ur Specific [place] 1.017 (1.003-1.030) 07/18/20 06:30 Urine Protein >500 mg/dL (Negative) 07/18/20 06:30 Urine Glucose (UA) 50 mg/dL (Negative) 07/18/20 06:30 Urine Ketones Neg mg/dL (Negative) 07/18/20 06:30 Urine Blood Sm (Negative) 07/18/20 06:30 Urine Nitrite Neg (Negative) 07/18/20 06:30 Urine Bilirubin Neg (Negative) 07/18/20 06:30 Urine Urobilinogen < 2.0 mg/dL (<2.0) 07/18/20 06:30 Ur Leukocyte Esterase Neg (Negative) 07/18/20 06:30 Urine WBC (Auto) 5.0 /HPF (0.0-6.0) 07/18/20 06:30 Urine RBC (Auto) 12.0 /HPF (0.0-6.0) 07/18/20 06:30 U Epithel Cells (Auto) < 1.0 /HPF (0-13.0) 07/18/20 06:30 Urine Mucus Few /HPF 07/18/20 06:30 Vancomycin Trough 18.8 ug/mL (5.0-20.0) 07/21/20 10:03 Blood Type A POSITIVE 07/17/20 17:12 Antibody Screen Negative 07/17/20 17:12 Microbiology: Microbiology 07/24/20 14:10 Peripheral/Venous Blood Culture - Preliminary NO GROWTH AFTER 72 HOURS 07/24/20 14:10 Peripheral/Venous Blood Culture - Preliminary NO GROWTH AFTER 72 HOURS Campos/IV: Voiding Method Toilet Active Medications - Current Medications Current Medications: Generic Name Dose Route Start Last Admin Trade Name Freq PRN Reason Stop Dose Admin Acetaminophen 650 mg 07/17/20 16:24 Acetaminophen 325 Mg Tab PO Q4H PRN Pain MILD(1-3)/Fever >100.5/CARIAS Albuterol 2.5 mg 07/17/20 16:24 Albuterol 2.5 Mg/3 Ml Nebu IH Q4HRT PRN Shortness Of Breath Heparin Sodium (Porcine) 5,000 unit 07/19/20 10:00 Heparin 10,000 Units/10 Ml Vial IV Q6H PRN Anti-Xa Assay < 0.1 units/ml Hydralazine HCl 50 mg 07/22/20 14:00 07/27/20 13:39 Hydralazine 25 Mg Tab PO 50 mg Q8HR LACHELLE Administration Hydralazine HCl 10 mg 07/22/20 08:10 07/25/20 05:32 Hydralazine 20 Mg/1 Ml Inj IV 10 mg Q4HR PRN Administration Hypertension Hydrochlorothiazide 12.5 mg 07/22/20 10:00 07/27/20 10:15 Hydrochlorothiazide 12.5 Mg Cap PO 12.5 mg QDAY LACHELLE Administration Hydromorphone HCl 0.25 mg 07/17/20 16:24 07/26/20 23:39 Hydromorphone 1 Mg/1 Ml Inj IV 0.25 mg Q4H PRN Administration Pain, Moderate (4-6) Heparin Sodium/Sodium Chloride 25,000 unit in 500 mls @ 30 mls/hr 07/18/20 19:00 07/27/20 08:46 Heparin/ 0.45% Nacl-25,000 Unit/500 Ml IV 2,750 units/hr TITR LACHELLE 55 mls/hr Administration Protocol 1,500 UNITS/HR Cefazolin Sodium 2 gm/ Sodium 100 mls @ 200 mls/hr 07/22/20 12:30 07/27/20 12:00 Chloride IV 200 mls/hr Q6H [facility] Administration Protocol Insulin Human Isoph/Insulin Regular 28 unit 07/24/20 19:00 07/27/20 08:00 Insulin Nph/Regular 70/30 Inj SUB-Q 28 unit BIDDIAB LACHELLE Administration Insulin Human Regular 0 units 07/17/20 22:00 07/27/20 11:32 Insulin Regular, Human 100 Units/1 Ml SUB-Q Not Given ACHS [facility] Protocol Magnesium Hydroxide 30 ml 07/19/20 18:00 Magnesium Hydroxide (Mom) Oral Liqd Udc PO QDAY PRN Constipation Ondansetron HCl 4 mg 07/17/20 16:24 07/19/20 14:50 Ondansetron 4 Mg/2 Ml Inj IV 4 mg Q8H PRN Administration Nausea And Vomiting Sodium Chloride 10 ml 07/17/20 22:00 07/27/20 10:15 Sodium Chloride 0.9% 10 Ml Flush Syringe IV 10 ml BID LACHELLE Administration Sodium Chloride 10 ml 07/17/20 16:24 07/20/20 05:13 Sodium Chloride 0.9% 10 Ml Flush Syringe IV 10 ml PRN PRN Administration LINE FLUSH Nutrition/Malnutrition Assess - Dietary Evaluation Nutrition/Malnutrition Findings: Nutrition Notes Start: 07/24/20 15:35 Freq: Status: Active Protocol: Document 07/24/20 15:35 CW (Rec: 07/24/20 15:44 CW [id number]) Nutrition Notes Need for Assessment generated from: LOS Initial or Follow up Assessment Current Diagnosis Acute Kidney Injury,Diabetes Other Pertinent Diagnosis Metabolic Acidosis, UTI Current Diet Consistent Carbohydrate Diet Labs/Tests Na 133 BG 263 Pertinent Medications Humulin Height 5 ft 11 in Weight 128.5 kg [place] Body Weight (kg) 78.18 BMI 39.4 Intake Prior to Admission Excellent Weight change and time frame weight cahnge noted Weight Status Obese Subjective/Other Information Screen for LOS. Pt has maintained a good appetite. Pt denies N/V/D/C. Abdoulaye score of 20. No nutritional concerns at this time. Percent of energy/protein needs met: 99%/98% Burn Absent Trauma Absent GI Symptoms None Food Allergy Yes Current % PO Good (75-100%) Minimum of two criteria No Fluid Accumulation Mild (non-severe) #1 Nutrition Diagnosis No nutrition diagnosis at this time Is patient on ventilator? No Is Patient Ambulatory and/or Out of Bed Yes REE-([place]-St. Jeor-ambulatory/OOB) [ 2784.769 [id number]] Kcal/Kg value to use for calculation 16 Approximate Energy Requirements Using 2055 kcal/Kg Calculation Used for Recommendations Kcal/kg Additional Notes protien needs 82 - 103g(0.8 - 1 g/kgAdjBW 103.34) fluid needs: 1 ml/kcal Nutrition Intervention Change Diet Order: Continue Consistent Carbohydrate diet Anticipated Discharge Needs: Consistent Carbohydrate Diet Revisit per MD consult or patient Sign Off request: Additional Comments S/O for good PO intakes
--- NOTE | 2020-07-27 15:15 | Event Note ---
Date: 07/27/[address] Faith. Patient's blood cultures are finally negative for 72 hours. NPO after MN except sips of water with meds for angiography tomorrow.
--- NOTE | 2020-07-27 16:24 | Progress Note ---
Assessment and Plan Patient will be scheduled for right lower extremity revascularization procedure tomorrow. The patient is currently on a heparin drip. He will need a PICC line as an outpatient per nursing. After his procedure tomorrow, his heparin may be temporarily discontinued for him to allow a PICC line placement. Subjective Date of service: 07/27/20 Principal diagnosis: Right lower extremity arterial disease Interval history: Patient doing well. He is 3 days with negative blood cultures. No complaints of significant pain. He does ambulate minimally when he uses the restroom. Currently on a heparin drip. Objective - Constitutional Vitals: Vital Signs - 12hr 07/27/20 07/27/20 07/27/20 06:35 06:38 11:32 Temperature 98.2 F 98.7 F Pulse Rate 94 H 95 H 96 H Respiratory 18 Rate Blood Pressure 189/92 189/92 149/82 O2 Sat by Pulse 90 94 Oximetry General appearance: Present: no acute distress - EENT Eyes: EOM intact ENT: hearing intact - Neck Neck: supple - Respiratory Respiratory effort: normal Extremities: abnormal Extremity abnormal: edema - Gastrointestinal General gastrointestinal: Present: deferred Rectal Exam: deferred - Genitourinary Male genitourinary: deferred - Psychiatric Psychiatric: cooperative - Labs CBC & Chem 7: 07/26/20 07:30 07/26/20 07:30 Labs: Abnormal lab results 07/26/20 07/26/20 07/26/20 Range/Units 17:49 18:23 22:02 Heparin Anti-Xa Level 0.19 L (0.3-0.7) U.I./ml POC Glucose 198 H 159 H (70-105) mg/dL 07/27/20 Range/Units 07:46 Heparin Anti-Xa Level (0.3-0.7) U.I./ml POC Glucose 150 H (70-105) mg/dL Medications & Allergies - Medications Allergies/Adverse Reactions: Allergies shellfish derived Allergy (Verified 08/11/14 11:29) Hives Home Medications: Home Medications Medication Instructions Recorded Confirmed Last Taken Type Insulin NPH/Regular [NovoLIN ] 34 unit SUB-Q QDDIAB #30 ml 05/20/14 07/22/20 08/10/14 Rx Docusate Sodium [Colace] 100 mg PO BID PRN #14 capsule 08/11/14 07/22/20 Unknown Rx Active Medications: Generic Name Dose Route Start Last Admin Trade Name Freq PRN Reason Stop Dose Admin Acetaminophen 650 mg 07/17/20 16:24 Acetaminophen 325 Mg Tab PO Q4H PRN Pain MILD(1-3)/Fever >100.5/CARIAS Albuterol 2.5 mg 07/17/20 16:24 Albuterol 2.5 Mg/3 Ml Nebu IH Q4HRT PRN Shortness Of Breath Heparin Sodium (Porcine) 5,000 unit 07/19/20 10:00 Heparin 10,000 Units/10 Ml Vial IV Q6H PRN Anti-Xa Assay < 0.1 units/ml Hydralazine HCl 50 mg 07/22/20 14:00 07/27/20 13:39 Hydralazine 25 Mg Tab PO 50 mg Q8HR LACHELLE Administration Hydralazine HCl 10 mg 07/22/20 08:10 07/25/20 05:32 Hydralazine 20 Mg/1 Ml Inj IV 10 mg Q4HR PRN Administration Hypertension Hydrochlorothiazide 12.5 mg 07/22/20 10:00 07/27/20 10:15 Hydrochlorothiazide 12.5 Mg Cap PO 12.5 mg QDAY LACHELLE Administration Hydromorphone HCl 0.25 mg 07/17/20 16:24 07/26/20 23:39 Hydromorphone 1 Mg/1 Ml Inj IV 0.25 mg Q4H PRN Administration Pain, Moderate (4-6) Heparin Sodium/Sodium Chloride 25,000 unit in 500 mls @ 30 mls/hr 07/18/20 19:00 07/27/20 08:46 Heparin/ 0.45% Nacl-25,000 Unit/500 Ml IV 2,750 units/hr TITR LACHELLE 55 mls/hr Administration Protocol 1,500 UNITS/HR Cefazolin Sodium 2 gm/ Sodium 100 mls @ 200 mls/hr 07/22/20 12:30 07/27/20 12:00 Chloride IV 200 mls/hr Q6H LACHELLE Administration Protocol Insulin Human Isoph/Insulin Regular 28 unit 07/24/20 19:00 07/27/20 08:00 Insulin Nph/Regular 70/30 Inj SUB-Q 28 unit BIDDIAB LACHELLE Administration Insulin Human Regular 0 units 07/17/20 22:00 07/27/20 11:32 Insulin Regular, Human 100 Units/1 Ml SUB-Q Not Given ACHS [facility] Protocol Magnesium Hydroxide 30 ml 07/19/20 18:00 Magnesium Hydroxide (Mom) Oral Liqd Udc PO QDAY PRN Constipation Ondansetron HCl 4 mg 07/17/20 16:24 07/19/20 14:50 Ondansetron 4 Mg/2 Ml Inj IV 4 mg Q8H PRN Administration Nausea And Vomiting Sodium Chloride 10 ml 07/17/20 22:00 07/27/20 10:15 Sodium Chloride 0.9% 10 Ml Flush Syringe IV 10 ml BID LACHELLE Administration Sodium Chloride 10 ml 07/17/20 16:24 07/20/20 05:13 Sodium Chloride 0.9% 10 Ml Flush Syringe IV 10 ml PRN PRN Administration LINE FLUSH
[2020-07-27] MEDS: HYDROmorphone 1 MG/1 ML INJ IV PRN (20:18)
[2020-07-28] MEDS: hydrALAZINE 25 MG TAB PO SCH ×3 (06:56→21:41)
[2020-07-28] MEDS: HYDROmorphone 1 MG/1 ML INJ IV PRN ×2 (08:09→22:42)
[2020-07-28] MEDS: ONDANSETRON 4 MG/2 ML INJ IV PRN (08:09)
[2020-07-28] MEDS: HEPARIN/ 0.45% NACL DRIP 25,000 UNIT/500 ML BAG IV SCH (08:18)
[2020-07-28] MEDS: INSULIN REGULAR, HUMAN 100 UNITS/1 ML SUB-Q SCH ×4 (08:25→22:25)
[2020-07-28] MEDS: INSULIN NPH/REGULAR 70/30 INJ SUB-Q SCH ×2 (08:25→17:55)
--- NOTE | 2020-07-28 09:31 | Progress Note ---
Assessment and Plan Assessment and Plan Assessment and plan: -- Sepsis/diabetic foot ulcer Current Visit: Yes Status: Acute , Plan to address problem: Elevate the limb, IV antibiotic cefazolin Repeat blood cultures negative more than 48 hours ID recommend PICC placement and long-term antibiotics However patient is on heparin drip for PVD per vascular PICC line cannot be placed --Peripheral vascular disease; Current Visit: Yes Status: Acute Plan to address problem: Vascular plans evaluation after patient sepsis is controlled I discussed with vascular, they have re-evaluated the patient Had revascularization PICC line to be placed --MSSA sepsis Current Visit: Yes Status: Acute , Plan to address problem: On cefazolin, ID considering long-term antibiotics 4 to 6 weeks, antibiotics per ID, PICC placement after Revascularization procedure by vascular --Type II diabetes mellitus/uncontrolled Current Visit: Yes Status: Acute Plan to address problem: Accu-Chek sliding scale coverage ADA diet Add long-acting insulin Novolin 70/30 adjust management as needed --Constipation; Current Visit: Yes Status: Acute , Plan to address problem: Resolved, stool softeners as needed --Acute kidney injury / acute tubular necrosis (ATN) Current Visit: Yes Status: Acute Plan to address problem: continue gentle hydration, monitor renal function, avoid nephrotoxin, Resolved , --Acute metabolic acidosis Current Visit: Yes Status: Acute Plan to address problem: IV hydration monitor acidosis --Hyponatremia Current Visit: Yes Status: Acute Plan to address problem: Significant improvement Closely monitor electrolytes --Morbid obesity BMI 39.1 Current Visit: Yes Status: Acute Plan to address problem: Patient needs weight reduction When medically stable, dietary modification Exercise as tolerated and weight reduction -- DVT prophylaxis Current Visit: Yes Status: Acute Plan to address problem: SCD, patient is on heparin drip per vascular We will closely monitor the patient and adjust the management as needed Plan of care reviewed with the patient and his nurse Consults and recommendations noted and appreciated Subjective Date of service: 07/28/20 Principal diagnosis: Right lower extremity arterial disease Interval history: Brief history; 54-year-old morbidly obese male patient was admitted with diabetic foot right lower extremity cellulitis on antibiotics, evaluated by vascular Noted to have peripheral vascular disease, started on heparin drip, patient was receiving empiric antibiotics, ID evaluated, has persistent MSSA Bacteremia, repeat cultures negative more than 48 hours, ID recommend long-term antibiotics and PICC placement, however vascular is Planning right lower extremity revascularization procedure tomorrow, PICC line will be placed after heparin drip is discontinued by vascular. Disposition per vascular and ID, DC with home health 07/21/2020; patient with MSSA bacteremia, on IV antibiotics ID following, peripheral vascular disease, vascular following 07/22/2020; patient's blood sugars are uncontrolled, will increase 7030 dose Hemoglobin A1c 12.5, will advise diabetic education, diabetic diet education 07/23/2020 patient is receiving antibiotics, vascular plan to do the work-up Once he is more stable, blood sugars moderate control increase 70/30 insulin to 22 units twice a day 07/24/2020; patient feels slightly better 07/25/2020; MSSA sepsis on cefazolin, follow repeat cultures if negative 48 hours ID considering long-term antibiotics 4 to 6 weeks 07/26/2020; cultures negative to date, if negative he will this evening Patient may have long-term antibiotics 4 to 6 weeks, will get PICC line Case management will assist 07/27/2020; vascular scheduled for revascularization tomorrow, patient is on heparin drip Post revascularization, heparin will be discontinued, patient will get PICC placement disposition per vascular and ID 07/28/2020 Patient had revascularization done today Patient is pain-free Needs IV home antibiotics Objective - Constitutional Vitals: Vital Signs - 12hr 07/27/20 07/28/20 07/28/20 21:52 04:12 06:56 Temperature 98.6 F Pulse Rate 97 H 94 H 94 H Respiratory 16 Rate Blood Pressure 135/75 141/79 141/79 O2 Sat by Pulse 91 Oximetry General appearance: Present: no acute distress, well-nourished - EENT Eyes: PERRL, EOM intact ENT: hearing intact, clear oral mucosa Ears: bilateral: normal - Neck Neck: supple, normal ROM - Respiratory Respiratory effort: normal Respiratory: bilateral: CTA - Breasts Breasts: normal - Cardiovascular Heart rate: 78 Rhythm: regular Heart Sounds: Present: S1 & S2. Absent: gallop, rub Extremities: pulses intact, No edema, normal color, Full ROM Extremity abnormal: other (Right foot ulcer) - Gastrointestinal General gastrointestinal: Present: soft, non-tender, non-distended, normal bowel sounds - Genitourinary Male genitourinary: normal - Integumentary Integumentary: clear, warm, dry - Musculoskeletal Musculoskeletal: 1, strength equal bilaterally - Neurologic Neurologic: moves all extremities - Psychiatric Psychiatric: memory intact, appropriate mood/affect, intact judgment & insight - Labs CBC & Chem 7: 07/26/20 07:30 07/26/20 07:30 Labs: Abnormal lab results 07/27/20 07/27/20 07/27/20 Range/Units 11:03 15:49 21:22 Heparin Anti-Xa Level (0.3-0.7) U.I./ml POC Glucose 192 H 164 H 187 H (70-105) mg/dL 07/28/20 Range/Units 04:58 Heparin Anti-Xa Level < 0.10 L (0.3-0.7) U.I./ml POC Glucose (70-105) mg/dL
[2020-07-28] MEDS: hydroCHLOROthiazide 12.5 MG CAP PO SCH (09:50)
--- NOTE | 2020-07-28 13:26 | Progress Note ---
Assessment and Plan Cultures: 07/17/2020 blood culture: MSSA 07/20/2020 blood culture: MSSA 07/24/2020 blood culture: No growth so far. A/P: 54-year-old male with diabetes, gastroesophageal reflux disease, obesity, greer pheral vascular disease, recent revascularization on 07/10/2020, previous diabetic foot ulceration: #Sepsis, secondary to Staph aureus (MSSA) bacteremia #Staph aureus bacteremia: Source is unclear but suspect right foot cellulitis. Recent revascularization in the right lower extremity with stent placement on 07/10/2020, denies any other prosthetic material. MRI showed extensive dorsal and lateral ankle edema without evidence of abscess. There is evidence of Charcot foot as well as diffuse edema in the muscle suggesting myopathy versus myositis. TTE did not reveal any valvular vegetations. #Diabetes mellitus type 2, uncontrolled #Peripheral vascular disease: Recent revascularization with stent placement on 07/10/2020. Vascular following. #DAQUAN: renally adjust abx based on creatinine. Improved. Recs: -Ancef IV 2 gm q6 hrs (high dose due to obesity). Case management consulted for Ancef 2g q8h (decreased dose on discharge as bacteremia cleared and to improve compliance) until 08/21/2020. ABx approved with [facility] -Ordered PICC line -For re-vascularization with vascular -OK for DC from ID perspective when PICC in place. ID will follow, please call with questions. MD Francesco [facility] ([facility]) O: [phone] F: [phone] Subjective Date of service: 07/28/20 Principal diagnosis: Right lower extremity arterial disease Interval history: Afebrile, no change. We will begin revascularization today. Objective - Exam Narrative Exam: Physical Exam: Constitutional: Alert, cooperative. No acute distress Head, Ears, Nose: Normocephalic, atraumatic. External ears, nose normal Eyes: Conjunctivae/corneas clear. No icterus. No ptosis. Neck: Supple, no meningeal signs Cardiovascular: S1, S2 normal. Respiratory: Good air entry, clear to auscultation bilaterally GI: Soft, non-tender; bowel sounds normal. No peritoneal signs Musculoskeletal: Right leg with edema, right foot with swelling, old ulceration that appears to be healed, no drainage Skin: No rash or abscess Hem/Lymphatic: No palpable cervical or supraclavicular nodes. No lymphangitis Psych: Mood ok. Affect normal Neurological: Awake, alert, oriented. No gross abnormality - Constitutional Vitals: Vital Signs Temp Pulse Resp BP Pulse Ox 98.6 F 94 H 16 141/79 91 07/28/20 04:12 07/28/20 06:56 07/28/20 04:12 07/28/20 06:56 07/28/20 04:12 Temperature -Last 24 Hours Temperature 98.6 F Temperature 98.9 F Temperature 98.4 F - Labs CBC & Chem 7: 07/26/20 07:30 07/26/20 07:30 Labs: Abnormal lab results 07/27/20 07/27/20 07/27/20 Range/Units 11:03 15:49 21:22 Heparin Anti-Xa Level (0.3-0.7) U.I./ml POC Glucose 192 H 164 H 187 H (70-105) mg/dL 07/28/20 07/28/20 07/28/20 Range/Units 04:58 07:31 11:11 Heparin Anti-Xa Level < 0.10 L (0.3-0.7) U.I./ml POC Glucose 137 H 154 H (70-105) mg/dL
[2020-07-28] MEDS ORDERED: MIDAZOLAM 2 MG/2 ML INJ ONE ×2 (17:46→18:43)
[2020-07-28] MEDS ORDERED: HEPARIN/NS 5000 UNIT/500ML 1,500 ML IR ONE (17:47)
[2020-07-28] MEDS ORDERED: SODIUM CHLORIDE 0.9% 500 ML 500 ML ONE (17:48)
[2020-07-28] MEDS ORDERED: HEPARIN 10,000 UNITS/10 ML VIAL ONE (17:49)
[2020-07-28] MEDS: fentaNYL 100 MCG/2 ML INJ ONE ×2 (18:31→18:50)
[2020-07-28] MEDS: LIDOCAINE (2%) 20 MG/1 ML VIAL 20 ML MDV INFILTRATI ONE ×2 (18:32→19:40)
[2020-07-28] MEDS ORDERED: fentaNYL 100 MCG/2 ML INJ ONE (19:09)
--- NOTE | 2020-07-28 20:01 | Operative Report ---
Operative Report Operative Report: Date of Procedure: 07/28/2020 Pre-operative Diagnosis: Peripheral Vascular Disease with Right Foot Ulceration Post-operative Diagnosis: Same with Right SFA Pseudoaneurysm Procedure(s): 1. Ultrasound Guided Access Left Common Femoral 2. Diagnostic Aortogram (No Previous Films For Comparison) 3. Diagnostic Right Lower Extremity Angiogram (No Previous Films For Comparison) 4. Angioplasty and Stent Right SFA with 6 x 150 IN.PACT Drug-Coated Balloon (x2), 7 x 80 IN.PACT Drug-Coated Balloon, 8 x 40 Angiosculpt Balloon, 7 x 5 cm Viabahn Stent Graft, and 7 x 40 EverFlex Protege Self-Expanding Stent 5. Angioplasty of Right Posterior Tibial Artery with 4 x 150 IN.PACT Drug- Coated Balloon 6. Closure of Left Femoral Arteriotomy with Pro-[place] Closure Device 7. Radiologic Supervision with Interpretation 8. Monitored Moderate Sedation (Total Anesthesia Time: 84 Minutes) Surgeon: Kishor Carroll M.D. It Compliance Analyst: None Anesthesia: Local/Monitored Moderate Sedation Total Anesthesia Time: 84 Minutes EBL: Minimal Counts: Correct Complications: None Condition: Stable Specimen: None Indication: The patient is a 54-year-old male with a history of diabetes and peripheral vascular disease who recently underwent endovascular intervention for a nonhealing diabetic ulcer on his right foot. He presented with pain in the foot and was found to have monophasic flow in his tibial vessels. He is in need of a diagnostic angiogram and possible intervention. He was given the risk, benefits, and alternative procedures and consented to the procedure. Angiographic Findings: The diagnostic aortogram revealed that the aorta was patent without evidence of aneurysmal dilatation or flow-limiting stenosis. Bilateral common iliac arteries were patent without evidence of aneurysmal dilatation or flow-limiting stenosis. The right lower extremity angiogram revealed that the right external iliac artery was patent without evidence of flow-limiting stenosis. The hypogastric artery was patent without evidence of flow-limiting stenosis. The right common femoral artery and profunda artery were patent without evidence of flow-limiting stenosis. There was a short segment dissection in the proximal SFA, just proximal to previously placed stents that is likely the reentry of the occlusion. This dissection involves approximately 60% of the lumen of the proximal SFA. There is a large pseudoaneurysm that appears to be originating from the posterior mid SFA. Stents are extending from the proximal SFA to the distal SFA. There is a small dissection at the reentry point at the distal stent of the SFA. The popliteal artery is patent without evidence of flow- limiting stenosis. The anterior tibial artery occludes in the proximal third with reconstitution just above the ankle and is patent into the foot as the dorsalis pedis artery. The peroneal artery is patent without significant flow-limiting stenosis. There is 60% stenosis in the diffuse segment of the proximal posterior tibial artery and the remainder of the arteries patent without evidence of flow-limiting stenosis. The pedal arch is intact. After intervention the proximal dissection in the SFA has been treated with and there is less than 10% residual stenosis. The pseudoaneurysm has been covered and there is no evidence of endoleak. The distal SFA was treated and there is less than 10% residual stenosis in the area of dissection. The posterior tibial artery was treated with angioplasty and there was less than 10% residual stenosis within the proximal segment. Description of Procedure: The patient was brought to the [facility] Supervisor and laid in supine position. After a timeout was performed his left groin was prepped and draped in normal sterile fashion. Ultrasound was used to identify the left common femoral artery and confirm patency. Once patency was confirmed the overlying skin and soft tissue was anesthetized with lidocaine. An 11 blade was used to make a small stab incision and then a curved hemostat was used with ultrasound guidance to bluntly dissect down to the anterior surface of the common femoral artery. A 21-gauge micropuncture needle was used ultrasound guidance into the left common femoral artery and a 0.018 micropuncture wire was advanced to the artery. The needle was removed and a micropuncture sheath was placed by Seldinger technique. The inner cannula and wire were removed and a 0.025 Bentson wire was advanced to the aorta. The micropuncture sheath was removed and a 5 [place] sheath was placed by Seldinger technique. An Omni Flush catheter was advanced into the aorta and after removing the wire a diagnostic aortogram was performed with the previously described findings. The Bentson wire was then reinserted and the Omni Flush catheter and Bentson wire were advanced up and over the bifurcation and a diagnostic right lower extremity angiogram was performed with the previously described findings. The Bentson wire was then advanced into the popliteal artery and a 5 [place] sheath was exchanged for a 7 [place] 45 cm destination sheath by Seldinger technique. At this point the patient was systemically heparinized with 3000 units of heparin IV. I then decided to treat the previously stented areas with drug-coated balloons to prevent restenosis and to decrease the risk of thrombosis of the stent graft that would be required to cover the pseudoaneurysm. I used 6 x 150 IN.PACT Drug-Coated Balloons to perform angioplasty of the distal and mid SFA. I then performed angioplasty of the proximal SFA with a 7 x 80 IN.PACT Drug-Coated Balloon in hopes of improving the area of dissection in the proximal SFA however this did not adequately treat the area of dissection. I remove the Bentson wire and advanced a 0.018 V18 wire into the popliteal artery and then performed magnified views and right anterior oblique fashion to identify the area of the pseudoaneurysm. I then advanced a 7 x 5 cm Viabahn Stent Graft into position and deployed it. The follow-up angiogram revealed that the pseudoaneurysm had been adequately covered and there was no evidence of endoleak. This also revealed that the flow through the SFA and popliteal artery was now significantly more brisk. The dissection at the distal SFA was less than 10% with brisk flow. I used a Navicross catheter and was able to advance the V 18 wire into the distal posterior tibial artery and then I used a 4 x 150 IN.PACT Drug-Coated Balloon and performed angioplasty of the proximal posterior tibial artery with a result of less than 10% residual stenosis. I then exchanged the V 18 wire for a 0.014 Choice PT wire and performed angioplasty of the proximal SFA with a 8.0 x 40 Angiosculpt Balloon however the dissection was still persistent so I decided to stent the area. I advanced a 7 x 40 EverFlex Protege stent into position and deployed it with a result of less than 10% residual stenosis and brisk flow of contrast with no evidence of the dissection flap remaining. At this point are removed the Choice PT wire and pulled the sheath back into the left external iliac artery. I advanced the Bentson wire to the aorta and then after removing the sheath used a Pro-glide Closure Device to close my left femoral arteriotomy. A sterile dressing was then applied to the left groin and the patient was transported back to his room in stable condition.
[2020-07-28] MEDS: CLOPIDOGREL 75 MG TAB PO SCH (21:40)
[2020-07-28] MEDS: APIXABAN 5 MG TAB PO SCH (21:41)
[2020-07-29] MEDS: hydrALAZINE 25 MG TAB PO SCH ×3 (06:44→22:08)
[2020-07-29] MEDS: INSULIN REGULAR, HUMAN 100 UNITS/1 ML SUB-Q SCH ×4 (07:30→22:09)
[2020-07-29] MEDS: INSULIN NPH/REGULAR 70/30 INJ SUB-Q SCH ×2 (08:19→16:26)
[2020-07-29] MEDS: hydroCHLOROthiazide 12.5 MG CAP PO SCH (09:18)
[2020-07-29] MEDS: APIXABAN 5 MG TAB PO SCH ×2 (09:18→22:10)
[2020-07-29] MEDS: CLOPIDOGREL 75 MG TAB PO SCH (09:19)
--- NOTE | 2020-07-29 14:00 | Progress Note ---
Assessment and Plan The patient is doing well. His pain has resolved after covering the right SFA pseudoaneurysm. Have encouraged him to increase his activity including walking. Okay to discharge home from a vascular surgery standpoint when he is medically cleared. He should follow-up in the office to be seen 2 weeks after discharge. Subjective Date of service: 07/29/20 Principal diagnosis: Right lower extremity arterial disease Interval history: The patient states that his right thigh pain has resolved. He has no complaints at this time. Objective - Constitutional Vitals: Vital Signs - 12hr 07/29/20 07/29/20 05:26 06:44 Temperature 98.1 F Pulse Rate 100 H 100 H Respiratory 20 Rate Blood Pressure 150/86 150/86 O2 Sat by Pulse 92 Oximetry General appearance: Present: no acute distress Extremities: pulses intact (Palpable right posterior tibial) Extremity abnormal: edema (Right lower extremity edema), cyanosis (Continued cyanotic changes to the distal tip of the right first toe and second toe), other (Left groin access site is without hematoma) - Gastrointestinal General gastrointestinal: Present: soft, non-tender, non-distended - Labs CBC & Chem 7: 07/26/20 07:30 07/26/20 07:30 Labs: Abnormal lab results 07/28/20 07/28/20 07/29/20 Range/Units 15:53 22:23 07:42 POC Glucose 147 H 140 H 155 H (70-105) mg/dL 07/29/20 Range/Units 12:14 POC Glucose 175 H (70-105) mg/dL Medications & Allergies - Medications Allergies/Adverse Reactions: Allergies shellfish derived Allergy (Verified 08/11/14 11:29) Hives Home Medications: Home Medications Medication Instructions Recorded Confirmed Last Taken Type Insulin NPH/Regular [NovoLIN 70/30] 34 unit SUB-Q QDDIAB #30 ml 05/20/14 07/22/20 08/10/14 Rx Docusate Sodium [Colace] 100 mg PO BID PRN #14 capsule 08/11/14 07/22/20 Unknown Rx Active Medications: Generic Name Dose Route Start Last Admin Trade Name Freq PRN Reason Stop Dose Admin Acetaminophen 650 mg 07/17/20 16:24 Acetaminophen 325 Mg Tab PO Q4H PRN Pain MILD(1-3)/Fever >100.5/CARIAS Albuterol 2.5 mg 07/17/20 16:24 Albuterol 2.5 Mg/3 Ml Nebu IH Q4HRT PRN Shortness Of Breath Apixaban 5 mg 07/28/20 22:00 07/29/20 09:18 Apixaban 5 Mg Tab PO 5 mg Q12HR LACHELLE Administration Protocol Clopidogrel Bisulfate 75 mg 07/28/20 20:00 07/29/20 09:19 Clopidogrel 75 Mg Tab PO 75 mg QDAY LACHELLE Administration Hydralazine HCl 50 mg 07/22/20 14:00 07/29/20 06:44 Hydralazine 25 Mg Tab PO 50 mg Q8HR LACHELLE Administration Hydralazine HCl 10 mg 07/22/20 08:10 07/25/20 05:32 Hydralazine 20 Mg/1 Ml Inj IV 10 mg Q4HR PRN Administration Hypertension Hydrochlorothiazide 12.5 mg 07/22/20 10:00 07/29/20 09:18 Hydrochlorothiazide 12.5 Mg Cap PO 12.5 mg QDAY LACHELLE Administration Hydromorphone HCl 0.25 mg 07/17/20 16:24 07/28/20 22:42 Hydromorphone 1 Mg/1 Ml Inj IV 0.25 mg Q4H PRN Administration Pain, Moderate (4-6) Cefazolin Sodium 2 gm/ Sodium 100 mls @ 200 mls/hr 07/22/20 12:30 07/29/20 12:35 Chloride IV 08/21/20 23:59 200 mls/hr Q6H LACHELLE Administration Protocol Insulin Human Isoph/Insulin Regular 28 unit 07/24/20 19:00 07/29/20 08:19 Insulin Nph/Regular 70/30 Inj SUB-Q 28 unit BIDDIAB LACHELLE Administration Insulin Human Regular 0 units 07/17/20 22:00 07/29/20 11:30 Insulin Regular, Human 100 Units/1 Ml SUB-Q 1 units ACHS LACHELLE Administration Protocol Magnesium Hydroxide 30 ml 07/19/20 18:00 Magnesium Hydroxide (Mom) Oral Liqd Udc PO QDAY PRN Constipation Ondansetron HCl 4 mg 07/17/20 16:24 07/28/20 08:09 Ondansetron 4 Mg/2 Ml Inj IV 4 mg Q8H PRN Administration Nausea And Vomiting Sodium Chloride 10 ml 07/17/20 22:00 07/29/20 09:20 Sodium Chloride 0.9% 10 Ml Flush Syringe IV 10 ml BID LACHELLE Administration Sodium Chloride 10 ml 07/17/20 16:24 07/20/20 05:13 Sodium Chloride 0.9% 10 Ml Flush Syringe IV 10 ml PRN PRN Administration LINE FLUSH
--- NOTE | 2020-07-29 20:41 | Progress Note ---
Assessment and Plan Assessment and Plan Assessment and plan: -- Sepsis/diabetic foot ulcer Current Visit: Yes Status: Acute , Plan to address problem: Elevate the limb, IV antibiotic cefazolin Repeat blood cultures negative more than 48 hours ID recommend PICC placement and long-term antibiotics Patient needs Ancef every 8 --Peripheral vascular disease; Current Visit: Yes Status: Acute Plan to address problem: Patient had revascularization done Current Visit: Yes Status: Acute , Plan to address problem: On cefazolin, ID considering long-term antibiotics 4 to 6 weeks, antibiotics per ID, PICC placement after Revascularization procedure by vascular Patient needs IV antibiotics through 08/21/2020 --Type II diabetes mellitus/uncontrolled Current Visit: Yes Status: Acute Plan to address problem: Accu-Chek sliding scale coverage ADA diet Add long-acting insulin Novolin 70/30 adjust management as needed --Constipation; Current Visit: Yes Status: Acute , Plan to address problem: Resolved, stool softeners as needed --Acute kidney injury / acute tubular necrosis (ATN) Current Visit: Yes Status: Acute Plan to address problem: continue gentle hydration, monitor renal function, avoid nephrotoxin, Resolved , --Acute metabolic acidosis Current Visit: Yes Status: Acute Plan to address problem: IV hydration monitor acidosis --Hyponatremia Current Visit: Yes Status: Acute Plan to address problem: Significant improvement Closely monitor electrolytes --Morbid obesity BMI 39.1 Current Visit: Yes Status: Acute Plan to address problem: Patient needs weight reduction When medically stable, dietary modification Exercise as tolerated and weight reduction -- DVT prophylaxis Current Visit: Yes Status: Acute Plan to address problem: SCD, patient is on heparin drip per vascular We will closely monitor the patient and adjust the management as needed Plan of care reviewed with the patient and his nurse Consults and recommendations noted and appreciated Subjective Date of service: 07/29/20 Principal diagnosis: Right lower extremity arterial disease Interval history: Brief history; 54-year-old morbidly obese male patient was admitted with diabetic foot right lower extremity cellulitis on antibiotics, evaluated by vascular Noted to have peripheral vascular disease, started on heparin drip, patient was receiving empiric antibiotics, ID evaluated, has persistent MSSA Bacteremia, repeat cultures negative more than 48 hours, ID recommend long-term antibiotics and PICC placement, however vascular is Planning right lower extremity revascularization procedure tomorrow, PICC line will be placed after heparin drip is discontinued by vascular. Disposition per vascular and ID, DC with home health 07/21/2020; patient with MSSA bacteremia, on IV antibiotics ID following, peripheral vascular disease, vascular following 07/22/2020; patient's blood sugars are uncontrolled, will increase 7030 dose Hemoglobin A1c 12.5, will advise diabetic education, diabetic diet education 07/23/2020 patient is receiving antibiotics, vascular plan to do the work-up Once he is more stable, blood sugars moderate control increase 70/30 insulin to 22 units twice a day 07/24/2020; patient feels slightly better 07/25/2020; MSSA sepsis on cefazolin, follow repeat cultures if negative 48 hours ID considering long-term antibiotics 4 to 6 weeks 07/26/2020; cultures negative to date, if negative he will this evening Patient may have long-term antibiotics 4 to 6 weeks, will get PICC line Case management will assist 07/27/2020; vascular scheduled for revascularization tomorrow, patient is on heparin drip Post revascularization, heparin will be discontinued, patient will get PICC placement disposition per vascular and ID 07/28/2020 Patient had revascularization done today Patient is pain-free Needs IV home antibiotics 07/29/2020 Patient had revascularization done yesterday Patient is pain-free Patient to go home on IV antibiotics as per ID recommendations Objective - Constitutional Vitals: Vital Signs - 12hr 07/29/20 07/29/20 07/29/20 12:15 14:12 17:49 Temperature 98.0 F 98.9 F Pulse Rate 98 H 95 H 96 H Respiratory 20 20 Rate Blood Pressure 137/83 110/6 Blood Pressure 119/59 [Right] O2 Sat by Pulse 94 91 Oximetry General appearance: Present: no acute distress, well-nourished - EENT Eyes: PERRL, EOM intact ENT: hearing intact, clear oral mucosa Ears: bilateral: normal - Neck Neck: supple, normal ROM - Respiratory Respiratory effort: normal Respiratory: bilateral: CTA - Breasts Breasts: normal - Cardiovascular Heart rate: 78 Rhythm: regular Heart Sounds: Present: S1 & S2. Absent: gallop, rub Extremities: pulses intact, No edema, normal color, Full ROM Extremity abnormal: other (Right foot ulcer) - Gastrointestinal General gastrointestinal: Present: soft, non-tender, non-distended, normal bowel sounds - Genitourinary Male genitourinary: normal - Integumentary Integumentary: clear, warm, dry - Musculoskeletal Musculoskeletal: 1, strength equal bilaterally - Neurologic Neurologic: moves all extremities - Psychiatric Psychiatric: memory intact, appropriate mood/affect, intact judgment & insight - Labs CBC & Chem 7: 07/26/20 07:30 07/26/20 07:30 Labs: Abnormal lab results 07/28/20 07/29/20 07/29/20 Range/Units 22:23 07:42 12:14 POC Glucose 140 H 155 H 175 H (70-105) mg/dL
[2020-07-30] MEDS: hydrALAZINE 25 MG TAB PO SCH ×3 (06:02→21:11)
[2020-07-30] MEDS: INSULIN REGULAR, HUMAN 100 UNITS/1 ML SUB-Q SCH ×4 (07:30→22:30)
[2020-07-30] MEDS: INSULIN NPH/REGULAR 70/30 INJ SUB-Q SCH ×2 (08:21→17:10)
[2020-07-30] MEDS: CLOPIDOGREL 75 MG TAB PO SCH (09:19)
[2020-07-30] MEDS: hydroCHLOROthiazide 12.5 MG CAP PO SCH (09:19)
[2020-07-30] MEDS: APIXABAN 5 MG TAB PO SCH ×2 (09:19→21:11)
--- NOTE | 2020-07-30 13:39 | Progress Note ---
Assessment and Plan The patient has no complaints of pain in his foot is well vascularized. I debrided the superficial layer overlying the fluid collection on his first toe which drained serous fluid. There was no evidence of purulence. It is likely that there was an embolic event to his first toe and a portion of his second toe during the previous procedure. At this time his toe appears viable. We will continue to perform local wound care. We will order him a front offloading boot that he can get once he is discharged. Otherwise he is stable from a vascular surgery standpoint and can be discharged once he is stable from a medical standpoint. He should follow-up in the office in 2 weeks. Subjective Date of service: 07/30/20 Principal diagnosis: Right lower extremity arterial disease Interval history: The patient denies having any pain. He complains of discoloration of the right first toe that is worse with standing. He has no additional complaints at this time. Objective - Constitutional Vitals: Vital Signs - 12hr 07/30/20 07/30/20 07/30/20 05:55 05:56 07:27 Temperature 97.5 F L Pulse Rate 86 85 Respiratory 18 Rate Blood Pressure 135/69 O2 Sat by Pulse 96 96 92 Oximetry General appearance: Present: no acute distress - Respiratory Respiratory effort: normal - Cardiovascular Rhythm: regular Extremities: pulses intact (Palpable right posterior tibial pulse), abnormal (Right first toe with ischemic changes which are unchanged from his initial presentation, fluid collection beneath the skin on the plantar surface of the first toe) Extremity abnormal: other (Second toe with small area of ischemia likely embolic which is stable from his initial presentation) - Labs CBC & Chem 7: 07/26/20 07:30 07/26/20 07:30 Labs: Abnormal lab results 07/29/20 07/29/20 07/30/20 Range/Units 16:18 21:38 07:38 POC Glucose 189 H 233 H 165 H (70-105) mg/dL 07/30/20 Range/Units 12:07 POC Glucose 149 H (70-105) mg/dL Medications & Allergies - Medications Allergies/Adverse Reactions: Allergies shellfish derived Allergy (Verified 08/11/14 11:29) Hives Home Medications: Home Medications Medication Instructions Recorded Confirmed Last Taken Type Insulin NPH/Regular [NovoLIN /30] 34 unit SUB-Q QDDIAB #30 ml 05/20/14 07/22/20 08/10/14 Rx Docusate Sodium [Colace] 100 mg PO BID PRN #14 capsule 08/11/14 07/22/20 Unknown Rx Active Medications: Generic Name Dose Route Start Last Admin Trade Name Freq PRN Reason Stop Dose Admin Acetaminophen 650 mg 07/17/20 16:24 Acetaminophen 325 Mg Tab PO Q4H PRN Pain MILD(1-3)/Fever >100.5/CARIAS Albuterol 2.5 mg 07/17/20 16:24 Albuterol 2.5 Mg/3 Ml Nebu IH Q4HRT PRN Shortness Of Breath Apixaban 5 mg 07/28/20 22:00 07/30/20 09:19 Apixaban 5 Mg Tab PO 5 mg Q12HR LACHELLE Administration Protocol Clopidogrel Bisulfate 75 mg 07/28/20 20:00 07/30/20 09:19 Clopidogrel 75 Mg Tab PO 75 mg QDAY LACHELLE Administration Hydralazine HCl 50 mg 07/22/20 14:00 07/30/20 06:02 Hydralazine 25 Mg Tab PO 50 mg Q8HR LACHELLE Administration Hydralazine HCl 10 mg 07/22/20 08:10 07/25/20 05:32 Hydralazine 20 Mg/1 Ml Inj IV 10 mg Q4HR PRN Administration Hypertension Hydrochlorothiazide 12.5 mg 07/22/20 10:00 07/30/20 09:19 Hydrochlorothiazide 12.5 Mg Cap PO 12.5 mg QDAY LACHELLE Administration Hydromorphone HCl 0.25 mg 07/17/20 16:24 07/28/20 22:42 Hydromorphone 1 Mg/1 Ml Inj IV 0.25 mg Q4H PRN Administration Pain, Moderate (4-6) Cefazolin Sodium 2 gm/ Sodium 100 mls @ 200 mls/hr 07/22/20 12:30 07/30/20 12:09 Chloride IV 08/21/20 23:59 200 mls/hr Q6H LACHELLE Administration Protocol Insulin Human Isoph/Insulin Regular 28 unit 07/24/20 19:00 07/30/20 08:21 Insulin Nph/Regular 70/30 Inj SUB-Q 28 unit BIDDIAB LACHELLE Administration Insulin Human Regular 0 units 07/17/20 22:00 07/30/20 11:30 Insulin Regular, Human 100 Units/1 Ml SUB-Q Not Given ACHS [facility] Protocol Magnesium Hydroxide 30 ml 07/19/20 18:00 Magnesium Hydroxide (Mom) Oral Liqd Udc PO QDAY PRN Constipation Ondansetron HCl 4 mg 07/17/20 16:24 07/28/20 08:09 Ondansetron 4 Mg/2 Ml Inj IV 4 mg Q8H PRN Administration Nausea And Vomiting Sodium Chloride 10 ml 07/17/20 22:00 07/30/20 09:19 Sodium Chloride 0.9% 10 Ml Flush Syringe IV 10 ml BID LACHELLE Administration Sodium Chloride 10 ml 07/17/20 16:24 07/20/20 05:13 Sodium Chloride 0.9% 10 Ml Flush Syringe IV 10 ml PRN PRN Administration LINE FLUSH
--- NOTE | 2020-07-30 14:12 | Progress Note ---
Assessment and Plan Assessment and Plan Assessment and plan: -- Sepsis/diabetic foot ulcer Current Visit: Yes Status: Acute , Plan to address problem: Elevate the limb, IV antibiotic cefazolin Repeat blood cultures negative more than 48 hours ID recommend PICC placement and long-term antibiotics Patient needs Ancef every 8 through 08/21/2020 --Peripheral vascular disease; Current Visit: Yes Status: Acute Plan to address problem: Patient had revascularization done Current Visit: Yes Status: Acute , Plan to address problem: On cefazolin, ID considering long-term antibiotics 4 to 6 weeks, antibiotics per ID, PICC placement after Revascularization procedure by vascular Patient needs IV antibiotics through 08/21/2020 --Type II diabetes mellitus/uncontrolled Current Visit: Yes Status: Acute Plan to address problem: Accu-Chek sliding scale coverage ADA diet Add long-acting insulin Novolin 70/30 adjust management as needed --Constipation; Current Visit: Yes Status: Acute , Plan to address problem: Resolved, stool softeners as needed --Acute kidney injury / acute tubular necrosis (ATN) Current Visit: Yes Status: Acute Plan to address problem: continue gentle hydration, monitor renal function, avoid nephrotoxin, Resolved , --Acute metabolic acidosis Current Visit: Yes Status: Acute Plan to address problem: IV hydration monitor acidosis --Hyponatremia Current Visit: Yes Status: Acute Plan to address problem: Significant improvement Closely monitor electrolytes --Morbid obesity BMI 39.1 Current Visit: Yes Status: Acute Plan to address problem: Patient needs weight reduction When medically stable, dietary modification Exercise as tolerated and weight reduction -- DVT prophylaxis Current Visit: Yes Status: Acute Plan to address problem: SCD, patient is on heparin drip per vascular We will closely monitor the patient and adjust the management as needed Plan of care reviewed with the patient and his nurse Consults and recommendations noted and appreciated Subjective Date of service: 07/30/20 Principal diagnosis: Right lower extremity arterial disease Interval history: Brief history; 54-year-old morbidly obese male patient was admitted with diabetic foot right lower extremity cellulitis on antibiotics, evaluated by vascular Noted to have peripheral vascular disease, started on heparin drip, patient was receiving empiric antibiotics, ID evaluated, has persistent MSSA Bacteremia, repeat cultures negative more than 48 hours, ID recommend long-term antibiotics and PICC placement, however vascular is Planning right lower extremity revascularization procedure tomorrow, PICC line will be placed after heparin drip is discontinued by vascular. Disposition per vascular and ID, DC with home health 07/21/2020; patient with MSSA bacteremia, on IV antibiotics ID following, peripheral vascular disease, vascular following 07/22/2020; patient's blood sugars are uncontrolled, will increase 7030 dose Hemoglobin A1c 12.5, will advise diabetic education, diabetic diet education 07/23/2020 patient is receiving antibiotics, vascular plan to do the work-up Once he is more stable, blood sugars moderate control increase 70/30 insulin to 22 units twice a day 07/24/2020; patient feels slightly better 07/25/2020; MSSA sepsis on cefazolin, follow repeat cultures if negative 48 hours ID considering long-term antibiotics 4 to 6 weeks 07/26/2020; cultures negative to date, if negative he will this evening Patient may have long-term antibiotics 4 to 6 weeks, will get PICC line Case management will assist 07/27/2020; vascular scheduled for revascularization tomorrow, patient is on heparin drip Post revascularization, heparin will be discontinued, patient will get PICC placement disposition per vascular and ID 07/28/2020 Patient had revascularization done today Patient is pain-free Needs IV home antibiotics 07/29/2020 Patient had revascularization done yesterday Patient is pain-free Patient to go home on IV antibiotics as per ID recommendations 07/30/2020 Patient will be discharged tomorrow Patient to continue IV home antibiotics Patient to follow-up with ID and vascular surgery Objective - Constitutional Vitals: Vital Signs - 12hr 07/30/20 07/30/20 07/30/20 05:55 05:56 07:27 Temperature 97.5 F L Pulse Rate 86 85 Respiratory 18 Rate Blood Pressure 135/69 O2 Sat by Pulse 96 96 92 Oximetry 07/30/20 13:20 Temperature 98.4 F Pulse Rate 96 H Respiratory 20 Rate Blood Pressure 131/68 O2 Sat by Pulse 96 Oximetry General appearance: Present: no acute distress, well-nourished - EENT Eyes: PERRL, EOM intact ENT: hearing intact, clear oral mucosa Ears: bilateral: normal - Neck Neck: supple, normal ROM - Respiratory Respiratory effort: normal Respiratory: bilateral: CTA - Breasts Breasts: normal - Cardiovascular Heart rate: 78 Rhythm: regular Heart Sounds: Present: S1 & S2. Absent: gallop, rub Extremities: pulses intact, No edema, normal color, Full ROM Extremity abnormal: other (Right foot ulcer of the great toe) - Gastrointestinal General gastrointestinal: Present: soft, non-tender, non-distended, normal bowel sounds - Genitourinary Male genitourinary: normal - Integumentary Integumentary: clear, warm, dry - Musculoskeletal Musculoskeletal: 1, strength equal bilaterally - Neurologic Neurologic: moves all extremities - Psychiatric Psychiatric: memory intact, appropriate mood/affect, intact judgment & insight - Labs CBC & Chem 7: 07/26/20 07:30 07/26/20 07:30 Labs: Abnormal lab results 07/29/20 07/29/20 07/30/20 Range/Units 16:18 21:38 07:38 POC Glucose 189 H 233 H 165 H (70-105) mg/dL 07/30/20 Range/Units 12:07 POC Glucose 149 H (70-105) mg/dL
[2020-07-30] MEDS: HYDROmorphone 1 MG/1 ML INJ IV PRN (18:17)
[2020-07-30] MEDS: ONDANSETRON 4 MG/2 ML INJ IV PRN (18:24)
[2020-07-31] MEDS: hydrALAZINE 25 MG TAB PO SCH ×2 (05:32→13:26)
[2020-07-31] MEDS: INSULIN REGULAR, HUMAN 100 UNITS/1 ML SUB-Q SCH ×3 (09:20→17:25)
[2020-07-31] MEDS: INSULIN NPH/REGULAR 70/30 INJ SUB-Q SCH ×2 (09:30→17:24)
[2020-07-31] MEDS: APIXABAN 5 MG TAB PO SCH (10:58)
[2020-07-31] MEDS: hydroCHLOROthiazide 12.5 MG CAP PO SCH (10:59)
[2020-07-31] MEDS: CLOPIDOGREL 75 MG TAB PO SCH (10:59)
--- NOTE | 2020-07-31 14:18 | Progress Note ---
Assessment and Plan Cultures: 07/17/2020 blood culture: MSSA 07/20/2020 blood culture: MSSA 07/24/2020 blood culture: No growth so far. A/P: 54-year-old male with diabetes, gastroesophageal reflux disease, obesity, peripheral vascular disease, recent revascularization on 07/10/2020, previous diabetic foot ulceration: #Sepsis, secondary to Staph aureus (MSSA) bacteremia #MSSA s bacteremia: Source is unclear but suspect right foot cellulitis. Recent revascularization in the right lower extremity with stent placement on 07/10/2020, denies any other prosthetic material. MRI showed extensive dorsal and lateral ankle edema without evidence of abscess. There is evidence of Charcot foot as well as diffuse edema in the muscle suggesting myopathy versus myositis. TTE did not reveal any valvular vegetations. Right great toe collection status post bedside I&D serous drainage no purulence. #Diabetes mellitus type 2, uncontrolled #Peripheral vascular disease: Recent revascularization with stent placement on 07/10/2020. Vascular following. #DAQUAN: renally adjust abx based on creatinine. Improved. Recs: -Continue Ancef IV 2 gm q6 hrs (high dose due to obesity). Case management consulted for Ancef 2g q8h (decreased dose on discharge as bacteremia cleared and to improve compliance) until 08/21/2020. ABx approved with [facility] -Ordered PICC line -Follow-up with vascular Well sign off please call for questions Yue Patel MD [facility] ([facility]) Office [phone]. Subjective Date of service: 07/31/20 Principal diagnosis: Right lower extremity arterial disease Interval history: Patient feels better. Wants to go home. Complaints. Objective - Exam Narrative Exam: General appearance: Alert in NAD pleasant Eyes: anicteric sclerae, moist conjunctivae; no lid-lag; PERRLA HENT: Normocephalic, Atraumatic; normal external ears, nares open, oropharynx clear with moist mucous membranes and no oral thrush Neck: supple, tracheal midline, no JVD Lungs: CTA, with normal respiratory effort and no intercostal retractions CV: RRR no murmur Abdomen: Soft, non-tender; no masses or hepatosplenomegaly Extremities: Right foot edema, mild erythema, right great toe with open wound superficial, no purulence Skin: No rash. Psych: no agitated Neuro: alert and oriented x 3. Moving all extermities - Constitutional Vitals: Vital Signs Temp Pulse Resp BP Pulse Ox 98.7 F 88 18 153/73 93 07/31/20 11:49 07/31/20 13:26 07/31/20 11:49 07/31/20 13:26 07/31/20 11:49 Temperature -Last 24 Hours Temperature 98.7 F Temperature 98.2 F Temperature 97.7 F - Labs CBC & Chem 7: 07/26/20 07:30 07/26/20 07:30 Labs: Abnormal lab results 07/30/20 07/30/20 07/31/20 Range/Units 17:06 22:08 07:49 POC Glucose 176 H 181 H 174 H (70-105) mg/dL 07/31/20 Range/Units 11:51 POC Glucose 215 H (70-105) mg/dL
--- NOTE | 2020-07-31 14:43 | Discharge Summary ---
Providers - Providers Date of Admission: 07/17/20 16:24 Date of discharge: 07/31/20 Attending physician: IRVIN QUAN 07/18/20 05:13 Consult to Wound/ET Nurse [CONS] Routine Reason For Exam: wound eval to right foot. 07/18/20 11:47 Consult to Physician [CONS] Routine Comment: Consulting Provider: JOY FALL Physician Instructions: Reason For Exam: evaluate right foot 07/20/20 12:37 Consult to Physician [CONS] Routine Comment: Consulting Provider: HECTOR NORIEGA Physician Instructions: Reason For Exam: Diabetic foot/cellulitis/staph bacteremia 07/25/20 18:53 Physical Therapy Evaluation and Treat [CONS] Routine Comment: Reason For Exam: Evaluate and treat/DC needs 07/26/20 13:38 Consult to Case Management [CONS] Routine Services Needed at Discharge: Home Health Services Notified:: CM Additional Physician Instructions: Colette Black MD [facility] ([facility] M: [phone] O: [phone] F: [phone] Outpatient parenteral antibiotic therapy orders Diagnosis: MSSA bacteremia Antibiotic administration: cefazolin 2g q8h until 08/21/2020 Line: PICC Lab monitoring: CBC with differential, BUN, creatinine, LFTs once per week preferably on Friday or Friday For critical labs, call office: [phone] Colette Black 07/27/20 11:48 Consult to PICC Line RN [CONS] Routine Reason For Exam: Antibiotics at home Type Line:: PICC Primary care physician: [facility] Hospitalization Condition: Stable Hospital course: Subjective Date of service: 07/30/20 Principal diagnosis: Right lower extremity arterial disease Interval history: Brief history; 54-year-old morbidly obese male patient was admitted with diabetic foot right lower extremity cellulitis on antibiotics, evaluated by vascular Noted to have peripheral vascular disease, started on heparin drip, patient was receiving empiric antibiotics, ID evaluated, has persistent MSSA Bacteremia, repeat cultures negative more than 48 hours, ID recommend long-term antibiotics and PICC placement, however vascular is Planning right lower extremity revascularization procedure tomorrow, PICC line will be placed after heparin drip is discontinued by vascular. Disposition per vascular and ID, DC with home health 07/21/2020; patient with MSSA bacteremia, on IV antibiotics ID following, peripheral vascular disease, vascular following 07/22/2020; patient's blood sugars are uncontrolled, will increase 7030 dose Hemoglobin A1c 12.5, will advise diabetic education, diabetic diet education 07/23/2020 patient is receiving antibiotics, vascular plan to do the work-up Once he is more stable, blood sugars moderate control increase 70/30 insulin to 22 units twice a day 07/24/2020; patient feels slightly better 07/25/2020; MSSA sepsis on cefazolin, follow repeat cultures if negative 48 hours ID considering long-term antibiotics 4 to 6 weeks 07/26/2020; cultures negative to date, if negative he will this evening Patient may have long-term antibiotics 4 to 6 weeks, will get PICC line Case management will assist 07/27/2020; vascular scheduled for revascularization tomorrow, patient is on heparin drip Post revascularization, heparin will be discontinued, patient will get PICC placement disposition per vascular and ID 07/28/2020 Patient had revascularization done today Patient is pain-free Needs IV home antibiotics 07/29/2020 Patient had revascularization done yesterday Patient is pain-free Patient to go home on IV antibiotics as per ID recommendations 07/30/2020 Patient will be discharged tomorrow Patient to continue IV home antibiotics Patient to follow-up with ID and vascular surgery 07/31/2020 IV antibiotics approved Patient to be discharged with home health, wound care and home IV antibiotics Assessment and Plan Assessment and plan: -- Sepsis/diabetic foot ulcer Current Visit: Yes Status: Acute , Plan to address problem: Elevate the limb, IV antibiotic cefazolin Repeat blood cultures negative more than 48 hours ID recommend PICC placement and long-term antibiotics Patient needs Ancef every 8 through 08/21/2020 --Peripheral vascular disease; Current Visit: Yes Status: Acute Plan to address problem: Patient had revascularization done on 07/28/2020 Current Visit: Yes Status: Acute , Plan to address problem: On cefazolin, ID considering long-term antibiotics 4 to 6 weeks, antibiotics per ID, PICC placement done Revascularization procedure by vascular Patient needs IV antibiotics through 08/21/2020 --Type II diabetes mellitus/uncontrolled Current Visit: Yes Status: Acute Plan to address problem: Accu-Chek sliding scale coverage ADA diet Add long-acting insulin Novolin 70/30 adjust management as needed --Constipation; Current Visit: Yes Status: Acute , Plan to address problem: Resolved, stool softeners as needed --Acute kidney injury / acute tubular necrosis (ATN) Current Visit: Yes Status: Acute Plan to address problem: Improved --Acute metabolic acidosis Current Visit: Yes Status: Acute Plan to address problem: IV hydration monitor acidosis --Hyponatremia Current Visit: Yes Status: Acute Plan to address problem: Significant improvement Closely monitor electrolytes --Morbid obesity BMI 39.1 Current Visit: Yes Status: Acute Plan to address problem: Patient needs weight reduction When medically stable, dietary modification Exercise as tolerated and weight reduction -- DVT prophylaxis Current Visit: Yes Status: Acute Plan to address problem: SCD, patient is on heparin drip per vascular We will closely monitor the patient and adjust the management as needed Plan of care reviewed with the patient and his nurse Consults and recommendations noted and appreciated Disposition: DC-01 TO HOME OR SELFCARE Final Discharge Diagnosis (Prints w/discharge instructions): Sepsis. Peripheral vascular disease. Diabetic foot ulcer. Uncontrolled diabetes. Long-term IV antibiotics till 08/21/2020 Time spent for discharge: 40 minutes - Discharge Diagnoses (1) Sepsis Status: Acute (2) Acute kidney injury (DAQUAN) with acute tubular necrosis (ATN) Status: Acute Comment: Resolved Creatinine is normal (3) Diabetes mellitus Status: Chronic Qualifiers: Diabetes mellitus type: type 2 Comment: Reasonably well controlled (4) Hyponatremia Status: Acute (5) Obesity hypoventilation syndrome Status: Acute (6) Hypertension Status: Acute (7) Swelling of both lower extremities Status: Acute (8) DVT prophylaxis Status: Acute Core Measure Documentation - Palliative Care Palliative Care/ Comfort Measures: Not Applicable - Core Measures Any of the following diagnoses?: none Exam - Constitutional Vitals: Temp Pulse Resp BP Pulse Ox 98.7 F 88 18 153/73 93 07/31/20 11:49 07/31/20 13:26 07/31/20 11:49 07/31/20 13:26 07/31/20 11:49 General appearance: Present: no acute distress, well-nourished - EENT Eyes: Present: PERRL ENT: hearing intact, clear oral mucosa - Neck Neck: Present: supple, normal ROM - Respiratory Respiratory effort: normal Respiratory: bilateral: CTA - Cardiovascular Heart rate: 78 Rhythm: regular Heart Sounds: Present: S1 & S2. Absent: rub, click - Extremities Extremities: pulses symmetrical, No edema Extremity abnormal: other (Right great toe ulcer) Peripheral Pulses: within normal limits - Abdominal General gastrointestinal: Present: soft, non-tender, non-distended, normal bowel sounds, other Male genitourinary: Present: normal - Integumentary Integumentary: Present: clear, warm, dry - Musculoskeletal Musculoskeletal: gait normal, strength equal bilaterally - Psychiatric Psychiatric: appropriate mood/affect, intact judgment & insight - Neurologic Neurologic: CNII-XII intact, moves all extremities Plan Activity: no restrictions Diet: diabetic Special Instructions: home health RN Follow up with: [facility] MD GERONIMO [Primary Care Provider] - 3-5 Days JOIE BLACK MD [Staff Physician] - 7 Days TAMEKA GARDUNO MD [Staff Physician] - 7 Days
[2020-07-31 18:38] VITALS: BP 161/75
== END 2020-07-31 19:30 | disposition home health service (06) | DRG 853 ==
LOC: ED 12:21 → 3A 16:24
PROVIDERS: ADMIT Internal Medicine; ATTEND Internal Medicine
PROC: B54CZZA Ultrasonography of Left Lower Extremity Veins, Guidance (ICD-10-PCS; principal; 2020-07-28)
PROC: 047R341 Dilation of Right Posterior Tibial Artery with Drug-eluting Intraluminal Device, using Drug-Coated Balloon, Percutaneous Approach (ICD-10-PCS; 2020-07-28)
PROC: 047K3D1 Dilation of Right Femoral Artery with Intraluminal Device, using Drug-Coated Balloon, Percutaneous Approach (ICD-10-PCS; 2020-07-28)
PROC: 047K34Z Dilation of Right Femoral Artery with Drug-eluting Intraluminal Device, Percutaneous Approach (ICD-10-PCS; 2020-07-28)
PROC: B41D1ZZ Fluoroscopy of Aorta and Bilateral Lower Extremity Arteries using Low Osmolar Contrast (ICD-10-PCS; 2020-07-28)
PROC: B41J1ZZ Fluoroscopy of Other Lower Arteries using Low Osmolar Contrast (ICD-10-PCS; 2020-07-28)
DX: A41.01 Sepsis due to Methicillin susceptible Staphylococcus aureus (principal); N17.0 Acute kidney failure with tubular necrosis; N39.0 Urinary tract infection, site not specified; E87.1 Hypo-osmolality and hyponatremia; E66.2 Morbid (severe) obesity with alveolar hypoventilation; I73.9 Peripheral vascular disease, unspecified; E11.621 Type 2 diabetes mellitus with foot ulcer; K59.00 Constipation, unspecified; E11.51 Type 2 diabetes mellitus with diabetic peripheral angiopathy without gangrene; K21.9 Gastro-esophageal reflux disease without esophagitis; I10 Essential (primary) hypertension; E11.8 Type 2 diabetes mellitus with unspecified complications; Z68.39 Body mass index [BMI] 39.0-39.9, adult; Z71.3 Dietary counseling and surveillance; Z91.013 Allergy to seafood; Z79.899 Other long term (current) drug therapy; Z79.891 Long term (current) use of opiate analgesic; Z79.01 Long term (current) use of anticoagulants; Z79.4 Long term (current) use of insulin; Z63.5 Disruption of family by separation and divorce; Z90.49 Acquired absence of other specified parts of digestive tract; Z95.828 Presence of other vascular implants and grafts; Z83.3 Family history of diabetes mellitus; Z82.49 Family history of ischemic heart disease and other diseases of the circulatory system
CPT/HCPCS: 36415; 37226; 37228; 71045; 74176; 75625; 75710; 76937; 80048; 80053; 80202; 81001; 82140; 82550; 82962; 83735; 85007; 85014; 85018; 85025; 85027; 85049; 85520; 85610; 85730; 86850; 86900; 86901; 87040; 87076; 87186; 93005; 93306; 93922; 93925; 93970; 94760; 96365; 96366; 96375; G0378; A9575; C1725; C1760; C1769; C1874; C1876; C1887; C2623; J0360; J0690; J0692; J0696; J1170; J1644; J1815; J2250; J2405; J2543; J3010; J3370; J7030; J7040; Q9967

== ENCOUNTER 2020-09-19 17:10 | Inpatient (IN) | payer BC ==
[2020-09-19] MEDS ORDERED: MORPHINE 4 MG/1 ML INJ IV ONE ×2 (17:52→22:14)
[2020-09-19 18:31] LABS: Basophils % (Auto) 0.4 % (0.0-1.8); Eosinophils # (Auto) 0.1 K/mm3 (0.0-0.4); Eosinophils % (Auto) 0.9 % (0.0-4.3); Hemoglobin 11.1 gm/dl (11.8-15.2); Lymphocytes # (Auto) 0.8 K/mm3 (1.2-5.4); Lymphocytes % (Auto) 7.6 % (13.4-35.0); Mean Corpuscular HGB Conc 33 % (32-34); Mean Corpuscular Volume 85 fl (84-94); Monocytes # (Auto) 0.6 K/mm3 (0.0-0.8); Monocytes % (Auto) 5.4 % (0.0-7.3); Platelet Count 322 K/mm3 (140-440); Red Blood Count 4.02 M/mm3 (3.65-5.03); Red Cell Distribution Width 15.5 % (13.2-15.2)
--- NOTE | 2020-09-19 18:32 | Emergency Department Report ---
HPI - General Time Seen by Provider: 09/19/20 17:51 - HPI HPI: This is a 54-year-old male who presents to the emergency department via EMS from [facility] with complaint of right thigh pain and some near syncope with hypotension. The patient has a history of right lower extremity revascularization that was done in late July by Dr. Carroll of [facility] vascular [place] secondary to severe PVD. Over the past 2 to 3 days the patient has been having increased right thigh pain. It got really bad yesterday afternoon to the point where the patient was unable to get any sleep last night. He contacted his vascular surgeon who saw him in the office today. He apparently had some ultrasounds done, which I am assuming is to look at his arterial flow and rule out any blood clots, as well as "they took all of my pressures." He was set up for another revascularization procedure to be done tomorrow. However, the patient has to have a referral for this to happen. He was told to go over to [facility] to speak with his PCP. While he was at the office of the PCP the patient began feeling as if he was going to pass out and had a blood pressure of about 60/40 and EMS was called. The patient received IV fluid resuscitation and presents to the emergency department with hypertension. He does have a history of hypertension as well as insulin- dependent diabetes. At the time of my examination the patient feels greatly improved other than the aching right thigh pain that he gives a 5 out of 10 in intensity. ED Past Medical Hx - Past Medical History Hx Hypertension: No Hx Diabetes: Yes (9 YRS) Hx Deep Vein Thrombosis: No Hx GERD: Yes - Surgical History Hx Pacemaker: No Hx Internal Defibrillator: No Hx Appendectomy: Yes - Social History Smoking Status: Never Smoker Substance Use Type: None - Medications Home Medications: Home Medications Medication Instructions Recorded Confirmed Last Taken Type ALBUTEROL NEB's [Proventil 0.083% 2.5 mg IH Q4HRT PRN #2 nebu 07/31/20 09/19/20 Unknown Rx NEBS] Apixaban [Eliquis] 5 mg PO Q12HR #60 tablet 07/31/20 09/19/20 Unknown Rx Docusate Sodium [Colace CAP] 100 mg PO BID PRN #60 capsule 07/31/20 09/19/20 Unknown Rx Insulin NPH/Regular [NovoLIN 70/30] 38 unit SUB-Q QDDIAB #3 vial 07/31/20 09/19/20 Unknown Rx Potassium Chloride [K-Dur] 10 meq PO QDAY #30 tablet 07/31/20 09/19/20 Unknown Rx ceFAZolin/NS 2 GM/100 ML [Ancef/Ns 2 gm IV Q6HR 22 Days #88 piggyback 07/31/20 09/19/20 Unknown Rx 2 gm/100 ml] hydroCHLOROthiazide [HCTZ] 25 mg PO QDAY #30 capsule 07/31/20 09/19/20 Unknown Rx ED Review of Systems ROS: Stated complaint: RT LEG PAIN Other details as noted in HPI Comment: All other systems reviewed and negative Constitutional: denies: chills, fever Eyes: denies: vision change ENT: denies: ear pain, throat pain Respiratory: denies: cough, shortness of breath Cardiovascular: syncope (near syncope). denies: chest pain Gastrointestinal: denies: abdominal pain, vomiting Genitourinary: denies: dysuria, discharge Musculoskeletal: myalgia. denies: back pain Skin: denies: rash, lesions Neurological: denies: headache, weakness Physical Exam - Physical Exam Physical Exam: GENERAL: The patient is well-developed well-nourished. HENT: Normocephalic. Atraumatic. Patient has moist mucous membranes. EYES: Extraocular motions are intact. NECK: Supple. Trachea is midline. CHEST/LUNGS: Clear to auscultation. There is no respiratory distress noted. HEART/CARDIOVASCULAR: Regular. There is no tachycardia. There is no murmur. ABDOMEN: Abdomen is soft, nontender. Patient has normal bowel sounds. SKIN: Skin is warm and dry. There is mild to moderate right lower extremity nonpitting swelling when compared to the left. NEURO: The patient is awake, alert, and oriented. The patient is cooperative. The patient has no focal neurologic deficits. Normal speech. MUSCULOSKELETAL: Unable to reproduce right thigh pain to palpation. +2/4 dorsalis pedis pulse to the affected right lower extremity. ED Course - Consultations Consultation #1: 09/19/20 20:[address] Morales, vascular surgeon on-call for [facility] vascular [place]. Given the patient's history this evening of transient hypotension and near syncope, as well as the fact that he has severe PVD with a procedure to be done tomorrow, Dr. Morales has recommended that the patient be admitted to the hospital and be made n.p.o. after midnight. ED Medical Decision Making - Lab Data Result diagrams: 09/19/20 18:09 09/19/20 18:09 Lab Results 09/19/20 09/19/20 09/19/20 Range/Units 18:09 18:09 18:09 WBC 11.0 (4.5-11.0) K/mm3 RBC 4.02 (3.65-5.03) M/mm3 Hgb 11.1 L (11.8-15.2) gm/dl Hct 34.0 L (35.5-45.6) % MCV 85 (84-94) fl MCH 28 (28-32) pg MCHC 33 (32-34) % RDW 15.5 H (13.2-15.2) % Plt Count 322 (140-440) K/mm3 Lymph % (Auto) 7.6 L (13.4-35.0) % [place] % (Auto) 5.4 (0.0-7.3) % Eos % (Auto) 0.9 (0.0-4.3) % Baso % (Auto) 0.4 (0.0-1.8) % Lymph # (Auto) 0.8 L (1.2-5.4) K/mm3 [place] # (Auto) 0.6 (0.0-0.8) K/mm3 Eos # (Auto) 0.1 (0.0-0.4) K/mm3 Baso # (Auto) 0.0 (0.0-0.1) K/mm3 Seg Neutrophils % 85.7 H (40.0-70.0) % Seg Neutrophils # 9.5 H (1.8-7.7) K/mm3 PT 12.9 (12.2-14.9) Sec. INR 0.99 (0.87-1.13) Sodium 135 L (137-145) mmol/L Potassium 5.0 (3.6-5.0) mmol/L Chloride 99.2 (98-107) mmol/L Carbon Dioxide 23 (22-30) mmol/L Anion Gap 18 mmol/L BUN 20 (9-20) mg/dL Creatinine 1.0 (0.8-1.3) mg/dL Estimated GFR > 60 ml/min BUN/Creatinine Ratio 20 % Glucose 195 H (75-100) mg/dL Calcium 9.2 (8.4-10.2) mg/dL Total Bilirubin 0.70 (0.1-1.2) mg/dL AST 9 (5-40) units/L ALT 8 (7-56) units/L Alkaline Phosphatase 125 (35-129) units/L Troponin T < 0.010 (0.00-0.029) ng/mL Total Protein 6.4 (6.3-8.2) g/dL Albumin 3.7 L (3.9-5) g/dL Albumin/Globulin Ratio 1.4 % TSH (0.270-4.200) mlU/mL 09/19/20 Range/Units 18:09 WBC (4.5-11.0) K/mm3 RBC (3.65-5.03) M/mm3 Hgb (11.8-15.2) gm/dl Hct (35.5-45.6) % MCV (84-94) fl MCH (28-32) pg MCHC (32-34) % RDW (13.2-15.2) % Plt Count (140-440) K/mm3 Lymph % (Auto) (13.4-35.0) % [place] % (Auto) (0.0-7.3) % Eos % (Auto) (0.0-4.3) % Baso % (Auto) (0.0-1.8) % Lymph # (Auto) (1.2-5.4) K/mm3 [place] # (Auto) (0.0-0.8) K/mm3 Eos # (Auto) (0.0-0.4) K/mm3 Baso # (Auto) (0.0-0.1) K/mm3 Seg Neutrophils % (40.0-70.0) % Seg Neutrophils # (1.8-7.7) K/mm3 PT (12.2-14.9) Sec. INR (0.87-1.13) Sodium (137-145) mmol/L Potassium (3.6-5.0) mmol/L Chloride (98-107) mmol/L Carbon Dioxide (22-30) mmol/L Anion Gap mmol/L BUN (9-20) mg/dL Creatinine (0.8-1.3) mg/dL Estimated GFR ml/min BUN/Creatinine Ratio % Glucose (75-100) mg/dL Calcium (8.4-10.2) mg/dL Total Bilirubin (0.1-1.2) mg/dL AST (5-40) units/L ALT (7-56) units/L Alkaline Phosphatase (35-129) units/L Troponin T (0.00-0.029) ng/mL Total Protein (6.3-8.2) g/dL Albumin (3.9-5) g/dL Albumin/Globulin Ratio % TSH 4.640 H (0.270-4.200) mlU/mL - EKG Data -: EKG Interpreted by Me EKG shows normal: sinus rhythm, axis, intervals, QRS complexes, ST-T waves Rate: normal - EKG Data When compared to previous EKG there are: previous EKG unavailable Interpretation: normal EKG - Medical Decision Making This patient presented to the emergency department after he had a near syncopal episode with some transient hypotension while at [facility]. Patient was evaluated earlier in the day at [facility] for his history of peripheral vascular disease and right thigh pain. He is set up to have what seems like a revascularization procedure, tomorrow. The patient received some IV fluid resuscitation in route with EMS and presents with hypertension, not hypotension. Overall the patient is feeling improved but continues to have right thigh pain. He said that he had some type of ultrasound done at [facility], which is either checking for arterial insufficiency or DVTs or both. Labs have been mostly unremarkable including CBC, metabolic panel, and a negative troponin. After speaking with Dr. Morales, the patient will be admitted to the hospitalist service, will be made n.p.o. after midnight. The patient was accepted for admission by the hospitalist, Dr. Kent. Critical Care Time: No Critical care attestation.: If time is entered above; I have spent that time in minutes in the direct care of this critically ill patient, excluding procedure time. ED Disposition Clinical Impression: Peripheral vascular disease, Near syncope, Right thigh pain Disposition: OP ADMIT IP TO THIS HOSP Is pt being admited?: Yes Condition: Fair Time of Disposition: 22:12
[2020-09-19 18:43] LABS: INR 0.99 (0.87-1.13)
[2020-09-19 18:52] LABS: Alanine Aminotransferase 8 units/L (7-56); Albumin 3.7 g/dL (3.9-5); BUN/Creatinine Ratio 20; Blood Urea Nitrogen 20 mg/dL (9-20); Calcium 9.2 mg/dL (8.4-10.2); Hemolysis Index 5
[2020-09-19] MEDS ORDERED: MAGNESIUM HYDROXIDE (MOM) ORAL LIQD UDC PO PRN (22:46)
[2020-09-19] MEDS ORDERED: ONDANSETRON 4 MG/2 ML INJ IV PRN (22:46)
[2020-09-19] MEDS ORDERED: MORPHINE 2 MG/1 ML INJ IV PRN (22:46)
[2020-09-19] MEDS ORDERED: ACETAMINOPHEN 325 MG TAB PO PRN (22:46)
[2020-09-19] MEDS ORDERED: DEXTROSE 50% IN WATER (25GM) 50 ML SYRINGE IV PRN (22:46)
--- NOTE | 2020-09-19 22:58 | History and Physical Report ---
History of Present Illness Date of examination: 09/19/20 Date of admission: 09/19/2020 Chief complaint: Right Thigh Pain History of present illness: 54-year-old white male with known history of peripheral vascular disease, diabetes mellitus and GERD presents to the emergency room today via EMS from [facility] complaining of right thigh pain, near syncope with hypotension. Patient has had history of right lower extremity revascularization which was done by Dr. Carroll at [facility] vascular [place] secondary to severe PVD. Patient has been having pain in the right thigh which got worse yesterday and was subsequently seen by vascular surgeon today. He had some ultrasound done at the office and was scheduled for another revascularization sometime tomorrow. While patient was at these primary care physician's office was said to have become hypotensive with systolic blood pressure of in the 60s and diastolic in the 40s and was subsequently brought to the emergency room by EMS. Patient received IV fluid in route to the hospital. Patient has been admitted with near syncope and a right thigh pain. Past History Past Medical History: diabetes, GERD Past Surgical History: appendectomy Social history: no significant social history Family history: no significant family history Medications and Allergies Allergies Allergy/AdvReac Type Severity Reaction Status Date / Time shellfish derived Allergy Hives Verified 09/19/20 21:12 Home Medications Medication Instructions Recorded Confirmed Last Taken Type ALBUTEROL NEB's [Proventil 0.083% 2.5 mg IH Q4HRT PRN #2 nebu 07/31/20 09/19/20 Unknown Rx NEBS] Apixaban [Eliquis] 5 mg PO Q12HR #60 tablet 07/31/20 09/19/20 Unknown Rx Docusate Sodium [Colace CAP] 100 mg PO BID PRN #60 capsule 07/31/20 09/19/20 Unknown Rx Insulin NPH/Regular [NovoLIN 70/30] 38 unit SUB-Q QDDIAB #3 vial 07/31/20 09/19/20 Unknown Rx Potassium Chloride [K-Dur] 10 meq PO QDAY #30 tablet 07/31/20 09/19/20 Unknown Rx ceFAZolin/NS 2 GM/100 ML [Ancef/Ns 2 gm IV Q6HR 22 Days #88 piggyback 07/31/20 09/19/20 Unknown Rx 2 gm/100 ml] hydroCHLOROthiazide [HCTZ] 25 mg PO QDAY #30 capsule 07/31/20 09/19/20 Unknown Rx Active Meds: Active Medications Acetaminophen (Acetaminophen 325 Mg Tab) 650 mg PO Q4H PRN PRN Reason: Pain MILD(1-3)/Fever >100.5/CARIAS Dextrose (Dextrose 50% In Water (25gm) 50 Ml Syringe) 50 ml IV Q30MIN PRN; Protocol PRN Reason: Hypoglycemia Sodium Chloride (Nacl 0.9% 1000 Ml) 1,000 mls @ 75 mls/hr IV DIRECT LACHELLE Insulin Human Regular (Insulin Regular, Human 100 Units/1 Ml) 0 units SUB-Q ACHS LACHELLE; Protocol Magnesium Hydroxide (Magnesium Hydroxide (Mom) Oral Liqd Udc) 30 ml PO Q4H PRN PRN Reason: Constipation Morphine Sulfate (Morphine 2 Mg/1 Ml Inj) 2 mg IV Q4H PRN PRN Reason: Pain, Moderate (4-6) Ondansetron HCl (Ondansetron 4 Mg/2 Ml Inj) 4 mg IV Q8H PRN PRN Reason: Nausea And Vomiting Sodium Chloride (Sodium Chloride 0.9% 10 Ml Flush Syringe) 10 ml IV BID LACHELLE Sodium Chloride (Sodium Chloride 0.9% 10 Ml Flush Syringe) 10 ml IV PRN PRN PRN Reason: LINE FLUSH Review of Systems Constitutional: no fever, no chills Ears, nose, mouth and throat: no nasal congestion, no sore throat Cardiovascular: no chest pain, no palpitations Respiratory: no cough, no shortness of breath Gastrointestinal: no abdominal pain, no nausea, no vomiting, no diarrhea Genitourinary Male: no dysuria, no hematuria, no flank pain, no nocturia Musculoskeletal: no neck pain, no low back pain Integumentary: no rash, no pruritis Neurological: no headaches, no confusion Psychiatric: no anxiety, no depression Endocrine: no polydipsia, no polyuria, no nocturia Exam - Constitutional Vitals: Temp Pulse Resp BP Pulse Ox 98.1 F 96 H 21 144/79 93 09/19/20 19:00 09/19/20 22:46 09/19/20 22:46 09/19/20 22:46 09/19/20 22:46 General appearance: Present: no acute distress, well-nourished - EENT Eyes: Present: PERRL, EOM intact. Absent: scleral icterus ENT: hearing intact, clear oral mucosa, dentition normal - Neck Neck: Present: supple, normal ROM - Respiratory Respiratory effort: normal Respiratory: bilateral: CTA - Cardiovascular Rhythm: regular Heart Sounds: Present: S1 & S2. Absent: gallop, systolic murmur, diastolic murmur, rub, click - Extremities Extremities: pulses intact, pulses symmetrical, normal temperature, normal color, Full ROM Extremity abnormal: edema (1+ bilateral lower extremity edema), ulceration (With black eschar on right big toe,Mild tenderness on right toe.) Peripheral Pulses: within normal limits - Abdominal General gastrointestinal: Present: soft, non-tender, non-distended, normal bowel sounds. Absent: mass - Integumentary Integumentary: Present: clear, warm, dry, normal turgor. Absent: rash - Musculoskeletal Musculoskeletal: strength equal bilaterally - Psychiatric Psychiatric: appropriate mood/affect, intact judgment & insight, memory intact, cooperative - Neurologic Neurologic: CNII-XII intact, no focal deficits, moves all extremities HEART Score - HEART Score Troponin: Troponin T < 0.010 ng/mL (0.00-0.029) 09/19/20 18:09 Results - Labs CBC & Chem 7: 09/20/20 05:31 09/20/20 05:31 Labs: Abnormal lab results 09/19/20 09/19/20 09/19/20 Range/Units 18:09 18:09 18:09 Hgb 11.1 L (11.8-15.2) gm/dl Hct 34.0 L (35.5-45.6) % RDW 15.5 H (13.2-15.2) % Lymph % (Auto) 7.6 L (13.4-35.0) % Lymph # (Auto) 0.8 L (1.2-5.4) K/mm3 Seg Neutrophils % 85.7 H (40.0-70.0) % Seg Neutrophils # 9.5 H (1.8-7.7) K/mm3 Sodium 135 L (137-145) mmol/L Glucose 195 H (75-100) mg/dL Albumin 3.7 L (3.9-5) g/dL TSH 4.640 H (0.270-4.200) mlU/mL Assessment and Plan - Patient Problems (1) Near syncope Current Visit: Yes Status: Acute Plan to address problem: Possibly secondary to hypotension. Patient started on IV fluid. Will monitor vital signs closely. We will also schedule patient for echocardiogram. (2) Peripheral vascular disease Current Visit: Yes Status: Acute Plan to address problem: Patient follows up with vascular surgery. Patient to be scheduled for revascularization. (3) Diabetes mellitus Current Visit: No Status: Chronic Qualifiers: Diabetes mellitus type: type 2 Plan to address problem: We will monitor Accu-Cheks closely. Patient on sliding scale insulin. (4) DVT prophylaxis Current Visit: No Status: Acute Plan to address problem: Patient placed on sequential compression device. (5) Full code status Current Visit: Yes Status: Acute Plan to address problem: Patient is full code.
[2020-09-20] MEDS: SODIUM CHLORIDE 0.9% 1000 ML 1,000 ML IV SCH (00:32)
[2020-09-20 06:22] LABS: Basophils % (Auto) 0.6 % (0.0-1.8); Eosinophils # (Auto) 0.2 K/mm3 (0.0-0.4); Eosinophils % (Auto) 2.2 % (0.0-4.3); Hematocrit 27.9 % (35.5-45.6); Hemoglobin 9.4 gm/dl (11.8-15.2); Lymphocytes # (Auto) 1.3 K/mm3 (1.2-5.4); Lymphocytes % (Auto) 16.8 % (13.4-35.0); Mean Corpuscular HGB Conc 34 % (32-34); Mean Corpuscular Volume 84 fl (84-94); Monocytes # (Auto) 0.6 K/mm3 (0.0-0.8); Monocytes % (Auto) 7.2 % (0.0-7.3); Platelet Count 303 K/mm3 (140-440); Red Blood Count 3.34 M/mm3 (3.65-5.03); Red Cell Distribution Width 15.5 % (13.2-15.2)
[2020-09-20 06:29] LABS: INR 1.07 (0.87-1.13)
[2020-09-20 06:35] LABS: BUN/Creatinine Ratio 24; Blood Urea Nitrogen 22 mg/dL (9-20); Calcium 8.7 mg/dL (8.4-10.2); Hemolysis Index 7
[2020-09-20] MEDS ORDERED: hydrALAZINE 20 MG/1 ML INJ IV NR (07:09)
[2020-09-20] MEDS ORDERED: HEPARIN/NS 5000 UNIT/500ML 1,000 ML IR ONE (07:58)
[2020-09-20] MEDS ORDERED: LIDOCAINE (2%) 20 MG/1 ML VIAL 20 ML MDV INFILTRATI ONE (07:58)
[2020-09-20] MEDS ORDERED: HEPARIN 10,000 UNITS/10 ML VIAL ONE (07:58)
[2020-09-20] MEDS ORDERED: MIDAZOLAM 2 MG/2 ML INJ ONE (07:58)
[2020-09-20] MEDS ORDERED: diphenhydrAMINE 50 MG/ML VIAL ONE (08:28)
[2020-09-20] MEDS ORDERED: methylPREDNISolone Sod Succinate 125 MG/2 ML INJ ONE (08:28)
[2020-09-20] MEDS: fentaNYL 100 MCG/2 ML INJ ONE ×2 (09:04→10:10)
[2020-09-20] MEDS ORDERED: HYDROcodone/ACETAMINOPHEN 5-325 MG TAB PO PRN (10:17)
--- NOTE | 2020-09-20 10:23 | Operative Report ---
Operative Report Operative Report: Date of Procedure: 09/20/2020 Pre-operative Diagnosis: History of Endovascular Intervention with Right SFA Pse udoaneurysm and Limited IV Access Post-operative Diagnosis: Same Procedure(s): 1. Ultrasound-Guided Access Left Common Femoral Vein For IV Access 2. Ultrasound-Guided Access Left Common Femoral Artery 3. Diagnostic Right Lower Extremity Angiogram (The Patient Had a Clinical Change) 4. Stent Graft Placement Right SFA With 8 x 5 cm and 7 x 10 cm Viabahn Stent Graft 5. Coil Embolization of Profunda Branch with 2 mm x 4 mm and 2 mm x 6 mm Interlock Coils 6. Angioplasty of Right Anterior Tibial Artery with 3.5 - 3.0 x 210 Nanocross Balloon 7. Closure of Left Femoral Arteriotomy with Angio-Seal Closure Device 8. Radiologic Supervision with Interpretation 9. Monitored Moderate Sedation (Total Anesthesia Time: 81 Minutes) Surgeon: Kishor Carroll M.D. Manager Ent: None Anesthesia: Local/Monitored Moderate Sedation Total Anesthesia Time: 81 Minutes EBL: Minimal Counts: Correct Complications: None Condition: Stable Specimen: None Indication: The patient is a 54-year-old male with a history of a diabetic foot ulcer that underwent endovascular intervention to revascularize his right SFA and popliteal artery. He developed a pseudoaneurysm of the right SFA and initially had this treated with stent graft ligament. He presented to our clinic with complaints of right leg pain and swelling and was found to have an additional pseudoaneurysm that developed. He is in need of a diagnostic angiogram with possible intervention. He was given the risk, benefits, and alternative procedures and consented to the procedure. Angiographic Findings: The diagnostic right lower extremity angiogram revealed that the common femoral artery was patent without evidence of flow-limiting stenosis. The profunda artery was patent without evidence of flow-limiting stenosis. There was a large pseudoaneurysm in the SFA that appeared to originate distal to the previously placed stent graft and appeared to be approximately 6 to 7 cm in size. There was no evidence of flow-limiting stenosis within the SFA or popliteal artery. The patient had two-vessel runoff through the peroneal and posterior tibial artery. Anterior tibial artery occluded in the mid artery and reconstituting the dorsalis pedis artery through collaterals. After covering the pseudoaneurysm there was a small branch from the profunda artery that appeared to fill the pseudoaneurysm sac despite adequate coverage of the SFA. After intervention there was no additional flow noted within the pseudoaneurysm sac and no evidence of endoleak. The anterior tibial artery was patent with less than 10% residual stenosis. Description of Procedure: The patient was brought to the [facility] and laid in supine position. After a timeout was performed his left groin was prepped and draped in normal sterile fashion. The patient did not have adequate IV access so IV access was required to administer sedation. The ultrasound was used to identify his left common femoral vein and confirm patency. Once patency was confirmed the overlying skin and soft tissue was anesthetized with lidocaine. An 11 blade was used to make a small stab incision and then a 21-gauge micropuncture needle was used ultrasound guidance into the left common femoral vein. A 0.018 micropuncture wire was advanced into the vein and after removing the needle a micropuncture sheath was placed by Seldinger technique. The inner cannula and wire were removed and a 0.035 J-wire was advanced into the vein. The micropuncture sheath was removed and a 5 American sheath was placed by Seldinger technique. This was secured in place with a 0 silk stitch and then moderate sedation was administered through the IV. The common femoral artery was then identified and the overlying skin and soft tissue was anesthetized with lidocaine. An 11 blade was used to make a small stab incision and then a curved hemostat was used with ultrasound guidance to bluntly dissect down to the anterior surface. A 21-gauge micropuncture needle was used ultrasound guidance to enter the common femoral artery and a 0.018 micropuncture wire was advanced to the artery. The needle was removed and a micropuncture sheath was placed by Seldinger technique. The inner cannula and wire were removed and a 0.035 Bentson wire was advanced into the aorta. The micropuncture sheath was exchanged for 5 American sheath by Seldinger technique. An Omni Flush catheter was advanced over the Bentson wire and the catheter and wire were advanced up and over the bifurcation and into the common femoral artery. A diagnostic right lower extremity angiogram was performed with the previously described findings. Multiple obliquities were performed to identify the area of the origin of the pseudoaneurysm. The Bentson wire was advanced into the popliteal artery and the 5 American sheath was exchanged for a 7 American 45 cm destination sheath by Seldinger technique. I then used a Navicross catheter and exchanged the Bentson wire for a 0.018 V18 wire and advanced a 7 x 10 cm Viabahn Stent Graft into position and deployed it. After deploying the stent graft I performed an angiogram that revealed there was still flow within the pseudoaneurysm which appeared to be flowing and a 1 cm gap between the 2 stent graft. I then deployed an 8 x 5 cm Viabahn Stent Graft to bridge the gap. The follow-up angiogram revealed that there was no flow within the pseudoaneurysm through the SFA however on delayed imaging there was flow noted within the pseudoaneurysm from a branch of the profunda artery. I reinserted the Navicross catheter and used a 0.014 Choice PT Wire and was able to cannulate the branch. I exchanged the Navicross catheter for a Renegade Microcatheter and deployed a 2 x 4 mm and 2 x 6 mm Interlock Coil into the branch. I performed a follow-up angiogram which revealed no evidence of additional flow within the pseudoaneurysm. I then advanced the V 18 wire and Navicross catheter into the anterior tibial artery and into the dorsalis pedis artery to revascularize the artery in hopes of providing as much outflow as possible given the amount of stent grafts in the SFA. I exchanged the V 18 for the Choice PT wire and then performed angioplasty of the anterior tibial artery with a 3.5-3.0 x 210 Nanocross Balloon with a result of less than 10% residual stenosis. At that point I removed the balloon and wire and pulled the sheath back into the left external iliac artery. I advanced the Bentson wire into the aorta and then attempted to close the left femoral arteriotomy with a Pro-glide closure device however this failed so I used an Angio-Seal to close the left femoral arteriotomy with adequate hemostasis. I then remove the 5 American sheath from the femoral vein and held pressure until hemostasis was achieved. Sterile dressings were then applied to the left groin and the patient was transported back to his room in stable condition.
[2020-09-20] MEDS: INSULIN REGULAR, HUMAN 100 UNITS/1 ML SUB-Q SCH ×4 (11:44→22:03)
[2020-09-20] MEDS: CLOPIDOGREL 75 MG TAB PO SCH (11:45)
[2020-09-20] MEDS: APIXABAN 2.5 MG TAB PO SCH ×2 (11:45→21:59)
--- NOTE | 2020-09-20 11:47 | Progress Note ---
Assessment and Plan Assessment and plan: Peripheral vascular disease Hypotension Diabetes mellitus type 2 09/20/2020. Patient's hypotension has resolved. Patient is status post revascularization procedure this morning. We will follow-up per vascular surgery recommendations. History Interval history: No new issues overnight Hospitalist Physical - Constitutional Vitals: Temp Pulse Resp BP Pulse Ox 98.3 F 91 H 20 171/93 95 09/20/20 05:28 09/20/20 05:28 09/20/20 05:28 09/20/20 05:28 09/20/20 05:28 General appearance: Present: no acute distress, well-nourished - EENT Eyes: Present: PERRL, EOM intact ENT: hearing intact, clear oral mucosa, dentition normal - Neck Neck: Present: supple, normal ROM - Respiratory Respiratory effort: normal Respiratory: bilateral: CTA - Cardiovascular Rhythm: regular Heart Sounds: Present: S1 & S2. Absent: gallop, rub - Extremities Extremities: no ischemia, No edema, Full ROM - Abdominal General gastrointestinal: soft, non-tender, non-distended, normal bowel sounds - Integumentary Integumentary: Present: clear, warm, dry - Neurologic Neurologic: CNII-XII intact, moves all extremities HEART Score - HEART Score Troponin: Troponin T < 0.010 ng/mL (0.00-0.029) 09/19/20 18:09 Results - Labs CBC & Chem 7: 09/20/20 05:31 09/20/20 05:31 Labs: Laboratory Last Values WBC 7.7 K/mm3 (4.5-11.0) 09/20/20 05:31 RBC 3.34 M/mm3 (3.65-5.03) L 09/20/20 05:31 Hgb 9.4 gm/dl (11.8-15.2) L 09/20/20 05:31 Hct 27.9 % (35.5-45.6) L D 09/20/20 05:31 MCV 84 fl (84-94) 09/20/20 05:31 MCH 28 pg (28-32) 09/20/20 05:31 MCHC 34 % (32-34) 09/20/20 05:31 RDW 15.5 % (13.2-15.2) H 09/20/20 05:31 Plt Count 303 K/mm3 (140-440) 09/20/20 05:31 Lymph % (Auto) 16.8 % (13.4-35.0) 09/20/20 05:31 Ida % (Auto) 7.2 % (0.0-7.3) 09/20/20 05:31 Eos % (Auto) 2.2 % (0.0-4.3) 09/20/20 05:31 Baso % (Auto) 0.6 % (0.0-1.8) 09/20/20 05:31 Lymph # (Auto) 1.3 K/mm3 (1.2-5.4) 09/20/20 05:31 Ida # (Auto) 0.6 K/mm3 (0.0-0.8) 09/20/20 05:31 Eos # (Auto) 0.2 K/mm3 (0.0-0.4) 09/20/20 05:31 Baso # (Auto) 0.0 K/mm3 (0.0-0.1) 09/20/20 05:31 Seg Neutrophils % 73.2 % (40.0-70.0) H 09/20/20 05:31 Seg Neutrophils # 5.6 K/mm3 (1.8-7.7) 09/20/20 05:31 PT 13.7 Sec. (12.2-14.9) 09/20/20 05:31 INR 1.07 (0.87-1.13) 09/20/20 05:31 Sodium 136 mmol/L (137-145) L 09/20/20 05:31 Potassium 4.6 mmol/L (3.6-5.0) 09/20/20 05:31 Chloride 102.6 mmol/L (98-107) 09/20/20 05:31 Carbon Dioxide 25 mmol/L (22-30) 09/20/20 05:31 Anion Gap 13 mmol/L 09/20/20 05:31 BUN 22 mg/dL (9-20) H 09/20/20 05:31 Creatinine 0.9 mg/dL (0.8-1.3) 09/20/20 05:31 Estimated GFR > 60 ml/min 09/20/20 05:31 BUN/Creatinine Ratio 24 % 09/20/20 05:31 Glucose 156 mg/dL (75-100) H 09/20/20 05:31 Hemoglobin A1c 8.2 % (4-6) H 09/19/20 18:09 Calcium 8.7 mg/dL (8.4-10.2) 09/20/20 05:31 Total Bilirubin 0.70 mg/dL (0.1-1.2) 09/19/20 18:09 AST 9 units/L (5-40) 09/19/20 18:09 ALT 8 units/L (7-56) 09/19/20 18:09 Alkaline Phosphatase 125 units/L (35-129) 09/19/20 18:09 Troponin T < 0.010 ng/mL (0.00-0.029) 09/19/20 18:09 Total Protein 6.4 g/dL (6.3-8.2) 09/19/20 18:09 Albumin 3.7 g/dL (3.9-5) L 09/19/20 18:09 Albumin/Globulin Ratio 1.4 % 09/19/20 18:09 TSH 4.640 mlU/mL (0.270-4.200) H 09/19/20 18:09 Campos/IV: Voiding Method Toilet Active Medications - Current Medications Current Medications: Generic Name Dose Route Start Last Admin Trade Name Freq PRN Reason Stop Dose Admin Acetaminophen 650 mg 09/19/20 22:46 Acetaminophen 325 Mg Tab PO Q4H PRN Pain MILD(1-3)/Fever >100.5/CARIAS Hydrocodone Bitart/Acetaminophen 1 each 09/20/20 10:17 Hydrocodone/Acetaminophen 5-325 Mg Tab PO Q4H PRN Pain, Moderate (4-6) Apixaban 2.5 mg 09/20/20 12:00 Apixaban 2.5 Mg Tab PO Q12HR LACHELLE Protocol Clopidogrel Bisulfate 75 mg 09/20/20 12:00 Clopidogrel 75 Mg Tab PO QDAY LACHELLE Dextrose 50 ml 09/19/20 22:46 Dextrose 50% In Water (25gm) 50 Ml Syringe IV Q30MIN PRN Hypoglycemia Protocol Sodium Chloride 1,000 mls @ 75 mls/hr 09/19/20 23:00 09/20/20 00:32 Nacl 0.9% 1000 Ml IV 75 mls/hr DIRECT LACHELLE Administration Insulin Human Regular 0 units 09/20/20 07:30 Insulin Regular, Human 100 Units/1 Ml SUB-Q ACHS [facility] Protocol Magnesium Hydroxide 30 ml 09/19/20 22:46 Magnesium Hydroxide (Mom) Oral Liqd Udc PO Q4H PRN Constipation Morphine Sulfate 2 mg 09/19/20 22:46 09/20/20 00:32 Morphine 2 Mg/1 Ml Inj IV 2 mg Q4H PRN Administration Pain, Moderate (4-6) Ondansetron HCl 4 mg 09/19/20 22:46 Ondansetron 4 Mg/2 Ml Inj IV Q8H PRN Nausea And Vomiting Sodium Chloride 10 ml 09/20/20 10:00 Sodium Chloride 0.9% 10 Ml Flush Syringe IV BID LACHELLE Sodium Chloride 10 ml 09/19/20 22:46 Sodium Chloride 0.9% 10 Ml Flush Syringe IV PRN PRN LINE FLUSH Nutrition/Malnutrition Assess - Dietary Evaluation Nutrition/Malnutrition Findings: Nutrition Notes Start: 09/20/20 09:34 Freq: Status: Active Protocol: Document 09/20/20 09:34 AT (Rec: 09/20/20 09:36 AT [id number]) Co-Sign 09/20/20 09:34 LP Nutrition Notes Need for Assessment generated from: Education Current Diagnosis Diabetes Other Pertinent Diagnosis GERD, Peripheral Vascular Disease Current Diet Cardiac/Consistent CHO Labs/Tests A1c 8.2%
--- NOTE | 2020-09-20 16:44 | Vascular Lab Report ---
. VL carotid duplex BILAT INDICATION / CLINICAL INFORMATION: Syncope COMPARISON: None available. FINDINGS: RIGHT CAROTID: - CCA velocity: 97 cm/sec. - ICA peak systolic velocity: 73 cm/sec. - ICA/CCA PSV Ratio: Less than 2 Right Vertebral Artery: Antegrade flow. LEFT CAROTID: - CCA velocity: 105 cm/sec. - ICA peak systolic velocity: 120 cm/sec. - ICA/CCA PSV Ratio: Less than 2 Left Vertebral Artery: Antegrade flow. IMPRESSION: 1. Mild atherosclerosis without occlusion or hemodynamically significant stenosis of the bilateral ca rotid arteries. Velocity criteria are extrapolated from diameter data as defined by the Society of Radiologists in Ul trasound Consensus Conference, Radiology 2003; 229;340-346. NO STENOSIS (NORMAL) * Plaque = none; ICA PSV < 125 cm/sec; ICA/CCA PSV Ratio < 2.0 <50% STENOSIS * Plaque < 50%; ICA PSV < 125 cm/sec; ICA/CCA PSV Ratio < 2.0 50-69% STENOSIS * Plaque > 50%; ICA PSV = 125-230 cm/sec; ICA/CCA PSV Ratio = 2.0-4.0 >70% BUT <100% STENOSIS * Plaque > 50%; ICA PSV > 230 cm/sec; ICA/CCA PSV Ratio > 4.0 NEAR OCCLUSION * Plaque = visible lumen; ICA PSV = high/low/none; ICA/CCA PSV Ratio = variable TOTAL OCCLUSION * Plaque = no lumen; ICA PSV = none; ICA/CCA PSV Ratio = N/A Signer Name: Jacky Ontiveros MD Signed: 09/20/2020 4:39 PM Workstation Name: [email or web address] [id number]
[2020-09-21] MEDS: SODIUM CHLORIDE 0.9% 1000 ML 1,000 ML IV SCH ×2 (02:01→18:20)
--- NOTE | 2020-09-21 08:53 | Progress Note ---
Assessment and Plan Assessment and plan: The patient is a 54-year-old male with a history of a diabetic foot ulcer that underwent endovascular intervention to revascularize his right SFA and popliteal artery. He developed a pseudoaneurysm of the right SFA and initially had this treated with stent graft ligament. He presented to vascular surgery clinic with complaints of right leg pain and swelling and was found to have an additional pseudoaneurysm that developed. Peripheral vascular disease Hypotension Diabetes mellitus type 2 09/20/2020. Patient's hypotension has resolved. Patient is status post revascularization procedure this morning. We will follow-up per vascular surgery recommendations. 09/21/2020. Patient is s/p revascularization yesterday with vascular surgery. Continue supportive care. Accu-Cheks and sliding scale insulin. PT/OT evaluation. History Interval history: No new issues overnight Hospitalist Physical - Constitutional Vitals: Temp Pulse Resp BP Pulse Ox 98.3 F 97 H 18 136/92 96 09/21/20 05:38 09/21/20 05:38 09/21/20 05:38 09/21/20 05:38 09/21/20 05:38 General appearance: Present: no acute distress, well-nourished - EENT Eyes: Present: PERRL, EOM intact ENT: hearing intact, clear oral mucosa, dentition normal - Neck Neck: Present: supple, normal ROM - Respiratory Respiratory effort: normal Respiratory: bilateral: CTA - Cardiovascular Rhythm: regular Heart Sounds: Present: S1 & S2. Absent: gallop, rub - Extremities Extremities: no ischemia, No edema, Full ROM - Abdominal General gastrointestinal: soft, non-tender, non-distended, normal bowel sounds - Integumentary Integumentary: Present: clear, warm, dry - Neurologic Neurologic: CNII-XII intact, moves all extremities HEART Score - HEART Score Troponin: Troponin T < 0.010 ng/mL (0.00-0.029) 09/19/20 18:09 Results - Labs CBC & Chem 7: 09/20/20 05:31 09/20/20 05:31 Labs: Laboratory Last Values WBC 7.7 K/mm3 (4.5-11.0) 09/20/20 05:31 RBC 3.34 M/mm3 (3.65-5.03) L 09/20/20 05:31 Hgb 9.4 gm/dl (11.8-15.2) L 09/20/20 05:31 Hct 27.9 % (35.5-45.6) L D 09/20/20 05:31 MCV 84 fl (84-94) 09/20/20 05:31 MCH 28 pg (28-32) 09/20/20 05:31 MCHC 34 % (32-34) 09/20/20 05:31 RDW 15.5 % (13.2-15.2) H 09/20/20 05:31 Plt Count 303 K/mm3 (140-440) 09/20/20 05:31 Lymph % (Auto) 16.8 % (13.4-35.0) 09/20/20 05:31 Glynn % (Auto) 7.2 % (0.0-7.3) 09/20/20 05:31 Eos % (Auto) 2.2 % (0.0-4.3) 09/20/20 05:31 Baso % (Auto) 0.6 % (0.0-1.8) 09/20/20 05:31 Lymph # (Auto) 1.3 K/mm3 (1.2-5.4) 09/20/20 05:31 Glynn # (Auto) 0.6 K/mm3 (0.0-0.8) 09/20/20 05:31 Eos # (Auto) 0.2 K/mm3 (0.0-0.4) 09/20/20 05:31 Baso # (Auto) 0.0 K/mm3 (0.0-0.1) 09/20/20 05:31 Seg Neutrophils % 73.2 % (40.0-70.0) H 09/20/20 05:31 Seg Neutrophils # 5.6 K/mm3 (1.8-7.7) 09/20/20 05:31 PT 13.7 Sec. (12.2-14.9) 09/20/20 05:31 INR 1.07 (0.87-1.13) 09/20/20 05:31 Sodium 136 mmol/L (137-145) L 09/20/20 05:31 Potassium 4.6 mmol/L (3.6-5.0) 09/20/20 05:31 Chloride 102.6 mmol/L (98-107) 09/20/20 05:31 Carbon Dioxide 25 mmol/L (22-30) 09/20/20 05:31 Anion Gap 13 mmol/L 09/20/20 05:31 BUN 22 mg/dL (9-20) H 09/20/20 05:31 Creatinine 0.9 mg/dL (0.8-1.3) 09/20/20 05:31 Estimated GFR > 60 ml/min 09/20/20 05:31 BUN/Creatinine Ratio 24 % 09/20/20 05:31 Glucose 156 mg/dL (75-100) H 09/20/20 05:31 POC Glucose 191 mg/dL (70-105) H 09/20/20 21:13 Hemoglobin A1c 8.2 % (4-6) H 09/19/20 18:09 Calcium 8.7 mg/dL (8.4-10.2) 09/20/20 05:31 Total Bilirubin 0.70 mg/dL (0.1-1.2) 09/19/20 18:09 AST 9 units/L (5-40) 09/19/20 18:09 ALT 8 units/L (7-56) 09/19/20 18:09 Alkaline Phosphatase 125 units/L (35-129) 09/19/20 18:09 Troponin T < 0.010 ng/mL (0.00-0.029) 09/19/20 18:09 Total Protein 6.4 g/dL (6.3-8.2) 09/19/20 18:09 Albumin 3.7 g/dL (3.9-5) L 09/19/20 18:09 Albumin/Globulin Ratio 1.4 % 09/19/20 18:09 TSH 4.640 mlU/mL (0.270-4.200) H 09/19/20 18:09 Campos/IV: Voiding Method Urinal Active Medications - Current Medications Current Medications: Generic Name Dose Route Start Last Admin Trade Name Freq PRN Reason Stop Dose Admin Acetaminophen 650 mg 09/19/20 22:46 Acetaminophen 325 Mg Tab PO Q4H PRN Pain MILD(1-3)/Fever >100.5/CARIAS Hydrocodone Bitart/Acetaminophen 1 each 09/20/20 10:17 09/20/20 11:45 Hydrocodone/Acetaminophen 5-325 Mg Tab PO 1 each Q4H PRN Administration Pain, Moderate (4-6) Apixaban 2.5 mg 09/20/20 12:00 09/20/20 21:59 Apixaban 2.5 Mg Tab PO 2.5 mg Q12HR LACHELLE Administration Protocol Clopidogrel Bisulfate 75 mg 09/20/20 12:00 09/20/20 11:45 Clopidogrel 75 Mg Tab PO 75 mg QDAY LACHELLE Administration Dextrose 50 ml 09/19/20 22:46 Dextrose 50% In Water (25gm) 50 Ml Syringe IV Q30MIN PRN Hypoglycemia Protocol Sodium Chloride 1,000 mls @ 75 mls/hr 09/19/20 23:00 09/21/20 02:01 Nacl 0.9% 1000 Ml IV 75 mls/hr DIRECT LACHELLE Administration Insulin Human Regular 0 units 09/20/20 07:30 09/20/20 22:03 Insulin Regular, Human 100 Units/1 Ml SUB-Q 2 units ACHS LACHELLE Administration Protocol Magnesium Hydroxide 30 ml 09/19/20 22:46 Magnesium Hydroxide (Mom) Oral Liqd Udc PO Q4H PRN Constipation Morphine Sulfate 2 mg 09/19/20 22:46 09/20/20 00:32 Morphine 2 Mg/1 Ml Inj IV 2 mg Q4H PRN Administration Pain, Moderate (4-6) Ondansetron HCl 4 mg 09/19/20 22:46 Ondansetron 4 Mg/2 Ml Inj IV Q8H PRN Nausea And Vomiting Sodium Chloride 10 ml 09/20/20 10:00 09/20/20 21:59 Sodium Chloride 0.9% 10 Ml Flush Syringe IV 10 ml BID LACHELLE Administration Sodium Chloride 10 ml 09/19/20 22:46 Sodium Chloride 0.9% 10 Ml Flush Syringe IV PRN PRN LINE FLUSH Nutrition/Malnutrition Assess - Dietary Evaluation Nutrition/Malnutrition Findings: Nutrition Notes Start: 09/20/20 09:34 Freq: Status: Active Protocol: Document 09/20/20 09:34 AT (Rec: 09/20/20 09:36 AT [id number]) Co-Sign 09/20/20 09:34 LP Nutrition Notes Need for Assessment generated from: Education Initial or Follow up Assessment Current Diagnosis Diabetes Other Pertinent Diagnosis GERD, Peripheral Vascular Disease, R thigh pain Current Diet Cardiac/Consistent CHO Labs/Tests A1c 8.2% BP 171/93 Na 136 BUN 22 BG 156 Hgb 9.4 Pertinent Medications Plavix Eliquis Ns at 75 mL/hr Height 5 ft 11 in Weight 127 kg [place] Body Weight (kg) 78.18 BMI 39.0 Intake Prior to Admission Poor Weight Status Obese Subjective/Other Information Consult for diet education. Pt denies N/V/D. Pt c/o pain interfering with eating foods x 2 days. Pt was NPO for procedure, but will be receiving a lunch tray. Pt reports no weight loss. Pt was receptive to diet education. Pt has had DM for nearly 10 years. Provided diet history of processed foods, skipped meals, and intermittent CHO intake. Pt avoids medical care and is unaware of BP status. Pt asked questions and insurance underwriter sales provided answers. Pt only desires one ONS at this time. Percent of energy/protein needs met: 0%0% Burn Absent Trauma Absent GI Symptoms None Food Allergy Yes Current % PO Negligible Minimum of two criteria No Fluid Accumulation Mild (non-severe) #2 Nutrition Diagnosis Inadequate energy intake Etiology Peripheral vascular disease As Evidenced by Signs and Symptoms pt reports consuming 0% of meals x 3 days #1 Nutrition Diagnosis Food and nutrition-related knowledge deficit Etiology DM and high blood pressure As Evidenced by Signs and Symptoms A1c 8.2%, BP 171/93, no previous diet education Is patient on ventilator? No Is Patient Ambulatory and/or Out of Bed No REE-([facility]-confined to bed) 2556.312 Kcal/Kg value to use for calculation 14 Approximate Energy Requirements Using 1778 kcal/Kg Calculation Used for Recommendations Kcal/kg Additional Notes PRO needs: 82-103g (0.8-1g/kg AdBW 103kg) Fluid needs: 1 mL/kcal or per MD Nutrition Intervention Change Diet Order: Continue diet as ordered Add Supplement/Snack (indicate name/kcal Glucerna daily /protein ) Provides kCal: 220 Provides Protein (gm) 10 Teaching Recipient Patient Learning Readiness Good Teaching Methods Discussion,Handout Response to Teaching Verbalize understanding Education Handouts Provided CHO Counting for People with Diabetes, Heart Healthy Low- Sodium Diet Barriers to Learning No Barriers RD phone number provided Yes Patient aware of follow up options Yes Goal #1 Meet at least 75% of estimated energy and protein needs via diet and ONS Goal #2 BP control Goal #3 Glycemic control Anticipated Discharge Needs: Cardiac/Consistent CHO Follow-Up By: 09/22/20 Additional Comments Follow up for intakes and ONS tolerance
[2020-09-21] MEDS: APIXABAN 2.5 MG TAB PO SCH ×2 (09:11→22:04)
[2020-09-21] MEDS: CLOPIDOGREL 75 MG TAB PO SCH (09:11)
[2020-09-21] MEDS: INSULIN REGULAR, HUMAN 100 UNITS/1 ML SUB-Q SCH ×4 (09:12→22:04)
--- NOTE | 2020-09-21 11:09 | Progress Note ---
Assessment and Plan Patient with a history of pseudoaneurysm now repaired. He is having episodes of hypotension. This began prior to the patient's arrival resulting in him arriving by ambulance from his primary care doctor's office. He will need to undergo an initial cardiac work-up. Additionally, the patient will get a CT of the abdomen pelvis to evaluate for compression of his veins resulting in decreased venous return. The patient's right lower extremity swelling is also likely the result of decreased venous return secondary to hematoma as a result of pseudoaneurysm. Subjective Date of service: 09/21/20 Principal diagnosis: Right leg pseudoaneurysm, hypotension Interval history: Patient with a history of right leg revascularization procedure done at an outside institution which resulted in the development of pseudoaneurysms. He underwent repair of pseudoaneurysms yesterday with excellent results. He describes his pain is much less. There still is right leg swelling. The patient however experiences hypotension on standing. Objective - Constitutional Vitals: Vital Signs - 12hr 09/21/20 05:38 Temperature 98.3 F Pulse Rate 97 H Respiratory 18 Rate Blood Pressure 136/92 O2 Sat by Pulse 96 Oximetry General appearance: Present: no acute distress - EENT Eyes: EOM intact ENT: hearing intact - Neck Neck: supple, normal ROM - Respiratory Respiratory effort: normal Extremities: abnormal Extremity abnormal: edema - Gastrointestinal General gastrointestinal: Present: deferred - Genitourinary Male genitourinary: deferred - Psychiatric Psychiatric: appropriate mood/affect, cooperative - Labs CBC & Chem 7: 09/20/20 05:31 09/20/20 05:31 Labs: Abnormal lab results 09/20/20 09/20/20 09/20/20 Range/Units 11:54 16:52 21:13 POC Glucose 142 H 165 H 191 H (70-105) mg/dL Medications & Allergies - Medications Allergies/Adverse Reactions: Allergies shellfish derived Allergy (Verified 09/19/20 21:12) Hives Home Medications: Home Medications Medication Instructions Recorded Confirmed Last Taken Type ALBUTEROL NEB's [Proventil 0.083% 2.5 mg IH Q4HRT PRN #2 nebu 07/31/20 09/19/20 Unknown Rx NEBS] Apixaban [Eliquis] 5 mg PO Q12HR #60 tablet 07/31/20 09/19/20 Unknown Rx Docusate Sodium [Colace CAP] 100 mg PO BID PRN #60 capsule 07/31/20 09/19/20 Unknown Rx Insulin NPH/Regular [NovoLIN 70/30] 38 unit SUB-Q QDDIAB #3 vial 07/31/20 09/19/20 Unknown Rx Potassium Chloride [K-Dur] 10 meq PO QDAY #30 tablet 07/31/20 09/19/20 Unknown Rx ceFAZolin/NS 2 GM/100 ML [Ancef/Ns 2 gm IV Q6HR 22 Days #88 piggyback 07/31/20 09/19/20 Unknown Rx 2 gm/100 ml] hydroCHLOROthiazide [HCTZ] 25 mg PO QDAY #30 capsule 07/31/20 09/19/20 Unknown Rx Active Medications: Generic Name Dose Route Start Last Admin Trade Name Freq PRN Reason Stop Dose Admin Acetaminophen 650 mg 09/19/20 22:46 Acetaminophen 325 Mg Tab PO Q4H PRN Pain MILD(1-3)/Fever >100.5/CARIAS Hydrocodone Bitart/Acetaminophen 1 each 09/20/20 10:17 09/20/20 11:45 Hydrocodone/Acetaminophen 5-325 Mg Tab PO 1 each Q4H PRN Administration Pain, Moderate (4-6) Apixaban 2.5 mg 09/20/20 12:00 09/21/20 09:11 Apixaban 2.5 Mg Tab PO 2.5 mg Q12HR LACHELLE Administration Protocol Clopidogrel Bisulfate 75 mg 09/20/20 12:00 09/21/20 09:11 Clopidogrel 75 Mg Tab PO 75 mg QDAY LACHELLE Administration Dextrose 50 ml 09/19/20 22:46 Dextrose 50% In Water (25gm) 50 Ml Syringe IV Q30MIN PRN Hypoglycemia Protocol Sodium Chloride 1,000 mls @ 75 mls/hr 09/19/20 23:00 09/21/20 02:01 Nacl 0.9% 1000 Ml IV 75 mls/hr DIRECT LACHELLE Administration Insulin Human Regular 0 units 09/20/20 07:30 09/21/20 09:12 Insulin Regular, Human 100 Units/1 Ml SUB-Q 2 units ACHS LACHELLE Administration Protocol Magnesium Hydroxide 30 ml 09/19/20 22:46 Magnesium Hydroxide (Mom) Oral Liqd Udc PO Q4H PRN Constipation Morphine Sulfate 2 mg 09/19/20 22:46 09/20/20 00:32 Morphine 2 Mg/1 Ml Inj IV 2 mg Q4H PRN Administration Pain, Moderate (4-6) Ondansetron HCl 4 mg 09/19/20 22:46 Ondansetron 4 Mg/2 Ml Inj IV Q8H PRN Nausea And Vomiting Sodium Chloride 10 ml 09/20/20 10:00 09/20/20 21:59 Sodium Chloride 0.9% 10 Ml Flush Syringe IV 10 ml BID LACHELLE Administration Sodium Chloride 10 ml 09/19/20 22:46 Sodium Chloride 0.9% 10 Ml Flush Syringe IV PRN PRN LINE FLUSH HEART Score - HEART Score Troponin: Troponin T < 0.010 ng/mL (0.00-0.029) 09/19/20 18:09
--- NOTE | 2020-09-21 11:52 | Electrocardiograph Report ---
[facility] Test Date: 2020-09-19 Test Time: 19:18:43 Pat Name: ROSA M LILLY Department: Room: A384 1 Gender: M [employer] Offbearer: JEANNINE : 1965 Requested By: MARGOTH CHRISTIE Order Number: [id number] Reading MD: Gloria Cartagena Measurements Intervals [place] Rate: 101 P: 34 MS: 149 QRS: 3 QRSD: 89 T: 19 QT: 336 QTc: 435 Interpretive Statements Sinus tachycardia No previous ECG available for comparison Electronically Signed On 09-21-2020 11:51:56 EDT by Gloria Cartagena
--- NOTE | 2020-09-21 12:27 | Cat Scan Report ---
CT ABDOMEN AND PELVIS WITH CONTRAST INDICATION / CLINICAL INFORMATION: Pain. TECHNIQUE: Axial CT images were obtained through the abdomen and pelvis after IV contrast. All CT sc ans at this location are performed using CT dose reduction for ALARA by means of automated exposure c ontrol. COMPARISON: None available. FINDINGS: LOWER CHEST: No significant abnormality LIVER: No significant abnormality GALLBLADDER/BILIARY TREE: Layering sludge and/or stones without evidence of cholecystitis. No biliary dilatation. PANCREAS: No significant abnormality SPLEEN: No significant abnormality ADRENALS: No significant abnormality KIDNEYS / URETER: Unchanged mild bilateral perinephric stranding. Kidneys enhance symmetrically. Ther e is no hydronephrosis. URINARY BLADDER: No significant abnormality REPRODUCTIVE ORGANS: Prostate is not enlarged. There is a 1.1 cm enhancing focus along the left aspec t of the prostate gland. STOMACH / SMALL BOWEL: Stomach and small bowel are normal in caliber. No evidence of bowel inflammati on. COLON: The colon is unremarkable. Appendix is not seen. LYMPH NODES: No new or increasing lymphadenopathy. Shot[place] lymph nodes within bilateral inguinal regio ns appears stable. VASCULATURE: Atherosclerotic calcification of the abdominal aorta and major branching vessels, withou t evidence of aneurysm. IVC and iliac veins are normal in caliber. OTHER: Postoperative changes of the left inguinal region with inflammatory stranding without organize d collection. SKELETAL SYSTEM: No acute osseous findings. IMPRESSION: 1. No acute abnormality of the abdomen or pelvis. IVC and iliac veins are normal in caliber. 2. Nonspecific 1.1 cm enhancing focus at the left aspect of the prostate gland. Recommend correlation with PSA. 3. Postoperative stranding of the left inguinal region without organized collection. 4. Other stable chronic and incidental findings as above. Signer Name: Jluis Sepulveda MD Signed: 09/21/2020 12:22 PM Workstation Name: [id number]
[2020-09-22] MEDS: SODIUM CHLORIDE 0.9% 1000 ML 1,000 ML IV SCH (05:58)
[2020-09-22 06:24] LABS: Basophils # (Auto) 0.1 K/mm3 (0.0-0.1); Eosinophils # (Auto) 0.2 K/mm3 (0.0-0.4); Eosinophils % (Auto) 2.8 % (0.0-4.3); Hematocrit 25.3 % (35.5-45.6); Hemoglobin 8.5 gm/dl (11.8-15.2); Lymphocytes # (Auto) 1.1 K/mm3 (1.2-5.4); Lymphocytes % (Auto) 15.3 % (13.4-35.0); Mean Corpuscular HGB Conc 34 % (32-34); Mean Corpuscular Volume 83 fl (84-94); Monocytes # (Auto) 0.6 K/mm3 (0.0-0.8); Monocytes % (Auto) 7.7 % (0.0-7.3); Platelet Count 259 K/mm3 (140-440); Red Blood Count 3.05 M/mm3 (3.65-5.03); Red Cell Distribution Width 15.1 % (13.2-15.2)
[2020-09-22 06:31] VITALS: BP 137/74
[2020-09-22 06:44] LABS: BUN/Creatinine Ratio 21; Blood Urea Nitrogen 21 mg/dL (9-20); Calcium 8.4 mg/dL (8.4-10.2); Hemolysis Index 0
--- NOTE | 2020-09-22 08:45 | Progress Note ---
Assessment and Plan Assessment and plan: The patient is a 54-year-old male with a history of a diabetic foot ulcer that underwent endovascular intervention to revascularize his right SFA and popliteal artery. He developed a pseudoaneurysm of the right SFA and initially had this treated with stent graft ligament. He presented to vascular surgery clinic with complaints of right leg pain and swelling and was found to have an additional pseudoaneurysm that developed. Peripheral vascular disease Hypotension Diabetes mellitus type 2 09/20/2020. Patient's hypotension has resolved. Patient is status post revascularization procedure this morning. We will follow-up per vascular surgery recommendations. 09/21/2020. Patient is s/p revascularization yesterday with vascular surgery. Continue supportive care. Accu-Cheks and sliding scale insulin. PT/OT evaluation. 09/22/2020. Patient appears to have no further orthostatic hypotension. Etiology appears to be secondary to dehydration. Patient had significant improvement with IV fluids and anticipate discharge in today if okay with vascular surgery. CT scan of the abdomen pelvis was unremarkable for any compression of his veins resulting in decreased venous return. Echocardiogram today. History Interval history: No new issues overnight Hospitalist Physical - Constitutional Vitals: Temp Pulse Resp BP Pulse Ox 98.3 F 76 20 137/74 94 09/22/20 05:55 09/22/20 06:31 09/22/20 05:55 09/22/20 06:31 09/22/20 05:55 General appearance: Present: no acute distress - EENT Eyes: Present: PERRL, EOM intact ENT: hearing intact, clear oral mucosa, dentition normal - Neck Neck: Present: supple, normal ROM - Respiratory Respiratory effort: normal Respiratory: bilateral: CTA - Cardiovascular Rhythm: regular Heart Sounds: Present: S1 & S2. Absent: gallop, rub - Extremities Extremities: no ischemia, No edema, Full ROM - Abdominal General gastrointestinal: soft, non-tender, non-distended, normal bowel sounds - Integumentary Integumentary: Present: clear, warm, dry - Neurologic Neurologic: CNII-XII intact, moves all extremities HEART Score - HEART Score Troponin: Troponin T < 0.010 ng/mL (0.00-0.029) 09/19/20 18:09 Results - Labs CBC & Chem 7: 09/22/20 05:28 09/22/20 05:28 Labs: Laboratory Last Values WBC 7.2 K/mm3 (4.5-11.0) 09/22/20 05:28 RBC 3.05 M/mm3 (3.65-5.03) L 09/22/20 05:28 Hgb 8.5 gm/dl (11.8-15.2) L 09/22/20 05:28 Hct 25.3 % (35.5-45.6) L 09/22/20 05:28 MCV 83 fl (84-94) L 09/22/20 05:28 MCH 28 pg (28-32) 09/22/20 05:28 MCHC 34 % (32-34) 09/22/20 05:28 RDW 15.1 % (13.2-15.2) 09/22/20 05:28 Plt Count 259 K/mm3 (140-440) 09/22/20 05:28 Lymph % (Auto) 15.3 % (13.4-35.0) 09/22/20 05:28 [place] % (Auto) 7.7 % (0.0-7.3) H 09/22/20 05:28 Eos % (Auto) 2.8 % (0.0-4.3) 09/22/20 05:28 Baso % (Auto) 1.0 % (0.0-1.8) 09/22/20 05:28 Lymph # (Auto) 1.1 K/mm3 (1.2-5.4) L 09/22/20 05:28 [place] # (Auto) 0.6 K/mm3 (0.0-0.8) 09/22/20 05:28 Eos # (Auto) 0.2 K/mm3 (0.0-0.4) 09/22/20 05:28 Baso # (Auto) 0.1 K/mm3 (0.0-0.1) 09/22/20 05:28 Seg Neutrophils % 73.2 % (40.0-70.0) H 09/22/20 05:28 Seg Neutrophils # 5.2 K/mm3 (1.8-7.7) 09/22/20 05:28 PT 13.7 Sec. (12.2-14.9) 09/20/20 05:31 INR 1.07 (0.87-1.13) 09/20/20 05:31 Sodium 138 mmol/L (137-145) 09/22/20 05:28 Potassium 4.3 mmol/L (3.6-5.0) 09/22/20 05:28 Chloride 103.3 mmol/L (98-107) 09/22/20 05:28 Carbon Dioxide 27 mmol/L (22-30) 09/22/20 05:28 Anion Gap 12 mmol/L 09/22/20 05:28 BUN 21 mg/dL (9-20) H 09/22/20 05:28 Creatinine 1.0 mg/dL (0.8-1.3) 09/22/20 05:28 Estimated GFR > 60 ml/min 09/22/20 05:28 BUN/Creatinine Ratio 21 % 09/22/20 05:28 Glucose 149 mg/dL (75-100) H 09/22/20 05:28 POC Glucose 190 mg/dL (70-105) H 09/21/20 21:32 Hemoglobin A1c 8.2 % (4-6) H 09/19/20 18:09 Calcium 8.4 mg/dL (8.4-10.2) 09/22/20 05:28 Total Bilirubin 0.70 mg/dL (0.1-1.2) 09/19/20 18:09 AST 9 units/L (5-40) 09/19/20 18:09 ALT 8 units/L (7-56) 09/19/20 18:09 Alkaline Phosphatase 125 units/L (35-129) 09/19/20 18:09 Troponin T < 0.010 ng/mL (0.00-0.029) 09/19/20 18:09 Total Protein 6.4 g/dL (6.3-8.2) 09/19/20 18:09 Albumin 3.7 g/dL (3.9-5) L 09/19/20 18:09 Albumin/Globulin Ratio 1.4 % 09/19/20 18:09 TSH 3.250 mlU/mL (0.270-4.200) 09/21/20 14:13 [place]/IV: Voiding Method Toilet Active Medications - Current Medications Current Medications: Generic Name Dose Route Start Last Admin Trade Name Freq PRN Reason Stop Dose Admin Acetaminophen 650 mg 09/19/20 22:46 Acetaminophen 325 Mg Tab PO Q4H PRN Pain MILD(1-3)/Fever >100.5/CARIAS Hydrocodone Bitart/Acetaminophen 1 each 09/20/20 10:17 09/20/20 11:45 Hydrocodone/Acetaminophen 5-325 Mg Tab PO 1 each Q4H PRN Administration Pain, Moderate (4-6) Apixaban 2.5 mg 09/20/20 12:00 09/21/20 22:04 Apixaban 2.5 Mg Tab PO 2.5 mg Q12HR LACHELLE Administration Protocol Clopidogrel Bisulfate 75 mg 09/20/20 12:00 09/21/20 09:11 Clopidogrel 75 Mg Tab PO 75 mg QDAY LACHELLE Administration Dextrose 50 ml 09/19/20 22:46 Dextrose 50% In Water (25gm) 50 Ml Syringe IV Q30MIN PRN Hypoglycemia Protocol Sodium Chloride 1,000 mls @ 75 mls/hr 09/19/20 23:00 09/22/20 05:58 Nacl 0.9% 1000 Ml IV 75 mls/hr DIRECT LACHELLE Administration Insulin Human Regular 0 units 09/20/20 07:30 09/21/20 22:04 Insulin Regular, Human 100 Units/1 Ml SUB-Q 2 units ACHS LACHELLE Administration Protocol Magnesium Hydroxide 30 ml 09/19/20 22:46 Magnesium Hydroxide (Mom) Oral Liqd Udc PO Q4H PRN Constipation Morphine Sulfate 2 mg 09/19/20 22:46 09/20/20 00:32 Morphine 2 Mg/1 Ml Inj IV 2 mg Q4H PRN Administration Pain, Moderate (4-6) Ondansetron HCl 4 mg 09/19/20 22:46 Ondansetron 4 Mg/2 Ml Inj IV Q8H PRN Nausea And Vomiting Sodium Chloride 10 ml 09/20/20 10:00 09/21/20 22:05 Sodium Chloride 0.9% 10 Ml Flush Syringe IV 10 ml BID LACHELLE Administration Sodium Chloride 10 ml 09/19/20 22:46 Sodium Chloride 0.9% 10 Ml Flush Syringe IV PRN PRN LINE FLUSH Nutrition/Malnutrition Assess - Dietary Evaluation Nutrition/Malnutrition Findings: Nutrition Notes Start: 09/20/20 09:34 Freq: Status: Active Protocol: Document 09/20/20 09:34 AT (Rec: 09/20/20 09:36 AT [id number]) Co-Sign 09/20/20 09:34 LP Nutrition Notes Need for Assessment generated from: Education Initial or Follow up Assessment Current Diagnosis Diabetes Other Pertinent Diagnosis GERD, Peripheral Vascular Disease, R thigh pain Current Diet Cardiac/Consistent CHO Labs/Tests A1c 8.2% BP 171/93 Na 136 BUN 22 BG 156 Hgb 9.4 Pertinent Medications Plavix Eliquis Ns at 75 mL/hr Height 5 ft 11 in Weight 127 kg [place] Body Weight (kg) 78.18 BMI 39.0 Intake Prior to Admission Poor Weight Status Obese Subjective/Other Information Consult for diet education. Pt denies N/V/D. Pt c/o pain interfering with eating foods x 2 days. Pt was NPO for procedure, but will be receiving a lunch tray. Pt reports no weight loss. Pt was receptive to diet education. Pt has had DM for nearly 10 years. Provided diet history of processed foods, skipped meals, and intermittent CHO intake. Pt avoids medical care and is unaware of BP status. Pt asked questions and investigative writer provided answers. Pt only desires one ONS at this time. Percent of energy/protein needs met: 0%0% Burn Absent Trauma Absent GI Symptoms None Food Allergy Yes Current % PO Negligible Minimum of two criteria No Fluid Accumulation Mild (non-severe) #2 Nutrition Diagnosis Inadequate energy intake Etiology Peripheral vascular disease As Evidenced by Signs and Symptoms pt reports consuming 0% of meals x 3 days #1 Nutrition Diagnosis Food and nutrition-related knowledge deficit Etiology DM and high blood pressure As Evidenced by Signs and Symptoms A1c 8.2%, BP 171/93, no previous diet education Is patient on ventilator? No Is Patient Ambulatory and/or Out of Bed No REE-([facility]-confined to bed) 2556.312 Kcal/Kg value to use for calculation 14 Approximate Energy Requirements Using 1778 kcal/Kg Calculation Used for Recommendations Kcal/kg Additional Notes PRO needs: 82-103g (0.8-1g/kg AdBW 103kg) Fluid needs: 1 mL/kcal or per MD Nutrition Intervention Change Diet Order: Continue diet as ordered Add Supplement/Snack (indicate name/kcal Glucerna daily /protein ) Provides kCal: 220 Provides Protein (gm) 10 Teaching Recipient Patient Learning Readiness Good Teaching Methods Discussion,Handout Response to Teaching Verbalize understanding Education Handouts Provided CHO Counting for People with Diabetes, Heart Healthy Low- Sodium Diet Barriers to Learning No Barriers RD phone number provided Yes Patient aware of follow up options Yes Goal #1 Meet at least 75% of estimated energy and protein needs via diet and ONS Goal #2 BP control Goal #3 Glycemic control Anticipated Discharge Needs: Cardiac/Consistent CHO Follow-Up By: 09/22/20 Additional Comments Follow up for intakes and ONS tolerance
[2020-09-22] MEDS: APIXABAN 2.5 MG TAB PO SCH (09:15)
[2020-09-22] MEDS: INSULIN REGULAR, HUMAN 100 UNITS/1 ML SUB-Q SCH ×2 (09:15→13:34)
[2020-09-22] MEDS: CLOPIDOGREL 75 MG TAB PO SCH (09:16)
--- NOTE | 2020-09-22 11:16 | Progress Note ---
Assessment and Plan Status post coverage of right superficial femoral artery pseudoaneurysm. The patient is doing well and is clinically ready for discharge from a vascular surgery standpoint when he is medically cleared. Subjective Date of service: 09/22/20 Principal diagnosis: Right leg pseudoaneurysm, hypotension Interval history: Patient states his right leg feels good. He has some neuropathic pain in his right foot however this is not new. He has no additional complaints. Objective - Constitutional Vitals: Vital Signs - 12hr 09/21/20 09/22/20 09/22/20 23:41 05:55 06:31 Temperature 97.8 F 98.3 F Pulse Rate 97 H 87 76 Respiratory 18 20 Rate Blood Pressure 144/73 172/83 Blood Pressure 137/74 [Right] O2 Sat by Pulse 93 94 Oximetry General appearance: Present: no acute distress - Neck Neck: supple - Breasts Breasts: deferred - Cardiovascular Rhythm: regular Extremities: pulses intact (Bilateral pedal pulses are palpable) Extremity abnormal: edema (Edema of right lower extremity is improved), other (Palpable mass in right thigh is nonpulsatile) - Gastrointestinal General gastrointestinal: Present: soft, non-tender, non-distended - Genitourinary Male genitourinary: deferred - Labs CBC & Chem 7: 09/22/20 05:28 09/22/20 05:28 Labs: Abnormal lab results 09/21/20 09/21/20 09/21/20 Range/Units 11:15 16:35 21:32 RBC (3.65-5.03) M/mm3 Hgb (11.8-15.2) gm/dl Hct (35.5-45.6) % MCV (84-94) fl [place] % (Auto) (0.0-7.3) % Lymph # (Auto) (1.2-5.4) K/mm3 Seg Neutrophils % (40.0-70.0) % BUN (9-20) mg/dL Glucose (75-100) mg/dL POC Glucose 177 H 166 H 190 H (70-105) mg/dL 09/22/20 09/22/20 09/22/20 Range/Units 05:28 05:28 07:30 RBC 3.05 L (3.65-5.03) M/mm3 Hgb 8.5 L (11.8-15.2) gm/dl Hct 25.3 L (35.5-45.6) % MCV 83 L (84-94) fl [place] % (Auto) 7.7 H (0.0-7.3) % Lymph # (Auto) 1.1 L (1.2-5.4) K/mm3 Seg Neutrophils % 73.2 H (40.0-70.0) % BUN 21 H (9-20) mg/dL Glucose 149 H (75-100) mg/dL POC Glucose 158 H (70-105) mg/dL Medications & Allergies - Medications Allergies/Adverse Reactions: Allergies shellfish derived Allergy (Verified 09/19/20 21:12) Hives Home Medications: Home Medications Medication Instructions Recorded Confirmed Last Taken Type ALBUTEROL NEB's [Proventil 0.083% 2.5 mg IH Q4HRT PRN #2 nebu 07/31/20 09/19/20 Unknown Rx NEBS] Apixaban [Eliquis] 5 mg PO Q12HR #60 tablet 07/31/20 09/19/20 Unknown Rx Docusate Sodium [Colace CAP] 100 mg PO BID PRN #60 capsule 07/31/20 09/19/20 Unknown Rx Insulin NPH/Regular [NovoLIN 70/30] 38 unit SUB-Q QDDIAB #3 vial 07/31/20 09/19/20 Unknown Rx Potassium Chloride [K-Dur] 10 meq PO QDAY #30 tablet 07/31/20 09/19/20 Unknown Rx ceFAZolin/NS 2 GM/100 ML [Ancef/Ns 2 gm IV Q6HR 22 Days #88 piggyback 07/31/20 09/19/20 Unknown Rx 2 gm/100 ml] hydroCHLOROthiazide [HCTZ] 25 mg PO QDAY #30 capsule 07/31/20 09/19/20 Unknown Rx Active Medications: Generic Name Dose Route Start Last Admin Trade Name Freq PRN Reason Stop Dose Admin Acetaminophen 650 mg 09/19/20 22:46 Acetaminophen 325 Mg Tab PO Q4H PRN Pain MILD(1-3)/Fever >100.5/CARIAS Hydrocodone Bitart/Acetaminophen 1 each 09/20/20 10:17 09/20/20 11:45 Hydrocodone/Acetaminophen 5-325 Mg Tab PO 1 each Q4H PRN Administration Pain, Moderate (4-6) Apixaban 2.5 mg 09/20/20 12:00 09/22/20 09:15 Apixaban 2.5 Mg Tab PO 2.5 mg Q12HR LACHELLE Administration Protocol Clopidogrel Bisulfate 75 mg 09/20/20 12:00 09/22/20 09:16 Clopidogrel 75 Mg Tab PO 75 mg QDAY LACHELLE Administration Dextrose 50 ml 09/19/20 22:46 Dextrose 50% In Water (25gm) 50 Ml Syringe IV Q30MIN PRN Hypoglycemia Protocol Sodium Chloride 1,000 mls @ 75 mls/hr 09/19/20 23:00 09/22/20 05:58 Nacl 0.9% 1000 Ml IV 75 mls/hr DIRECT LACHELLE Administration Insulin Human Regular 0 units 09/20/20 07:30 09/22/20 09:15 Insulin Regular, Human 100 Units/1 Ml SUB-Q 2 units ACHS LACHELLE Administration Protocol Magnesium Hydroxide 30 ml 09/19/20 22:46 Magnesium Hydroxide (Mom) Oral Liqd Udc PO Q4H PRN Constipation Morphine Sulfate 2 mg 09/19/20 22:46 09/20/20 00:32 Morphine 2 Mg/1 Ml Inj IV 2 mg Q4H PRN Administration Pain, Moderate (4-6) Ondansetron HCl 4 mg 09/19/20 22:46 Ondansetron 4 Mg/2 Ml Inj IV Q8H PRN Nausea And Vomiting Sodium Chloride 10 ml 09/20/20 10:00 09/22/20 09:16 Sodium Chloride 0.9% 10 Ml Flush Syringe IV 10 ml BID LACHELLE Administration Sodium Chloride 10 ml 09/19/20 22:46 Sodium Chloride 0.9% 10 Ml Flush Syringe IV PRN PRN LINE FLUSH HEART Score - HEART Score Troponin: Troponin T < 0.010 ng/mL (0.00-0.029) 09/19/20 18:09
--- NOTE | 2020-09-22 11:37 | Discharge Summary ---
Providers - Providers Date of Admission: 09/21/20 12:49 Date of discharge: 09/22/20 Attending physician: MICHEL BENTON 09/19/20 20:38 Consult to Physician [CONS] Routine Comment: Dr. Adame spoke with Dr. Morales @ 2032 Consulting Provider: JOY MORALES Physician Instructions: Reason For Exam: PVD, concern for pseudoaneurysm 09/19/20 22:47 Consult to Dietitian/Nutrition [CONS] Routine Physician Instructions: Reason For Exam: Reason for Consult: Diet education Primary care physician: PALLAVI ROB Hospitalization Condition: Fair Hospital course: The patient is a 54-year-old male with known history of peripheral vascular disease, diabetes mellitus, diabetic foot ulcer and GERD presented to the emergency room via EMS from [facility] complaining of right thigh pain, near syncope with hypotension. The pt. underwent endovascular intervention to revascularize his right SFA and popliteal artery. He developed a pseudoaneurysm of the right SFA and initially had this treated with stent graft ligament. He presented to vascular surgery clinic with complaints of right leg pain and swelling and was found to have an additional pseudoaneurysm that developed. The patient was admitted with diagnosis of peripheral vascular disease, orthostatic hypotension, diabetes mellitus type 2 and pseudoaneurysm. Discharge diagnosis same. Daily Hospital course: 09/20/2020. Patient's hypotension has resolved. Patient is status post revascularization procedure this morning. We will follow-up per vascular surgery recommendations. 09/21/2020. Patient is s/p revascularization yesterday with vascular surgery. Continue supportive care. Accu-Cheks and sliding scale insulin. PT/OT evaluation. 09/22/2020. Patient appears to have no further orthostatic hypotension. Etiology appears to be secondary to dehydration. Patient had significant improvement with IV fluids and anticipate discharge in today if okay with vascular surgery. CT scan of the abdomen pelvis was unremarkable for any compression of his veins resulting in decreased venous return. Orthostatic vital signs were obtained and patient was found to be normotensive. Therefore, patient is felt to have received maximal hospital benefit and will be discharged home. Dedicated discharge time 35 minutes. Disposition: - TO HOME OR SELFCARE Final Discharge Diagnosis (Prints w/discharge instructions): Orthostatic hypotension, diabetes mellitus type 2, peripheral vascular disease Core Measure Documentation - Palliative Care Palliative Care/ Comfort Measures: Not Applicable - Core Measures Any of the following diagnoses?: none Exam - Constitutional Vitals: Temp Pulse Resp BP Pulse Ox 98.3 F 76 20 137/74 94 09/22/20 05:55 09/22/20 06:31 09/22/20 05:55 09/22/20 06:31 09/22/20 05:55 General appearance: Present: no acute distress, well-nourished - EENT Eyes: Present: PERRL ENT: hearing intact, clear oral mucosa - Neck Neck: Present: supple, normal ROM - Respiratory Respiratory effort: normal Respiratory: bilateral: CTA - Cardiovascular Heart Sounds: Present: S1 & S2. Absent: rub, click - Extremities Extremities: pulses symmetrical, No edema Peripheral Pulses: within normal limits - Abdominal General gastrointestinal: Present: soft, non-tender, non-distended, normal bowel sounds Male genitourinary: Present: normal - Integumentary Integumentary: Present: clear, warm, dry - Musculoskeletal Musculoskeletal: gait normal, strength equal bilaterally - Psychiatric Psychiatric: appropriate mood/affect, intact judgment & insight - Neurologic Neurologic: CNII-XII intact, moves all extremities Plan Activity: advance as tolerated Weight Bearing Status: Weight Bear as Tolerated Diet: diabetic Follow up with: PALLAVI ROB MD [Primary Care Provider] - 7 Days TAMEKA GARDUNO MD [Staff Physician] - 7 Days Prescriptions: Apixaban [Eliquis] 2.5 mg PO BID #60 tablet HYDROcodone/APAP 5-325 [[place] 5-325 mg TAB] 1 each PO Q4H PRN #10 tablet PRN Reason: Pain, Moderate (4-6) Clopidogrel [Plavix] 75 mg PO QDAY #90 tablet
== END 2020-09-22 15:25 | disposition home or self-care (01) | DRG 254 ==
LOC: ED 17:10 → 3A 22:12 → OBSVTOIN 22:12 → INTOOBSV 09-21 12:49 → OBSVTOIN 09-21 12:49
PROVIDERS: ADMIT Internal Medicine Geriatric Medicine; ATTEND Hospitalist
PROC: B54CZZA Ultrasonography of Left Lower Extremity Veins, Guidance (ICD-10-PCS; principal; 2020-09-20)
PROC: 047L3DZ Dilation of Left Femoral Artery with Intraluminal Device, Percutaneous Approach (ICD-10-PCS; 2020-09-20)
PROC: 04LL3DZ Occlusion of Left Femoral Artery with Intraluminal Device, Percutaneous Approach (ICD-10-PCS; 2020-09-20)
PROC: 047P3ZZ Dilation of Right Anterior Tibial Artery, Percutaneous Approach (ICD-10-PCS; 2020-09-20)
PROC: B44LZZZ Ultrasonography of Femoral Artery (ICD-10-PCS; 2020-09-20)
PROC: B41G1ZZ Fluoroscopy of Left Lower Extremity Arteries using Low Osmolar Contrast (ICD-10-PCS; 2020-09-20)
DX: E11.51 Type 2 diabetes mellitus with diabetic peripheral angiopathy without gangrene (principal); K21.9 Gastro-esophageal reflux disease without esophagitis; I72.4 Aneurysm of artery of lower extremity; I95.1 Orthostatic hypotension; E86.0 Dehydration; Z90.49 Acquired absence of other specified parts of digestive tract; Z91.013 Allergy to seafood; Z79.899 Other long term (current) drug therapy; Z79.4 Long term (current) use of insulin
CPT/HCPCS: 36415; 37226; 37228; 37242; 74177; 75710; 76937; 80048; 80053; 82962; 83036; 84443; 84484; 85025; 85610; 93005; 93880; 96374; 96376; G0378; C1725; C1760; C1769; C1874; C1887; J1200; J1644; J1815; J2250; J2270; J2930; J3010; J7030; Q9967

== ENCOUNTER 2021-12-07 10:58 | Outpatient (CLI) | payer OTHER ==
--- NOTE | 2021-12-07 15:12 | XRay Report ---
RIGHT KNEE 2 VIEW(S) INDICATION / CLINICAL INFORMATION: Z02.71 DISABILITY DETERMINATION COMPARISON: None available. FINDINGS: BONES / JOINT(S): No acute fracture or subluxation. Mild tricompartment DJD SOFT TISSUES: No significant abnormality. ADDITIONAL FINDINGS: None. Signer Name: Randolph Smiley DO Signed: 12/07/2021 3:07 PM Workstation Name: [id number]
--- NOTE | 2021-12-07 15:13 | XRay Report ---
PELVIS 4 VIEW(S) INDICATION / CLINICAL INFORMATION: Z02.71 DISABILITY DETERMINATION COMPARISON: None available. FINDINGS: BONES / JOINT(S): No acute fracture or subluxation. Mild DJD of the bilateral hips. SOFT TISSUES: No significant abnormality. ADDITIONAL FINDINGS: Vascular stent. Signer Name: Randolph Smiley DO Signed: 12/07/2021 3:09 PM Workstation Name: [id number]
--- NOTE | 2021-12-07 15:14 | XRay Report ---
CHEST 2 VIEWS INDICATION / CLINICAL INFORMATION: Z02.71 DISABILITY DETERMINATION. COMPARISON: 07/17/2020 FINDINGS: SUPPORT DEVICES: None. HEART / MEDIASTINUM: No significant abnormality. LUNGS / PLEURA: No significant pulmonary or pleural abnormality. No pneumothorax. ADDITIONAL FINDINGS: No significant additional findings. IMPRESSION: 1. No acute findings. Signer Name: Randolph Smiley DO Signed: 12/07/2021 3:09 PM Workstation Name: [id number]
== END 2021-12-07 10:59 | disposition home or self-care (01) ==
LOC: XRAY 10:58
PROVIDERS: ATTEND Internal Medicine
DX: M16.0 Bilateral primary osteoarthritis of hip (principal); M17.11 Unilateral primary osteoarthritis, right knee; Z02.71 Encounter for disability determination
CPT/HCPCS: 71046; 72190